=== PATIENT | male | born 1970 | race Caucasian/White ===

== ENCOUNTER → 2020-09-24 09:57 | Outpatient (BNVA) | payer OTHER, SELFPAY | PROVIDERS: Visit Provider Orthopaedic Surgery ==

== ENCOUNTER 2020-11-11 13:19 | Outpatient (REF) | payer OTHER, SELFPAY ==
--- NOTE | ~2020-11-11 | FL_ITS ---
EXAMINATION: XR ARTHROGRAM HIP, LEFT CLINICAL INFORMATION: Left hip primary osteoarthritis. COMPARISON: None TECHNIQUE: Following explaining fluoroscopy-guided left hip steroid injection procedure, benefits and risk, a written consent was obtained. Patient was placed supine on fluoroscopy table and anterior aspect of left hip was cleaned and draped in usual sterile manner. 1% lidocaine was injected at puncture site. A 22-gauge spinal needle was then inserted from the skin site into the left hip joint along the lateral femoral head and neck junction and 2 mL of nonionic contrast was injected. A single image was obtained. Subsequently 4 mL of 1% lidocaine, 4 mL of 0.25% Sensorcaine and 80 mg of Depo-Medrol was injected and needle withdrawn. Complete hemostasis achieved at puncture site. Simple Band-Aid applied at puncture site. Patient tolerated procedure extremely well. FINDINGS: There are no fractures or dislocations. There is loss of left hip joint space with slight irregularity along the lateral acetabulum. No joint effusion is identified. No bone, joint or soft tissue abnormality is demonstrated. Successful fluoroscopy-guided left hip steroid injection performed. FLUOROSCOPY TIME: 1.1 minute DOSE AREA PRODUCT: 8.228 uGy-m2 (microgray-meter squared) FL/FL arthrogram hip LT IMPRESSION: Successful fluoroscopy-guided left hip steroid injection performed.
== END 2020-11-11 13:20 | disposition home or self-care (01) ==
LOC: HO.XRAY 13:19
PROVIDERS: PCP Internal Medicine; Visit Provider Orthopaedic Surgery
DX: M16.12 Unilateral primary osteoarthritis, left hip (principal); M87.052 Idiopathic aseptic necrosis of left femur
CPT/HCPCS: 27093; 73525

== ENCOUNTER 2020-11-18 13:07 | Outpatient (REF) | payer OTHER, SELFPAY ==
--- NOTE | ~2020-11-18 | FL_ITS ---
EXAMINATION: XR ARTHROGRAM HIP, RIGHT CLINICAL INFORMATION: Right hip pain. Osteoarthritis. COMPARISON: 05/16/2019 TECHNIQUE: Fluoroscopic-guided right hip intra-articular injection. FINDINGS: Informed consent was obtained from the patient prior to the procedure. During this process, the procedure and potential alternatives were explained, along with the intended outcome and benefits. The risks of the procedure, as well as the risk of not doing the procedure, were discussed. The patient was given the opportunity to ask questions regarding the procedure and appeared competent to make medical decisions. A signed consent form which documents this discussion was placed in the medical record. Using sterile technique and fluoroscopic guidance, a 22-gauge spinal needle was directed down onto the neck of the right femur. A small amount of contrast was injected demonstrating intra-articular positioning of the needle. Following this, a combination of 3 mL of 1% lidocaine with epinephrine as well as 3 mL of Marcaine and 80 mg of Depo-Medrol were instilled into the right hip joint space without difficulty. FLUOROSCOPY TIME: 0.3 minutes DOSE AREA PRODUCT: 1.412 Gy-cm2 (rubio-centimeter squared) FL/FL arthrogram hip RT IMPRESSION: Right hip fluoroscopic-guided intra-articular steroid injection, as described.
== END 2020-11-18 13:08 | disposition home or self-care (01) ==
LOC: HO.XRAY 13:07
PROVIDERS: PCP Internal Medicine; Visit Provider Orthopaedic Surgery
DX: M16.11 Unilateral primary osteoarthritis, right hip (principal)
CPT/HCPCS: 20610; 27093; 73525; 77002

== ENCOUNTER 2021-03-24 08:32 | Outpatient (REF) | payer OTHER, SELFPAY ==
--- NOTE | ~2021-03-24 | XR_ITS ---
EXAMINATION: XR PELVIS CLINICAL INFORMATION: Pain COMPARISON: Frontal view of the pelvis 05/16/20 TECHNIQUE: AP view of the pelvis. FINDINGS: There is deformity of the right femoral head with collapse and subchondral lucency. There is narrowing of the femoral acetabular joint superolaterally. There may be some tiny subchondral lucencies in the lateral aspect of the acetabulum. There is some osteopenia. There is deformity of the articular surface of the left femoral head with subcollapse. There is relative preservation of the acetabulum with narrowing of the femoral acetabular joint. Developmentally bifid L5 spinous process. In comparison with 07/11/19 there has been interval worsening. In comparison with 05/16/20 I suspect interval worsening with some interval joint space loss. Surgical clips suggest previous vasectomy. XR/XR pelvis 1-2V IMPRESSION: Deformity of the articular surface of the femoral heads right greater than left with subchondral lucency and collapse. Pattern is felt most consistent with osteonecrosis. Suspect some developing secondary arthritic changes
== END 2021-03-24 08:33 | disposition home or self-care (01) ==
LOC: HO.HOSX 08:32
PROVIDERS: Visit Provider Orthopaedic Surgery
DX: M87.052 Idiopathic aseptic necrosis of left femur (principal); M87.051 Idiopathic aseptic necrosis of right femur; M16.0 Bilateral primary osteoarthritis of hip; M25.552 Pain in left hip; M25.551 Pain in right hip; E11.9 Type 2 diabetes mellitus without complications; I10 Essential (primary) hypertension; F41.8 Other specified anxiety disorders; Z88.1 Allergy status to other antibiotic agents; Z88.8 Allergy status to other drugs, medicaments and biological substances
CPT/HCPCS: 72170

== ENCOUNTER → 2021-05-08 11:05 | Outpatient (BNVA) | payer OTHER, SELFPAY | PROVIDERS: Visit Provider Physician Assistant ==

== ENCOUNTER 2021-05-14 06:38 | Inpatient (IN) | payer OTHER, SELFPAY ==
--- NOTE | 2021-04-30 | ECG_ITS ---
Test Reason : preop Blood Pressure : / mmHG Vent. Rate : 077 BPM Atrial Rate : 077 BPM P-R Int : 162 ms QRS Dur : 094 ms QT Int : 380 ms P-R-T Axes : 038 025 006 degrees QTc Int : 430 ms Sinus rhythm with marked sinus arrhythmia Otherwise normal ECG No previous ECGs available Referred By: Radha Guevara Electronically Signed By:Nnamdi Salguero
[2021-04-30 11:48] VITALS: BP 128/76; PULSE 79; RESP 16; O2SAT 97; BMI 41.1
--- NOTE | 2021-04-30 12:13 | HO.ANESPROP2 ---
Documented by User: Ernestina Arnold NP 05/01/21 16:02 HPI - Anesthesia Eval Consult details Narrative: 51yo M for Right Hip Total Replacement PCP cleared [facility] Active Problems Active Problems: All Active Problems (Updated 04/30/21 @ 12:07 by Lea Gutierrez RN) Avascular necrosis of bone of left hip (Acute) Avascular necrosis of bone of right hip (Acute) Past Medical History Medical History (Updated 05/01/21 @ 15:51 by Lea Gutierrez RN) Anxiety COPD (chronic obstructive pulmonary disease) Depression History of De La Rosa's esophagus History of pneumonia Hypertension OSMIN on CPAP Prediabetes Uses wheelchair Family History Family history of problems with anesthesia: No Surgical History Surgical History (Updated 04/30/21 @ 12:05 by Lea Gutierrez RN) History of esophagogastroduodenoscopy (EGD) History of lung biopsy Hx of colonoscopy Hx of elbow surgery History of Problems with Anesthesia: No Social History Social History (Updated 09/24/20 @ 10:20 by Candace Cedeno CMA) Are you a primary youth career specialist to a significant other at home: No Do you presently have visiting nurse or other home services: No Patient Tobacco Use Status: Former Tobacco user Quit Date: 1999 Tobacco use type: Cigarette Use of substances other than those prescribed or required for medical reasons: No Have you been hit, kicked, punched, or otherwise hurt by someone within the past year? If so, by whom?: No Spiritual Healthcare Practices: none Presybeterian Healthcare Practices: none Cultural Healthcare Practices: none Are you DNR?: No Advance Directives: No Advance Directives Information Provided: Yes Advance Directives on File: No Recently lost weight without trying: No Nutrition Risks: No Nutritional Risk Poor oral hygiene: No Current occupational status: disabled Narrative Narrative: No recent illness. Very limited activity, mostly WC bound d/t hip pain. No CP or SOB at rest Meds Allergies Allergy/AdvReac Type Severity Reaction Status Date / Time doxycycline Allergy rash Verified 04/30/21 11:48 paroxetine [From Paxil] AdvReac Severe Suicidal Verified 04/30/21 11:48 thoughts Home Medications Medication Instructions Recorded Confirmed Last Taken Type hydroxyzine HCl 25 mg tablet 25 mg PO BID PRN 09/24/20 04/30/21 Unknown History metformin 500 mg tablet 1,000 mg PO BID tab 09/24/20 04/30/21 Unknown History pantoprazole 40 mg tablet,delayed 40 mg PO DAILY 09/24/20 04/30/21 Unknown History release trazodone 100 mg tablet 100 mg PO BEDTIME PRN 03/24/21 04/30/21 Unknown History venlafaxine 75 mg capsule,extended 1 cap PO DAILY 04/30/21 04/30/21 Unknown History release 24 hr albuterol sulfate mg INHALATION 05/01/21 05/01/21 Unknown History albuterol sulfate 90 mcg/actuation INHALATION 05/01/21 05/01/21 Unknown History aerosol inhaler Exam Exam Date and Time: April 30, 2021 1213 Height,Weight and Vital Signs: Height 5 ft 9 in Weight 126.3 kg Last Vital Signs Pulse 79 04/30/21 11:48 Resp 16 04/30/21 11:48 BP 128/76 04/30/21 11:48 Pulse Ox 97 04/30/21 11:48 Pertinent Lab Results Pertinent Lab Results: Lab Results 04/30/21 04/30/21 04/30/21 Range/Units 12:30 13:00 13:04 WBC 7.8 (4.8-10.8) X10*3/uL RBC 5.03 (4.60-5.80) X10*6/uL Hgb 15.8 (14.0-18.0) g/dl Hct 46.0 (42.0-52.0) % MCV 91.5 (80.0-98.0) fL MCH 31.4 (27.0-33.0) pg MCHC 34.3 (31.0-36.0) g/dl RDW 12.6 (11.0-16.0) % Plt Count 261 (160-400) X10*3/uL MPV 10.8 (9.4-12.4) fL Immature Gran % (Auto) 0.3 (0.0-0.4) % Neut % (Auto) 51.1 (45-73) % Lymph % (Auto) 30.1 (20-40) % Anderson % (Auto) 7.4 (2-11) % Eos % (Auto) 10.1 H (0-4) % Baso % (Auto) 1.0 (0-2) % Lymph # (Auto) 2.4 (1.2-4.9) X10*3/uL Anderson # (Auto) 0.6 (0.1-1.2) X10*3/uL Eos # (Auto) 0.8 H (0.0-0.4) X10*3/uL Baso # (Auto) 0.1 (0.0-0.2) X10*3/uL Abs Immat Gran (auto) 0.02 (0.00-0.03) X10*3/uL Absolute Neuts (auto) 4.0 (2.0-8.3) x10*3/uL Absolute Nucleated RBC 0.000 (0.0-0.012) X10*3/uL Nucleated RBC % (auto) 0.0 (0.0-0.2) /100WBC Sodium (135-145) mmol/L Potassium (3.3-5.1) mmol/L Chloride (96-108) mmol/L Carbon Dioxide (22-29) mmol/L Anion Gap (12-20) BUN (9-16) mg/dL Creatinine (0.5-1.4) mg/dL Estim Creat Clear Calc Estimated GFR Estimat Average Glucose mg/dL Hemoglobin A1c % % Nasal Screen MRSA (PCR) NEGATIVE (Negative) Nasal S. aureus Screen NEGATIVE (Negative) Nasal MRSA/S.aureus Interp SEE NOTE Blood Type A Positive Antibody Screen NEGATIVE 04/30/21 04/30/21 Range/Units 13:04 13:04 WBC (4.8-10.8) X10*3/uL RBC (4.60-5.80) X10*6/uL Hgb (14.0-18.0) g/dl Hct (42.0-52.0) % MCV (80.0-98.0) fL MCH (27.0-33.0) pg MCHC (31.0-36.0) g/dl RDW (11.0-16.0) % Plt Count (160-400) X10*3/uL MPV (9.4-12.4) fL Immature Gran % (Auto) (0.0-0.4) % Neut % (Auto) (45-73) % Lymph % (Auto) (20-40) % Anderson % (Auto) (2-11) % Eos % (Auto) (0-4) % Baso % (Auto) (0-2) % Lymph # (Auto) (1.2-4.9) X10*3/uL Anderson # (Auto) (0.1-1.2) X10*3/uL Eos # (Auto) (0.0-0.4) X10*3/uL Baso # (Auto) (0.0-0.2) X10*3/uL Abs Immat Gran (auto) (0.00-0.03) X10*3/uL Absolute Neuts (auto) (2.0-8.3) x10*3/uL Absolute Nucleated RBC (0.0-0.012) X10*3/uL Nucleated RBC % (auto) (0.0-0.2) /100WBC Sodium 141 (135-145) mmol/L Potassium 4.5 (3.3-5.1) mmol/L Chloride 104 (96-108) mmol/L Carbon Dioxide 25 (22-29) mmol/L Anion Gap 17 (12-20) BUN 18 H (9-16) mg/dL Creatinine 1.12 (0.5-1.4) mg/dL Estim Creat Clear Calc 100.2 Estimated GFR > 60 Estimat Average Glucose 100 mg/dL Hemoglobin A1c % 5.1 % Nasal Screen MRSA (PCR) (Negative) Nasal S. aureus Screen (Negative) Nasal MRSA/S.aureus Interp Blood Type Antibody Screen Narrative Narrative: EKG 04/2021 Vent. Rate : 077 BPM ? ? Atrial Rate : 077 BPM ?? P-R Int : 162 ms? QRS Dur : 094 ms ? ? QT Int : 380 ms ? ? ? P-R-T Axes : 038 025 006 degrees ?? QTc Int : 430 ms ? Sinus rhythm with marked sinus arrhythmia Otherwise normal ECG No previous ECGs available Airway Mallampati Class: I TM Dist: >3cm Neck ROM: Full Adult Head Mouth w/Numbe Teeth: 1. Permanent bridge - stable Loose/Missing/Broken Teeth: No Heart: RRR Lungs: CTAB Assessment and Plan Assessment Anesthesia Assessment: Anesthesia Plan Discussed and PAT Visit Final Anesthetic Review Family History of Problems with Anesthesia: No History of Problems with Anesthesia: No Documented by User: Hector Salcido MD 05/14/21 07:22 PMF Past Medical History Medical History (Updated 05/01/21 @ 15:51 by Lea Gutierrez RN) Anxiety COPD (chronic obstructive pulmonary disease) Depression History of De La Rosa's esophagus History of pneumonia Hypertension OSMIN on CPAP Prediabetes Uses wheelchair Surgical History Surgical History (Updated 04/30/21 @ 12:05 by Lea Gutierrez RN) History of esophagogastroduodenoscopy (EGD) History of lung biopsy Hx of colonoscopy Hx of elbow surgery Social History Social History (Updated 09/24/20 @ 10:20 by Candace Cedeno CMA) Are you a primary youth career specialist to a significant other at home: No Do you presently have visiting nurse or other home services: No Patient Tobacco Use Status: Former Tobacco user Quit Date: 1999 Tobacco use type: Cigarette Use of substances other than those prescribed or required for medical reasons: No Have you been hit, kicked, punched, or otherwise hurt by someone within the past year? If so, by whom?: No Spiritual Healthcare Practices: none [employer] Healthcare Practices: none Cultural Healthcare Practices: none Are you DNR?: No Advance Directives: No Advance Directives Information Provided: Yes Advance Directives on File: No Recently lost weight without trying: No Nutrition Risks: No Nutritional Risk Poor oral hygiene: No Current occupational status: disabled Meds Allergies Allergy/AdvReac Type Severity Reaction Status Date / Time doxycycline Allergy rash Verified 04/30/21 11:48 paroxetine [From Paxil] AdvReac Severe Suicidal Verified 04/30/21 11:48 thoughts Home Medications Medication Instructions Recorded Confirmed Last Taken Type hydroxyzine HCl 25 mg tablet 25 mg PO BID PRN 09/24/20 04/30/21 Unknown History metformin 500 mg tablet 1,000 mg PO BID tab 09/24/20 04/30/21 Unknown History pantoprazole 40 mg tablet,delayed 40 mg PO DAILY 09/24/20 04/30/21 Unknown History release trazodone 100 mg tablet 100 mg PO BEDTIME PRN 03/24/21 04/30/21 Unknown History venlafaxine 75 mg capsule,extended 1 cap PO DAILY 04/30/21 04/30/21 Unknown History release 24 hr albuterol sulfate mg INHALATION 05/01/21 05/01/21 Unknown History albuterol sulfate 90 mcg/actuation INHALATION 05/01/21 05/01/21 Unknown History aerosol inhaler Exam Airway Mallampati Class: II Adult Head Mouth w/Numbe Teeth: 1. Permanent bridge - stable Assessment and Plan Final Anesthetic Review NPO: Yes ASA Class: III Final Preanesthetic Review: No Changes in Pt Med Stat, Meds/Allgs Chart Reviewed, Consent Obtained/Reviewed and Anes Risks/Benef Reviewed Patient Risk: High Procedure Risk: Intermediate Anesthetic Plan Anesthetic Plan: GA Disposition: Inp. Admit - Standard Bed
[2021-04-30 13:06] LABS: MANUAL DIFF FLAG NO
[2021-04-30 14:20] LABS: Basophils Absolute Auto 0.1 X10*3/uL (0.0-0.2); Eosinophils Absolute Auto 0.8 X10*3/uL (0.0-0.4); Eosinophils Percent Auto 10.1 % (0-4); Hemoglobin 15.8 g/dl (14.0-18.0); Imm Gran Abs Auto 0.02 X10*3/uL (0.00-0.03); Imm Gran Pct Auto 0.3 % (0.0-0.4); Lymphocytes Absolute Auto 2.4 X10*3/uL (1.2-4.9); Lymphocytes Percent Auto 30.1 % (20-40); Mean Corpuscular HGB Conc 34.3 g/dl (31.0-36.0); Mean Corpuscular Hemoglobin 31.4 pg (27.0-33.0); Mean Corpuscular Volume 91.5 fL (80.0-98.0); Mean Platelet Volume 10.8 fL (9.4-12.4); Monocytes Absolute Auto 0.6 X10*3/uL (0.1-1.2); Monocytes Percent Auto 7.4 % (2-11); Neutrophils Percent Auto 51.1 % (45-73); Platelet Count 261 X10*3/uL (160-400); Red Blood Count 5.03 X10*6/uL (4.60-5.80); Red Cell Distribution Width 12.6 % (11.0-16.0); White Blood Count 7.8 X10*3/uL (4.8-10.8)
[2021-04-30 14:29] LABS: Estimated Average Glucose 100 mg/dL; Hemoglobin A1C 150.7789 umol/L; Hemoglobin A1c % 5.1 %
[2021-04-30 14:44] LABS: Anion Gap 17 (12-20); Blood Urea Nitrogen 18 mg/dL (9-16); Carbon Dioxide 25 mmol/L (22-29); Chloride 104 mmol/L (96-108); Creatinine Clr Calc Pharmacy 100.2; Estimated Glomerular Filt Rate > 60; Potassium 4.5 mmol/L (3.3-5.1); Sodium 141 mmol/L (135-145)
[2021-04-30 15:16] LABS: MRSA Nasal PCR NEGATIVE (Negative); SA Nasal PCR NEGATIVE (Negative)
[2021-05-14] VITALS (25 sets, daily range): BP systolic 89–152; BP diastolic 24–93; PULSE 65–107; RESP 12–24; TEMP 36.1–36.6; O2SAT 92–100
--- NOTE | ~2021-05-14 | XR_ITS ---
EXAMINATION: XR PELVIS AND RIGHT HIP CLINICAL INFORMATION: Status post right total hip. COMPARISON: Radiographs earlier this morning at 11:33 AM. TECHNIQUE: AP view of the pelvis with one additional view right hip. FINDINGS: Right total hip prosthesis is present. The prosthesis appears in good position without evidence of loosening. No acute fractures are seen. Surgical clips are present in the scrotum presumably secondary to vasectomy. XR/XR pelvis 1-2V IMPRESSION: Normal postop appearance right prosthetic hip.
--- NOTE | ~2021-05-14 | XR_ITS ---
EXAMINATION: XR PELVIS CLINICAL INFORMATION: Postop hip replacement COMPARISON: None TECHNIQUE: AP view of the pelvis. FINDINGS: Exam is limited due to patient positioning. There is a new right hip replacement. No fracture or dislocation is seen. There are postoperative changes to the soft tissues. XR/XR pelvis 1-2V IMPRESSION: Satisfactory appearance of right hip replacement.
[2021-05-14 07:05] LABS: COVID-19 Test Negative (Negative); IDNOW Serial# 9DD0AD1C
[2021-05-14] MEDS: oxyCODONE HCl ER 10 MG TAB.ER.12H PO ×2 (07:21→20:09)
--- NOTE | 2021-05-14 07:32 | MHC.SHP ---
Pre-Procedural Eval Section A Date of Service: 05/14/21 The patient is an INPATIENT: No Changes since office visit: Yes Patient answered all questions; No Cold of Flu in the past 2 weeks, No New Medical Problems and No Changes in Medication The History & Physical has been completed within 30 days and I have reviewed it.: Yes Section B Chief Complaint: s/p RTHA Allergies: Allergies Allergy/AdvReac Type Severity Reaction Status Date / Time doxycycline Allergy rash Verified 04/30/21 11:48 paroxetine [From Paxil] AdvReac Severe Suicidal Verified 04/30/21 11:48 thoughts Plan I have reviewed the history and physical and performed a pertinent physical examination on my patient. No changes have occurred unless specified.
[2021-05-14] MEDS: Lactated Ringers 1,000 ML 100 ML IVCONT (07:36)
--- NOTE | 2021-05-14 09:59 | P.BOP_ITS ---
Brief Operative Note Date of Service: 05/14/21 Pre-op diagnosis: right hip AVN Post-op diagnosis: same Procedure: right hip arthroplasty Implants: [place] trident2 #56 with 20 deg liner Bhavna accolade 2 132 deg #7 with + 5 36 ceramic Surgeon: Silviano Reid MD Anesthesia: GETA and local Was an Geothermal Operating Engineer used for this Procedure?: Yes Geothermal Operating Engineer: Radha Guevara Estimated blood loss (mL): 350 IV fluids (mL): 1,000 Pathology: other Condition: stable Disposition: PACU
[2021-05-14] MEDS: oxyCODONE HCl Immed Release 5 MG TABLET 10 MG PO (11:23)
[2021-05-14] MEDS: fentaNYL citrate/PF 100 MCG/2 ML VIAL 50 MCG IVPUSH ×3 (11:24→11:49)
[2021-05-14] MEDS: Sodium Chloride 0.45 % 1,000 ML 80 ML IVCONT (12:27)
[2021-05-14] MEDS: ceFAZolin Sodium/Dextrose,Iso 2 GM/50 ML PIGGYBACK IV (14:19)
[2021-05-14] MEDS: Acetaminophen 325 MG TABLET 650 MG PO ×2 (14:32→21:39)
[2021-05-14] MEDS: HYDROmorphone HCl 0.5 MG/0.5 ML SYRINGE 0.25 MG IVPUSH (15:00)
--- NOTE | 2021-05-14 15:24 | P.CONHOSP_ITS ---
History of Present Illness Data of Consult Service Date: 05/14/21 Requesting physician: Silviano Reid Primary Care Provider: Unknown Physician HPI 51 year old man with hx of avascular necrosis, diabetes and anxiety. He was admitted for scheduled ERROL. He was medicated for pain several times in the pacu. He denied nausea or vomiting. He is comfortable at this time. Review of Systems Verdana 4l Review of Systems: Verdana 4d Verdana 4d Denies any recent fever chills or decrease in appetite respiratory denies any shortness of breath coverage production cardiovascular denied chest pain gastrointestinal denies any dysphagia abdominal pain nausea vomiting or diarrhea genitourinarygenitourinary denies any dysuria frequency or hematuria musculoskeletal s/p ERROL neuropsych denies any weakness or seizures all other systems reviewed are negative [facility] Medical History (Updated 05/14/21 @ 15:51 by Mavis Ferreira NP) Anxiety COPD (chronic obstructive pulmonary disease) Depression History of De La Rosa's esophagus History of pneumonia Hypertension OSMIN on CPAP Prediabetes Uses wheelchair Surgical History History of esophagogastroduodenoscopy (EGD) History of lung biopsy Hx of colonoscopy Hx of elbow surgery Social History (Updated 09/24/20 @ 10:20 by Candace Cedeno CMA) Are you a primary care manager to a significant other at home: No Do you presently have visiting nurse or other home services: No Patient Tobacco Use Status: Former Tobacco user Quit Date: 1999 Tobacco use type: Cigarette Use of substances other than those prescribed or required for medical reasons: No Have you been hit, kicked, punched, or otherwise hurt by someone within the past year? If so, by whom?: No Spiritual Healthcare Practices: none Rastafari Healthcare Practices: none Cultural Healthcare Practices: none Are you DNR?: No Advance Directives: No Advance Directives Information Provided: Yes Advance Directives on File: No Recently lost weight without trying: No Nutrition Risks: No Nutritional Risk Poor oral hygiene: No Current occupational status: disabled Meds Allergies Allergy/AdvReac Type Severity Reaction Status Date / Time doxycycline Allergy rash Verified 05/14/21 07:38 paroxetine [From Paxil] AdvReac Severe Suicidal Verified 05/14/21 07:38 thoughts Active Medications: Current Medications Acetaminophen (Acetaminophen 325 Mg Tablet) 650 mg PO Q6H PRN PRN Reason: Pain, Mild (Pain Scale 1-3) Last Admin: 05/14/21 14:32 Dose: 650 mg Documented by: Celecoxib (Celecoxib 200 Mg Capsule) 200 mg PO BID [facility] Dextrose (Dextrose 50 % 25 Gm/50 Ml Syringe) 25 gm IVPUSH Q15M PRN; Protocol PRN Reason: per Hypoglycemia Standing Ord. Docusate Sodium (Docusate Sodium 100 Mg Capsule) 100 mg PO BID [facility] Glucose (Glucose Gel 15 Gm Gel..Gram.) 15 gm PO Q15M PRN; Protocol PRN Reason: per Hypoglycemia Standing Ord. Hydromorphone HCl (Hydromorphone Hcl 0.5 Mg/0.5 Ml Syringe) 0.25 mg IVPUSH Q4H PRN; Protocol PRN Reason: Pain, Severe (Pain Scale 7-10) Last Admin: 05/14/21 15:00 Dose: 0.25 mg Documented by: Sodium Chloride () 1,000 mls @ 80 mls/hr IVCONT .[id number] [facility] Last Admin: 05/14/21 12:27 Dose: 80 mls/hr Documented by: Insulin Human Lispro (Insulin Lispro 100 Unit/Ml 3 Ml Vial) 0 unit SUBCUT QIDACHS [facility]; Protocol Ondansetron HCl (Ondansetron Hcl 4 Mg/2 Ml Vial) 4 mg IVPUSH Q8H PRN PRN Reason: Nausea and Vomiting Oxycodone HCl (Oxycodone Hcl Immed Release 5 Mg Tablet) 5 mg PO Q4H PRN PRN Reason: Pain, Moderate (Pain Scale 4-6 Oxycodone HCl (Oxycodone Hcl Er 10 Mg Tab.Er.12h) 10 mg PO BID [facility] Sodium Chloride (0.9 % Sodium Chloride Flush 3 Ml Syringe) 3 ml IVFLUSH QSHIFT [facility] Home Medications Medication Instructions Recorded Confirmed Last Taken Type hydroxyzine HCl 25 mg PO BID 09/24/20 04/30/21 Unknown History 25 mg tablet PRN metformin 500 1,000 mg PO BID 09/24/20 04/30/21 Unknown History mg tablet tab pantoprazole 40 40 mg PO DAILY 09/24/20 04/30/21 05/14/21 04:45 History mg tablet,delayed release trazodone 100 100 mg PO 03/24/21 04/30/21 Unknown History mg tablet BEDTIME PRN venlafaxine 75 1 cap PO DAILY 04/30/21 04/30/21 05/14/21 04:45 History mg capsule,extende d release 24 hr albuterol mg INHALATION 05/01/21 05/01/21 Unknown History sulfate albuterol INHALATION 05/01/21 05/01/21 Unknown History sulfate 90 mcg/actuation aerosol inhaler Physical Exam Verdana 4l Vital Signs and Narrative: Verdana 4d Verdana 4d Vital Signs: Verdana 4d Verdana 4Bd Last Vital Signs Verdana 4d Bell Person New 4d Bell Person New 4d Temp 97.1 F 05/14/21 15:00 Bell Person New 4d Pulse 92 05/14/21 15:10 Bell Person New 4d Resp 16 05/14/21 15:10 BP 112/42 L 05/14/21 15:10 Pulse Ox 100 05/14/21 15:10 BMI result Body Mass Index 41.1 Appearing in no acute distress head is normocephalic atraumatic eyes pupils are PERRLA sclera is anicteric mouth throat mucous membranes are intact and moist neck is supple no lymphadenopathy, no JVD noted lung sounds are clear to auscultation heart regular rate rhythm, clear S1, S2 positive bowel sounds, abdomen is soft, nontender neuro patient is alert x3, no focal deficits Results Labs CBC and Chem 7: 04/30/21 13:04 04/30/21 13:04 Labs: Laboratory Results - last 24 hr 05/14/21 06:40 COVID-19 ([facility]) Negative COVID-19 Clin Com See Note Imaging Radiologist's Impressions: Impressions Pelvis X-Ray 05/14/21 11:46 IMPRESSION: Satisfactory appearance of right hip replacement. Assessment and Plan (1) Avascular necrosis of bone of left hip: Status: Acute (2) Diabetes mellitus: Status: Acute Plan 51 year old man admitted by orthopedic surgery and is s/p ERROL ERROL management as per surgical team pain management Diabetes Sliding scale ada diet hold metformin Mental health continue home medications COPD no exacerbation albuterol as needed DVT prophylaxis as per surgical team Attending Dr. Phillips Full code
[2021-05-14 16:09] LABS: Glucose, Whole Blood 148 mg/dL (60-115)
--- NOTE | 2021-05-14 16:12 | MHC.CM.PN ---
SNF REFERRALS PLACED IN [facility] CASE MANAGEMENT TO COMPLETE ASSESSMENT ON WEDNESDAY. WILL NEED COVID INFORMATION AND COMPLETION OF HCP DOCUMENT. CASE MANAGEMENT FOLLOWING
[2021-05-14] MEDS: oxyCODONE HCl Immed Release 5 MG TABLET PO ×2 (16:29→21:40)
[2021-05-14] MEDS: HYDROmorphone HCl 1 MG/ML SYRINGE 0.25 MG IVPUSH (20:08)
[2021-05-14] MEDS: Celecoxib 200 MG CAPSULE PO (20:09)
[2021-05-14] MEDS: Docusate Sodium 100 MG CAPSULE PO (20:09)
[2021-05-14] MEDS: 0.9 % Sodium Chloride Flush 3 ML SYRINGE IVFLUSH (20:10)
[2021-05-14] MEDS: traZODone HCL 100 MG TABLET PO (20:10)
[2021-05-14 20:45] LABS: Glucose, Whole Blood 143 mg/dL (60-115)
[2021-05-15] MEDS: Sodium Chloride 0.45 % 1,000 ML 80 ML IVCONT (00:05)
[2021-05-15] MEDS: HYDROmorphone HCl 1 MG/ML SYRINGE 0.25 MG IVPUSH ×7 (00:05→20:47)
[2021-05-15] MEDS: oxyCODONE HCl Immed Release 5 MG TABLET 10 MG PO ×6 (01:42→23:42)
[2021-05-15 03:17] VITALS: BP 119/77; PULSE 75; RESP 18; TEMP 36.6; O2SAT 98
[2021-05-15] MEDS: Acetaminophen 325 MG TABLET 650 MG PO ×2 (05:49→19:32)
[2021-05-15] MEDS: Omeprazole 20 MG CAPSULE.DR PO (05:50)
[2021-05-15 06:08] LABS: MANUAL DIFF FLAG NO
[2021-05-15 06:15] LABS: Basophils Percent Auto 0.2 % (0-2); Eosinophils Absolute Auto 0.1 X10*3/uL (0.0-0.4); Eosinophils Percent Auto 0.7 % (0-4); Hemoglobin 11.7 g/dl (14.0-18.0); Imm Gran Abs Auto 0.05 X10*3/uL (0.00-0.03); Imm Gran Pct Auto 0.5 % (0.0-0.4); Lymphocytes Absolute Auto 1.9 X10*3/uL (1.2-4.9); Lymphocytes Percent Auto 17.6 % (20-40); Mean Corpuscular HGB Conc 33.4 g/dl (31.0-36.0); Mean Corpuscular Hemoglobin 31.1 pg (27.0-33.0); Mean Corpuscular Volume 93.1 fL (80.0-98.0); Mean Platelet Volume 10.7 fL (9.4-12.4); Monocytes Absolute Auto 1.2 X10*3/uL (0.1-1.2); Monocytes Percent Auto 11.5 % (2-11); Neutrophils Absolute Auto 7.4 x10*3/uL (2.0-8.3); Neutrophils Percent Auto 69.5 % (45-73); Platelet Count 199 X10*3/uL (160-400); Red Blood Count 3.76 X10*6/uL (4.60-5.80); Red Cell Distribution Width 12.9 % (11.0-16.0); White Blood Count 10.6 X10*3/uL (4.8-10.8)
[2021-05-15 06:30] LABS: Anion Gap 12 (12-20); Blood Urea Nitrogen 13 mg/dL (9-16); Calcium 9.1 mg/dL (8.4-10.2); Carbon Dioxide 27 mmol/L (22-29); Chloride 102 mmol/L (96-108); Creatinine Clr Calc Pharmacy 101.1; Estimated Glomerular Filt Rate > 60; Glucose Fasting 126 mg/dL (60-99); Potassium 4.3 mmol/L (3.3-5.1); Sodium 137 mmol/L (135-145)
[2021-05-15] MEDS: oxyCODONE HCl ER 10 MG TAB.ER.12H PO ×2 (07:21→19:32)
[2021-05-15] MEDS: Docusate Sodium 100 MG CAPSULE PO ×2 (07:21→19:31)
--- NOTE | 2021-05-15 07:21 | PHA.MEDREC ---
Pharmacy Consult ? Medication Reconciliation Pharmacy has reviewed the medication reconciliation.
[2021-05-15] MEDS: Celecoxib 200 MG CAPSULE PO ×2 (07:22→19:31)
[2021-05-15] MEDS: Venlafaxine HCl ER 75 MG CAP.ER.24H PO (07:22)
[2021-05-15 07:36] LABS: Glucose, Whole Blood 121 mg/dL (60-115)
[2021-05-15 08:00] VITALS: BP 103/55; PULSE 76; RESP 18; TEMP 36.4; O2SAT 96
--- NOTE | 2021-05-15 08:38 | HO.POSTANES ---
Post Anesthesia Evaluation Post Anesthesia Evaluation Vital Signs: Vital Signs Temp Pulse Resp BP Pulse Ox 05/15/21 08:00 97.5 F 76 18 103/55 L 96 05/15/21 03:17 97.8 F 75 18 119/77 98 05/14/21 23:37 97.3 F 98 18 152/82 H 96 Anesthesia: General Endotracheal-GETA Mental Status: Awake Pain Control: Satisfactory Nausea/Vomiting: None Hydration: Adequate Anesthesia-Related Issues: No Anes. Related Issues
--- NOTE | 2021-05-15 08:49 | P.PNOP_ITS ---
Subjective Subjective Date of Service: 05/15/21 Interval history: POD1 s/p RTHA with Dr. Reid. No overnight events. Pain is well managed. No additional complaints. Physical Exam Verdana 4l Vital Signs: Verdana 4d Verdana 4d Vital Signs: Verdana 4d Verdana 4Bd Last Vital Signs Verdana 4d Office Director New 4d Office Director New 4d Temp 97.5 F 05/15/21 08:00 Office Director New 4d Pulse 76 05/15/21 08:00 Office Director New 4d Resp 18 05/15/21 08:00 BP 103/55 L 05/15/21 08:00 Pulse Ox 96 05/15/21 08:00 BMI result Body Mass Index 41.1 Const: General: cooperative, healthy appearing and no acute distress Resp: Effort & Inspection: normal respiratory effort and able to speak in complete sen tences Cardio: Rate: regular rate Peripheral pulses: Peripheral pulses 2+ throughout GI: Palpation (GI): Soft to palpation Skin: Lesions: no lesions Rashes: no rashes Extrem: Other: Rt hip Aquacel is clean. dry, and intact. Patient is able to dorsiflex and plantarflex. NVI. Procedures Date of Service Date of Service: 05/15/21 Progress Note: A&P Assessment and plan (1) Avascular necrosis of bone of right hip: Status: Acute Assessment and Plan: Continue pain mgmnt Begin ASA for dvt ppx begin PT for RTHA Dispo planning-Pending PT eval, pain mgmnt - Pt. has a bed being held at [facility] to obtain transportation. Plan for d/c tomorrow. (2) Status post total hip replacement, right: Status: Acute Fall Risk Details Current Medications: Current Medications Acetaminophen (Acetaminophen 325 Mg Tablet) 650 mg PO Q6H PRN PRN Reason: Pain, Mild (Pain Scale 1-3) Last Admin: 05/15/21 05:49 Dose: 650 mg Documented by: Aspirin (Aspirin 325 Mg Tablet) 325 mg PO BID HENRIK Celecoxib (Celecoxib 200 Mg Capsule) 200 mg PO BID HENRIK Last Admin: 05/15/21 07:22 Dose: 200 mg Documented by: Dextrose (Dextrose 50 % 25 Gm/50 Ml Syringe) 25 gm IVPUSH Q15M PRN; Protocol PRN Reason: per Hypoglycemia Standing Ord. Docusate Sodium (Docusate Sodium 100 Mg Capsule) 100 mg PO BID [facility] Last Admin: 05/15/21 07:21 Dose: 100 mg Documented by: Glucose (Glucose Gel 15 Gm Gel..Gram.) 15 gm PO Q15M PRN; Protocol PRN Reason: per Hypoglycemia Standing Ord. Hydromorphone HCl (Hydromorphone Hcl 1 Mg/Ml Syringe) 0.25 mg IVPUSH Q3H PRN; Protocol PRN Reason: Pain, Severe (Pain Scale 7-10) Last Admin: 05/15/21 07:21 Dose: 0.25 mg Documented by: Hydroxyzine HCl (Hydroxyzine Hcl 25 Mg Tablet) 25 mg PO BID PRN PRN Reason: Anxiety Sodium Chloride () 1,000 mls @ 80 mls/hr IVCONT .[id number] [facility] Last Admin: 05/15/21 00:05 Dose: 80 mls/hr Documented by: Insulin Human Lispro (Insulin Lispro 100 Unit/Ml 3 Ml Vial) 0 unit SUBCUT QIDACHS [facility]; Protocol Last Admin: 05/15/21 07:29 Dose: Not Given Documented by: Omeprazole (Omeprazole 20 Mg Capsule.Dr) 20 mg PO DAILY@0630 [facility] Last Admin: 05/15/21 05:50 Dose: 20 mg Documented by: Ondansetron HCl (Ondansetron Hcl 4 Mg/2 Ml Vial) 4 mg IVPUSH Q8H PRN PRN Reason: Nausea and Vomiting Oxycodone HCl (Oxycodone Hcl Er 10 Mg Tab.Er.12h) 10 mg PO BID [facility] Last Admin: 05/15/21 07:21 Dose: 10 mg Documented by: Oxycodone HCl (Oxycodone Hcl Immed Release 5 Mg Tablet) 10 mg PO Q4H PRN PRN Reason: Pain, Moderate (Pain Scale 4-6 Last Admin: 05/15/21 05:50 Dose: 10 mg Documented by: Sodium Chloride (0.9 % Sodium Chloride Flush 3 Ml Syringe) 3 ml IVFLUSH QSHIFT [facility] Last Admin: 05/15/21 07:25 Dose: Not Given Documented by: Trazodone HCl (Trazodone Hcl 100 Mg Tablet) 100 mg PO BEDTIME PRN PRN Reason: Insomnia Last Admin: 05/14/21 20:10 Dose: 100 mg Documented by: Venlafaxine HCl (Venlafaxine Hcl Er 75 Mg Cap.Er.24h) 75 mg PO DAILY HENRIK Last Admin: 05/15/21 07:22 Dose: 75 mg Documented by: Time Spent With Patient Time: Total time spent is greater than 50% in coordination of care (as documented) at patient's floor/unit and/or counseling patient: Time with patient: less than 15 minutes Quality Stroke Does the patient have a stroke diagnosis?: No VTE Prior VTE?: No VTE Risk Level:: Medical - moderate - high VTE Device Contraindication: N/A - Device Ordered VTE Drug Contraindication: N/A - Med Ordered
[2021-05-15] MEDS: Aspirin 325 MG TABLET PO ×2 (09:53→19:32)
--- NOTE | 2021-05-15 09:54 | MHC.CM.PN ---
Addendum entered by Denia Rosales 05/15/21 09:57: CORRECTION : NO IMM Original Note: PATIENT LIVES WITH HIS /HCP COPY REQUESTED TO BE EMAILED TO THIS [employer] PATIENT IS COVID-19 VACCINATED AND A BOOSTER MODERNA 06/14, 07/12, AND 04/03/21 INFO ADDED TO EXPANSE AND [employer] REFERRALS. PATIENT WOULD LIKE TO DC TO [facility] IF THEY ARE OFFERING, BUT ALSO AWARE THAT [facility] ARE FOLLOWING. PCP IS DR EASTMAN OF [facility] IN [place], [place]. CASE MANAGMEENT FOLLOWING NO PLAN FOR DC TODAY IMM 05/15/ IN CHART
--- NOTE | 2021-05-15 10:58 | P.PNIM_ITS ---
Subjective Subjective Date of Service: 05/15/21 Interval History: complaining of right hip pain has been requiring more frequent narcotic medication, denies chest pain, no lightheadedness, no dizziness no nausea, vomiting, abdominal pain, no urinary symptoms. Review of Systems Review of Systems: Yes all other systems are reviewed and are negative Physical Exam Verdana 4l Vital Signs: Verdana 4d Verdana 4d Vital Signs: Verdana 4d Verdana 4Bd Last Vital Signs Verdana 4d Dining Room Busser New 4d Dining Room Busser New 4d Temp 97.5 F 05/15/21 08:00 Dining Room Busser New 4d Pulse 76 05/15/21 08:00 Dining Room Busser New 4d Resp 18 05/15/21 08:00 BP 103/55 L 05/15/21 08:00 Pulse Ox 96 05/15/21 08:00 BMI result Body Mass Index 41.1 Const: Other: General in no acute distress. Neck supple no JVD. CVS regular rate rhythm, Respiratory lungs clear to auscultation, no respiratory distress Gastrointestinal abdomen soft, nontender, bowel sounds audible Extremities no edema. right hip dressing in place no drainage noted Neuro nonfocal Skin no rash psych appropriate affect Objective Data Active Medications Acetaminophen (Acetaminophen 325 Mg Tablet) 650 mg PO Q6H PRN PRN Reason: Pain, Mild (Pain Scale 1-3) Last Admin: 05/15/21 05:49 Dose: 650 mg Documented by: MARIELA Aspirin (Aspirin 325 Mg Tablet) 325 mg PO BID [facility]S [facility] BEDS AT THE [facility] Last Admin: 05/15/21 09:53 Dose: 325 mg Documented by: GALDINO Celecoxib (Celecoxib 200 Mg Capsule) 200 mg PO BID COUNTS [facility]CLUDE 234 BEDS AT THE [facility] Last Admin: 05/15/21 07:22 Dose: 200 mg Documented by: GALDINO Dextrose (Dextrose 50 % 25 Gm/50 Ml Syringe) 25 gm IVPUSH Q15M PRN; Protocol PRN Reason: per Hypoglycemia Standing Ord. Docusate Sodium (Docusate Sodium 100 Mg Capsule) 100 mg PO BID [facility]S [facility]CLUDE 234 BEDS AT THE [facility] Last Admin: 05/15/21 07:21 Dose: 100 mg Documented by: GALDINO Glucose (Glucose Gel 15 Gm Gel..Gram.) 15 gm PO Q15M PRN; Protocol PRN Reason: per Hypoglycemia Standing Ord. Hydromorphone HCl (Hydromorphone Hcl 1 Mg/Ml Syringe) 0.25 mg IVPUSH Q3H PRN; Protocol PRN Reason: Pain, Severe (Pain Scale 7-10) Last Admin: 05/15/21 10:55 Dose: 0.25 mg Documented by: GALDINO Hydroxyzine HCl (Hydroxyzine Hcl 25 Mg Tablet) 25 mg PO BID PRN PRN Reason: Anxiety Sodium Chloride () 1,000 mls @ 80 mls/hr IVCONT .[id number] COUNTS [facility]CLUDE 234 BEDS AT THE [facility] Last Admin: 05/15/21 00:05 Dose: 80 mls/hr Documented by: MARIELA Insulin Human Lispro (Insulin Lispro 100 Unit/Ml 3 Ml Vial) 0 unit SUBCUT QIDACHS COUNTS [facility]CLUDE 234 BEDS AT THE [facility]; Protocol Last Admin: 05/15/21 07:29 Dose: Not Given Documented by: GALDINO Non-Admin Reason: No Insulin Coverage Omeprazole (Omeprazole 20 Mg Capsule.Dr) 20 mg PO DAILY@0630 [facility]S [facility]CLUDE 234 BEDS AT THE [facility] Last Admin: 05/15/21 05:50 Dose: 20 mg Documented by: MARIELA Ondansetron HCl (Ondansetron Hcl 4 Mg/2 Ml Vial) 4 mg IVPUSH Q8H PRN PRN Reason: Nausea and Vomiting Oxycodone HCl (Oxycodone Hcl Er 10 Mg Tab.Er.12h) 10 mg PO BID COUNTS [facility]CLUDE 234 BEDS AT THE [facility] Last Admin: 05/15/21 07:21 Dose: 10 mg Documented by: GALDINO Oxycodone HCl (Oxycodone Hcl Immed Release 5 Mg Tablet) 10 mg PO Q4H PRN PRN Reason: Pain, Moderate (Pain Scale 4-6 Last Admin: 05/15/21 09:53 Dose: 10 mg Documented by: GALDINO Sodium Chloride (0.9 % Sodium Chloride Flush 3 Ml Syringe) 3 ml IVFLUSH QSHIFT COUNTS INCLUDE 234 BEDS AT THE [facility] Last Admin: 05/15/21 07:25 Dose: Not Given Documented by: GALDINO Non-Admin Reason: IV Running Trazodone HCl (Trazodone Hcl 100 Mg Tablet) 100 mg PO BEDTIME PRN PRN Reason: Insomnia Last Admin: 05/14/21 20:10 Dose: 100 mg Documented by: MARIELA Venlafaxine HCl (Venlafaxine Hcl Er 75 Mg Cap.Er.24h) 75 mg PO DAILY COUNTS INCLUDE 234 BEDS AT THE [facility] Last Admin: 05/15/21 07:22 Dose: 75 mg Documented by: GALDINO Labs CBC & Chem 7: 05/15/21 05:45 05/15/21 05:45 Labs: Laboratory Results - last 24 hr 05/14/21 05/14/21 05/15/21 16:00 20:04 05:45 MCV 93.1 MCH 31.1 MCHC 33.4 RDW 12.9 Plt Count 199 MPV 10.7 Immature Gran % (Auto) 0.5 H Neut % (Auto) 69.5 Lymph % (Auto) 17.6 L [place] % (Auto) 11.5 H Eos % (Auto) 0.7 Baso % (Auto) 0.2 Lymph # (Auto) 1.9 [place] # (Auto) 1.2 Eos # (Auto) 0.1 Baso # (Auto) 0.0 Abs Immat Gran (auto) 0.05 H Absolute Neuts (auto) 7.4 Absolute Nucleated RBC 0.000 Nucleated RBC % (auto) 0.0 Anion Gap Estim Creat Clear Calc Estimated GFR POC Glucose 148 H 143 H Fasting Glucose Calcium 05/15/21 05/15/21 05:45 07:27 MCV MCH MCHC RDW Plt Count MPV Immature Gran % (Auto) Neut % (Auto) Lymph % (Auto) [place] % (Auto) Eos % (Auto) Baso % (Auto) Lymph # (Auto) [place] # (Auto) Eos # (Auto) Baso # (Auto) Abs Immat Gran (auto) Absolute Neuts (auto) Absolute Nucleated RBC Nucleated RBC % (auto) Anion Gap 12 Estim Creat Clear Calc 101.1 Estimated GFR > 60 POC Glucose 121 H Fasting Glucose 126 H Calcium 9.1 Assessment and Plan (1) Status post total hip replacement, right: Status: Acute (2) Diabetes mellitus: Status: Acute Plan 51 year old man admitted by orthopedic surgery and is s/p ERROL right ERROL pod #1 good pain control this morning, continue current pain medication hemoglobin dropped but stable, follow CBC encourage incentive spirometry Diabetes stable blood sugars,continue diabetic diet/insulin sliding scale ada diet hold metformin Mental health no acute psychiatric decompensation,continue home medications COPD no exacerbation albuterol as needed DVT prophylaxis continue aspirin Quality Stroke Does the patient have a stroke diagnosis?: No VTE Prior VTE?: No VTE Risk Level:: Medical - moderate - high VTE Device Contraindication: N/A - Device Ordered VTE Drug Contraindication: N/A - Med Ordered
--- NOTE | 2021-05-15 11:32 | P.CDIC_ITS ---
CDI Concurrent Query Documentation Clarification: PHYSICIAN'S DOCUMENTATION REQUEST Date of Query: 05/15/21 1132 Patient Name: Aleksandar Adamson Admit Date: 05/14/21 Dear Doctor, A review of the medical record indicates additional documentation may be needed. Please review below and update the documentation accordingly. Clinical Indicators: Height: [] 5'9 Weight: [] 126.3 kg BMI: [] 41.1 Other Clinical Notes Supporting Significance of the BMI: Verdana 4Bd Risk Factors/Clinical Indicators/Treatments Verdana 4d If possible, please provide an associated diagnosis related to the abnormal BMI, such as: For a BMI >= 40: * Overweight * Obesity * Due to excess calories * Drug induced * Due to other cause * Severe or Morbid Obesity * With alveolar hypoventilation * Without alveolar hypoventilation Or: * BMI is not significant * Other (please specify) * Unable to determine Use of terms such as suspected, likely, concern for, or probable (associated with a specific diagnosis that is being evaluated, monitored, or treated as if it exists) are acceptable and can be coded in the inpatient setting, when documented at the time of discharge. Thank you, Renetta Mora RN Extension: [phone] Please use your independent medical judgment in providing your response. THIS QUERY IS PART OF THE PERMANENT MEDICAL RECORD Provider Response: Morbid Obesity
--- NOTE | 2021-05-15 11:32 | MHC.CDI.CONC ---
CDI Concurrent Query Documentation Clarification: PHYSICIAN'S DOCUMENTATION REQUEST Date of Query: 05/15/21 1132 Patient Name: Aleksandar Adamson Admit Date: 05/14/21 Dear Doctor, A review of the medical record indicates additional documentation may be needed. Please review below and update the documentation accordingly. Clinical Indicators: Height: [] 5'9 Weight: [] 126.3 kg BMI: [] 41.1 Other Clinical Notes Supporting Significance of the BMI: Risk Factors/Clinical Indicators/Treatments If possible, please provide an associated diagnosis related to the abnormal BMI, such as: For a BMI >= 40: Overweight Obesity Due to excess calories Drug induced Due to other cause Severe or Morbid Obesity With alveolar hypoventilation Without alveolar hypoventilation Or: BMI is not significant Other (please specify) Unable to determine Use of terms such as suspected, likely, concern for, or probable (associated with a specific diagnosis that is being evaluated, monitored, or treated as if it exists) are acceptable and can be coded in the inpatient setting, when documented at the time of discharge. Thank you, Renetta Mora RN Extension: [phone] Please use your independent medical judgment in providing your response. THIS QUERY IS PART OF THE PERMANENT MEDICAL RECORD Provider Response: Morbid Obesity
[2021-05-15 11:40] LABS: Glucose, Whole Blood 103 mg/dL (60-115)
[2021-05-15 11:54] VITALS: BP 114/61; PULSE 80; RESP 18; TEMP 36.3; O2SAT 93
[2021-05-15 15:25] VITALS: BP 133/63; PULSE 97; RESP 18; TEMP 37.1; O2SAT 96
[2021-05-15 15:55] LABS: Glucose, Whole Blood 112 mg/dL (60-115)
[2021-05-15 19:28] VITALS: BP 121/58; PULSE 92; RESP 17; TEMP 37; O2SAT 97
[2021-05-15] MEDS: traZODone HCL 100 MG TABLET PO (19:33)
[2021-05-15] MEDS: 0.9 % Sodium Chloride Flush 3 ML SYRINGE IVFLUSH (19:33)
[2021-05-15 19:55] LABS: Glucose, Whole Blood 116 mg/dL (60-115)
[2021-05-15 23:37] VITALS: BP 109/65; PULSE 92; RESP 16; TEMP 36.2; O2SAT 91
[2021-05-16] VITALS (11 sets, daily range): BP systolic 105–124; BP diastolic 57–68; PULSE 76–94; RESP 14–18; TEMP 35.8–36.8; O2SAT 92–95
[2021-05-16] MEDS: HYDROmorphone HCl 1 MG/ML SYRINGE 0.25 MG IVPUSH ×7 (01:22→23:01)
[2021-05-16] MEDS: oxyCODONE HCl Immed Release 5 MG TABLET 10 MG PO ×4 (03:54→18:20)
[2021-05-16] MEDS: Omeprazole 20 MG CAPSULE.DR PO (05:42)
[2021-05-16 06:17] LABS: MANUAL DIFF FLAG NO
[2021-05-16 06:19] LABS: Basophils Absolute Auto 0.1 X10*3/uL (0.0-0.2); Basophils Percent Auto 0.6 % (0-2); Eosinophils Absolute Auto 0.5 X10*3/uL (0.0-0.4); Eosinophils Percent Auto 5.4 % (0-4); Hematocrit 32.9 % (42.0-52.0); Hemoglobin 11.2 g/dl (14.0-18.0); Imm Gran Abs Auto 0.05 X10*3/uL (0.00-0.03); Imm Gran Pct Auto 0.5 % (0.0-0.4); Lymphocytes Absolute Auto 2.6 X10*3/uL (1.2-4.9); Lymphocytes Percent Auto 26.9 % (20-40); Mean Corpuscular Hemoglobin 32.1 pg (27.0-33.0); Mean Corpuscular Volume 94.3 fL (80.0-98.0); Mean Platelet Volume 10.7 fL (9.4-12.4); Monocytes Absolute Auto 1.2 X10*3/uL (0.1-1.2); Monocytes Percent Auto 12.5 % (2-11); Neutrophils Absolute Auto 5.3 x10*3/uL (2.0-8.3); Neutrophils Percent Auto 54.1 % (45-73); Platelet Count 167 X10*3/uL (160-400); Red Blood Count 3.49 X10*6/uL (4.60-5.80); Red Cell Distribution Width 13.2 % (11.0-16.0); White Blood Count 9.8 X10*3/uL (4.8-10.8)
[2021-05-16 06:42] LABS: Anion Gap 13 (12-20); Blood Urea Nitrogen 12 mg/dL (9-16); Calcium 8.9 mg/dL (8.4-10.2); Carbon Dioxide 28 mmol/L (22-29); Chloride 104 mmol/L (96-108); Estimated Glomerular Filt Rate > 60; Glucose Fasting 108 mg/dL (60-99); Potassium 4.2 mmol/L (3.3-5.1); Sodium 141 mmol/L (135-145)
[2021-05-16] MEDS: oxyCODONE HCl ER 10 MG TAB.ER.12H PO ×2 (07:52→20:51)
[2021-05-16] MEDS: Venlafaxine HCl ER 75 MG CAP.ER.24H PO (07:52)
[2021-05-16] MEDS: Docusate Sodium 100 MG CAPSULE PO ×2 (07:52→20:51)
[2021-05-16] MEDS: Celecoxib 200 MG CAPSULE PO ×2 (07:52→20:51)
[2021-05-16] MEDS: Aspirin 325 MG TABLET PO ×2 (07:52→20:51)
[2021-05-16 08:03] LABS: Glucose, Whole Blood 107 mg/dL (60-115)
[2021-05-16 11:32] LABS: Glucose, Whole Blood 122 mg/dL (60-115)
--- NOTE | 2021-05-16 11:35 | HO.PM.IMPN ---
Subjective Subjective Date of Service: 05/16/21 Interval History: complaining of hip pain just finished PT, otherwise offers no other complaints of chest pain go no dizziness, no lightheadedness, no headache, no nausea, no vomiting, no abdominal pain, had no bowel movement. Review of Systems Review of Systems: Yes all other systems are reviewed and are negative Physical Exam Vital Signs: Vital Signs: Last Vital Signs Temp 97.2 F 05/16/21 11:30 Pulse 94 05/16/21 11:30 Resp 18 05/16/21 11:30 BP 121/57 L 05/16/21 11:30 Pulse Ox 92 05/16/21 11:30 BMI result Body Mass Index 41.1 Const: Other: General? in no acute distress.? Neck? supple no JVD. CVS? regular rate rhythm, Respiratory lungs clear to auscultation, no respiratory distress Gastrointestinal abdomen soft, nontender, bowel sounds audible Extremities no edema. right hip dressing in place no drainage noted Neuro nonfocal Skin no rash psych appropriate affect Objective Data Active Medications Acetaminophen (Acetaminophen 325 Mg Tablet) 650 mg PO Q6H PRN PRN Reason: Pain, Mild (Pain Scale 1-3) Last Admin: 05/15/21 19:32 Dose: 650 mg Documented by: MARIELA Aspirin (Aspirin 325 Mg Tablet) 325 mg PO BID [facility] Last Admin: 05/16/21 07:52 Dose: 325 mg Documented by: ELTON Celecoxib (Celecoxib 200 Mg Capsule) 200 mg PO BID [facility] Last Admin: 05/16/21 07:52 Dose: 200 mg Documented by: ELTON Dextrose (Dextrose 50 % 25 Gm/50 Ml Syringe) 25 gm IVPUSH Q15M PRN; Protocol PRN Reason: per Hypoglycemia Standing Ord. Docusate Sodium (Docusate Sodium 100 Mg Capsule) 100 mg PO BID [facility] Last Admin: 05/16/21 07:52 Dose: 100 mg Documented by: ELTON Glucose (Glucose Gel 15 Gm Gel..Gram.) 15 gm PO Q15M PRN; Protocol PRN Reason: per Hypoglycemia Standing Ord. Hydromorphone HCl (Hydromorphone Hcl 1 Mg/Ml Syringe) 0.25 mg IVPUSH Q3H PRN; Protocol PRN Reason: Pain, Severe (Pain Scale 7-10) Last Admin: 05/16/21 09:49 Dose: 0.25 mg Documented by: CHARLES Hydroxyzine HCl (Hydroxyzine Hcl 25 Mg Tablet) 25 mg PO BID PRN PRN Reason: Anxiety Insulin Human Lispro (Insulin Lispro 100 Unit/Ml 3 Ml Vial) 0 unit SUBCUT QIDACHS [facility]; Protocol Last Admin: 05/16/21 11:19 Dose: Not Given Documented by: ELTON Non-Admin Reason: No Insulin Coverage Omeprazole (Omeprazole 20 Mg Capsule.Dr) 20 mg PO DAILY@0630 [facility] Last Admin: 05/16/21 05:42 Dose: 20 mg Documented by: MARIELA Ondansetron HCl (Ondansetron Hcl 4 Mg/2 Ml Vial) 4 mg IVPUSH Q8H PRN PRN Reason: Nausea and Vomiting Oxycodone HCl (Oxycodone Hcl Er 10 Mg Tab.Er.12h) 10 mg PO BID [facility] Last Admin: 05/16/21 07:52 Dose: 10 mg Documented by: ELTON Oxycodone HCl (Oxycodone Hcl Immed Release 5 Mg Tablet) 10 mg PO Q4H PRN PRN Reason: Pain, Moderate (Pain Scale 4-6 Last Admin: 05/16/21 07:52 Dose: 10 mg Documented by: ELTON Sodium Chloride (0.9 % Sodium Chloride Flush 3 Ml Syringe) 3 ml IVFLUSH QSHIFT [facility] Last Admin: 05/16/21 07:25 Dose: Not Given Documented by: ELTON Non-Admin Reason: IV Running Trazodone HCl (Trazodone Hcl 100 Mg Tablet) 100 mg PO BEDTIME PRN PRN Reason: Insomnia Last Admin: 05/15/21 19:33 Dose: 100 mg Documented by: MARIELA Venlafaxine HCl (Venlafaxine Hcl Er 75 Mg Cap.Er.24h) 75 mg PO DAILY [facility] Last Admin: 05/16/21 07:52 Dose: 75 mg Documented by: ELTON Labs CBC & Chem 7: 05/16/21 05:50 05/16/21 05:50 Labs: Laboratory Results - last 24 hr 05/15/21 05/15/21 05/15/21 11:33 15:28 19:31 MCV MCH MCHC RDW Plt Count MPV Immature Gran % (Auto) Neut % (Auto) Lymph % (Auto) [place] % (Auto) Eos % (Auto) Baso % (Auto) Lymph # (Auto) [place] # (Auto) Eos # (Auto) Baso # (Auto) Abs Immat Gran (auto) Absolute Neuts (auto) Absolute Nucleated RBC Nucleated RBC % (auto) Anion Gap Estim Creat Clear Calc Estimated GFR POC Glucose 103 112 116 H Fasting Glucose Calcium 05/16/21 05/16/21 05/16/21 05:50 05:50 07:22 MCV 94.3 MCH 32.1 MCHC 34.0 RDW 13.2 Plt Count 167 MPV 10.7 Immature Gran % (Auto) 0.5 H Neut % (Auto) 54.1 Lymph % (Auto) 26.9 [place] % (Auto) 12.5 H Eos % (Auto) 5.4 H Baso % (Auto) 0.6 Lymph # (Auto) 2.6 [place] # (Auto) 1.2 Eos # (Auto) 0.5 H Baso # (Auto) 0.1 Abs Immat Gran (auto) 0.05 H Absolute Neuts (auto) 5.3 Absolute Nucleated RBC 0.000 Nucleated RBC % (auto) 0.0 Anion Gap 13 Estim Creat Clear Calc 122.0 Estimated GFR > 60 POC Glucose 107 Fasting Glucose 108 H Calcium 8.9 05/16/21 11:15 MCV MCH MCHC RDW Plt Count MPV Immature Gran % (Auto) Neut % (Auto) Lymph % (Auto) [place] % (Auto) Eos % (Auto) Baso % (Auto) Lymph # (Auto) [place] # (Auto) Eos # (Auto) Baso # (Auto) Abs Immat Gran (auto) Absolute Neuts (auto) Absolute Nucleated RBC Nucleated RBC % (auto) Anion Gap Estim Creat Clear Calc Estimated GFR POC Glucose 122 H Fasting Glucose Calcium Assessment and Plan (1) Status post total hip replacement, right: Status: Acute (2) Diabetes mellitus: Status: Acute Plan 51 year old man admitted by orthopedic surgery and is s/p ERROL right ERROL pod #2 Rt.hip pain soon after PT, continue current pain medication hemoglobin dropped but remains stable, patient asymptomatic, transfusion not recommended, follow CBC encourage incentive spirometry continue current pain medications, incentive spirometry and bowel regimen patient medically stable for discharge Diabetes stable blood sugars,continue diabetic diet/insulin sliding scale ada diet resume metformin Mental health no acute psychiatric decompensation,continue home medications COPD no exacerbation albuterol as needed DVT prophylaxis continue aspirin Quality Stroke Does the patient have a stroke diagnosis?: No VTE Prior VTE?: No VTE Risk Level:: Medical - moderate - high VTE Device Contraindication: N/A - Device Ordered VTE Drug Contraindication: N/A - Med Ordered
[2021-05-16] MEDS: Acetaminophen 325 MG TABLET 650 MG PO (11:53)
[2021-05-16] MEDS: hydrOXYzine HCL 25 MG TABLET PO (11:53)
--- NOTE | 2021-05-16 14:31 | MHC.CM.PN ---
CPAP - Airsense pressures set to 11 Mask is an Airfit F20 size medium per [facility] [phone]
--- NOTE | 2021-05-16 14:58 | MHC.CM.PN ---
PATIENT CHOOSES [facility] OFFER [facility]AC[facility] HAS STARTED THE AUTH PROCESS AND WILL OFFER THE BED ON Wednesday05/17/21 RN AND PATIENT AWARE.
[2021-05-16 15:58] LABS: Glucose, Whole Blood 120 mg/dL (60-115)
[2021-05-16 16:00] LABS: COVID-19 Test Negative (Negative)
[2021-05-16] MEDS: 0.9 % Sodium Chloride Flush 3 ML SYRINGE IVFLUSH ×2 (16:21→19:37)
[2021-05-16] MEDS: traZODone HCL 100 MG TABLET PO (19:33)
[2021-05-16 19:53] LABS: Glucose, Whole Blood 133 mg/dL (60-115)
[2021-05-17 04:00] VITALS: BP 130/67; PULSE 87; RESP 18; TEMP 36.2; O2SAT 97
[2021-05-17] MEDS: HYDROmorphone HCl 1 MG/ML SYRINGE 0.25 MG IVPUSH ×3 (04:04→11:49)
[2021-05-17] MEDS: Omeprazole 20 MG CAPSULE.DR PO (05:50)
[2021-05-17 06:20] LABS: MANUAL DIFF FLAG NO
[2021-05-17 06:29] LABS: Basophils Absolute Auto 0.1 X10*3/uL (0.0-0.2); Basophils Percent Auto 0.7 % (0-2); Eosinophils Absolute Auto 0.5 X10*3/uL (0.0-0.4); Eosinophils Percent Auto 6.6 % (0-4); Hematocrit 31.7 % (42.0-52.0); Hemoglobin 10.8 g/dl (14.0-18.0); Imm Gran Abs Auto 0.03 X10*3/uL (0.00-0.03); Imm Gran Pct Auto 0.4 % (0.0-0.4); Lymphocytes Percent Auto 26.4 % (20-40); Mean Corpuscular HGB Conc 34.1 g/dl (31.0-36.0); Mean Corpuscular Hemoglobin 31.8 pg (27.0-33.0); Mean Corpuscular Volume 93.2 fL (80.0-98.0); Mean Platelet Volume 10.7 fL (9.4-12.4); Monocytes Absolute Auto 0.8 X10*3/uL (0.1-1.2); Monocytes Percent Auto 10.5 % (2-11); Neutrophils Absolute Auto 4.2 x10*3/uL (2.0-8.3); Neutrophils Percent Auto 55.4 % (45-73); Platelet Count 177 X10*3/uL (160-400); Red Cell Distribution Width 12.9 % (11.0-16.0); White Blood Count 7.6 X10*3/uL (4.8-10.8)
[2021-05-17 06:43] LABS: Anion Gap 12 (12-20); Blood Urea Nitrogen 10 mg/dL (9-16); Calcium 8.8 mg/dL (8.4-10.2); Carbon Dioxide 28 mmol/L (22-29); Chloride 105 mmol/L (96-108); Creatinine Clr Calc Pharmacy 132.1; Estimated Glomerular Filt Rate > 60; Glucose Fasting 106 mg/dL (60-99); Potassium 4.4 mmol/L (3.3-5.1); Sodium 141 mmol/L (135-145)
[2021-05-17 08:00] VITALS: BP 119/61; PULSE 87; RESP 18; TEMP 36.8; O2SAT 95
[2021-05-17] MEDS: oxyCODONE HCl ER 10 MG TAB.ER.12H PO (08:37)
[2021-05-17] MEDS: Docusate Sodium 100 MG CAPSULE PO (08:37)
[2021-05-17] MEDS: Celecoxib 200 MG CAPSULE PO (08:37)
[2021-05-17] MEDS: Aspirin 325 MG TABLET PO (08:37)
[2021-05-17] MEDS: Acetaminophen 325 MG TABLET 650 MG PO (08:37)
[2021-05-17] MEDS: Venlafaxine HCl ER 75 MG CAP.ER.24H PO (08:37)
[2021-05-17] MEDS: 0.9 % Sodium Chloride Flush 3 ML SYRINGE IVFLUSH (08:46)
[2021-05-17 08:56] LABS: Glucose, Whole Blood 114 mg/dL (60-115)
--- NOTE | 2021-05-17 10:01 | P.PNIM_ITS ---
Subjective Subjective Date of Service: 05/17/21 Interval History: complaining of left hip pain trying to get out of bed by himself, no bowel movement in last 4 days,denies abdominal pain, no nausea, no vomiting, denies lightheadedness, dizziness, chest pain, shortness of breath or palpitations. Review of Systems Review of Systems: Yes all other systems are reviewed and are negative Physical Exam Verdana 4l Vital Signs: Verdana 4d Verdana 4d Vital Signs: Verdana 4d Verdana 4Bd Last Vital Signs Verdana 4d Membership Counselor New 4d Membership Counselor New 4d Temp 98.3 F 05/17/21 08:00 Membership Counselor New 4d Pulse 87 05/17/21 08:00 Membership Counselor New 4d Resp 18 05/17/21 08:00 BP 119/61 05/17/21 08:00 Pulse Ox 95 05/17/21 08:00 BMI result Body Mass Index 41.1 Const: Other: General? in no acute distress.? Neck? supple no JVD. CVS? regular rate rhythm, Respiratory lungs clear to auscultation, no respiratory distress Gastrointestinal abdomen soft, nontender, bowel sounds audible Extremities no edema. right hip dressing in place no drainage noted Neuro nonfocal Skin no rash psych appropriate affect Objective Data Active Medications Acetaminophen (Acetaminophen 325 Mg Tablet) 650 mg PO Q6H PRN PRN Reason: Pain, Mild (Pain Scale 1-3) Last Admin: 05/17/21 08:37 Dose: 650 mg Documented by: ROBBY Aspirin (Aspirin 325 Mg Tablet) 325 mg PO BID [facility] Last Admin: 05/17/21 08:37 Dose: 325 mg Documented by: ROBBY Celecoxib (Celecoxib 200 Mg Capsule) 200 mg PO BID [facility] Last Admin: 05/17/21 08:37 Dose: 200 mg Documented by: ROBBY Dextrose (Dextrose 50 % 25 Gm/50 Ml Syringe) 25 gm IVPUSH Q15M PRN; Protocol PRN Reason: per Hypoglycemia Standing Ord. Docusate Sodium (Docusate Sodium 100 Mg Capsule) 100 mg PO BID [facility] Last Admin: 05/17/21 08:37 Dose: 100 mg Documented by: ROBBY Glucose (Glucose Gel 15 Gm Gel..Gram.) 15 gm PO Q15M PRN; Protocol PRN Reason: per Hypoglycemia Standing Ord. Hydromorphone HCl (Hydromorphone Hcl 1 Mg/Ml Syringe) 0.25 mg IVPUSH Q3H PRN; Protocol PRN Reason: Pain, Severe (Pain Scale 7-10) Last Admin: 05/17/21 08:45 Dose: 0.25 mg Documented by: ROBBY Hydroxyzine HCl (Hydroxyzine Hcl 25 Mg Tablet) 25 mg PO BID PRN PRN Reason: Anxiety Last Admin: 05/16/21 11:53 Dose: 25 mg Documented by: ELTON Insulin Human Lispro (Insulin Lispro 100 Unit/Ml 3 Ml Vial) 0 unit SUBCUT QIDACHS [facility]; Protocol Last Admin: 05/17/21 08:31 Dose: Not Given Documented by: JEREMIAH Non-Admin Reason: No Insulin Coverage Omeprazole (Omeprazole 20 Mg Capsule.Dr) 20 mg PO DAILY@0630 [facility] Last Admin: 05/17/21 05:50 Dose: 20 mg Documented by: JEREMIAH Ondansetron HCl (Ondansetron Hcl 4 Mg/2 Ml Vial) 4 mg IVPUSH Q8H PRN PRN Reason: Nausea and Vomiting Oxycodone HCl (Oxycodone Hcl Er 10 Mg Tab.Er.12h) 10 mg PO BID [facility] Last Admin: 05/17/21 08:37 Dose: 10 mg Documented by: ROBBY Oxycodone HCl (Oxycodone Hcl Immed Release 5 Mg Tablet) 10 mg PO Q4H PRN PRN Reason: Pain, Moderate (Pain Scale 4-6 Last Admin: 05/16/21 18:20 Dose: 10 mg Documented by: CHARLES Sodium Chloride (0.9 % Sodium Chloride Flush 3 Ml Syringe) 3 ml IVFLUSH QSHI Last Admin: 05/17/21 08:46 Dose: 3 ml Documented by: ROBBY Trazodone HCl (Trazodone Hcl 100 Mg Tablet) 100 mg PO BEDTIME PRN PRN Reason: Insomnia Last Admin: 05/16/21 19:33 Dose: 100 mg Documented by: JEREMIAH Venlafaxine HCl (Venlafaxine Hcl Er 75 Mg Cap.Er.24h) 75 mg PO DAILY [facility] Last Admin: 05/17/21 08:37 Dose: 75 mg Documented by: ROBBY Labs CBC & Chem 7: 05/17/21 05:49 05/17/21 05:49 Labs: Laboratory Results - last 24 hr 05/16/21 05/16/21 05/16/21 11:15 15:09 15:30 MCV MCH MCHC RDW Plt Count MPV Immature Gran % (Auto) Neut % (Auto) Lymph % (Auto) [place] % (Auto) Eos % (Auto) Baso % (Auto) Lymph # (Auto) [place] # (Auto) Eos # (Auto) Baso # (Auto) Abs Immat Gran (auto) Absolute Neuts (auto) Absolute Nucleated RBC Nucleated RBC % (auto) Anion Gap Estim Creat Clear Calc Estimated GFR POC Glucose 122 H 120 H Fasting Glucose Calcium COVID-19 ([facility]) Negative COVID-19 Clin Com See Note 05/16/21 05/17/21 05/17/21 19:19 05:49 05:49 MCV 93.2 MCH 31.8 MCHC 34.1 RDW 12.9 Plt Count 177 MPV 10.7 Immature Gran % (Auto) 0.4 Neut % (Auto) 55.4 Lymph % (Auto) 26.4 [place] % (Auto) 10.5 Eos % (Auto) 6.6 H Baso % (Auto) 0.7 Lymph # (Auto) 2.0 [place] # (Auto) 0.8 Eos # (Auto) 0.5 H Baso # (Auto) 0.1 Abs Immat Gran (auto) 0.03 Absolute Neuts (auto) 4.2 Absolute Nucleated RBC 0.000 Nucleated RBC % (auto) 0.0 Anion Gap 12 Estim Creat Clear Calc 132.1 Estimated GFR > 60 POC Glucose 133 H Fasting Glucose 106 H Calcium 8.8 COVID-19 ([facility]) COVID-19 Clin Com 05/17/21 08:00 MCV MCH MCHC RDW Plt Count MPV Immature Gran % (Auto) Neut % (Auto) Lymph % (Auto) [place] % (Auto) Eos % (Auto) Baso % (Auto) Lymph # (Auto) [place] # (Auto) Eos # (Auto) Baso # (Auto) Abs Immat Gran (auto) Absolute Neuts (auto) Absolute Nucleated RBC Nucleated RBC % (auto) Anion Gap Estim Creat Clear Calc Estimated GFR POC Glucose 114 Fasting Glucose Calcium COVID-19 ([facility]) COVID-19 Clin Com Assessment and Plan (1) Status post total hip replacement, right: Status: Acute (2) Diabetes mellitus: Status: Acute Plan 51 year old man admitted by orthopedic surgery and is s/p ERROL Patient was scheduled to be discharged yesterday but did not leave due to lack of authorization. right ERROL pod #3 persistent Rt.hip pain but stable ,cont. PT, continue current pain medication hemoglobin dropped but remains stable, patient asymptomatic, transfusion not recommended, encourage incentive spirometry continue current pain medications, incentive spirometry and will give lactulose no bm in 4 days patient medically stable for discharge Diabetes stable blood sugars,continue diabetic diet/insulin sliding scale ada diet,start metformin Mental health no acute psychiatric decompensation,continue home medications COPD no exacerbation albuterol as needed DVT prophylaxis continue aspirin Quality Stroke Does the patient have a stroke diagnosis?: No VTE Prior VTE?: No VTE Risk Level:: Medical - moderate - high VTE Device Contraindication: N/A - Device Ordered VTE Drug Contraindication: N/A - Med Ordered
--- NOTE | 2021-05-17 10:23 | MHC.CM.PN ---
PATIENT TO TRANSFER TO [facility] REQUEST FOR [address] [facility] PATIENT AND RN AWARE OF PLAN. IS BRINGING IN HIS CPAP MACHINE FOR FACILITY
--- NOTE | 2021-05-17 10:51 | PC.NURSE ---
Pt alert and oriented x3. C/O 8/10 pain to the right hipe with activity. PRN Dilaudid 0.25mg and Tylenol given with good effect. Scheduled Oxcontin also given with good effect. Pt ambulated to the recliner with 1 assist and a walker. Pt states that h uses a W/C sometimes when he is at home. Pt will D/C to [facility] this afternoon.
[2021-05-17 11:19] VITALS: BP 131/68; PULSE 83; RESP 18; TEMP 36.1; O2SAT 95
--- NOTE | 2021-05-17 11:30 | P.DS_ITS ---
DS: Providers Provider Date of Service: 05/17/21 Date of admission: 05/14/21 06:38 Primary care physician: Unknown Physician Consults: 05/14/21 14:48 Consult to Hospitalist Routine Consulting Provider: Hospitalist Reason For Exam: routine medical management - DM DS: Diagnosis Discharge Diagnosis (1) Status post total hip replacement, right: Status: Acute (2) Diabetes mellitus: Status: Acute DS: Summary Hospital Course Hospital Course: The patient underwent a successful right total hip arthroplasty, they were transferred to PACU and then to the floor to recover. During their stay, their vitals were stable, afebrile at 96.9. Labs were unremarkable, H/H 10.8/31.7. POD 1 they were started on Aspirin 325mg po bid for DVT ppx, they also received Physical Therapy services twice a day. Prior to discharge, their dressing was changed, incision clean dry and intact, new Aquacel dressing applied and the plan was to be discharged to rehab facility. Time Spent with Patient Time attestation: Total time spent providing and/or coordinating discharge services: Discharge coordination time: Less than 30 minutes Quality: Stroke Does the patient have a stroke diagnosis?: No Physical Exam Vital Signs: Vital Signs: Last Vital Signs Temp 96.9 F 05/17/21 11:19 Pulse 83 05/17/21 11:19 Resp 18 05/17/21 11:19 BP 131/68 05/17/21 11:19 Pulse Ox 95 05/17/21 11:19 BMI result Body Mass Index 41.1 Extrem: Other: Right hip New Aquacel dressing applied. NVI. DS: Data Data Completed and Pending Completed studies during hospitalization [Text1]: Pending at discharge 05/14/21 09:37 Surgical [PTH] Routine Labs on day of discharge: Laboratory Results - last 24 hr 05/16/21 05/16/21 05/16/21 11:15 15:09 15:30 WBC RBC Hgb Hct MCV MCH MCHC RDW Plt Count MPV Immature Gran % (Auto) Neut % (Auto) Lymph % (Auto) [place] % (Auto) Eos % (Auto) Baso % (Auto) Lymph # (Auto) [place] # (Auto) Eos # (Auto) Baso # (Auto) Abs Immat Gran (auto) Absolute Neuts (auto) Absolute Nucleated RBC Nucleated RBC % (auto) Sodium Potassium Chloride Carbon Dioxide Anion Gap BUN Creatinine Estim Creat Clear Calc Estimated GFR POC Glucose 122 H 120 H Fasting Glucose Calcium COVID-19 ([facility]) Negative COVID-19 Clin Com See Note 05/16/21 05/17/21 05/17/21 19:19 05:49 05:49 WBC 7.6 RBC 3.40 L Hgb 10.8 L Hct 31.7 L MCV 93.2 MCH 31.8 MCHC 34.1 RDW 12.9 Plt Count 177 MPV 10.7 Immature Gran % (Auto) 0.4 Neut % (Auto) 55.4 Lymph % (Auto) 26.4 [place] % (Auto) 10.5 Eos % (Auto) 6.6 H Baso % (Auto) 0.7 Lymph # (Auto) 2.0 [place] # (Auto) 0.8 Eos # (Auto) 0.5 H Baso # (Auto) 0.1 Abs Immat Gran (auto) 0.03 Absolute Neuts (auto) 4.2 Absolute Nucleated RBC 0.000 Nucleated RBC % (auto) 0.0 Sodium 141 Potassium 4.4 Chloride 105 Carbon Dioxide 28 Anion Gap 12 BUN 10 Creatinine 0.85 Estim Creat Clear Calc 132.1 Estimated GFR > 60 POC Glucose 133 H Fasting Glucose 106 H Calcium 8.8 COVID-19 ([facility]) COVID-19 Clin Com 05/17/21 08:00 WBC RBC Hgb Hct MCV MCH MCHC RDW Plt Count MPV Immature Gran % (Auto) Neut % (Auto) Lymph % (Auto) [place] % (Auto) Eos % (Auto) Baso % (Auto) Lymph # (Auto) [place] # (Auto) Eos # (Auto) Baso # (Auto) Abs Immat Gran (auto) Absolute Neuts (auto) Absolute Nucleated RBC Nucleated RBC % (auto) Sodium Potassium Chloride Carbon Dioxide Anion Gap BUN Creatinine Estim Creat Clear Calc Estimated GFR POC Glucose 114 Fasting Glucose Calcium COVID-19 ([facility]) COVID-19 Clin Com Discharge Plan Discharge Patient Disposition: Xfer SNF Discharge Diagnosis: s/p RTHA [facility] - 1 Week Radha Guevara PA-C [Physician Train Operations Manager] - 1 Week (05/29/21 at 2:30pm ) Physician,Kee J [Primary Care Provider] - 1 Week Discharge Medications: New acetaminophen 325 mg Tablet 650 mg PO Q6H PRN (Reason: Pain, Mild (Pain Scale 1-3)) 30 Days Qty: 240 0RF aspirin 325 mg Tablet 325 mg PO BID 42 Days Qty: 84 0RF celecoxib 200 mg Capsule 200 mg PO BID 30 Days Qty: 60 0RF docusate sodium 100 mg Capsule 100 mg PO BID 30 Days Qty: 60 0RF oxycodone 5 mg Tablet 10 mg PO Q4H PRN (Reason: Pain, Moderate (Pain Scale 4-6) 7 Days 0RF Continued venlafaxine 75 mg capsule,extended release 24hr 1 cap PO DAILY 0RF albuterol sulfate 2.5 mg /3 mL (0.083 %) solution for nebulization 2.5 mg inhalation Q4H PRN (Reason: Wheezing) 0RF albuterol sulfate 90 mcg/actuation HFA aerosol inhaler 2 puff inhalation Q4H PRN (Reason: Wheezing) 0RF metformin 500 mg tablet 1,000 mg PO BID 0RF pantoprazole 40 mg tablet,delayed release (DR/EC) 40 mg PO DAILY 0RF hydroxyzine HCl 25 mg tablet 25 mg PO BID PRN (Reason: Anxiety) 0RF trazodone 100 mg tablet 100 mg PO BEDTIME PRN (Reason: Insomnia) 0RF Label Comments: takes every night Discharge Orders: Discharge Order (Routine); Ordered 05/16/21 Ordered By: Radha Guevara Diet: advance to usual diet Activity on Discharge: Use cane or walker Stand Alone Forms: Patient Portal Discharge page Care Plan Goals: Physical Therapy for total hip arthroplasty: posterior precautions, gait training, ROM, strength Limit stair climbing No showering, no tub bath-keep dressing clean, dry and intact No driving x6 weeks Continue ASA tabs once a day x 6 weeks [place] [facility] [place] 2 [place] CPAP at 11cm H20 with facemask size medium Health Concerns: none Plan of Treatment: restore fxn to right hip Assessment: stable for d/c
[2021-05-17 11:46] LABS: Glucose, Whole Blood 105 mg/dL (60-115)
[2021-05-17] MEDS: Lactulose 20 GM/30 ML SOLUTION PO (11:50)
[2021-05-17] MEDS: oxyCODONE HCl Immed Release 5 MG TABLET 10 MG PO (11:50)
--- NOTE | 2021-05-21 12:01 | W.PM.OPN ---
Operative Note Operative Note Date of Service: 05/14/21 Narrative: Date of Service: 05/14/21 Pre-op diagnosis: right hip AVN Post-op diagnosis: same Procedure: right hip arthroplasty Implants: Bhavna trident2 #56 with 20 deg liner [place] accolade 2 132 deg #7 with + 5 36 ceramic Surgeon: Silviano Reid MD Anesthesia: GETA and local Was an Pasting Machine Offbearer used for this Procedure?: Yes Pasting Machine Offbearer: Radha Guevara Estimated blood loss (mL): 350 IV fluids (mL): 1,000 Pathology: other Condition: stable Disposition: PACU Procedure in detail: Patient was brought into the operating room and placed in the left lateral decubitus position. All bony prominences were well padded and the limb was prepped and draped in standard sterile fashion. Time-out was called to identify proper site procedure proper surgeon IV antibiotics and 1 g of transaxemic acid were administered. I began by making a curvilinear incision over the posterolateral aspect of the greater trochanter. Dissection was taken down to the tensor fascia which was incised in line with the incision and a Charnley retractor was placed. Cautery was used to maintain hemostasis. A werewolf device was also used. The hip was internally rotated and the external rotators were identified. The vessels were cauterized and a full-thickness capsular/external rotator layer was developed starting just proximal to the piriformis. This layer was tagged and a dull Hohmann retractor was placed underneath the neck in the hip was dislocated. The head was necrotic and deformed. A neck cut was made 1 cm proximal to the lesser trochanter and the head and neck were removed and measured on the back table. I started with a44mm reamer and sequentially reamed up to a size 56 and impacted a 56mm cup at approximately 45 degrees of inclination and 25 degrees of version. I then placed a 20 degh posteriopr lipped liner and turned my attention to the femur. I identified the piriformis insertion and used this as a starting point for my zachariah cutter. The medius tendon was protected with a Hibs retractor. I then used a Charnley awl to identify the canal and a curved curette to remove the lateral bone. I irrigated copiously. I then sequentially broached in the patient's natural version to a size 7 and placed my trial implants. Using a trail head I took the hip through range of motion with a 132 deg neck. I was very satisfied with the stability and length. Therefore I removed all instrumentation and copiously irrigated. I placed my final femoral implant and again took the hip through range of motion with a + 5 and a + 0 head. I was satisfied with the stability and length using a +5 and my final +%/36 ceramic head was impacted in place. I then irrigated for 3 minutes with iodine and placed 1 g of local tranaxemic acid. I then performed a capsular closure with 2.0 fiberwire, Sierra's fascia with 0 Vicryl, subcuticular with 2-0 Vicryl and the skin with rodrigo. Patient was placed into a sterile dressing. Radiographs were obtained at the completion of the case and I was satisfied with the component position. Patient was extubated brought to the recovery room in stable condition.
== END 2021-05-17 13:03 | disposition skilled nursing facility (03) | DRG 470 ==
LOC: HO.SSSA 06:42 → HO.S3 13:48
PROVIDERS: Orthopaedic Surgery; Admitting Provider Physician Assistant; PCP Internal Medicine; Visit Provider Physician Assistant
PROC: 0SR903A Replacement of Right Hip Joint with Ceramic Synthetic Substitute, Uncemented, Open Approach (ICD-10-PCS; CPT 27130; principal; 2021-05-14 08:30)
DX: M87.051 Idiopathic aseptic necrosis of right femur (principal); Z68.41 Body mass index [BMI] 40.0-44.9, adult; G47.33 Obstructive sleep apnea (adult) (pediatric); E66.01 Morbid (severe) obesity due to excess calories; E11.9 Type 2 diabetes mellitus without complications; F41.9 Anxiety disorder, unspecified; J44.9 Chronic obstructive pulmonary disease, unspecified; Z20.822 Contact with and (suspected) exposure to COVID-19; Z99.89 Dependence on other enabling machines and devices; Z87.891 Personal history of nicotine dependence; Z79.899 Other long term (current) drug therapy
CPT/HCPCS: 27130; 36415; 72170; 80048; 80051; 82565; 82947; 83036; 84520; 85025; 86850; 86900; 86901; 87635; 87640; 87641; 88304; 88311; 93005; 97110; 97116; 97162; 97166; 97530; 97535; C1776; J0131; J0690; J1100; J1170; J2250; J2405; J3010

== ENCOUNTER → 2021-05-29 14:46 | Outpatient (BNVA) | payer OTHER, SELFPAY | PROVIDERS: PCP Internal Medicine; Visit Provider Physician Assistant ==

== ENCOUNTER 2021-06-20 07:00 | Outpatient (RCR) | payer OTHER, SELFPAY ==
--- NOTE | 2021-05-29 16:15 | MHC.PT.EP ---
[facility] [place] [facility] [place] [facility] [place] [facility] [address] Angelia Harman [address] [phone] F: [phone] F: [phone] F: [phone] F: [phone] Physical Therapy Plan of Care Date of Evaluation: Date of Surgery: 05/14/21 Diagnosis: R ERROL on 05/14/21 Assessment: pt presents to physical therapy with pain, decreased range of motion, decreased strength, impaired functional mobility, impaired postural awareness, and gait deviations. pt is a fair candidate for skilled PT due to age, potential remediation of impairments, typical disease/condition progression and prognosis, comorbidities, and motivation. pt would benefit from tailored strengthening and stretching exercise program, functional training, gait training, postural re-training, neuromuscular re-education, modalities as needed for pain, equipment safety demonstration. Frequency and Duration: The patient will be seen 2x/wk for 8 wks Short Term Goals: pt will be I w/ HEP to promote self-management of condition. pt will improve R hip flexion to 90 degrees to promote ease in ascending stairs. pt will be I w/ posterior hip precautions as noted by teachback w/ no verbal cueing to promote optimal healing and surgical integrity. Shelter Goals: pt will report a statistically significant improvement in self-reported outcome measure, LEFI, to promote return to PLOF. pt will ascend/descend 10 stairs using step-to pattern w/ no rest breaks using LRAD to promote access to primary living spaces. pt will improve R hip extension and R knee extension to 5/5 to promote ease in sit to stand transfers. Treatment Plan: Modalities to reduce pain, spasms and effusion. Manual therapy to restore motion and function. Therapeutic exercise to improve strength and flexibility. Neuromuscular re-education for posture and balance. Therapeutic activities to return to functional activities of daily living. Electronically signed by: Sharon Zhou PT, DPT Please sign and return to therapist. Thank you for your referral.
--- NOTE | 2021-06-20 15:01 | MHC.PT.OD ---
[facility] [place] [facility] [place] Office [place] Office [address] Angelia Harman [address] [phone] F: [phone] F: [phone] F: [phone] F: [phone] Physical Therapy Daily Note Diagnosis: R ERROL on 05/14/21 Date of Surgery: 05/14/21 Date of Evaluation: 05/29/21 Date of Treatment: 06/20/21 Treatments to Date: 5 Cancellations to Date: No Shows to Date: Authorized Visits: Insurance End Date: Precautions/ Contraindications:*posterior hip precautions, AVN of L hip* Subjective: Pt expressing he is having more severe pain in L hip, hoping to book his future L ERROL uyen, sees Dr. Reid next week for follow up to discuss status. Pain Score and Location: 3,7 R hip Objective Flowsheet: Tests & Measures Please refer to eval. Exercises Discussed avoidance of using bike due to concern for posterior precaution reviewed the importance of not making L hip sx worse if irritating to stop (reports was starting to have pain with bridge advised to stop and perform modified pelvic tilt instead). Pt reported was completing 5 sets of 10R of R hip exercises twice daily- therapist advised decreasing frequency and reps down with encouragement for icing more often due to surge of pain. We discussed activity modification in regard to walking around the house. Review of posterior ERROL precaution in relationship to daily life, bed mobility, dressing, issued HEP sheets for carryover Isometric QS, SL hip abd (x20R), , SAQ, seated HS and seated gastroc stretches completed bilaterally to tolerance (poor tolerance for SL hip abd on L so this was modified for supine SL hip add/abd at prior session- advised to hold this date due to sx, bridge stopped due to sx in L hip this date- advised modified range and posterior pelvic tilt with good tolerance. hooklying posterior pelvic tilt x 2 set 10R, hooklying bridge x 2 sets 10R painfree ROM Positioned in SL for L>R STM/flexbar rolling to posterior hip region and lumbar region Education/review for self care RE: STM to anterior R hip for psoas proximal hip self care re: R posterior incision. Sensation intact L lumbar. Rocktape application for L lumbar with I strip for L lumbar two I strips from midline<>lateral with education re: application<>removal. Gait train with RW with cues for hand placement, sequencing, saffety with using pillow between knees for bed mobility Stair negotiation with use of rail on L and std cane on R, ascending with good, descending with weaker this being his L LE at this time Reports pain and instability is greater in AVN L hip than post op R hip Adjusted height of walker for patient; Self care HEP sheets bridging as long as painfree hooklying posterior pelvic tilt Education re: MHP to ease LBP x 10 minutes with appropriate layering Modalities Ice see above Assessment: 06/20/21 Pt very compliant with home program in regard for R posterior ERROL. He demonstrates improved function and improved tolerance for weight-bearing R LE. Pt expressing worsening severe pain in L hip, reports concern for falling and leg giving out when walking on flat terrain. Expresses concern for risk of fall, reports is now sleeping upstairs but limiting his movements up/down from first level of home due to sx. Pt currently using rollator style walker when outside of home setting, using RW inside the home. Pt's present with him for session educated re: goals of therapy, progress to date. Therapist is anticipating transition to I HEP due to (+) met goals for R hip. R hip abd strength has improved, incision well healed. Pt expressing severe L sided back pain (ROCTAPE) taping trialed in effort to ease severity of sx in L proximal hip/lumbar area this date with education re: application/removal of tape. Pt expressing goal of booking L ERROL uyen due to severe pain. Pt verbalized L buttocks pain and L groin pain constant in nature. 06/16/21 Pt encouraged to perform SAQ and supine SL hip abd/add within painfree tolerance for L LE. Reviewed precautions in regards to bed mobility (+) carryover demonstrated. 06/13/21 Pt presents with positive carryover and compliance for posterior ERROL precautions and home program; expressing very hopeful to be booked for L ERROL uyen due to severe pain and mobility. Presents to office antalgic gait with use of borrowed rollator walker which appears too short for him but unable to be adjusted any higher (has two standard walkers at home) educated in recommendation to using fitted walker he has at home. Pt reported poor experience at subacute rehab post R ERROL and relayed he is hoping to be able to qualify for acute care rehab or go right home once he is cleared for L ERROL. Pt to see Dr. Reid office for follow up on 06/26/21. Pt expressing L hip with AVN worse than R hip. Scar healing well with no evidence of injection. Report has not been using pillow for sleep at home- educated to use for ERROL posterior precautions. Benefited from review and further visual education for posterior ERROL precautions- with Arelis present. Pt presents with elastic shoe laces, use of RW and fair carryover. Expressing eagerness to obtain clearance for L hip surgery to be booked. Issued written HEP sheets. pt presents to physical therapy with pain, decreased range of motion, decreased strength, impaired functional mobility, impaired postural awareness, and gait deviations. pt is a fair candidate for skilled PT due to age, potential remediation of impairments, typical disease/condition progression and prognosis, comorbidities, and motivation. pt would benefit from tailored strengthening and stretching exercise program, functional training, gait training, postural re-training, neuromuscular re-education, modalities as needed for pain, equipment safety demonstration. PT Plan: Pt to see Dr. Reid in office next 06/26/21, await plan, likely D/C from PT until L hip can be addressed as he has met goals for R hip. Pt (+) compliant with home program and verbalizes understanding that he should not be pushing into pain on L side. Short Term Goals: Pt will be I w/ HEP to promote self-management of condition. Pt will improve R hip flexion to 90 degrees to promote ease in ascending stairs.p Pt will be I w/ posterior hip precautions as noted by teachback w/ no verbal cueing to promote optimal healing and surgical integrity. Fdc Goals: pt will report a statistically significant improvement in self-reported outcome measure, LEFI, to promote return to PLOF. pt will ascend/descend 10 stairs using step-to pattern w/ no rest breaks using LRAD to promote access to primary living spaces. pt will improve R hip extension and R knee extension to 5/5 to promote ease in sit to stand transfers. Electronically signed by: Cherie Lopez, PT, DPT
== END 2021-10-31 11:07 | disposition home or self-care (01) ==
LOC: HO.PTWFD 07:00
PROVIDERS: Visit Provider Physician Assistant
DX: Z96.641 Presence of right artificial hip joint (principal)
CPT/HCPCS: 97110; 97116; 97140; 97162; 97530

== ENCOUNTER 2021-06-26 11:54 | Outpatient (REF) | payer OTHER, SELFPAY ==
--- NOTE | ~2021-06-26 | XR_ITS ---
EXAMINATION: XR PELVIS CLINICAL INFORMATION: Pain COMPARISON: Previous x-ray May 2021 TECHNIQUE: AP view of the pelvis. FINDINGS: There is a right hip replacement in satisfactory position. There is a AVN of the left femoral head. There is left hip joint space narrowing. Bones of the pelvis are unremarkable. Soft tissues are unremarkable. XR/XR pelvis 1-2V IMPRESSION: Satisfactory appearance of right hip replacement.
== END 2021-06-26 11:55 | disposition home or self-care (01) ==
LOC: HO.HOSX 11:54
PROVIDERS: PCP Internal Medicine; Visit Provider Orthopaedic Surgery
DX: Z47.1 Aftercare following joint replacement surgery (principal); Z96.641 Presence of right artificial hip joint; M87.052 Idiopathic aseptic necrosis of left femur
CPT/HCPCS: 72170

== ENCOUNTER → 2021-08-14 13:04 | Outpatient (BNVA) | payer OTHER, SELFPAY | PROVIDERS: PCP Internal Medicine; Visit Provider Physician Assistant | DX: Z13.89 Encounter for screening for other disorder (principal) ==

== ENCOUNTER 2021-08-19 09:41 | Inpatient (IN) | payer OTHER, SELFPAY ==
[2021-08-12 12:09] VITALS: BP 149/87; PULSE 70; RESP 16; O2SAT 96; BMI 41.9
--- NOTE | 2021-08-12 12:24 | HO.ANESPROP2 ---
Documented by User: Ernestina Arnold NP 08/13/21 11:01 HPI - Anesthesia Eval Consult details Narrative: 51yo M for Left Hip Total Replacement PCP clearance pending labs and EKG - all wnl s/p R Total Hip 05/2021 with GA-ETT 7.5 (pt remembers awakening during surgery, but denies ETT - ? during induction) PMFSH Active Problems Active Problems: All Active Problems (Updated 08/12/21 @ 12:07 by Lea Gutierrez RN) Status post total hip replacement, right (Acute) Avascular necrosis of bone of left hip (Acute) Past Medical History Medical History (Updated 08/12/21 @ 12:37 by Ernestina Arnold NP) Anxiety Avascular necrosis of bone of left hip Avascular necrosis of bone of right hip COPD (chronic obstructive pulmonary disease) Depression Diabetes mellitus History of De La Rosa's esophagus History of pneumonia Hypertension OSMIN on CPAP Prediabetes Uses wheelchair Family History Family history of problems with anesthesia: No Surgical History Surgical History (Updated 08/18/21 @ 09:51 by Summer Houser RN) History of esophagogastroduodenoscopy (EGD) History of lung biopsy History of right hip replacement Hx of colonoscopy Hx of elbow surgery History of Problems with Anesthesia: No Social History Social History Are you a primary client care coordinator to a significant other at home: No Do you presently have visiting nurse or other home services: No Patient Tobacco Use Status: Former Tobacco user Quit Date: 1999 Tobacco use type: Cigarette Use of substances other than those prescribed or required for medical reasons: No Have you been hit, kicked, punched, or otherwise hurt by someone within the past year? If so, by whom?: No Spiritual Healthcare Practices: none [facility] Practices: none Cultural Healthcare Practices: none Are you DNR?: No Advance Directives: No Advance Directives Information Provided: Yes Advance Directives on File: No Recently lost weight without trying: No Nutrition Risks: No Nutritional Risk Poor oral hygiene: No service: No Current occupational status: disabled Narrative Narrative: No recent illness No CP/SOB within pain limitations. W/C for long distance walking d/t pain. Meds Allergies Allergy/AdvReac Type Severity Reaction Status Date / Time doxycycline Allergy Unknown rash Verified 08/12/21 12:01 paroxetine [From Paxil] AdvReac Severe Suicidal Verified 08/12/21 12:01 thoughts Home Medications Medication Instructions Recorded Confirmed Last Taken Type hydroxyzine HCl 25 mg tablet 25 mg PO BID PRN 09/24/20 08/12/21 Unknown History metformin 500 mg tablet 1,000 mg PO BID tab 09/24/20 08/12/21 Unknown History pantoprazole 40 mg tablet,delayed 40 mg PO DAILY 09/24/20 08/12/21 08/19/21 History release trazodone 100 mg tablet 200 mg PO BEDTIME PRN 03/24/21 08/12/21 Unknown History albuterol sulfate 2.5 mg INHALATION Q4H PRN 05/01/21 08/12/21 Unknown History albuterol sulfate 90 mcg/actuation 2 puff INHALATION Q4H PRN 05/01/21 08/12/21 Unknown History aerosol inhaler venlafaxine 150 mg 150 mg PO DAILY 08/14/21 08/19/21 08/19/21 History capsule,extended release 24 hr Exam Exam Date and Time: August 12, 2021 1224 Height,Weight and Vital Signs: Height 5 ft 9 in Weight 128.9 kg Last Vital Signs Pulse 70 08/12/21 12:09 Resp 16 08/12/21 12:09 BP 149/87 H 08/12/21 12:09 Pulse Ox 96 08/12/21 12:09 Pertinent Lab Results Pertinent Lab Results: Laboratory Tests 08/12/21 08/12/21 13:02 13:02 WBC 7.5 Hgb 14.7 D Hct 41.8 L D Plt Count 237 D Sodium 140 Potassium 4.8 Chloride 105 Carbon Dioxide 26 BUN 18 H D Creatinine 1.09 Narrative Narrative: EKG 08/2021 Vent. Rate : 077 BPM ? ? Atrial Rate : 077 BPM ?? P-R Int : 164 ms? QRS Dur : 088 ms ? ? QT Int : 382 ms ? ? ? P-R-T Axes : 018 027 008 degrees ?? QTc Int : 432 ms ? Normal sinus rhythm Normal ECG When compared with ECG of 30-APR-2021 12:48, No significant change was found Airway Mallampati Class: II TM Dist: >3cm Neck ROM: Full Adult Head Mouth w/Numbe Teeth: 1. Perm bridge Heart: RRR Lungs: CTAB Assessment and Plan Assessment Anesthesia Assessment: Anesthesia Plan Discussed and PAT Visit Final Anesthetic Review Family History of Problems with Anesthesia: No History of Problems with Anesthesia: No Documented by User: Juan Crump MD 08/19/21 10:26 [facility] Past Medical History Medical History (Updated 08/12/21 @ 12:37 by Ernestina Arnold NP) Anxiety Avascular necrosis of bone of left hip Avascular necrosis of bone of right hip COPD (chronic obstructive pulmonary disease) Depression Diabetes mellitus History of De La Rosa's esophagus History of pneumonia Hypertension OSMIN on CPAP Prediabetes Uses wheelchair Surgical History Surgical History (Updated 08/18/21 @ 09:51 by Summer Houser RN) History of esophagogastroduodenoscopy (EGD) History of lung biopsy History of right hip replacement Hx of colonoscopy Hx of elbow surgery Social History Social History Are you a primary client care coordinator to a significant other at home: No Do you presently have visiting nurse or other home services: No Patient Tobacco Use Status: Former Tobacco user Quit Date: 1999 Tobacco use type: Cigarette Use of substances other than those prescribed or required for medical reasons: No Have you been hit, kicked, punched, or otherwise hurt by someone within the past year? If so, by whom?: No Spiritual Healthcare Practices: none [facility] Practices: none Cultural Healthcare Practices: none Are you DNR?: No Advance Directives: No Advance Directives Information Provided: Yes Advance Directives on File: No Recently lost weight without trying: No Nutrition Risks: No Nutritional Risk Poor oral hygiene: No service: No Current occupational status: disabled Meds Allergies Allergy/AdvReac Type Severity Reaction Status Date / Time doxycycline Allergy Unknown rash Verified 08/12/21 12:01 paroxetine [From Paxil] AdvReac Severe Suicidal Verified 08/12/21 12:01 thoughts Home Medications Medication Instructions Recorded Confirmed Last Taken Type hydroxyzine HCl 25 mg tablet 25 mg PO BID PRN 09/24/20 08/12/21 Unknown History metformin 500 mg tablet 1,000 mg PO BID tab 09/24/20 08/12/21 Unknown History pantoprazole 40 mg tablet,delayed 40 mg PO DAILY 09/24/20 08/12/21 08/19/21 History release trazodone 100 mg tablet 200 mg PO BEDTIME PRN 03/24/21 08/12/21 Unknown History albuterol sulfate 2.5 mg INHALATION Q4H PRN 05/01/21 08/12/21 Unknown History albuterol sulfate 90 mcg/actuation 2 puff INHALATION Q4H PRN 05/01/21 08/12/21 Unknown History aerosol inhaler venlafaxine 150 mg 150 mg PO DAILY 08/14/21 08/19/21 08/19/21 History capsule,extended release 24 hr Exam Airway Adult Head Mouth w/Numbe Teeth: 1. Perm bridge Assessment and Plan Final Anesthetic Review NPO: Yes ASA Class: III Final Preanesthetic Review: No Changes in Pt Med Stat, Meds/Allgs Chart Reviewed, Consent Obtained/Reviewed and Anes Risks/Benef Reviewed Patient Risk: Intermediate Procedure Risk: Intermediate Anesthetic Plan Anesthetic Plan: GA Disposition: Standard PACU
--- NOTE | 2021-08-12 12:49 | ECG_ITS ---
Test Reason : preop Blood Pressure : / mmHG Vent. Rate : 077 BPM Atrial Rate : 077 BPM P-R Int : 164 ms QRS Dur : 088 ms QT Int : 382 ms P-R-T Axes : 018 027 008 degrees QTc Int : 432 ms Normal sinus rhythm Normal ECG When compared with ECG of 30-APR-2021 12:48, No significant change was found Referred By: Silviano Reid Electronically Signed By:RYAN DE LA CRUZ MD
[2021-08-12 13:04] LABS: MANUAL DIFF FLAG NO
[2021-08-12 13:24] LABS: Basophils Absolute Auto 0.1 X10*3/uL (0.0-0.2); Basophils Percent Auto 1.1 % (0-2); Eosinophils Absolute Auto 0.5 X10*3/uL (0.0-0.4); Eosinophils Percent Auto 6.4 % (0-4); Hematocrit 41.8 % (42.0-52.0); Hemoglobin 14.7 g/dl (14.0-18.0); Imm Gran Abs Auto 0.01 X10*3/uL (0.00-0.03); Imm Gran Pct Auto 0.1 % (0.0-0.4); Lymphocytes Absolute Auto 2.2 X10*3/uL (1.2-4.9); Lymphocytes Percent Auto 28.9 % (20-40); Mean Corpuscular HGB Conc 35.2 g/dl (31.0-36.0); Mean Corpuscular Hemoglobin 31.7 pg (27.0-33.0); Mean Corpuscular Volume 90.1 fL (80.0-98.0); Mean Platelet Volume 10.4 fL (9.4-12.4); Monocytes Absolute Auto 0.6 X10*3/uL (0.1-1.2); Monocytes Percent Auto 7.7 % (2-11); Neutrophils Absolute Auto 4.2 x10*3/uL (2.0-8.3); Neutrophils Percent Auto 55.8 % (45-73); Platelet Count 237 X10*3/uL (160-400); Red Blood Count 4.64 X10*6/uL (4.60-5.80); White Blood Count 7.5 X10*3/uL (4.8-10.8)
[2021-08-12 13:33] LABS: Anion Gap 14 (12-20); Blood Urea Nitrogen 18 mg/dL (9-16); Carbon Dioxide 26 mmol/L (22-29); Chloride 105 mmol/L (96-108); Creatinine Clr Calc Pharmacy 104.1; Estimated Glomerular Filt Rate > 60; Potassium 4.8 mmol/L (3.3-5.1); Sodium 140 mmol/L (135-145)
[2021-08-12 13:57] LABS: MRSA Nasal PCR NEGATIVE (Negative); SA Nasal PCR POSITIVE (Negative)
[2021-08-19] VITALS (16 sets, daily range): BP systolic 110–148; BP diastolic 64–95; PULSE 65–106; RESP 12–20; TEMP 36–36.7; O2SAT 94–100
--- NOTE | ~2021-08-19 | XR_ITS ---
EXAMINATION: XR PELVIS CLINICAL INFORMATION: Left total hip arthroplasty COMPARISON: 06/26/2021 TECHNIQUE: AP view of the pelvis. FINDINGS: There has been interval left hip arthroplasty. The prosthesis is in acceptable position of the components are in alignment. There are associated expected soft tissue changes. Right hip arthroplasty is again noted in unchanged alignment. XR/XR pelvis 1-2V IMPRESSION: Post left hip replacement.
[2021-08-19] MEDS: oxyCODONE HCl ER 10 MG TAB.ER.12H PO ×2 (09:45→20:03)
[2021-08-19 09:49] LABS: Glucose, Whole Blood 107 mg/dL (60-115)
--- NOTE | 2021-08-19 10:08 | P.BOP_ITS ---
Brief Operative Note Date of Service: 08/19/21 Pre-op diagnosis: Left hip AVN Post-op diagnosis: same Procedure: Left ERROL Implants: [place] Trident2 56 with 20 deg posterior lipped liner. Accolade2 #7 132deg with 36 + 5 ceramic femoral head. Surgeon: Silviano Reid MD Anesthesia: GETA and local Was an Surveillance Observer used for this Procedure?: Yes Surveillance Observer: Caden Mccallum Estimated blood loss (mL): 300 IV fluids (mL): 1,000 Pathology: other Condition: stable Disposition: PACU
--- NOTE | 2021-08-19 10:08 | MHC.SHP ---
Pre-Procedural Eval Section A Date of Service: 08/19/21 The patient is an INPATIENT: No Changes since office visit: Yes Patient answered all questions; No Cold of Flu in the past 2 weeks, No New Medical Problems and No Changes in Medication The History & Physical has been completed within 30 days and I have reviewed it.: Yes Section B Chief Complaint: LT ERROL Allergies: Allergies Allergy/AdvReac Type Severity Reaction Status Date / Time doxycycline Allergy Unknown rash Verified 08/12/21 12:01 paroxetine [From Paxil] AdvReac Severe Suicidal Verified 08/12/21 12:01 thoughts Plan I have reviewed the history and physical and performed a pertinent physical examination on my patient. No changes have occurred unless specified.
[2021-08-19 10:17] LABS: COVID-19 Test Negative (Negative)
--- NOTE | 2021-08-19 10:17 | PHA.MEDREC ---
Pharmacy Consult ? Medication Reconciliation Pharmacy has reviewed the medication reconciliation completed by RN.
--- NOTE | 2021-08-19 12:43 | P.OP_ITS ---
Operative Note Operative Note Date of Service: 08/19/21 Narrative: Pre-op diagnosis: Left hip AVN Post-op diagnosis: same Procedure: Left ERROL Implants: [place] Trident2 56 with 20 deg posterior lipped liner. Accolade2 #7 132deg with 36 + 5 ceramic femoral head. Surgeon: Silviano Reid MD Anesthesia: GETA and local Was an Placing Judge used for this Procedure?: Yes Placing Judge: Caden Mccallum Estimated blood loss (mL): 300 IV fluids (mL): 1,000 Pathology: other Condition: stable Disposition: PACU Procedure in detail: Patient was brought into the operating room and placed in the right lateral decubitus position. All bony prominences were well padded and the limb was prepped and draped in standard sterile fashion. Time-out was called to identify proper site procedure proper surgeon IV antibiotics and 1 g of transaxemic acid were administered. I began by making a curvilinear incision over the posterolateral aspect of the greater trochanter. Dissection was taken down to the tensor fascia which was incised in line with the incision and a Charnley retractor was placed. Cautery was used to maintain hemostasis. A werewolf device was also used. The hip was internally rotated and the external rotators were identified. The vessels were cauterized and a full-thickness capsular/external rotator layer was developed starting just proximal to the piriformis. This layer was tagged and a dull Hohmann retractor was placed underneath the neck in the hip was dislocated. The head was deformed and arthritic. A neck cut was made 1 cm proximal to the lesser trochanter and the head and neck were removed and measured as a 54mm on the back table. I started with a 48mm and sequentially jose med up to a size 56 and impacted a 56 mm cup at approximately 45 degrees of inclination and 25 degrees of version. I then placed a 20 deg posterior lipped liner and turned my attention to the femur. I identified the piriformis insertion and used this as a starting point for my zachariah cutter. The medius tendon was protected with a Hibs retractor. I then used a Charnley awl to identify the canal and a curved curette to remove the lateral bone. I irrigated copiously. I then sequentially broached in the patient's natural version to a size #7 and placed my trial implants. Using a trail head I took the hip through range of motion. I was very satisfied with the stability and length. Therefore I removed all instrumentation and copiously irrigated. I placed my final femoral implant and again took the hip through range of motion and was satisfied with the stability and length using a + 5 head. I impacted the ceramic head in place ond located the hip. I then irrigated for 3 minutes with iodine and placed 1 g of local tranaxemic acid. I then performed a capsular closure with 2.0 fiberwire, Sierra's fascia with 0 Vicryl, subcuticular with 2-0 Vicryl and the skin with rodrigo. Patient was placed into a sterile dressing. Patient was extubated brought to the recovery room in stable condition. There were no known complications.
[2021-08-19] MEDS: HYDROmorphone HCl 0.5 MG/0.5 ML SYRINGE IVPUSH ×4 (13:07→13:36)
[2021-08-19] MEDS: Ketorolac Tromethamine 15 MG/ML VIAL IVPUSH (13:21)
[2021-08-19] MEDS: oxyCODONE HCl Immed Release 5 MG TABLET 10 MG PO ×3 (13:56→21:59)
[2021-08-19] MEDS: Lactated Ringers 1,000 ML 100 ML IVCONT (14:09)
--- NOTE | 2021-08-19 15:17 | HO.PM.IMCN ---
History of Present Illness Data of Consult Service Date: 08/19/21 Requesting physician: Silviano Reid Primary Care Provider: Oswaldo Blanchard MD HPI 51-year-old man with history of diabetes, depression, GERD admitted by Orthopedic surgery and is status post total hip arthroplasty. He is hemodynamically stable. Review of Systems Review of Systems: Denies any recent fever chills or decrease in appetite respiratory denies any shortness of breath coverage production cardiovascular is adjustment of any PND or edema gastrointestinal denies any dysphagia abdominal pain nausea vomiting or diarrhea genitourinary denies any dysuria frequency or hematuria musculoskeletal denies any joint pain or swelling neuropsych denies any weakness or seizures all other systems reviewed are negative [facility] Medical History (Updated 08/12/21 @ 12:37 by Ernestina Arnold NP) Anxiety Avascular necrosis of bone of left hip Avascular necrosis of bone of right hip COPD (chronic obstructive pulmonary disease) Depression Diabetes mellitus History of [place]'s esophagus History of pneumonia Hypertension OSMIN on CPAP Prediabetes Uses wheelchair Surgical History (Updated 08/18/21 @ 09:51 by Summer Houser RN) History of esophagogastroduodenoscopy (EGD) History of lung biopsy History of right hip replacement Hx of colonoscopy Hx of elbow surgery Social History Are you a primary animal care assistant to a significant other at home: No Do you presently have visiting nurse or other home services: No Patient Tobacco Use Status: Former Tobacco user Quit Date: 1999 Tobacco use type: Cigarette Use of substances other than those prescribed or required for medical reasons: No Currently Displaying Signs/Symptoms of Drug Intoxication Withdrawal: No Have you been hit, kicked, punched, or otherwise hurt by someone within the past year? If so, by whom?: No Spiritual Healthcare Practices: none Zoroastrian Healthcare Practices: none Cultural Healthcare Practices: none Are you DNR?: No Advance Directives: No Advance Directives Information Provided: Yes Advance Directives on File: No Recently lost weight without trying: No Nutrition Risks: No Nutritional Risk Poor oral hygiene: No service: No Current occupational status: disabled Meds Allergies Allergy/AdvReac Type Severity Reaction Status Date / Time doxycycline Allergy Unknown rash Verified 08/12/21 12:01 paroxetine [From Paxil] AdvReac Severe Suicidal Verified 08/12/21 12:01 thoughts Active Medications: Current Medications Acetaminophen (Acetaminophen 325 Mg Tablet) 650 mg PO Q6H PRN PRN Reason: Pain, Mild (Pain Scale 1-3) Aspirin (Aspirin 325 Mg Tablet) 325 mg PO BID [facility] Celecoxib (Celecoxib 200 Mg Capsule) 200 mg PO BID [facility] Docusate Sodium (Docusate Sodium 100 Mg Capsule) 100 mg PO BID [facility] Hydromorphone HCl (Hydromorphone Hcl 1 Mg/Ml Syringe) 0.25 mg IVPUSH Q4H PRN; Protocol PRN Reason: Pain, Severe (Pain Scale 7-10) Lactated Ringer's (Lr) 1,000 mls @ 100 mls/hr IVCONT .Q10H [facility] Last Admin: 08/19/21 15:11 Dose: Not Given Documented by: Lactated Ringer's (Lr) 1,000 mls @ 100 mls/hr IVCONT .Q10H [facility] Last Admin: 08/19/21 14:09 Dose: 100 mls/hr Documented by: Cefazolin Sodium/Dextrose (Ancef) 2 gm in 50 mls @ 100 mls/hr IV POSTOP@1700 [facility] Ondansetron HCl (Ondansetron Hcl 4 Mg/2 Ml Vial) 4 mg IVPUSH Q8H PRN PRN Reason: Nausea and Vomiting Oxycodone HCl (Oxycodone Hcl Immed Release 5 Mg Tablet) 10 mg PO Q4H PRN PRN Reason: Pain, Moderate (Pain Scale 4-6 Last Admin: 08/19/21 13:56 Dose: 10 mg Documented by: Oxycodone HCl (Oxycodone Hcl Er 10 Mg Tab.Er.12h) 10 mg PO BID [facility] Sodium Chloride (0.9 % Sodium Chloride Flush 3 Ml Syringe) 3 ml IVFLUSH QSHIFT [facility] Last Admin: 08/19/21 15:12 Dose: Not Given Documented by: Home Medications Medication Instructions Recorded Confirmed Last Taken Type hydroxyzine HCl 25 mg tablet 25 mg PO BID PRN 09/24/20 08/12/21 Unknown History metformin 500 mg tablet 1,000 mg PO BID tab 09/24/20 08/12/21 Unknown History pantoprazole 40 mg tablet,delayed 40 mg PO DAILY 09/24/20 08/12/21 08/19/21 History release trazodone 100 mg tablet 200 mg PO BEDTIME PRN 03/24/21 08/12/21 Unknown History albuterol sulfate 2.5 mg INHALATION Q4H PRN 05/01/21 08/12/21 Unknown History albuterol sulfate 90 mcg/actuation 2 puff INHALATION Q4H PRN 05/01/21 08/12/21 Unknown History aerosol inhaler venlafaxine 150 mg 150 mg PO DAILY 08/14/21 08/19/21 08/19/21 History capsule,extended release 24 hr Physical Exam Vital Signs and Narrative: Vital Signs: Last Vital Signs Temp 97.2 F 08/19/21 14:41 Pulse 76 08/19/21 14:41 Resp 16 08/19/21 14:41 BP 110/72 08/19/21 14:41 Pulse Ox 98 08/19/21 14:41 BMI result Body Mass Index 41.9 Appearing in no acute distress head is normocephalic atraumatic eyes pupils are PERRLA sclera is anicteric mouth throat mucous membranes are intact and moist neck is supple no lymphadenopathy, no JVD noted lung sounds are clear to auscultation heart regular rate rhythm, clear S1, S2 positive bowel sounds, abdomen is soft, nontender neuro patient is alert x3, no focal deficits Results Labs CBC and Chem 7: 08/12/21 13:02 08/12/21 13:02 Labs: Laboratory Results - last 24 hr 08/19/21 08/19/21 08/19/21 09:42 09:46 10:22 POC Glucose 107 COVID-19 ([facility]) Negative COVID-19 Clin Com See Note Blood Type A Positive Antibody Screen NEGATIVE Assessment and Plan (1) S/P total left hip arthroplasty: Status: Acute Plan 51-year-old man admitted by Orthopedic surgery and is status post left total arthroplasty Left total hip arthroplasty Management as per surgical team Pain management Diabetes mellitus Sliding scale, ADA diet Mental health Continue home medications OSMIN May bring in CPAP from home Morbid obesity. BMI 42.0 Discussed importance of weight management as this may be contributing to worsening of other comorbidities DVT prophylaxis with full-dose aspirin Attending Dr. Cunha Consultation completed. Will sign off.
[2021-08-19] MEDS: HYDROmorphone HCl 1 MG/ML SYRINGE 0.25 MG IVPUSH ×2 (15:31→20:16)
[2021-08-19 16:10] LABS: Glucose, Whole Blood 123 mg/dL (60-115)
[2021-08-19] MEDS: ceFAZolin Sodium/Dextrose,Iso 2 GM/50 ML PIGGYBACK IV (17:07)
[2021-08-19] MEDS: Acetaminophen 325 MG TABLET 650 MG PO (17:08)
[2021-08-19] MEDS: Celecoxib 200 MG CAPSULE PO (20:04)
[2021-08-19] MEDS: Docusate Sodium 100 MG CAPSULE PO (20:04)
[2021-08-19 20:39] LABS: Glucose, Whole Blood 234 mg/dL (60-115)
[2021-08-19] MEDS: Insulin Lispro 100 UNIT/ML 3 ML VIAL SUBCUT (21:59)
[2021-08-20] MEDS: oxyCODONE HCl Immed Release 5 MG TABLET 10 MG PO ×4 (01:40→22:29)
[2021-08-20] MEDS: HYDROmorphone HCl 1 MG/ML SYRINGE 0.25 MG IVPUSH ×6 (01:41→21:31)
[2021-08-20] MEDS: Lactated Ringers 1,000 ML 100 ML IVCONT (01:49)
[2021-08-20 03:16] VITALS: BP 127/62; PULSE 84; RESP 16; TEMP 36.1; O2SAT 96
[2021-08-20 05:55] LABS: MANUAL DIFF FLAG NO
[2021-08-20 06:02] LABS: Basophils Percent Auto 0.1 % (0-2); Eosinophils Percent Auto 0.3 % (0-4); Hemoglobin 11.3 g/dl (14.0-18.0); Imm Gran Abs Auto 0.05 X10*3/uL (0.00-0.03); Imm Gran Pct Auto 0.4 % (0.0-0.4); Lymphocytes Absolute Auto 1.3 X10*3/uL (1.2-4.9); Lymphocytes Percent Auto 11.3 % (20-40); Mean Corpuscular HGB Conc 33.2 g/dl (31.0-36.0); Mean Corpuscular Hemoglobin 30.2 pg (27.0-33.0); Mean Corpuscular Volume 90.9 fL (80.0-98.0); Mean Platelet Volume 10.2 fL (9.4-12.4); Monocytes Percent Auto 8.6 % (2-11); Neutrophils Absolute Auto 9.3 x10*3/uL (2.0-8.3); Neutrophils Percent Auto 79.3 % (45-73); Platelet Count 216 X10*3/uL (160-400); Red Blood Count 3.74 X10*6/uL (4.60-5.80); Red Cell Distribution Width 12.9 % (11.0-16.0); White Blood Count 11.7 X10*3/uL (4.8-10.8)
[2021-08-20 06:17] LABS: Anion Gap 13 (12-20); Blood Urea Nitrogen 14 mg/dL (9-16); Calcium 9.1 mg/dL (8.4-10.2); Carbon Dioxide 28 mmol/L (22-29); Chloride 103 mmol/L (96-108); Creatinine Clr Calc Pharmacy 108.1; Estimated Glomerular Filt Rate > 60; Glucose Fasting 202 mg/dL (60-99); Potassium 4.6 mmol/L (3.3-5.1); Sodium 139 mmol/L (135-145)
[2021-08-20 07:29] VITALS: BP 106/55; PULSE 83; RESP 17; TEMP 36; O2SAT 96
--- NOTE | 2021-08-20 07:32 | PM.PNORT ---
Subjective Subjective Date of Service: 08/20/21 Interval history: POD1 s/p LTHA. Patient is resting in bed comfortably. No overnight events. Pain is well managed. No additional complaints. Physical Exam Vital Signs: Vital Signs: Last Vital Signs Temp 96.8 F 08/20/21 07:29 Pulse 83 08/20/21 07:29 Resp 17 08/20/21 07:29 BP 106/55 L 08/20/21 07:29 Pulse Ox 96 08/20/21 07:29 BMI result Body Mass Index 41.9 Const: General: cooperative, healthy appearing and no acute distress Resp: Effort & Inspection: normal respiratory effort and able to speak in complete sentences Cardio: Rate: regular rate Peripheral pulses: Peripheral pulses 2+ throughout GI: Palpation (GI): Soft to palpation Skin: Lesions: no lesions Rashes: no rashes Extrem: Other: Left hip Aquacel is clean, dry, and intact.. Patient is able to dorsiflex and plantarflex. NVI. Procedures Date of Service Date of Service: 08/20/21 Progress Note: A&P Assessment and plan (1) S/P total left hip arthroplasty: Status: Acute Plan Continue pain mgmnt Begin ASA for dvt ppx begin PT for LTHA Dispo planning-Pending PT eval, pain mgmnt Time Spent With Patient Time: Total time spent is greater than 50% in coordination of care (as documented) at patient's floor/unit and/or counseling patient: Quality Stroke Does the patient have a stroke diagnosis?: No VTE Prior VTE?: No VTE Risk Level:: Surgical - very high VTE Device Contraindication: N/A - Device Ordered VTE Drug Contraindication: N/A - Med Ordered
[2021-08-20 07:47] LABS: Glucose, Whole Blood 173 mg/dL (60-115)
[2021-08-20] MEDS: oxyCODONE HCl ER 10 MG TAB.ER.12H PO ×2 (07:53→20:51)
[2021-08-20] MEDS: Celecoxib 200 MG CAPSULE PO ×2 (07:53→20:51)
[2021-08-20] MEDS: Insulin Lispro 100 UNIT/ML 3 ML VIAL SUBCUT (07:53)
[2021-08-20] MEDS: Docusate Sodium 100 MG CAPSULE PO ×2 (07:53→20:51)
[2021-08-20] MEDS: 0.9 % Sodium Chloride Flush 3 ML SYRINGE IVFLUSH (07:56)
[2021-08-20 11:02] LABS: Glucose, Whole Blood 136 mg/dL (60-115)
--- NOTE | 2021-08-20 11:06 | HO.POSTANES ---
Post Anesthesia Evaluation Post Anesthesia Evaluation Vital Signs: Vital Signs Temp Pulse Resp BP Pulse Ox 08/20/21 07:29 96.8 F 83 17 106/55 L 96 08/20/21 03:16 97 F 84 16 127/62 96 08/19/21 23:39 96.8 F 88 15 127/72 94 Anesthesia: General Endotracheal-GETA Mental Status: Awake Pain Control: Satisfactory Nausea/Vomiting: None Hydration: Adequate Anesthesia-Related Issues: No Anes. Related Issues
[2021-08-20] MEDS: Aspirin 325 MG TABLET PO ×2 (11:58→20:52)
[2021-08-20] MEDS: Venlafaxine HCl ER 150 MG CAP.ER.24H PO (11:59)
[2021-08-20 12:00] VITALS: BP 109/59; PULSE 89; RESP 18; TEMP 36.6; O2SAT 92
[2021-08-20] MEDS: hydrOXYzine HCL 25 MG TABLET PO (12:01)
--- NOTE | 2021-08-20 12:39 | MHC.CLN ---
NUTRITION INCREASED DIETARY KCALS. DIET=DIABETIC 2000 KCALS.
[2021-08-20 16:00] VITALS: BP 119/74; PULSE 89; RESP 17; TEMP 36.3; O2SAT 93
[2021-08-20] MEDS: Acetaminophen 325 MG TABLET 650 MG PO ×2 (16:06→22:30)
[2021-08-20 16:15] LABS: Glucose, Whole Blood 140 mg/dL (60-115)
[2021-08-20 19:27] VITALS: BP 125/62; PULSE 88; RESP 18; TEMP 36.3; O2SAT 95
[2021-08-20 19:33] LABS: Glucose, Whole Blood 139 mg/dL (60-115)
[2021-08-20] MEDS: traZODone HCL 50 MG TABLET PO (22:30)
[2021-08-20 23:48] VITALS: BP 115/73; PULSE 84; RESP 17; TEMP 36.5; O2SAT 94
[2021-08-21] MEDS: HYDROmorphone HCl 1 MG/ML SYRINGE 0.25 MG IVPUSH ×4 (02:22→16:44)
[2021-08-21 03:36] VITALS: BP 110/70; PULSE 97; RESP 17; TEMP 36.3; O2SAT 97
[2021-08-21] MEDS: Acetaminophen 325 MG TABLET 650 MG PO (05:38)
[2021-08-21] MEDS: oxyCODONE HCl Immed Release 5 MG TABLET 10 MG PO ×3 (05:39→15:17)
[2021-08-21 06:20] LABS: MANUAL DIFF FLAG NO
[2021-08-21 06:24] LABS: Basophils Absolute Auto 0.1 X10*3/uL (0.0-0.2); Basophils Percent Auto 0.7 % (0-2); Eosinophils Absolute Auto 0.5 X10*3/uL (0.0-0.4); Eosinophils Percent Auto 5.6 % (0-4); Hematocrit 32.1 % (42.0-52.0); Hemoglobin 10.9 g/dl (14.0-18.0); Imm Gran Abs Auto 0.02 X10*3/uL (0.00-0.03); Imm Gran Pct Auto 0.2 % (0.0-0.4); Lymphocytes Absolute Auto 2.7 X10*3/uL (1.2-4.9); Lymphocytes Percent Auto 29.8 % (20-40); Mean Corpuscular Hemoglobin 30.9 pg (27.0-33.0); Mean Corpuscular Volume 90.9 fL (80.0-98.0); Mean Platelet Volume 10.4 fL (9.4-12.4); Monocytes Absolute Auto 0.9 X10*3/uL (0.1-1.2); Monocytes Percent Auto 9.6 % (2-11); Neutrophils Absolute Auto 4.9 x10*3/uL (2.0-8.3); Neutrophils Percent Auto 54.1 % (45-73); Platelet Count 203 X10*3/uL (160-400); Red Blood Count 3.53 X10*6/uL (4.60-5.80); White Blood Count 9.1 X10*3/uL (4.8-10.8)
[2021-08-21 06:46] LABS: Anion Gap 13 (12-20); Blood Urea Nitrogen 14 mg/dL (9-16); Calcium 8.7 mg/dL (8.4-10.2); Carbon Dioxide 25 mmol/L (22-29); Chloride 106 mmol/L (96-108); Creatinine Clr Calc Pharmacy 122.1; Estimated Glomerular Filt Rate > 60; Glucose Fasting 130 mg/dL (60-99); Potassium 3.9 mmol/L (3.3-5.1); Sodium 140 mmol/L (135-145)
[2021-08-21 07:13] VITALS: BP 116/73; PULSE 72; RESP 18; TEMP 36.2; O2SAT 95
[2021-08-21 07:24] LABS: Glucose, Whole Blood 113 mg/dL (60-115)
[2021-08-21] MEDS: Venlafaxine HCl ER 150 MG CAP.ER.24H PO (08:22)
[2021-08-21] MEDS: Omeprazole 20 MG CAPSULE.DR PO (08:22)
[2021-08-21] MEDS: oxyCODONE HCl ER 10 MG TAB.ER.12H PO (08:22)
[2021-08-21] MEDS: Aspirin 325 MG TABLET PO (08:22)
[2021-08-21] MEDS: Celecoxib 200 MG CAPSULE PO (08:22)
[2021-08-21] MEDS: Docusate Sodium 100 MG CAPSULE PO (08:22)
[2021-08-21] MEDS: 0.9 % Sodium Chloride Flush 3 ML SYRINGE IVFLUSH ×2 (08:23→17:04)
[2021-08-21 11:19] VITALS: BP 101/59; PULSE 77; RESP 20; TEMP 36.4; O2SAT 95
--- NOTE | 2021-08-21 11:26 | P.PNOP_ITS ---
Subjective Subjective Date of Service: 08/21/21 Interval history: POD2 s/p LTHA. Patient is resting in bed comfortably. No overnight events. Pain is well managed. No additional complaints. Physical Exam Vital Signs: Vital Signs: Last Vital Signs Temp 97.5 F 08/21/21 11:19 Pulse 77 08/21/21 11:19 Resp 20 08/21/21 11:19 BP 101/59 L 08/21/21 11:19 Pulse Ox 95 08/21/21 11:19 BMI result Body Mass Index 41.9 Const: General: cooperative, healthy appearing and no acute distress Resp: Effort & Inspection: normal respiratory effort and able to speak in complete sentences Cardio: Rate: regular rate Peripheral pulses: Peripheral pulses 2+ throughout GI: Palpation (GI): Soft to palpation Skin: General skin exam: no rashes or lesions noted Extrem: Other: incision clean dry and intact. [place] intact. No erythema or effusion. Calf supple nontender. Neurovascularly intact. Procedures Date of Service Date of Service: 08/21/21 Progress Note: A&P Assessment and plan (1) S/P total left hip arthroplasty: Status: Acute Assessment and Plan: Continue pain mgmnt contine ASA for dvt ppx continue PT for LTHA Dispo planning-Pending PT Time Spent With Patient Time: Total time spent is greater than 50% in coordination of care (as documented) at patient's floor/unit and/or counseling patient: Quality Stroke Does the patient have a stroke diagnosis?: No VTE Prior VTE?: No VTE Risk Level:: Surgical - very high VTE Device Contraindication: N/A - Device Ordered VTE Drug Contraindication: N/A - Med Ordered
[2021-08-21 11:38] LABS: Glucose, Whole Blood 112 mg/dL (60-115)
--- NOTE | 2021-08-21 15:38 | PM.DS ---
DS: Providers Provider Date of Service: 08/21/21 Date of admission: 08/19/21 09:41 Primary care physician: Oswaldo Blanchard MD Consults: 08/19/21 15:02 Consult to Hospitalist Routine Consulting Provider: Hospitalist Reason For Exam: diabetes DS: Diagnosis Discharge Diagnosis (1) S/P total left hip arthroplasty: Status: Acute DS: Summary Hospital Course Hospital Course: The patient underwent a successful left total hip arthroplasty, he was transferred to PACU and then to the floor to recover. During his stay, vitals were stable, afebrile at 97.5 . Labs were unremarkable, H/H 10.9/32.1 . POD 1 he was started on ASAfor DVT ppx, he also received PT/OT services twice a day. Prior to discharge,dressing was change, incision clean dry and intact, new Aquacel dressing applied and the plan was to be discharged home. Time Spent with Patient Time attestation: Total time spent providing and/or coordinating discharge services: Discharge coordination time: Less than 30 minutes Quality: Safe Use of Opioids Does Pt have an Active Cancer Diagnosis on the Problem List?: No Quality: Stroke Does the patient have a stroke diagnosis?: No Physical Exam Vital Signs: Vital Signs: Last Vital Signs Temp 97.5 F 08/21/21 11:19 Pulse 77 08/21/21 11:19 Resp 20 08/21/21 11:19 BP 101/59 L 08/21/21 11:19 Pulse Ox 95 08/21/21 11:19 BMI result Body Mass Index 41.9 Const: General: cooperative, healthy appearing and no acute distress Resp: Effort & Inspection: normal respiratory effort and able to speak in complete sentences Cardio: Rate: regular rate Peripheral pulses: Peripheral pulses 2+ throughout GI: Palpation (GI): Soft to palpation Skin: General skin exam: no rashes or lesions noted Extrem: Other: incision clean dry and intact. [place] intact. No erythema or effusion. Calf supple nontender. Neurovascularly intact. DS: Data Data Completed and Pending Completed studies during hospitalization [Text1]: Pending at discharge 08/19/21 12:11 Surgical [PTH] Routine Procedures Replacement of Right Hip Joint with Ceramic Synthetic Substitute, Uncemented, Open Approach (05/14/21) Labs on day of discharge: Laboratory Results - last 24 hr 08/20/21 08/20/2108/21/22 16:04 19:29 05:50 WBC 9.1 RBC 3.53 L Hgb 10.9 L Hct 32.1 L MCV 90.9 MCH 30.9 MCHC 34.0 RDW 13.0 Plt Count 203 MPV 10.4 Immature Gran % (Auto) 0.2 Neut % (Auto) 54.1 Lymph % (Auto) 29.8 [place] % (Auto) 9.6 Eos % (Auto) 5.6 H Baso % (Auto) 0.7 Lymph # (Auto) 2.7 [place] # (Auto) 0.9 Eos # (Auto) 0.5 H Baso # (Auto) 0.1 Abs Immat Gran (auto) 0.02 Absolute Neuts (auto) 4.9 Absolute Nucleated RBC 0.000 Nucleated RBC % (auto) 0.0 Sodium Potassium Chloride Carbon Dioxide Anion Gap BUN Creatinine Estim Creat Clear Calc Estimated GFR POC Glucose 140 H 139 H Fasting Glucose Calcium 08/21/21 08/21/21 08/21/21 05:50 07:18 11:22 WBC RBC Hgb Hct MCV MCH MCHC RDW Plt Count MPV Immature Gran % (Auto) Neut % (Auto) Lymph % (Auto) [place] % (Auto) Eos % (Auto) Baso % (Auto) Lymph # (Auto) [place] # (Auto) Eos # (Auto) Baso # (Auto) Abs Immat Gran (auto) Absolute Neuts (auto) Absolute Nucleated RBC Nucleated RBC % (auto) Sodium 140 Potassium 3.9 Chloride 106 Carbon Dioxide 25 Anion Gap 13 BUN 14 Creatinine 0.93 Estim Creat Clear Calc 122.1 Estimated GFR > 60 POC Glucose 113 112 Fasting Glucose 130 H D Calcium 8.7 Discharge Plan Discharge Patient Disposition: Home Health Service Discharge Diagnosis: lt oskar Referrals: OUT PT [Other] - 1 Week (START FRIDAY 08/25.) Caden Mccallum PA-C [Physician Homebirth Midwife] - 2 Weeks ( 09/04/21 12:30 [facility] Caden Mccallum PA-C ) Discharge Medications: New oxycodone 10 mg tablet 10 mg PO Q4H PRN (Reason: Pain, Moderate (Pain Scale 4-6) 7 Days Qty: 42 0RF celecoxib 200 mg Capsule 200 mg PO BID 30 Days Qty: 60 1RF aspirin 325 mg Tablet 325 mg PO BID 42 Days Qty: 84 0RF acetaminophen 325 mg Tablet 650 mg PO Q6H PRN (Reason: Pain, Mild (Pain Scale 1-3)) 30 Days Qty: 240 0RF oxycodone [OxyContin] 10 mg Tablet,Oral Only,Ext.Rel.12 Hr 10 mg PO BID 3 Days Qty: 6 0RF Continued albuterol sulfate 2.5 mg /3 mL (0.083 %) solution for nebulization 2.5 mg inhalation Q4H PRN (Reason: Wheezing) 0RF albuterol sulfate 90 mcg/actuation HFA aerosol inhaler 2 puff inhalation Q4H PRN (Reason: Wheezing) 0RF metformin 500 mg tablet 1,000 mg PO BID 0RF pantoprazole 40 mg tablet,delayed release (DR/EC) 40 mg PO DAILY 0RF hydroxyzine HCl 25 mg tablet 25 mg PO BID PRN (Reason: Anxiety) 0RF trazodone 100 mg tablet 200 mg PO BEDTIME PRN (Reason: Insomnia) 0RF Label Comments: takes every night venlafaxine 150 mg capsule,extended release 24hr 150 mg PO DAILY 0RF Discharge Orders: Discharge Order (Routine); Ordered 08/21/21 Ordered By: Caden Mccallum Diet: regular diet Activity on Discharge: Use cane or walker Stand Alone Forms: Patient Portal Discharge page Care Plan Goals: Restore function of joint Health Concerns: none Plan of Treatment: Physical Therapy 08/25/21 08:00am in [facility] Assessment: Physical Therapy for Total hip arthroplasty: wbat, posterior precautions, gait training, ROM, strength Limit stair climbing No showering, no tub bath-keep dressing clean, dry and intact No driving x6 weeks Continue Aspirin twice a day x 6 weeks Follow up with [facility] [place] [facility]: --you will also have your first out patient PT matilde on the day of your post op appt-so please plan on being in the office that day for an extended period of time. Discharge Date/Time: 08/21/21 17:15
[2021-08-21 16:00] VITALS: BP 115/71; PULSE 88; RESP 12; TEMP 36.4; O2SAT 97
--- NOTE | 2021-08-21 16:32 | MHC.CM.PN ---
PT MEDICALLY CLEARED FOR D/C HOME W/OUPT PT NO VNA'S ARE GOING TO [place]/HAVE AVAILABILITY OR TAKE PT'S INSURANCE, PT'S AT BEDSIDE AND WILL TRANSPORT PT.
[2021-08-21 16:36] LABS: Glucose, Whole Blood 224 mg/dL (60-115)
[2021-08-21] MEDS: Insulin Lispro 100 UNIT/ML 3 ML VIAL SUBCUT (17:02)
== END 2021-08-21 17:15 | disposition home health service (06) | DRG 470 ==
LOC: HO.SSSA 09:49 → HO.S3 13:37
PROVIDERS: Absent Provider Physician Assistant; Admitting Provider Physician Assistant; PCP Internal Medicine; Visit Provider Orthopaedic Surgery
PROC: 0SRB03A Replacement of Left Hip Joint with Ceramic Synthetic Substitute, Uncemented, Open Approach (ICD-10-PCS; CPT 27130; principal; 2021-08-19 11:40)
DX: M16.12 Unilateral primary osteoarthritis, left hip (principal); Z68.41 Body mass index [BMI] 40.0-44.9, adult; J44.9 Chronic obstructive pulmonary disease, unspecified; E11.9 Type 2 diabetes mellitus without complications; G47.33 Obstructive sleep apnea (adult) (pediatric); E66.09 Other obesity due to excess calories; Z20.822 Contact with and (suspected) exposure to COVID-19; Z87.01 Personal history of pneumonia (recurrent); Z87.891 Personal history of nicotine dependence; Z88.1 Allergy status to other antibiotic agents; Z88.8 Allergy status to other drugs, medicaments and biological substances; Z79.84 Long term (current) use of oral hypoglycemic drugs; Z79.899 Other long term (current) drug therapy
CPT/HCPCS: 36415; 72170; 80048; 80051; 82565; 82947; 84520; 85025; 86850; 86900; 86901; 87635; 87640; 87641; 88304; 88311; 93005; 97110; 97116; 97162; C1776; J0131; J0690; J1100; J1170; J1885; J2250; J2405; J3010

== ENCOUNTER → 2021-09-04 12:17 | Outpatient (BNVA) | payer OTHER, SELFPAY | PROVIDERS: PCP Internal Medicine; Visit Provider Physician Assistant | DX: Z13.89 Encounter for screening for other disorder (principal) ==

== ENCOUNTER 2021-10-29 08:18 | Outpatient (REF) | payer MEDICARE, SELFPAY ==
--- NOTE | ~2021-10-29 | XR_ITS ---
EXAMINATION: XR HAND, LEFT CLINICAL INFORMATION: Pain COMPARISON: None TECHNIQUE: PA, lateral, and oblique views of the left hand. FINDINGS: No acute fracture or dislocation. 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 Mild degenerative changes of the first metacarpophalangeal and distal interphalangeal joints with minimal degenerative spurring. Soft tissues are unremarkable. XR/XR hand LT min 3V IMPRESSION: Mild degenerative changes of the hand evolving the first metacarpophalangeal and distal interphalangeal joint. 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
== END 2021-10-29 08:19 | disposition home or self-care (01) ==
LOC: HO.HOSX 08:18
PROVIDERS: Visit Provider Orthopaedic Surgery
DX: M65.312 Trigger thumb, left thumb (principal)
CPT/HCPCS: 73130; 99212; Q3014

== ENCOUNTER 2021-11-10 07:00 | Outpatient (RCR) | payer MEDICARE, OTHER, SELFPAY ==
--- NOTE | 2021-09-19 12:51 | MHC.PT.OD ---
[facility] [place] Office [place] Office [place] Office [address] Angelia Harman [address] [phone] F: [phone] F: [phone] F: [phone] F: [phone] Physical Therapy Daily Note Diagnosis: Presence of left artificial joint, presence of left artificial hip joint, needs outpatient PT on 08/25/21 s/p L ERROL 08/19/21 s/p total left hip arthroplasty date of referral Dr. Silviano Reid date of referral [id number]. Date of Surgery: 08/19/21 L posterior ERROL Date of Evaluation: 08/26/21 Date of Treatment: 09/19/21 Treatments to Date: Cancellations to Date: No Shows to Date: Authorized Visits: 4 Insurance End Date: Precautions/ Contraindications:L posterior ERROL Subjective: 09/19/21: Im not doing so good. 09/09/21: Pt expressing I overdid it. Pt expresses was working down in the basement, aware, was wearing supplemental 02. 09/05/21: Pt presents today after history of acute hospitalization x at [facility] for difficulty breathing and report of chest pain following history of last session. CT completed. PE was ruled out. Pt was D/C home from acute hospital setting on supplemental 02 (2L). Pt had a telemedicine phone call with his pump servicer helper on 09/01/21 and gained clearance for PT (see below). Pt was also seen by [facility] yesterday (had rodrigo taken out). Pt presents today using supplemental 02 tank with Arelis, (pt noted to use std cane for AD, expressing has been using RW in the home). Pain Score and Location: 6 Objective Flowsheet: Tests & Measures From a pulmonary standpoint the patient can continue with physical therapy for the hip replacement while on oxygen therapy. Supplemental 02 at baseline is 1L/min at rest, 2L/min with activity. During physical rehabilitation, his 02 should be adjusted to keep his oxygen saturation over 90%. signed by Dr. Demetris Morris -[facility] date of script 09/01/21 Inspection of L posterior/lateral incision: 10 stei-strips intact no drainage, no odor detected by SMB, PT, DPT on 09/05/21 [facility] [address] [place] [address] Drive [address] [place] [address] Office Visit Report Signed Patient: Aleksandar Adamson EMR#: [id number] : 1970Acct:[id number] Age/Sex: 51 / MADM/SER Date: 09/04/21 Loc: HO.HOSADM/SER Time:1217 Attending Provider: Caden Mccallum PA-C cc: Oswaldo Blanchard MD; Caden Mccallum PA-C~ Intake Vital Signs 09/04/21 12:20 Temp 97.2 F Temp Source Temporal Artery Scan Intake Visit Reasons: PO-LT ERROL 08/19/21 NE Intake Note: Gasper presents today for his P/O visit for his Left ERROL from 08/19/21. Dressing removed. State he has Mild pain at night and sore muscle in his leg. States he has a P.T appt tomorrow else where. Allergies doxycycline Allergy (Unknown, Verified 09/04/21 12:30) rash paroxetine [From Paxil] Adverse Reaction (Severe, Verified 09/04/21 12:30) Suicidal hought HPI PO-LT ERROL 08/19/21 NE HPI Details 51 yo male returns to the office today s/p LT ERROL 08/19/[address] Reid. He is ambulating with a walker and states is pain and function is improving. He returns to ourpatient PT tomorrow. He was seen by his pump servicer helper and continues to use home O2. He has been cleared by his pump servicer helper to resume PT. [facility] Medical History Anxiety Avascular necrosis of bone of left hip Avascular necrosis of bone of right hip COPD (chronic obstructive pulmonary disease) Depression Diabetes mellitus History of De La Rosa's esophagus History of pneumonia Hypertension OSMIN on CPAP Prediabetes Uses wheelchair Surgical History History of esophagogastroduodenoscopy (EGD) History of lung biopsy History of right hip replacement Hx of colonoscopy Hx of elbow surgery Social History Are you a primary medicare biller to a significant other at home: No Do you presently have visiting nurse or other home services: No Patient Tobacco Use Status: Former Tobacco user Quit Date: 1999 Tobacco use type: Cigarette service: No Current occupational status: disabled Review of Systems Const All systems reviewed & are unremarkable except as noted in HPI and below Physical Exam Vital Signs: Last Vital Signs Temp 97.2 F 09/04/21 12:20 Extrem Other: left hip incision clean , dry and intact. No erythema or swelling. NVI. Assessment & Plan Assessment & Plan (1) S/P total left hip arthroplasty: Code(s): Z96.642 - Presence of left artificial hip joint Plan: [place] removed, steri strips applied. He will continue to work with Outpatient PT to continue working on strength, gait training and core/lumbar stabilization. No driving for another 4 weeks. He will require ppx abx for dental procedures. He will f/u in 4 weeks, sooner if needed. Coding Level of Care Code Global (94113) Diagnoses S/P total left hip arthroplasty Z96.642 Documented By:Caden Mccallum-C009/04/21 1219 Exercises Assessment of vitals BP on L 98/74mmHg, SP02 on 2L ranges 93-97% throughout session, 58-84 bpm. Assessed at start of session. Pt appears pale in color, expresses pain 6/10 L hip/ lumbar at start of session. Admits to working on floor demo and doing more than what he knows he should be at home. Pt presents to office with oxygen on 2L, educated he should NOT be performing any form of physical labor--- pt expressed he laid on stomach on creeper in kitchen to assist with removal of kitchen ba Has fermin having popping in L hip, near constant groin pain rated sx 6/10 start of session. Pt also expressing sx wooshing in L groin when attempting to take a deep breath. Pt educated alongside yet again that he should not be performing any form of physical labor- reiterated precautions, concerns and safety of respiratory status need to be on 2L during activity, 1L during rest as long as Sp02 above 90% per pump servicer helper.. Review of ERROL posterior precautions 3:3. Pt benefitted from review of maintaining L ERROL precautions with use of pillow when transitioning out of bed toward his left. Patient advised to hold on any therex at this time which triggers sx of pain. Held off on any exercises in the office until he could be evaluated due to concern for increased sensation of movement at proximal hip. Pt able to bear weight- (presents with cane into office) however increased groin pain and radiating knee pain is also reported. Trialed estim to bilateral L/S and posterior lateral hip (away from incision region) with application of MHP to L/S and ice to lateral hip and groin. Of note incision fully closed no more steri-strips incision thin and healing well. Ch1/Ch2 Bilateral L/S height L5 and left lateral posterior hip x 15 minutes using select unit lumbar setting at intensity 5.5mA in effort to reduce pain combo with Ice to L hip. Sensation intact pre post removal of electrodes. Skin prep prior to pad application. Pt advised to hold other activity, therapist recommending evaluation from orthopedics as he expresses feeling shift/clunk in hip which was not present prior. Review of self care for distal thigh with avoidance of STM over bony ridges with use of rolling bar. Self care educated- see eval. Ice packs, self care HEP program, monitoring of incision care, see eval. Education to refrain from any further activity. Modalities Select unit as noted above Assessment: 09/19/21 Pt presents to office with carrying std cane and new portable oxygen tank (with very short line of oxygen tubing) Its the first time I used this one and I didnt realize how short the line was until we left. Pt expresses has been doing more than recommended in regard tp physical activity at home. States two days ago was lying on his stomach on a creeper assisting his father demo his old kitchen floor. Last week therapist reiterated that patient should not be doing any form of activity at that time reported he went into his basement at one point to attempt leveling his kitchen floor. He has demonstrated poor follow through with education. Concern for compromise of L ERROL posterior precautions. Pt able to bear weight through L LE today however expressing near constant anterior groin pain which radiates to L knee when standing (also hx chronic back pain). Pt advised to continue use of RW and supplemental 02 as educated from pump servicer helper however pt presents to office with cane. Pt appeared more pale in color today with decreased oxygen levels compared to last session. Trial of estim/ice combo to L Lumbar and L posterior hip in effort to ease sx with some relief reported. Pt was advised to refrain from any therapy exercise which cause him pain. Therapist recommending patient be seen by orthopedics for further evaluation. Pt's Arelis present alongside patient today; both were reeducated of goals, safety concerns, need for 02 to be above 90% (2L with activity, goal of 1L for rest with obvious need to stay above level 90%). 09/09/21 Pt demonstrated improved tolerance for initiation of standing hip exercises. Pt educated to back off from activity at home as he expresses he has been doing more at home. 09/05/21 Pt able to maintain Sp02 level 95-98% on 2L 02 throughout session. Pt presented to office with use of std cane, therapist encouraged and educated in the benefit of using RW vs. std to reduce oxygen demands/ conserving energy/ workload level. Pt and pt's reviewed home program. Pt issued hooklying posterior pelvic tilt, iso hip adduction, reviewed SL hip abd lying on R side, bridge within painfree ROM for HEP component. Pt able to perform SL hip abd on L with good ability (better tolerance R SL vs supine due to incision location). [place] have been removed. Ten steri-strips intact over L hip. Pt educated he should be using 2L activity, 1L 02 at rest. 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 Reviewed the importance of performing HEP and monitoring vitals while doing so. Pt is a pleasant, RHD 51 y/o male referred to PT from [facility] date of script referral 08/18/21 following history of L posterior ERROL performed on 08/19/[address] Reid. Pt was D/C home on 08/21/21 and was referred directly to outpatient, started on 08/25/21 due to lack of VNA care available in his town. Pt also had R posterior ERROL completed in 06/[address] Reid. Pt was using a RW prior to having L ERROL operation and prior to having L ERROL in 06/03 pt was using a WC for community mobility due to severity of his sx related to AVN. Other PMH includes: Anxiety Avascular necrosis of bone of left hip Avascular necrosis of bone of right hip COPD (chronic obstructive pulmonary disease) Depression Diabetes mellitus History of De La Rosa's esophagus History of pneumonia Hypertension (pt states he came off of HTN meds about a year ago) OSMIN on CPAP Prediabetes Uses wheelchair Surgical History (Updated 08/18/21 @ 09:51 by Summer Houser RN) History of esophagogastroduodenoscopy (EGD) History of lung biopsy History of right hip replacement Hx of colonoscopy Hx of elbow surgery Pt presents to the office with Arelis present, using RW, demonstrating pale color, expressing nausea, and severe pain in L hip. Pt's BP was taken prior to start of care: 108/64 mmHg, HR 87 bpm, Sp02 96%. Pt expressed he did not take his pain medication prior and did not eat anything as he was rushing to get of the home. His bedroom is on the second floor of the home and he expressed it was the first time he has done stairs since surgery (with the exception of doing a few stairs prior to D/C home 08/19). In the office, pt was positioned in supine with bolster under knees with three ice pack applied to 1) L anterior and 2) L posterior hip, and 3) L proximal thigh in effort to reduce pain. Pt also received a cold towel around back of neck in effort to aide his symptoms of nausea/pain. He was educated to make sure in the future he takes his pain medication with food prior to session. He was issued a written HEP sheet and was encouraged to start very gently and SLOWLY with his HEP. He was educated that the goal of his therapy this week is to ensure safety with simple functional mobility with use of his RW, maintaining 3/3 posterior L ERROL precautions, controlling edema/pain in L hip, and staying safe/hydrated; with GENTLE completion of his HEP if able like when he completed last round of recovery after having his R ERROL done in 06/03 (rehab). His gel dressing over the posterior L hip became folded over on itself in a small area on the top upper L corner, still intact and covering entire wound with minimal staining in the middle of the gauze component dressing. No odor, drainage, or concern for infection present. Cecil and his Arelis were educated to call orthopedics for a dressing reinforcement/change should the appearance of the dressing shift any further than what is appears like this date. Therapist phoned Summer Houser nurse navigator post matilde to update her on the current status of the patient, his dressing status, and to relay concerns patient stated had about his pain medication (regarding doses, refills). Therapist loaned patient a std adjustable cane to borrow as he presented with a fixed wooden cane which was the incorrect height (too short) for him. Pt stated he does have a std cane at home but left it in his upstairs bedroom (has a full flight of stairs to get back into home). We verbalized sequencing and I provided a visual review of how to properly ascend/descend stairs with use of unilateral rail and std cane (ascending R LE first, descending stairs with L LE first). Cecil and his verbalized carryover. Pt stated he forgot about icing and has not been icing since he left the hospital. Pt and caregiver were educated that he can ice his hip several times daily which can aide in pain control/edema in addition to his medications. Pt and his were educated re: HEP sheets and encouraged to perform gentle AP, glute sets, isometric QS, SAQ, AAROM heel slides to be completed slowly low reps as able only with emphasis on pain management and safety, and icing several times daily x 10-20 minutes on with proper layering, 20 minutes rest from ice with skin checks post removal. He was advised to refrain from hip abduction in supine this date due to poorly controlled pain and symptoms of dressing being pulled when attempting to move his leg into abduction. He was educated we will revisit what HEP tasks to do at home with written instructions when in the office on Wednesday. Pt and caregiver demonstrated/verbalized carryover of education given post session. PT Plan: Therapist recommending patient be evaluated by orthopedics due to report of patient feeling new shift/movement in hip, increased pain in L knee, constant in nature. Therapist advised to hold off on exercise until further evaluation can be made. Short Term Goals: 1. Strength L hip abd 3/5. 2. Strength SLR into flexion with good control. 3. Sit<>Stand with on first attempt. 4. Initiate HEP and self care icing for L hip. Guest Room Attendant Goals: 1. Strength L hip abd 5/5. 2. Negotiate stairs reciprocally with good dynamic balance. 3. Resume community ambulation MOD I with least restrictive device. 4. Resume sleeping upstairs MOD I. 5. Strength L hip ext 08/14. Electronically signed by: Cherie Lopez PT, DPT
--- NOTE | 2021-10-02 10:14 | MHC.PT.OD ---
[place] [facility] [place] [facility] [place] [facility] [address] Angelia Harman [address] [phone] F: [phone] F: [phone] F: [phone] F: [phone] Physical Therapy Daily Note Diagnosis: Presence of left artificial joint, presence of left artificial hip joint, needs outpatient PT on 08/25/21 s/p L ERROL 08/19/21 s/p total left hip arthroplasty date of referral Dr. Silviano Reid date of referral [id number]. Date of Surgery: 08/19/21 L posterior ERROL Date of Evaluation: 08/26/21 Date of Treatment: 10/02/21 Treatments to Date: Cancellations to Date: No Shows to Date: Authorized Visits: 9 Insurance End Date: Precautions/ Contraindications:L posterior ERROL Subjective: Pt seeing Dr. Reid office later this morning. Pt expressing had episode where he lost his balance when standing on the deck earlier in the week, My eyes rolled back and I lost my balance. Pain Score and Location: 6 Objective Flowsheet: Tests & Measures Therapist SB contacted [facility] Radha Guevara and Darlene Mccallum PA-C through [employer] [employer] on Wednesday09/22/21 relaying concerns about patient status following up recent visit from previous week on 09/19/21 visit. From a pulmonary standpoint the patient can continue with physical therapy for the hip replacement while on oxygen therapy. Supplemental 02 at baseline is 1L/min at rest, 2L/min with activity. During physical rehabilitation, his 02 should be adjusted to keep his oxygen saturation over 90%. signed by Dr. Demetris Morris [facility] date of script 09/01/21 Inspection of L posterior/lateral incision: 10 stei-strips intact no drainage, no odor detected by SMB, PT, DPT on 09/05/21 [facility] [address] [place] [address] Drive [address] [place] [address] Office Visit Report Signed Patient: Aleksandar Adamson EMR#: [id number] : [id number]:[id number] Age/Sex: 51 / MADM/SER Date: 09/04/21 Loc: HO.HOSADM/SER Time:1217 Attending Provider: Caden Mccallum PA-C cc: Oswaldo Blanchard MD; Caden Mccallum PA-C~ Intake Vital Signs 09/04/21 12:20 Temp 97.2 F Temp Source Temporal Artery Scan Intake Visit Reasons: PO-LT ERROL 08/19/21 NE Intake Note: Gasper presents today for his P/O visit for his Left ERROL from 08/19/21. Dressing removed. State he has Mild pain at night and sore muscle in his leg. States he has a P.T appt tomorrow else where. Allergies doxycycline Allergy (Unknown, Verified 09/04/21 12:30) rash paroxetine [From Paxil] Adverse Reaction (Severe, Verified 09/04/21 12:30) Suicidal hought HPI PO-LT ERROL 08/19/21 NE HPI Details 51 yo male returns to the office today s/p LT ERROL 08/19/[address] Reid. He is ambulating with a walker and states is pain and function is improving. He returns to ourpatient PT tomorrow. He was seen by his television and radio repairer and continues to use home O2. He has been cleared by his television and radio repairer to resume PT. [facility] Medical History Anxiety Avascular necrosis of bone of left hip Avascular necrosis of bone of right hip COPD (chronic obstructive pulmonary disease) Depression Diabetes mellitus History of De La Rosa's esophagus History of pneumonia Hypertension OSMIN on CPAP Prediabetes Uses wheelchair Surgical History History of esophagogastroduodenoscopy (EGD) History of lung biopsy History of right hip replacement Hx of colonoscopy Hx of elbow surgery Social History Are you a primary client care representative to a significant other at home: No Do you presently have visiting nurse or other home services: No Patient Tobacco Use Status: Former Tobacco user Quit Date: 1999 Tobacco use type: Cigarette service: No Current occupational status: disabled Review of Systems Const All systems reviewed & are unremarkable except as noted in HPI and below Physical Exam Vital Signs: Last Vital Signs Temp 97.2 F 09/04/21 12:20 Extrem Other: left hip incision clean , dry and intact. No erythema or swelling. NVI. Assessment & Plan Assessment & Plan (1) S/P total left hip arthroplasty: Code(s): Z96.642 - Presence of left artificial hip joint Plan: Leopold removed, steri strips applied. He will continue to work with Outpatient PT to continue working on strength, gait training and core/lumbar stabilization. No driving for another 4 weeks. He will require ppx abx for dental procedures. He will f/u in 4 weeks, sooner if needed. Coding Level of Care Code Global (93416) Diagnoses S/P total left hip arthroplasty Z96.642 Documented By:Caden Mccallum-C009/04/21 1219 Exercises Assessment of vitals SP02 on 2L ranges 95-97% throughout session, 70-84 bpm, BP 100/60mmHg today start of session. Pt arrived with supplemental 02 on 1L cues to increase to 2L (has been previously educated t ensure he is using 2L for activity vs. 1L however poor carryover is shown.) Standing prostretch for gentle calf stretch x 30 sec hold x 4R inside of parallel bars, Review of step down sequencing for stairs (pt expressing has been doing foot over foot with increased pain) therapist encouraged pt to perform step to pattern as he has expressed episodes of buckling in the knee. SL hip abd with pillow between knees cues for correct technique x 2 sets 10R, SAQ x 4 sets 10R with cues to rest betweeen poor tolerance for SLR- advised to D/C due to groin pain, Hooklying posterior pelvic tilt x 2 sets 10R, isometric hip adduction x 2 sets 10R. Review of self care for distal thigh with avoidance of STM over bony ridges with use of rolling bar. Self care educated- see eval. Ice packs, self care HEP program, monitoring of incision care, see eval. Education to refrain from any further activity. Modalities Positioned in R SL with pillow between knee Select unit lumbar setting Ch1/C2 cross patterned 2 pads lumbar L5 region and 2 pads posterior lateral L hip away from incision at intensity 14.5 Ma with ice to L lateral posterior hip (two square ice packs with additional lumbar most heat to lumbar spine region. SKin intact pre post removal. Educated: re avoidance of incision for self care at home if using TENS machine. Education proper set-up/removal/application for use for home. Assessment: 10/02/21 Pt continues to express episodes of losing his balance and feeling lightheaded (outside of PT office) which appear to correlate his level of activity and exertion. Poor insight to safety is observed at times (around activity, oxygen use, precautions ERROL). Pt was advised to continue SL hip abd, SAQ, posterior pelvic tilt, and hip adduction. Pt unable to perform SLR without pain so he was advised to D/C this. Pt is encouraged to use RW to aide in energy conservation. He continues to present with use of std cane in PT office. Please advise. Pt is demonstrating plateaued progress in PT at this time, he may benefit from continuing current program at home. He reports he has a pulmonary follow -up in December. 09/29/21 Pt expressing ongoing concerns for proximal L hip pain which radiates to knee. History of poor compliance in regard to joint protection and ERROL pre-cautions. He continues to present to the office with use of std cane and supplemental 02, using 2L for activity. 09/25/21 Pt expressing he has been having episodes of whooshing sensations in the L groin with sharp pains. Ongoing proximal hip discomfort. Pt to see orthopedics next week on 10/02/21. Continues to require 2L oxygen for activity with rest periods due to periodic dyspnea. 09/23/21 Pt present with improved vitals signs, color, and ambulation quality at start of session. Pt stated he purchased a home tens machine over the weekend, expressed had phone conversation with Darlene Mccallum PA-C, regarding his status. Pt to see orthopedics next week. Pt able to perform L hip abd with improved ability today with minimal pain. Ongoing concern for increased report of L groin, proximal thigh pain. Pt expressing near constant sx, continues to take 10mg oxycodone with pain. Pt expresses relief with TENS trialed in office- may benefit from [employer] home TENS unit due to reduction in pain. Pt has expressed poor compliance to education re: precautions and has been overdoing activity and putting himself in positions/tasks which he should not have been doing. 09/19/21 Pt presents to office with carrying std cane and new portable oxygen tank (with very short line of oxygen tubing) Its the first time I used this one and I didnt realize how short the line was until we left. Pt expresses has been doing more than recommended in regard tp physical activity at home. States two days ago was lying on his stomach on a creeper assisting his father demo his old kitchen floor. Last week therapist reiterated that patient should not be doing any form of activity at that time reported he went into his basement at one point to attempt leveling his kitchen floor. He has demonstrated poor follow through with education. Concern for compromise of L ERROL posterior precautions. Pt able to bear weight through L LE today however expressing near constant anterior groin pain which radiates to L knee when standing (also hx chronic back pain). Pt advised to continue use of RW and supplemental 02 as educated from television and radio repairer however pt presents to office with cane. Pt appeared more pale in color today with decreased oxygen levels compared to last session. Trial of estim/ice combo to L Lumbar and L posterior hip in effort to ease sx with some relief reported. Pt was advised to refrain from any therapy exercise which cause him pain. Therapist recommending patient be seen by orthopedics for further evaluation. Pt's Arelis present alongside patient today; both were reeducated of goals, safety concerns, need for 02 to be above 90% (2L with activity, goal of 1L for rest with obvious need to stay above level 90%). 09/09/21 Pt demonstrated improved tolerance for initiation of standing hip exercises. Pt educated to back off from activity at home as he expresses he has been doing more at home. 09/05/21 Pt able to maintain Sp02 level 95-98% on 2L 02 throughout session. Pt presented to office with use of std cane, therapist encouraged and educated in the benefit of using RW vs. std to reduce oxygen demands/ conserving energy/ workload level. Pt and pt's reviewed home program. Pt issued hooklying posterior pelvic tilt, iso hip adduction, reviewed SL hip abd lying on R side, bridge within painfree ROM for HEP component. Pt able to perform SL hip abd on L with good ability (better tolerance R SL vs supine due to incision location). Marion have been removed. Ten steri-strips intact over L hip. Pt educated he should be using 2L activity, 1L 02 at rest. 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 Reviewed the importance of performing HEP and monitoring vitals while doing so. Pt is a pleasant, RHD 51 y/o male referred to PT from [facility] date of script referral 08/18/21 following history of L posterior ERROL performed on 08/19/[address] Reid. Pt was D/C home on 08/21/21 and was referred directly to outpatient, started on 08/25/21 due to lack of VNA care available in his town. Pt also had R posterior ERROL completed in 06/[address] Reid. Pt was using a RW prior to having L ERROL operation and prior to having L ERROL in 06/03 pt was using a WC for community mobility due to severity of his sx related to AVN. Other PMH includes: Anxiety Avascular necrosis of bone of left hip Avascular necrosis of bone of right hip COPD (chronic obstructive pulmonary disease) Depression Diabetes mellitus History of De La Rosa's esophagus History of pneumonia Hypertension (pt states he came off of HTN meds about a year ago) OSMIN on CPAP Prediabetes Uses wheelchair Surgical History (Updated 08/18/21 @ 09:51 by Summer Houser, RN) History of esophagogastroduodenoscopy (EGD) History of lung biopsy History of right hip replacement Hx of colonoscopy Hx of elbow surgery Pt presents to the office with Arelis present, using RW, demonstrating pale color, expressing nausea, and severe pain in L hip. Pt's BP was taken prior to start of care: 108/64 mmHg, HR 87 bpm, Sp02 96%. Pt expressed he did not take his pain medication prior and did not eat anything as he was rushing to get of the home. His bedroom is on the second floor of the home and he expressed it was the first time he has done stairs since surgery (with the exception of doing a few stairs prior to D/C home 08/19). In the office, pt was positioned in supine with bolster under knees with three ice pack applied to 1) L anterior and 2) L posterior hip, and 3) L proximal thigh in effort to reduce pain. Pt also received a cold towel around back of neck in effort to aide his symptoms of nausea/pain. He was educated to make sure in the future he takes his pain medication with food prior to session. He was issued a written HEP sheet and was encouraged to start very gently and SLOWLY with his HEP. He was educated that the goal of his therapy this week is to ensure safety with simple functional mobility with use of his RW, maintaining 3/3 posterior L ERROL precautions, controlling edema/pain in L hip, and staying safe/hydrated; with GENTLE completion of his HEP if able like when he completed last round of recovery after having his R ERROL done in 06/03 (rehab). His gel dressing over the posterior L hip became folded over on itself in a small area on the top upper L corner, still intact and covering entire wound with minimal staining in the middle of the gauze component dressing. No odor, drainage, or concern for infection present. Cecil and his Arelis were educated to call orthopedics for a dressing reinforcement/change should the appearance of the dressing shift any further than what is appears like this date. Therapist phoned Summer Houser nurse navigator post eval to update her on the current status of the patient, his dressing status, and to relay concerns patient stated had about his pain medication (regarding doses, refills). Therapist loaned patient a std adjustable cane to borrow as he presented with a fixed wooden cane which was the incorrect height (too short) for him. Pt stated he does have a std cane at home but left it in his upstairs bedroom (has a full flight of stairs to get back into home). We verbalized sequencing and I provided a visual review of how to properly ascend/descend stairs with use of unilateral rail and std cane (ascending R LE first, descending stairs with L LE first). Cecil and his verbalized carryover. Pt stated he forgot about icing and has not been icing since he left the hospital. Pt and caregiver were educated that he can ice his hip several times daily which can aide in pain control/edema in addition to his medications. Pt and his were educated re: HEP sheets and encouraged to perform gentle AP, glute sets, isometric QS, SAQ, AAROM heel slides to be completed slowly low reps as able only with emphasis on pain management and safety, and icing several times daily x 10-20 minutes on with proper layering, 20 minutes rest from ice with skin checks post removal. He was advised to refrain from hip abduction in supine this date due to poorly controlled pain and symptoms of dressing being pulled when attempting to move his leg into abduction. He was educated we will revisit what HEP tasks to do at home with written instructions when in the office on Wednesday. Pt and caregiver demonstrated/verbalized carryover of education given post session. PT Plan: Follow up with Dr. Reid office later today. Await plan- ?transition to I HEP due to plateauing status and I HEP. Short Term Goals: 1. Strength L hip abd 3/5. 2. Strength SLR into flexion with good control. 3. Sit<>Stand with on first attempt. 4. Initiate HEP and self care icing for L hip. Alf Goals: 1. Strength L hip abd 5/5. 2. Negotiate stairs reciprocally with good dynamic balance. 3. Resume community ambulation MOD I with least restrictive device. 4. Resume sleeping upstairs MOD I. 5. Strength L hip ext 5/5. Electronically signed by: Cherie Lopez, PT, DPT
--- NOTE | 2021-11-10 09:55 | MHC.PT.OD ---
[facility] [place] [facility] [place] [facility] [place] [facility] [address] Angelia Harman [address] [phone] F: [phone] F: [phone] F: [phone] F: [phone] Physical Therapy Daily Note Diagnosis: Presence of left artificial joint, presence of left artificial hip joint, needs outpatient PT on 08/25/21 s/p L ERROL 08/19/21 s/p total left hip arthroplasty date of referral Dr. Silviano Reid date of referral [id number]. Date of Surgery: 08/19/21 L posterior ERROL Date of Evaluation: 08/26/21 Date of Treatment: 11/10/21 Treatments to Date: Cancellations to Date: No Shows to Date: Authorized Visits: 13 Insurance End Date: Precautions/ Contraindications:L posterior ERROL Subjective: I was in the store over the weekend pushing a shopping cart and I could feel my right hip. Pain Score and Location: 6 Objective Flowsheet: Tests & Measures Sp02 96% 1L HR 86 bpm Therapist SB contacted [facility]'s Radha Guevara and Darlene Mccallum PA-C through [facility] [employer] on Wednesday09/22/21 relaying concerns about patient status following up recent visit from previous week on 09/19/21 visit. From a pulmonary standpoint the patient can continue with physical therapy for the hip replacement while on oxygen therapy. Supplemental 02 at baseline is 1L/min at rest, 2L/min with activity. During physical rehabilitation, his 02 should be adjusted to keep his oxygen saturation over 90%. signed by Dr. Demetris Morris -[facility] date of script 09/01/21 Inspection of L posterior/lateral incision: 10 stei-strips intact no drainage, no odor detected by SMB, PT, DPT on 09/05/21 [facility] [address] [place] [address] Drive [address] [place] [address] Office Visit Report Signed Patient: Aleksandar Adamson EMR#: [id number] : [id number]:[id number] Age/Sex: 51 / MADM/SER Date: 09/04/21 Loc: HO.HOSADM/SER Time:1217 Attending Provider: Caden Mccallum PA-C cc: Oswaldo Blanchard MD; Caden Mccallum PA-C~ Intake Vital Signs 09/04/21 12:20 Temp 97.2 F Temp Source Temporal Artery Scan Intake Visit Reasons: PO-LT ERROL 08/19/21 NE Intake Note: Gasper presents today for his P/O visit for his Left ERROL from 08/19/21. Dressing removed. State he has Mild pain at night and sore muscle in his leg. States he has a P.T appt tomorrow else where. Allergies doxycycline Allergy (Unknown, Verified 09/04/21 12:30) rash paroxetine [From Paxil] Adverse Reaction (Severe, Verified 09/04/21 12:30) Suicidal hought HPI PO-LT ERROL 08/19/21 NE HPI Details 51 yo male returns to the office today s/p LT ERROL 08/19/[address] Reid. He is ambulating with a walker and states is pain and function is improving. He returns to ourpatient PT tomorrow. He was seen by his school leader and continues to use home O2. He has been cleared by his school leader to resume PT. [facility] Medical History Anxiety Avascular necrosis of bone of left hip Avascular necrosis of bone of right hip COPD (chronic obstructive pulmonary disease) Depression Diabetes mellitus History of De La Rosa's esophagus History of pneumonia Hypertension OSMIN on CPAP Prediabetes Uses wheelchair Surgical History History of esophagogastroduodenoscopy (EGD) History of lung biopsy History of right hip replacement Hx of colonoscopy Hx of elbow surgery Social History Are you a primary youth care professional to a significant other at home: No Do you presently have visiting nurse or other home services: No Patient Tobacco Use Status: Former Tobacco user Quit Date: 1999 Tobacco use type: Cigarette service: No Current occupational status: disabled Review of Systems Const All systems reviewed & are unremarkable except as noted in HPI and below Physical Exam Vital Signs: Last Vital Signs Temp 97.2 F 09/04/21 12:20 Extrem Other: left hip incision clean , dry and intact. No erythema or swelling. NVI. Assessment & Plan Assessment & Plan (1) S/P total left hip arthroplasty: Code(s): Z96.642 - Presence of left artificial hip joint Plan: [place] removed, steri strips applied. He will continue to work with Outpatient PT to continue working on strength, gait training and core/lumbar stabilization. No driving for another 4 weeks. He will require ppx abx for dental procedures. He will f/u in 4 weeks, sooner if needed. Coding Level of Care Code Global (79691) Diagnoses S/P total left hip arthroplasty Z96.642 Documented By:Caden MccallumC009/04/21 1219 [address] way resisted hip with RTB with cues to maintain neutral (not crossing over for adduction) x 2 sets 10R with cues to avoid hyper ext of knees and maintain core recruitment, review of SL hip abd with knee extended with pillows x 2 sets 10R, Hooklying hip abd with blue band x 2 sets 10R, Hooklying posterior pelvic tilt x 2 sets 10R, hooklying bridge (painfree height lifts x 2 set 10R). Hooklying TAC march with posterior pelvic tilt small ROM (foot coming up off mat 1 inch) with pillow between the knees, hooklying hip abd with Blue theraband x 2 sets 10R with pillow between the knees with cues to pull out only to shoulder distance, hooklying hip ext with posterior pelvic tilt bridge with pillow between knees x 2 sets 10R, R SL for SL hip abduction x 2 set 10R with cues for hip ER and quad control/contraction. Hooklying TAC march with posterior pelvic tilt small ROM with pillow between the knees, hooklying hip abd with Blue theraband x 2 sets 10R with pillow between the knees, hooklying hip ext with posterior pelvic tilt bridge with pillow between knees x 2 sets 10R, R SL for SL hip abduction x 2 set 10R with cues for hip ER and quad control/contraction. Held taping due to skin irritation reported with last usage Ice to bilateral hips and lumbar seated x 10 minutes post. Modalities Review and use/set-up for Zynex TENS machine -brought book in today. Application/safety/removal/indications for use, etc. Assessment: 11/10/[address] scan scheduled for Wednesday from PCP (? hernia). Pt to see Dr. Reid on for a follow up. He continues to require supplemental oxygen (1-2L) and use of std cane for community ambulation. He expresses fatigue with SL hip abduction. He has been issued a core/hip stabilization program and expresses good compliance. He does verbalize doing more at home (?) overdoing tasks at times. He has repeatedly inquired about completing stairs for exercise. He has been advised to do stairs as needed for functional mobility but not with the goal of climbing stairs for exercise. His Sp02 levels were 96-97% on 1L today during session today. He is scheduled to see his school leader mid December. Anticipating transition to I HEP. Await follow up response from Dr. Reid office. 11/03/21 Pt is awaiting a date for CT scan for groin- was seen by PCP who is questioning hernia. Pt remains challenged with SL hip abduction, presents to the office with no AD. 10/20/21: Initiated standing 4 way hip abd, add to neutral, hip ext, and hip flexion with YTB, standing gastroc and soleus stretches. 10/16/21 Pt demonstrates improved tolerance for progression of CKC today. He remains challenged with SL hip abduction. 10/02/21 Pt continues to express episodes of losing his balance and feeling lightheaded (outside of PT office) which appear to correlate his level of activity and exertion. Poor insight to safety is observed at times (around activity, oxygen use, precautions ERROL). Pt was advised to continue SL hip abd, SAQ, posterior pelvic tilt, and hip adduction. Pt unable to perform SLR without pain so he was advised to D/C this. Pt is encouraged to use RW to aide in energy conservation. He continues to present with use of std cane in PT office. Please advise. Pt is demonstrating plateaued progress in PT at this time, he may benefit from continuing current program at home. He reports he has a pulmonary follow -up in December. 09/29/21 Pt expressing ongoing concerns for proximal L hip pain which radiates to knee. History of poor compliance in regard to joint protection and ERROL pre-cautions. He continues to present to the office with use of std cane and supplemental 02, using 2L for activity. 09/25/21 Pt expressing he has been having episodes of whooshing sensations in the L groin with sharp pains. Ongoing proximal hip discomfort. Pt to see orthopedics next week on 10/02/21. Continues to require 2L oxygen for activity with rest periods due to periodic dyspnea. 09/23/21 Pt present with improved vitals signs, color, and ambulation quality at start of session. Pt stated he purchased a home tens machine over the weekend, expressed had phone conversation with Darlene Mccallum PA-C, regarding his status. Pt to see orthopedics next week. Pt able to perform L hip abd with improved ability today with minimal pain. Ongoing concern for increased report of L groin, proximal thigh pain. Pt expressing near constant sx, continues to take 10mg oxycodone with pain. Pt expresses relief with TENS trialed in office- may benefit from Zynex home TENS unit due to reduction in pain. Pt has expressed poor compliance to education re: precautions and has been overdoing activity and putting himself in positions/tasks which he should not have been doing. 09/19/21 Pt presents to office with carrying std cane and new portable oxygen tank (with very short line of oxygen tubing) Its the first time I used this one and I didnt realize how short the line was until we left. Pt expresses has been doing more than recommended in regard tp physical activity at home. States two days ago was lying on his stomach on a creeper assisting his father demo his old kitchen floor. Last week therapist reiterated that patient should not be doing any form of activity at that time reported he went into his basement at one point to attempt leveling his kitchen floor. He has demonstrated poor follow through with education. Concern for compromise of L ERROL posterior precautions. Pt able to bear weight through L LE today however expressing near constant anterior groin pain which radiates to L knee when standing (also hx chronic back pain). Pt advised to continue use of RW and supplemental 02 as educated from school leader however pt presents to office with cane. Pt appeared more pale in color today with decreased oxygen levels compared to last session. Trial of estim/ice combo to L Lumbar and L posterior hip in effort to ease sx with some relief reported. Pt was advised to refrain from any therapy exercise which cause him pain. Therapist recommending patient be seen by orthopedics for further evaluation. Pt's Arelis present alongside patient today; both were reeducated of goals, safety concerns, need for 02 to be above 90% (2L with activity, goal of 1L for rest with obvious need to stay above level 90%). 09/09/21 Pt demonstrated improved tolerance for initiation of standing hip exercises. Pt educated to back off from activity at home as he expresses he has been doing more at home. 09/05/21 Pt able to maintain Sp02 level 95-98% on 2L 02 throughout session. Pt presented to office with use of std cane, therapist encouraged and educated in the benefit of using RW vs. std to reduce oxygen demands/ conserving energy/ workload level. Pt and pt's reviewed home program. Pt issued hooklying posterior pelvic tilt, iso hip adduction, reviewed SL hip abd lying on R side, bridge within painfree ROM for HEP component. Pt able to perform SL hip abd on L with good ability (better tolerance R SL vs supine due to incision location). [place] have been removed. Ten steri-strips intact over L hip. Pt educated he should be using 2L activity, 1L 02 at rest. 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 Reviewed the importance of performing HEP and monitoring vitals while doing so. Pt is a pleasant, RHD 51 y/o male referred to PT from [facility] date of script referral 08/18/21 following history of L posterior ERROL performed on 08/19/[address] Reid. Pt was D/C home on 08/21/21 and was referred directly to outpatient, started on 08/25/21 due to lack of VNA care available in his town. Pt also had R posterior ERROL completed in 06/[address] Reid. Pt was using a RW prior to having L ERROL operation and prior to having L ERROL in 06/03 pt was using a WC for community mobility due to severity of his sx related to AVN. Other PMH includes: Anxiety Avascular necrosis of bone of left hip Avascular necrosis of bone of right hip COPD (chronic obstructive pulmonary disease) Depression Diabetes mellitus History of De La Rosa's esophagus History of pneumonia Hypertension (pt states he came off of HTN meds about a year ago) OSMIN on CPAP Prediabetes Uses wheelchair Surgical History (Updated 08/18/21 @ 09:51 by Summer Houser RN) History of esophagogastroduodenoscopy (EGD) History of lung biopsy History of right hip replacement Hx of colonoscopy Hx of elbow surgery Pt presents to the office with Arelis present, using RW, demonstrating pale color, expressing nausea, and severe pain in L hip. Pt's BP was taken prior to start of care: 108/64 mmHg, HR 87 bpm, Sp02 96%. Pt expressed he did not take his pain medication prior and did not eat anything as he was rushing to get of the home. His bedroom is on the second floor of the home and he expressed it was the first time he has done stairs since surgery (with the exception of doing a few stairs prior to D/C home 08/19). In the office, pt was positioned in supine with bolster under knees with three ice pack applied to 1) L anterior and 2) L posterior hip, and 3) L proximal thigh in effort to reduce pain. Pt also received a cold towel around back of neck in effort to aide his symptoms of nausea/pain. He was educated to make sure in the future he takes his pain medication with food prior to session. He was issued a written HEP sheet and was encouraged to start very gently and SLOWLY with his HEP. He was educated that the goal of his therapy this week is to ensure safety with simple functional mobility with use of his RW, maintaining 3/3 posterior L ERROL precautions, controlling edema/pain in L hip, and staying safe/hydrated; with GENTLE completion of his HEP if able like when he completed last round of recovery after having his R ERROL done in 06/03 (rehab). His gel dressing over the posterior L hip became folded over on itself in a small area on the top upper L corner, still intact and covering entire wound with minimal staining in the middle of the gauze component dressing. No odor, drainage, or concern for infection present. Cecil and his Arelis were educated to call orthopedics for a dressing reinforcement/change should the appearance of the dressing shift any further than what is appears like this date. Therapist phoned Summer Houser nurse navigator post eval to update her on the current status of the patient, his dressing status, and to relay concerns patient stated had about his pain medication (regarding doses, refills). Therapist loaned patient a std adjustable cane to borrow as he presented with a fixed wooden cane which was the incorrect height (too short) for him. Pt stated he does have a std cane at home but left it in his upstairs bedroom (has a full flight of stairs to get back into home). We verbalized sequencing and I provided a visual review of how to properly ascend/descend stairs with use of unilateral rail and std cane (ascending R LE first, descending stairs with L LE first). Cecil and his verbalized carryover. Pt stated he forgot about icing and has not been icing since he left the hospital. Pt and caregiver were educated that he can ice his hip several times daily which can aide in pain control/edema in addition to his medications. Pt and his were educated re: HEP sheets and encouraged to perform gentle AP, glute sets, isometric QS, SAQ, AAROM heel slides to be completed slowly low reps as able only with emphasis on pain management and safety, and icing several times daily x 10-20 minutes on with proper layering, 20 minutes rest from ice with skin checks post removal. He was advised to refrain from hip abduction in supine this date due to poorly controlled pain and symptoms of dressing being pulled when attempting to move his leg into abduction. He was educated we will revisit what HEP tasks to do at home with written instructions when in the office on Wednesday. Pt and caregiver demonstrated/verbalized carryover of education given post session. PT Plan: Pt to see Dr. Reid later this week - anticipating transition to I HEP. Await plan. Short Term Goals: 1. Strength L hip abd 3/5. 2. Strength SLR into flexion with good control. 3. Sit<>Stand with on first attempt. 4. Initiate HEP and self care icing for L hip. Plastic Surgery Specialist Goals: 1. Strength L hip abd 5/5. 2. Negotiate stairs reciprocally with good dynamic balance. 3. Resume community ambulation MOD I with least restrictive device. 4. Resume sleeping upstairs MOD I. 5. Strength L hip ext 5/5. Electronically signed by: Cherie Lopez, PT, DPT
== END 2021-12-23 14:39 | disposition home or self-care (01) ==
LOC: HO.PTWFD 07:00
PROVIDERS: Visit Provider Physician Assistant
DX: Z96.642 Presence of left artificial hip joint (principal)
CPT/HCPCS: 97014; 97110; 97140; 97162; 97530; 97535

== ENCOUNTER 2021-11-13 07:37 | Outpatient (REF) | payer BC, SELFPAY ==
--- NOTE | ~2021-11-13 | XR_ITS ---
EXAMINATION: XR PELVIS CLINICAL INFORMATION: Pain. COMPARISON: Radiographs dated 08/19/2021. TECHNIQUE: 2 AP views of the pelvis are submitted. FINDINGS: There is a mild bony demineralization. There are intact bilateral hip total arthroplasties, without hardware failure or loosening. No fracture or dislocation is seen. There are bilateral vasectomy clips. XR/XR pelvis 1-2V IMPRESSION: There are intact bilateral hip total arthroplasties, without hardware failure or loosening. No fracture or dislocation is seen.
== END 2021-11-13 07:38 | disposition home or self-care (01) ==
LOC: HO.HOSX 07:37
PROVIDERS: Visit Provider Orthopaedic Surgery
DX: M25.551 Pain in right hip (principal); M25.552 Pain in left hip
CPT/HCPCS: 72170

== ENCOUNTER 2021-12-04 06:27 | Outpatient (REF) | payer MEDICARE, SELFPAY ==
--- NOTE | 2021-12-04 08:41 | MHC.SHP ---
Pre-Procedural Eval Section A Date of Service: 12/04/21 The patient is an INPATIENT: No Changes since office visit: No Cold of Flu in the past 2 weeks, No New Medical Problems, No Changes in Medication and No Patient answered all questions The History & Physical has been completed within 30 days and I have reviewed it.: Yes Section B Chief Complaint: left trigger thumb Allergies: Allergies Allergy/AdvReac Type Severity Reaction Status Date / Time doxycycline Allergy Unknown rash Verified 11/13/21 08:28 paroxetine [From Paxil] AdvReac Severe Suicidal Verified 11/13/21 08:28 thoughts Plan I have reviewed the history and physical and performed a pertinent physical examination on my patient. No changes have occurred unless specified.
--- NOTE | 2021-12-04 08:42 | P.OP_ITS ---
Operative Note Operative Note Date of Service: 12/04/21 Narrative: Operative Note Preop diagnosis: 1. Left trigger thumb Postop diagnosis: 1. same Procedure: 1. left thumb A1 nehemias release Surgeon: Sury Rueda MD Anesthesia: local block using 1% lidocaine with epinephrine Findings: No locking or catching after A1 nehemias release EBL: Less than 5 mL Tourniquet time: None Specimens: None Complications: None Disposition: Brought to recovery room in stable condition Plan: Follow-up for 10-14 days for wound check and suture removal Indications: The patient is 51 years old, with a left trigger thumb that has been unresponsive to nonoperative management. The risks and benefits of operative treatment including but not limited to risk of damage to blood vessels, nerves, tendons, infection, persistent pain, persistent symptoms, recurrence or possible need for additional surgery were discussed with the patient and the patient wishes to proceed with surgery. Procedure: Once consent was obtained a local block was performed in the preop area using a combination of 1% lidocaine with epinephrine. The patient was then brought back to the operating suite and placed on the operative table in supine position. A tourniquet was applied to the proximal aspect of the left upper extremity and the limb was prepped and draped in a standard surgical fashion. Once assured that we had a good block, a 1.5 cm oblique incision was made gracy tered over the A1 nehemias of the left thumb . The incision was made through the skin to the subcutaneous tissues using a #15 blade. Careful dissection was made down to the level of the A1 nehemias using tenotomy scissors, with care being taken to protect the nearby neurovascular structures. A longitudinal incision was made in the A1 nehemias 1st using a #15 blade, then using tenotomy scissors under direct visualization. The A1 nehemias was noted to be thickened. Following our A1 nehemias release, we no longer saw any locking or catching of the digit with flexion and extension. Once satisfied with our A1 nehemias release the wound was copiously irrigated with normal saline and hemostasis was obtained with a brief period of local pressure. The skin edges were reapproximated with some 5.0 nylon suture material and a sterile dressing was applied. The patient appears to have tolerated the procedure well and with no complications. All digits were well vascularized at the conclusion of the case.
== END 2021-12-04 06:28 | disposition home or self-care (01) ==
LOC: HO.MS 06:27
PROVIDERS: PCP Internal Medicine; Visit Provider Orthopaedic Surgery
PROC: (CPT 26055; principal; 2021-12-04 08:20)
DX: M65.312 Trigger thumb, left thumb (principal); E11.9 Type 2 diabetes mellitus without complications; I10 Essential (primary) hypertension; J44.9 Chronic obstructive pulmonary disease, unspecified; G47.33 Obstructive sleep apnea (adult) (pediatric); Z99.81 Dependence on supplemental oxygen; F41.1 Generalized anxiety disorder; Z99.89 Dependence on other enabling machines and devices; Z88.1 Allergy status to other antibiotic agents; Z88.8 Allergy status to other drugs, medicaments and biological substances; Z99.3 Dependence on wheelchair; Z87.891 Personal history of nicotine dependence
CPT/HCPCS: 26055; J0171; J2795

== ENCOUNTER → 2022-01-28 14:46 | Outpatient (BNVA) | payer MEDICARE, SELFPAY | PROVIDERS: PCP Internal Medicine; Visit Provider Orthopaedic Surgery | DX: Z47.89 Encounter for other orthopedic aftercare (principal); R20.2 Paresthesia of skin; R20.0 Anesthesia of skin | CPT/HCPCS: 20526; 99212; J1100 ==

== ENCOUNTER 2022-04-29 12:18 | Outpatient (REF) | payer MEDICARE, SELFPAY ==
--- NOTE | 2022-04-29 10:15 | EMG_ITS ---
Please see scanned EMG / Nerve Conduction Report. MTDD
== END 2022-04-29 12:19 | disposition home or self-care (01) ==
LOC: HO.NEURO 12:18
PROVIDERS: PCP Internal Medicine; Visit Provider Orthopaedic Surgery
DX: R20.0 Anesthesia of skin (principal)
CPT/HCPCS: 95885; 95910

== ENCOUNTER → 2022-05-08 12:19 | Outpatient (BNVA) | payer MEDICARE, SELFPAY | PROVIDERS: PCP Internal Medicine; Visit Provider Orthopaedic Surgery | DX: G56.02 Carpal tunnel syndrome, left upper limb (principal); R20.0 Anesthesia of skin | CPT/HCPCS: 99212 ==

== ENCOUNTER 2022-05-13 13:04 | Outpatient (REF) | payer MEDICARE, SELFPAY | END 2022-05-13 13:05 | disposition home or self-care (01) | LOC: HO.HOSX 13:04 | PROVIDERS: Visit Provider Orthopaedic Surgery | DX: Z13.89 Encounter for screening for other disorder (principal) ==

== ENCOUNTER 2022-05-14 11:02 | Outpatient (REF) | payer MEDICARE, SELFPAY ==
--- NOTE | ~2022-05-14 | XR_ITS ---
EXAMINATION: XR PELVIS CLINICAL INFORMATION: Hip pain. COMPARISON: 11/13/2021 TECHNIQUE: AP view of the pelvis. FINDINGS: Prosthetic components of the bilateral total hip arthroplasties appear appropriately situated. The femoral head components appear concentrically positioned within the acetabular cups. No appreciable periprosthetic fracture or significant lucency. Bone mineralization is normal. SI joints are unremarkable on these images. Pubic symphysis is normal. Surgical clips are present in the scrotal region. No acute soft tissue findings. XR/XR pelvis 1-2V IMPRESSION: Normal appearance of the bilateral total hip arthroplasties without evidence of complications. No acute findings.
== END 2022-05-14 11:03 | disposition home or self-care (01) ==
LOC: HO.HOSX 11:02
PROVIDERS: Visit Provider Orthopaedic Surgery
DX: M24.551 Contracture, right hip (principal); M25.551 Pain in right hip; Z96.641 Presence of right artificial hip joint; Z96.642 Presence of left artificial hip joint; Z99.81 Dependence on supplemental oxygen
CPT/HCPCS: 72170; 99212

== ENCOUNTER 2022-06-04 09:32 | Day surgery (SDC) | payer MEDICARE, SELFPAY ==
--- NOTE | 2022-06-04 09:35 | W.PM.OPN ---
Operative Note Operative Note Date of Service: 06/04/22 Narrative: Preop diagnosis: 1. Left Carpal tunnel syndrome Postop diagnosis: same Procedure: 1. Left Carpal tunnel release Surgeon: Sury Rueda MD Anesthesia: local block using 1% lidocaine with epinephrine Findings: Thickened transverse carpal ligament. EBL: Less than 5 mL Specimens: None Complications: None Disposition: Brought to recovery room in stable condition Plan: Follow-up for 10-14 days for wound check and suture removal Indications: The patient is 52 years old, with left carpal tunnel syndrome that has been unresponsive to nonoperative management. The risks and benefits of operative treatment including but not limited to risk of damage to blood vessels, nerves, tendons, infection, persistent pain, persistent symptoms, or possible need for additional surgery were discussed with the patient and the patient wishes to proceed with surgery. Procedure: Once consent was obtained a local block was performed using a combination of 1% lidocaine with epinephrine. The patient was then brought back to the operating suite and placed on the operative table in supine position. The left upper extremity was prepped and draped in a standard surgical fashion. Once assured that we had a good block, a 2.0 cm longitudinal incision was made centered over the carpal tunnel. The incision was made through the skin to the subcutaneous tissues using a #15 blade. Dissection was made down to the level of the transverse carpal ligament with care being taken to protect the palmar cutaneous nerve. Once the transverse carpal ligament was clearly visualized, a longitudinal incision was made in the transverse carpal ligament 1st using a #15 blade, then using tenotomy scissors under direct visualization. Care was taken to look for and protect the motor branch of the median nerve when seen in this area. Once satisfied with our carpal tunnel release the wound was copiously irrigated with normal saline and hemostasis was obtained with a brief period of local pressure. The skin edges were reapproximated with some 5.0 nylon suture material and a sterile dressing was applied. The patient appears to have tolerated the procedure well and with no complications. All digits were well vascularized at the conclusion of the case.
[2022-06-04 10:27] VITALS: BP 151/94; PULSE 84; RESP 22; TEMP 36.8; O2SAT 97; BMI 46.6
[2022-06-04 14:43] VITALS: BP 140/72; PULSE 72; RESP 20; O2SAT 100
== END 2022-06-04 14:47 | disposition home or self-care (01) ==
PROVIDERS: PCP Internal Medicine; Visit Provider Orthopaedic Surgery
PROC: (CPT 64721; principal; 2022-06-04 12:10)
DX: G56.02 Carpal tunnel syndrome, left upper limb (principal); R20.0 Anesthesia of skin; G47.33 Obstructive sleep apnea (adult) (pediatric); J44.9 Chronic obstructive pulmonary disease, unspecified; I10 Essential (primary) hypertension; E11.9 Type 2 diabetes mellitus without complications; Z99.89 Dependence on other enabling machines and devices; Z88.1 Allergy status to other antibiotic agents; Z88.8 Allergy status to other drugs, medicaments and biological substances; Z99.3 Dependence on wheelchair
CPT/HCPCS: 64721; J0171

== ENCOUNTER → 2022-06-17 12:22 | Outpatient (BNVA) | payer MEDICARE, SELFPAY | PROVIDERS: PCP Internal Medicine; Visit Provider Physician Assistant ==

== ENCOUNTER 2024-01-31 08:47 | Outpatient (REF) | payer MEDICARE, SELFPAY | END 2024-01-31 08:48 | disposition home or self-care (01) | LOC: HO.HOSX 08:47 | PROVIDERS: Visit Provider Orthopaedic Surgery | DX: M24.551 Contracture, right hip (principal); M24.812 Other specific joint derangements of left shoulder, not elsewhere classified; Z96.641 Presence of right artificial hip joint | CPT/HCPCS: 20610; 72170; 99212; J0665; J1100; J2003 ==

== ENCOUNTER 2024-01-31 11:05 | Outpatient (AMB) | payer MEDICARE, SELFPAY ==
--- NOTE | 2024-01-31 11:16 | A.OFFVIS_ITS ---
Intake Visit Reasons: OV-Right hip pain-RT ERROL 08/19/22 Intake Note: Aleksandar is a 52 year old male who presents today for a post operative appointment s/p right ERROL 08/19/21 NE. Patient reports that he is having continued pain of the hip joint, feeling increased stiffness upon standing and increasing pain with prolonged walking. Allergies doxycycline Allergy (Unknown, Verified 06/17/22 12:26) rash paroxetine [From Paxil] Adverse Reaction (Severe, Verified 06/17/22 12:26) Suicidal thoughts HPI HPI OV-Right hip pain-RT ERROL 08/19/22: Details: Aleksandar is a 52 year old male who presents today for a post operative appointment s/p right ERROL 08/19/21 NE. Patient reports that he is having continued pain of the hip joint, feeling increased stiffness upon standing and increasing pain with prolonged walking. He also complains of left shoulder pain for which he is doing physical therapy. He denies fevers and chills. He states his right knee was doing well but after losing a lot of weight he has noticed the more he walks the more uncomfortable he becomes. FORMERLY [facility] Medical History Anxiety Avascular necrosis of bone of left hip Avascular necrosis of bone of right hip COPD (chronic obstructive pulmonary disease) Depression Diabetes mellitus History of De La Rosa's esophagus History of pneumonia Hypertension OSMIN on CPAP Prediabetes Uses wheelchair Surgical History History of esophagogastroduodenoscopy (EGD) History of lung biopsy History of right hip replacement Hx of colonoscopy Hx of elbow surgery Social History Are you a primary care services manager to a significant other at home: No Do you presently have visiting nurse or other home services: No Comment: aware of trip hazard Patient Tobacco Use Status: Former Tobacco user Tobacco use type: Cigarette service: No Current occupational status: disabled Physical Exam Extrem Other: no pain with passive ROM pain with resisted hip flexion left shoudler with full ROM +h/n Neg EC Office Procedures Joint Injection/Aspiration Joint Injection/Aspiration Details: Injected 1 mL of Decadron and 3 mL 1% lidocaine and 3 mL of 0.25% Marcaine. Site was prepped using aseptic technique. Patient tolerated the procedure well. Primary Site: left shoulder Approach Used: posterolateral Coding 13170 - Large joint Procedure code (CPT) selection complete Results Reviewed Results Reviewed: Bilateral ERROL in expected post operative position with no hardware complications or evidence of loosening Assessment & Plan Assessment & Plan (1) Right hip flexor tightness: Code(s): M24.551 - Contracture, right hip Category: Medical Plan: No evidence of internal derangent (2) Status post total hip replacement, right: Comment: 05/14/21 Code(s): Z96.641 - Presence of right artificial hip joint Category: Surgical Plan: PT (3) Internal derangement of left shoulder: Code(s): M24.812 - Other specific joint derangements of left shoulder, not elsewhere classified Category: Medical Plan: Doing PT with e/o impingement. injected left shoulder Orders: Orders XR pelvis 1-2V Today M25.559 - Pain in unspecified hip PT Evaluation and Treatment Today M24.551 - Contracture, right hip, Z96.641 - Presence of right artificial hip joint Coding Level of Care Code Est Pt Level 3 (69725) Complex EM visit Add On G2211 Diagnoses Right hip flexor tightness M24.551 Status post total hip replacement, right Z96.641 Internal derangement of left shoulder M24.812 CPT Codes Coding - Large joint: 58787 - Large joint ([id number])
== END 2024-01-31 11:55 | disposition home or self-care (01) ==
PROVIDERS: PCP Internal Medicine; Visit Provider Orthopaedic Surgery
DX: M24.551 Contracture, right hip (principal); Z96.641 Presence of right artificial hip joint; M24.812 Other specific joint derangements of left shoulder, not elsewhere classified
CPT/HCPCS: 20610; 99213

== ENCOUNTER 2024-03-21 09:00 | Outpatient (RCR) | payer MEDICARE, SELFPAY ==
--- NOTE | 2024-03-23 13:10 | MHC.PT.EP ---
[facility] [place] Office [place] [facility] [place] Office [address] Angelia Harman [address] [phone] F: [phone] F: [phone] F: [phone] F: [phone] Physical Therapy Plan of Care Date of Evaluation: 12/31/23 Date of Surgery: Diagnosis: PT referral: Chronic neck and upper back muscle spasm signed by Oswaldo Blanchard signed on 12/09/23 Assessment: Pt is a RHD 53 y/o male, referred to PT for treatment of Cervicalagia: PT referral: Chronic neck and upper back muscle spasm signed by Oswaldo Blanchard signed on 12/09/23 Pt expressing history of weight loss over 105lbs using ozempic medication. Pt PMH significant for ERROL R (osteonecrosis), lost over a 105lbs ( past year was started on ozempic), interstitial lung disease (recently came off of oxygen about a month ago per pt to see his contract processor (Dr. Morris next month). PMH also significant for Avascular necrosis of bone of right hip> R ERROL COPD (chronic obstructive pulmonary disease) Depression Diabetes mellitus History of De La Rosa's esophagus History of pneumonia Hypertension OSMIN on CPAP Prediabetes History of esophagogastroduodenoscopy (EGD) History of lung biopsy History of right hip replacement Hx of colonoscopy Hx of elbow surgery Pt exhibits tightness of pectoralis of L>R chest, tightness of sub-occitals/ LUT/, had x-ray (see above) exhibits poor posture, increased thoracic kyphosis, altered GH mechanics (poor ABD on L shoulder), and decreased strength of L shoulder abduction. He reports was formerly trying to perform lateral raises and bicep curls with 15# but was having pain so had to stop. 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 Pt will benefit from a gentle cervical stabilization program/flexibility/ AAROM L shoulder with HEP and periscap program to address current level of impairments/address goals. Pt present to the office with his spouse and was educated re: goals of therapy, plan of HEP, and was initiated in gentle written HEP to address: L UT/L scalene, and L levator stretches. He was educated in postural correction, chin tuck, and benefit in posture change to address sx. He was educated in use of pillow support under L UE, goal of AAROM vs AROM to reduce lateral shoulder sx. Pt expressing radiating pain to L lateral shoulder and L supraspinatus. Pain and weakness noted with L abduction, (+) speeds test, (+) pain with end range ER/IR L shoulder. Pt may benefit from referral to orthopedics should sx L shoulder not resolve with treatment for C/S due to concern for potential RTC compromise. Pt was educated in benefit of AAROM vs AROM for lifting and was advised to refrain from lifting laterally. Of note: pt reports episodes of getting up becomes dizzy at times. Vitals were screened in office orthostatic assessment, pt present with low BP overall ~100/50mmHg states MD is aware. Sp02 dropped to 93 at one point room air- will benefit from monitoring during session. Screening of orthostatic due to pt reporting surge of dizziness with movements at times: Supine: Pulse ox 93 room air- advised deep breaths increased to 95 HR 54 bpm, BP 100/50mmHg States he normally runs 110/60s Sitting: Sp02 95% room air, HR 77 bpm, BP 90/60mmHg, Reports mild dizziness upon standing Standing: Sp02 95%, HR 78 bpm, BP 94/64 mmHg, reports mild dizziness upon standing Pt states he came off of supplemental 02 about a month ago, completed walk tests, to see contract processor in the future. Pt to attend skilled PT twice weekly to meet listed goals. Frequency and Duration: The patient will be seen 2x/week x 4 weeks Short Term Goals: 1. Pt will express reduction in headache sx by 25%. 2. Pt will demonstrate L shoulder AROM abduction to 120. 3. Initiate postural awareness during ADLS/IADLS. 4. Strength L shoulder ER to 4/5. [employer] Goals: 1. Pt will express 50% improvement in neck pain. 2. Pt will demonstrate good body mechanics for lifting. 3. Pt will express reduction in headache sx by 50% during the week. Treatment Plan: Modalities to reduce pain, spasms and effusion. Manual therapy to restore motion and function. Therapeutic exercise to improve strength and flexibility. Neuromuscular re-education for posture and balance. Therapeutic activities to return to functional activities of daily living. Electronically signed by: Cherie Lopez PT, DPT Please sign and return to therapist. Thank you for your referral.
== END 2024-05-09 08:30 | disposition home or self-care (01) ==
LOC: HO.PTWFD 09:00
PROVIDERS: PCP Internal Medicine; Visit Provider Internal Medicine
DX: M54.2 Cervicalgia (principal); M24.551 Contracture, right hip; Z96.641 Presence of right artificial hip joint
CPT/HCPCS: 97110; 97116; 97140; 97162; 97530; 97535

== ENCOUNTER 2024-03-30 11:01 | Outpatient (REF) | payer MEDICARE, SELFPAY ==
--- OUTSIDE RECORDS SUMMARY | 2024-03-30 11:04 | XMS_ITS ---
Author Name [facility] Organization Unknown History of Medication Use Medication Directions Dispensed Refills Start Date End Date [facility] albuterol sulfate 2.5 mg/3 mL (0.083 %) solution for nebulization Take 3 mL (2.5 mg total) by nebulization every 4 (four) hours as needed for wheezing. 12/12/2023 active buspirone 10 mg tablet TAKE 2 TABLETS BY MOUTH THREE TIMES DAILY 12/12/2023 completed lorazepam 1 mg tablet TAKE 1 TABLET(1 MG) BY MOUTH THREE TIMES DAILY FOR UP TO 21 DAYS NEEDED FOR ANXIETY 12/12/2023 completed lisinopril 5 mg tablet Take 5 mg by mouth daily. 12/12/2023 completed methylphenidate 20 mg tablet Take 1 tablet (20 mg total) by mouth daily. 12/12/2023 completed Paxlovid 300 mg (150 mg x 2)-100 mg tablets in a dose pack TAKE 3 TABLETS BY MOUTH TWICE DAILY FOR 5 DAYS 12/12/2023 completed trazodone 150 mg tablet Take 1 tablet (150 mg total) by mouth every night at bedtime. 12/12/2023 completed celecoxib 200 mg capsule TAKE 1 CAPSULE BY MOUTH TWICE DAILY 12/12/2023 completed sildenafil 50 mg tablet Take 1 tablet every day by oral route. 12/12/2023 active atomoxetine 10 mg capsule Take 2 capsules twice a day by oral route. 12/12/2023 completed dextroamphetamine-amp hetamine ER 10 mg 24hr capsule,extend release TAKE 1 CAPSULE BY MOUTH EVERY MORNING 12/12/2023 completed hydroxyzine HCl 25 mg tablet 1 tab qd 12/12/2023 completed OxyContin 10 mg tablet,crush resistant,extended release TAKE 1 TABLET BY MOUTH TWICE DAILY FOR 3 DAYS 12/12/2023 completed chlorhexidine gluconate 0.12 % mouthwash USE 1/2 OZ TWICE DAILY RINSE FOR 30 SECONDS 12/12/2023 completed Ozempic 0.25 mg or 0.5 mg (2 mg/3 mL) subcutaneous pen injector INJECT 0.5ML ONCE A WEEK SUBQ 12/12/2023 completed hydrocodone 5 mg-acetaminophen 325 mg tablet TAKE 1 TABLET BY MOUTH EVERY 4 TO 6 HOURS NEEDED FOR PAIN 12/12/2023 completed oxycodone-acetaminoph en 5 mg-325 mg tablet TAKE 1 TABLET BY MOUTH EVERY 6 HOURS NEEDED FOR PAIN 12/12/2023 completed venlafaxine ER 75 mg capsule,extended release 24 hr Take 1 capsule (75 mg total) by mouth daily. 12/12/2023 completed hydroxyzine pamoate 25 mg capsule TAKE 1 CAPSULE(25 MG) BY MOUTH THREE TIMES DAILY NEEDED FOR ANXIETY 12/12/2023 completed Ozempic 1 mg/dose (4 mg/3 mL) subcutaneous pen injector Inject 1 mg every week by subcutaneous route. 12/12/2023 active omeprazole 20 mg capsule,delayed release Take 20 mg by mouth. 12/12/2023 completed atorvastatin 20 mg tablet Take 1 tablet every day by oral route. 12/12/2023 active oxycodone 5 mg tablet TAKE 1 TABLET BY MOUTH EVERY 12 HOURS FOR 7 DAYS NEEDED FOR MODERATE PAIN 12/12/2023 completed albuterol sulfate HFA 90 mcg/actuation aerosol inhaler Inhale 2 puffs into the lungs every 6 (six) hours as needed for wheezing. 12/12/2023 completed triamcinolone acetonide 0.1 %-emollient comb.no.45 topical cream Apply topically 2 (two) times a day. 12/12/2023 completed prednisone 5 mg tablet TAKE 3 TABLETS BY MOUTH DAILY 12/12/2023 completed bupropion HCl XL 300 mg 24 hr tablet, extended release TAKE 1 TABLET BY MOUTH EVERY MORNING 12/12/2023 active amoxicillin 875 mg-potassium clavulanate 125 mg tablet TAKE 1 TABLET BY MOUTH EVERY 12 HOURS 12/12/2023 completed triamcinolone acetonide 0.1 % topical cream 12/12/2023 active bupropion HCl XL 150 mg 24 hr tablet, extended release TAKE 1 TABLET BY MOUTH EVERY DAY BEFORE MEALS 12/12/2023 completed hydrocodone 7.5 mg-acetaminophen 325 mg tablet TAKE 1 TABLET BY MOUTH EVERY 6 HOURS 12/12/2023 completed benzonatate 200 mg capsule TAKE 1 CAPSULE BY MOUTH THREE TIMES DAILY FOR 7 DAYS NEEDED FOR COUGH 12/12/2023 completed mycophenolate mofetil 500 mg tablet TAKE 2 TABLETS BY MOUTH TWICE DAILY 12/12/2023 active lisinopril 10 mg tablet Take 1 tablet (10 mg total) by mouth daily. 12/12/2023 completed sulfamethoxazole 800 mg-trimethoprim 160 mg tablet 12/12/2023 completed Pain Reliever (acetaminophen) 325 mg tablet 12/12/2023 completed Ozempic 0.25 mg or 0.5 mg (2 mg/1.5 mL) subcutaneous pen injector INJECT 0.25MG UNDER THE SKIN EVERY 7 DAYS 12/12/2023 completed trazodone 100 mg tablet TAKE 2 TABLETS BY MOUTH EVERY NIGHT AT BEDTIME 12/12/2023 active trazodone 50 mg tablet Take 1 tablet (50 mg total) by mouth every night at bedtime. 12/12/2023 completed nystatin 100,000 unit/mL oral suspension SHAKE LIQUID AND TAKE 5 ML BY MOUTH THREE TIMES DAILY 12/12/2023 completed baclofen 10 mg tablet 1 tab qd PRN 12/12/2023 completed amoxicillin 500 mg tablet TAKE 4 TABLETS BY MOUTH 1 HOUR BEFORE APPOINTMENT 12/12/2023 completed clonidine HCl 0.1 mg tablet TAKE 1 TABLET BY MOUTH THREE TIMES DAILY NEEDED FOR ANXIETY OR SLEEP 12/12/2023 active oxycodone 10 mg tablet TAKE 1 TABLET BY MOUTH EVERY 4 HOURS FOR 7 DAYS NEEDED FOR MODERATE PAIN 12/12/2023 completed meclizine 25 mg tablet Take 1 tablet (25 mg total) by mouth 3 (three) times a day as needed for dizziness or nausea. 12/12/2023 completed venlafaxine ER 150 mg capsule,extended release 24 hr TAKE 1 CAPSULE(150 MG) BY MOUTH DAILY 12/12/2023 completed pantoprazole 40 mg tablet,delayed release Take 1 tablet every day by oral route. 12/12/2023 active methylphenidate LA 10 mg biphasic 50-50 capsule,extended release Take 1 capsule (10 mg total) by mouth daily. 12/12/2023 completed Lidoderm 5 % topical patch APPLY 1 PATCH BY TOPICAL ROUTE ONCE DAILY (MAY WEAR UP TO 12HOURS.) 12/12/2023 completed prednisone 20 mg tablet TAKE 1 TABLET BY MOUTH DAILY 12/12/2023 completed metformin 500 mg tablet Take 2 tablets (1,000 mg total) by mouth 2 (two) times a day. 12/12/2023 completed venlafaxine ER 37.5 mg capsule,extended release 24 hr Take 1 capsule (37.5 mg total) by mouth daily. 12/12/2023 completed pantoprazole 40 mg intravenous solution ONE BY MOUTH DAILY 12/12/2023 active aspirin 325 mg tablet,delayed release TAKE 1 TABLET BY MOUTH TWICE DAILY FOR 42 DAYS 12/12/2023 completed tizanidine 4 mg tablet Take 1 tablet every 8 hours by oral route as needed. 12/12/2023 completed Allergies Allergen Reaction Severity Comment Documented Date Source Statu s DOXYCYCLINE [facility] PAROXETINE [facility] Problems Problem Status Onset Date Problem Type Date of Resolution Source Extrinsic allergic alveolitis active 2019-12-25 ProblemAct [facility] Morbid obesity active 2023-12-09 ProblemAct [facility] Pain in cervical spine active 2023-12-09 ProblemAct [facility] De La Rosa's esophagus active 2019-07-18 ProblemAct [facility] Pure hypercholesterolemia active 2023-12-09 ProblemAct [facility] Erectile dysfunction active 2023-06-07 ProblemAct [facility] Tubular adenoma of colon active 2019-07-18 ProblemAct [facility] Obstructive sleep apnea syndrome active 2019-07-18 ProblemAct [facility] Acute low back pain active 2022-12-11 ProblemAct [facility] Osteonecrosis of hip active 2019-07-18 ProblemAct [facility] Thoracic back pain active 2023-02-04 ProblemAct [facility] Pruritic rash active 2023-12-09 ProblemAct [facility] Restrictive lung disease active 2022-01-19 ProblemAct [facility] Steatosis of liver active 2019-07-18 ProblemAct [facility] Moderate major depression, single episode active 2023-12-09 ProblemAct [facility] Attention deficit hyperactivity disorder, predominantly inattentive type active 2021-11-17 ProblemAct [facility] Mixed anxiety and depressive disorder active 2021-11-17 ProblemAct [facility] A Pulmonary emphysema active 2019-07-18 ProblemAct [facility] Type 2 diabetes mellitus active 2019-07-18 ProblemAct [facility] Immunizations Vaccine Date Source Lot Number Status influenza, seasonal, injectable 04/17/2019 [facility] [id number] completed tetanus toxoid, reduced diph theria toxoid, and acellular pertussis vaccine, adsorbed 12/04/2009 [facility] [id number] completed pneumococcal polysaccharide vaccine, 23 valent 04/17/2019 [facility] [id number] completed Fluzone Quad [id number] (PF) 60 mcg (15 mcg x 4)/0.5 mL IM syringe 02/04/2023 MARIA E [id number] completed SARS-COV-2 (COVID-19) vaccin e, mRNA, spike protein, LNP, preservative free, 30 mcg/0.3mL dose 07/12/2020 MARIA E [id number] completed SARS-COV-2 (COVID-19) vaccin e, mRNA, spike protein, LNP, preservative free, 30 mcg/0.3mL dose 06/14/2020 MARIA E [id number] completed diphtheria and tetanus toxoi ds, adsorbed for pediatric use 10/07/1996 MARIA E UNK completed tetanus toxoid, reduced diph theria toxoid, and acellular pertussis vaccine, adsorbed 05/22/2022 MARIA E [id number] completed Influenza, injectable, quadr ivalent, preservative free 01/08/2021 MARIA E completed
--- OUTSIDE RECORDS SUMMARY | 2024-03-30 11:04 | XMS_ITS | Data Portability ---
Author Organization [place] - [place] Lulu paredes, [email or web address] ELORA Address [address] [place] [address] Assessment No assessment recorded. Plan of Treatment Reminders Order Date Submit Date Provider Last Modified By Organization Details Last Modified Time Details Appointments Wellness Visit 2024 09:20A M Oswaldo Blanchard MD Not available Not available Not available Lab HbA1c (hemoglob in A1c), blood 2023 024 [email or web address] [facility], [address] [place] [address], [id number], 09/07/2023 12:11:13 CBC w/ auto diff 2023 024 ROBBY [facility], [address] [place] [address], [id number], 06/09/2023 08:38:03 CMP, serum or plasma 2023 024 ATHENAFAX [facility], [address] [place] [address], [id number], 06/07/2023 10:10:48 lipid panel, serum 2023 024 ATHENAFAX [facility], [address] [place] [address], [id number], 06/07/2023 10:10:48 PSA, serum or plasma 2023 024 ATHENAFAX [facility], [address] [place] [address], [id number], 06/07/2023 10:10:47 Referral physical therapist referral - Chronic neck and upper back muscle spasm 2023 024 [email or web address] Not available 12/17/2023 08:11:35 Procedures None recorded. Surgeries None recorded. Imaging XR, lumbosacr al spine, 2 or 3 view 2022 023 [email or web address] Not available 12/25/2022 10:04:43 XR, thoracic spine, 2 view 2022 023 ROBBY Not available 12/15/2022 16:07:30 electroca rdiogram 2023 0[email or web address] [email or web address] [facility], [address], [address], [place], [address], 06/07/2023 10:42:26 XR, cervical spine, 2 or 3 view 2023 024 [email or web address] [facility], [address] [place], [address], 12/23/2023 08:00:31 Medication Orders hydrocodo ne 7.5 mg-acetam inophen 325 mg tablet 2022 023 [id number], [address], [place], [id number], 01/01/2023 10:54:38 Strattera 10 mg capsule 2022 023 [facility], [address] , [place], [address], 12/09/2023 10:03:09 Lidoderm 5 % topical patch 2022 024 [id number], [address], [place], [id number], 06/07/2023 09:38:12 buspirone 10 mg tablet 2022 024 [id number], [address], [place], [id number], 12/09/2023 10:03:36 Ozempic 1 mg/dose (4 mg/3 mL) subcutane ous pen injector 2023 ROBBY [facility], [address], [address], [place], [address], 06/07/2023 10:04:07 sildenafi l 50 mg tablet 2023 ROBBY [facility], [address], [place], [address], 06/07/2023 10:04:59 triamcino lone acetonide 0.1 % topical cream 2023 ROBBY [id number], [address], [place], [id number], 12/09/2023 10:15:59 Patient TargetsNo targets recorded. Patient Instructions Encounter Date Encounter Id Patient Instructions Last Modified By Organization Details Last Modified Time 01/01/2023 [id number] Patient was seen for more than 55 minutes for all of the above medical issues and discussion of management. Not available 01/01/2023 11:39:08 02/04/2023 [id number] Patient was seen for more than 55 minutes for all of the above medical issues and discussion of management. We will see him back in 4 months for his annual physical examination. Not available 02/04/2023 08:30:39 Reason for Referral Physical Therapist Referral for Neck pain Chronic neck and upper back muscle spasm Referring Physician: Oswaldo Blanchard, Internal Medicine, Encounter Date: 12/09/2023 Results Created Date Observation Date Name Description Value Unit Range Abnormal Flag Note LastModifiedBy Organization Detail LastModifiedTime 09/01/19 24 09/01/2023 COMP. METAB OLIC PANEL (14) glucose 83 mg/dL 70-99 Not Available [facility] ([facility]) [address] [facility], [place], [address], 09/02/2023 06:07:41 09/01/19 24 09/01/2023 COMP. METAB OLIC PANEL (14) BUN 12 mg/dL 6-24 Not Available [facility] ([facility]) [address] [place], [address], 09/02/2023 06:07:41 09/01/19 24 09/01/2023 COMP. METAB OLIC PANEL (14) creatinine 1.28 mg/dL 0.76-1 .27 above high normal Not Available [facility] ([facility]) [address] [place], [address], 09/02/2023 06:07:41 09/01/19 24 09/01/2023 COMP. METAB OLIC PANEL (14) eGFR 66 mL/mi n/1.7 3 >59 Not Available [facility] ([facility]) [address] [place], [address], 09/02/2023 06:07:41 09/01/19 24 09/01/2023 COMP. METAB OLIC PANEL (14) BUN/creatini ne ratio 9 9-20 Not Available [facility] [address] [facility] [place], [address], 09/02/2023 06:07:41 09/01/19 24 09/01/2023 COMP. METAB OLIC PANEL (14) sodium 141 mmol/ L 134-14 4 Not Available [facility] ([facility]) [address] [facility] [place], [address], 09/02/2023 06:07:41 09/01/19 24 09/01/2023 COMP. METAB OLIC PANEL (14) potassium 4.4 mmol/ L 3.5-5. 2 Not Available [facility] ([facility]) [address] [facility] [place], [address], 09/02/2023 06:07:41 09/01/19 24 09/01/2023 COMP. METAB OLIC PANEL (14) chloride 102 mmol/ L 96-106 Not Available [facility] ([facility] [address] [place], [address], 09/02/2023 06:07:41 09/01/19 24 09/01/2023 COMP. METAB OLIC PANEL (14) carbon dioxide, total 24 mmol/ L 20-29 Not Available [facility] ([facility] [address] [place], [address], 09/02/2023 06:07:41 09/01/19 24 09/01/2023 COMP. METAB OLIC PANEL (14) calcium 9.3 mg/dL 8.7-10 .2 Not Available [facility] ([facility] [address] [facility], [place], [address], 09/02/2023 06:07:41 09/01/19 24 09/01/2023 COMP. METAB OLIC PANEL (14) protein, total 6.4 g/dL 6.0-8. 5 Not Available [facility] ([facility]) [address] [place], [address], 09/02/2023 06:07:41 09/01/19 24 09/01/2023 COMP. METAB OLIC PANEL (14) albumin 4.6 g/dL 3.8-4. 9 Not Available [facility]) [address] [place], [address], 09/02/2023 06:07:41 09/01/19 24 09/01/2023 COMP. METAB OLIC PANEL (14) globulin, total 1.8 g/dL 1.5-4. 5 Not Available [facility]) [address] [place], [address], 09/02/2023 06:07:41 09/01/19 24 09/01/2023 COMP. METAB OLIC PANEL (14) A/G ratio 2.6 1.2-2. 2 above high normal Not Available [facility] [address] [facility] [place], [address], 09/02/2023 06:07:41 09/01/19 24 09/01/2023 COMP. METAB OLIC PANEL (14) bilirubin, total 0.4 mg/dL 0.0-1. 2 Not Available [facility] [address] [facility] [place], [address], 09/02/2023 06:07:41 09/01/19 24 09/01/2023 COMP. METAB OLIC PANEL (14) alkaline phosphatase 70 IU/L 44-121 Not Available [facility] [address] [place], [address], 09/02/2023 06:07:41 09/01/19 24 09/01/2023 COMP. METAB OLIC PANEL (14) AST (SGOT) 12 IU/L 0-40 Not Available [facility] [address] [place], [address], 09/02/2023 06:07:41 09/01/19 24 09/01/2023 COMP. METAB OLIC PANEL (14) ALT (SGPT) 13 IU/L 0-44 Not Available [facility] [address] [place], [address], 09/02/2023 06:07:41 09/01/19 24 09/01/2023 LIPID PANEL cholesterol, total 101 mg/dL 100-19 9 Not Available [facility] [address] [place], [address], 09/02/2023 06:07:42 09/01/19 24 09/01/2023 LIPID PANEL triglyceride s 106 mg/dL 0-149 Not Available [facility] [address] [facility], [place], [address], 09/02/2023 06:07:42 09/01/19 24 09/01/2023 LIPID PANEL HDL cholesterol 42 mg/dL >39 Not Available [facility] [address] [facility], [place], [address], 09/02/2023 06:07:42 09/01/19 24 09/01/2023 LIPID PANEL VLDL cholesterol wendy 20 mg/dL 5-40 Not Available [facility] [address] [facility], [place], [address], 09/02/2023 06:07:42 09/01/19 24 09/01/2023 LIPID PANEL LDL chol calc ([facility]) 39 mg/dL 0-99 Not Available [facility] [address] [facility], [place], [address], 09/02/2023 06:07:42 09/01/19 24 09/01/2023 LIPID PANEL comment: [employer] Not Available [facility] [address] [facility], [place], [address], 09/02/2023 06:07:42 12/16/19 23 12/11/2022 XR, thora cic spine , 2 view No observ ation record ed. [facility] [address] [facility], [place], [address], 12/15/2022 17:03:01 06/07/19 elect rocar diogr am No observ ation record ed. MADERA [email or web address] [address], [place], [address], 06/07/2023 10:11:41 06/11/19 24 06/07/2023 elect rocar diogr am No observ ation record ed. [email or web address] Not Available 04/2023 14:29:17 07/27/19 24 06/29/2023 CT, coron juventino calci um score No observ ation record ed. ROBBY [facility] [address] [place], [address], 07/28/2023 11:23:23 12/10/19 24 10/09/2023 XR, cervi wendy spine , 2 or 3 view No observ ation record ed. [email or web address] Not Available 06/2023 10:01:00 Result Notes None recorded. Problems Name Problem SNOMED Code Status Onset Date Resolution Date Notes Provider Name and Address Organization Details Recorded Time Hyperchol esterolem ia 28917081 Active 2022 Not Available On license of [facility] 4 15:34:52 Acute low back pain 066321359 Active 2022 Not Available On license of [facility] 4 15:34:52 Thoracic back pain 448057583 Active 2022 Not Available On license of [facility] 4 15:34:52 Erectile dysfuncti on 407115770 Active 2023 Oswaldo Blanchard MD [address] [place] [address], [address] [place] [address], [address] , [place] [facility] 4 09:58:49 Neck pain 50432132 Active 2023 Oswaldo Blanchard MD [address] [place] [address], [address] [place] [address], [address] , [place] [facility] 4 10:08:14 Pruritic rash 92719145 Active 2023 Oswaldo Blanchard MD [address] [place] [address], [address] [place] [address], [address] , [place] [facility] 4 10:14:39 Moderate major depressio n, single episode 66042920 Active 2023 Oswaldo Blanchard MD [address] [place] [address], [phone] , [place] [facility] 4 10:23:24 Morbid obesity 601825118 Active 2023 Oswaldo Blanchard MD [address] [place] [address], [address] , [place] [facility] 4 10:23:24 Pure hyperchol esterolem ia 470263885 Active 2023 Oswaldo Blanchard MD [address] [place] [address], [address], [place], [address] , [place] [facility] 4 10:23:24 Pain in cervical spine 259983170 Active 2023 Crystal Madhaviolette null, [place] [facility] 4 11:26:05 Hypersens itivity pneumonit is 53353193 Active 2019 Hypersensi tivity pneumoniti s Not Available [facility] 4 15:34:52 Attention deficit hyperacti vity disorder, predomina ntly inattenti ve type 17598086 Active 2021 Attention deficit hyperactiv ity disorder (ADHD), predominan tly inattentiv e type Not Available [facility] 4 15:34:52 Tubular adenoma of colon 057816903 Active 2019 Tubular adenoma of colon Not Available [facility] 4 15:34:52 Restricti ve lung disease 92218525 Active 2021 Restrictiv e lung disease Not Available [facility] 4 15:34:52 Mixed anxiety and depressiv e disorder 565362154 Active 2021 Depression with anxiety Not Available [facility] 4 15:34:52 De La Rosa's esophagus 345599486 Active 2019 De La Rosa's esophagus without dysplasia Not Available [facility] 4 15:34:52 Steatosis of liver 390929904 Active 2019 Fatty infiltrati on of liver Not Available [facility] 4 15:34:52 Obstructi ve sleep apnea syndrome 48317575 Active 2019 Obstructiv e sleep apnea syndrome Not Available [facility] 4 15:34:52 Pulmonary emphysema 26968933 Active 2019 Pulmonary emphysema Not Available [facility] 4 15:34:52 Type 2 diabetes mellitus 96858826 Active 2019 Type 2 diabetes mellitus with hyperglyce cl, without long-term current use of insulin Not Available [facility] 4 15:34:52 Osteonecr osis of hip 045549612 Active 2019 Avascular necrosis of bones of both hips Not Available On license of [facility] 4 15:34:52 Notes:Some problems listed i n Document: #[id number] could not be added to this patient's chart. Please review this document and add these problems to the patient's chart manually as needed. Problem Notes None recorded. Procedures Surgical History Date Name Laterality Status Provider Name and Address Organization Details Recorded Time 0 colonoscopy completed Oswaldo Blanchard MD [address] [place] [address], [address] Floor, [place], [address], [place] [facility] 06/07/2023 09:45:48 Imaging Results Imaging Date Name Status LastModified by Organization Details LastModified Time 12/11/2022 XR, thoracic spine, 2 view completed [facility] [address] [place], [address], 12/15/2022 17:03:01 06/07/2023 electrocardiogram completed MADERA [facility]_ctcm a_[email or web address] [facility], [place], [address], 06/07/2023 10:11:41 06/07/2023 electrocardiogram completed Infor mation not available 06/11/2023 14:29:17 06/29/2023 CT, coronary calcium score completed [facility] [address] [place], [address], 07/28/2023 11:23:23 10/09/2023 XR, cervical spine, 2 or 3 view completed Information not available 12/14/2023 10:01:00 Procedure Notes None recorded. Medical Equipment None Reported. Allergies Allergen ID Allergen Name Allergen Category Reaction Reaction Severity Criticality Documentation Date Start Date Code Code System Note Provider Name and Address Organization Details Recorded Time [id number] 2824e paroxetin e Not available Not available Not available Not available 08/06/20222019 20861 RxNorm React ion: Other (See Comme nts), sever ity: Unkno wn;Arboleda icida l Not Available Not Available Not Available [id number] 2824e doxycycli ne Not available Not available Not available Not available 08/06/20222019 3640 RxNorm React ion: Hives , sever ity: Unkno wn Not Available Not Available Not Available Medications Name Sig Start Date Stop Date Status Note LastModified by Organization Details LastModified Time celecoxib 200 mg capsule TAKE 1 CAPSULE BY MOUTH TWICE DAILY active Not Available Not Available No t Available metformin 500 mg tablet Take 2 tablets (1,000 mg total) by mouth 2 (two) times a day. 02/19 completed Not Available Not Available Not Available nystatin 100,000 unit/mL oral suspension SHAKE LIQUID AND TAKE 5 ML BY MOUTH THREE TIMES DAILY 08/20 completed Not Available Not Available Not Available venlafaxine ER 37.5 mg capsule,ext ended release 24 hr Take 1 capsule (37.5 mg total) by mouth daily. 11/04 completed Not Available Not Available Not Available clonidine HCl 0.1 mg tablet TAKE 1 TABLET BY MOUTH THREE TIMES DAILY NEEDED FOR ANXIETY OR SLEEP active Not Available Not Available No t Available venlafaxine ER 75 mg capsule,ext ended release 24 hr Take 1 capsule (75 mg total) by mouth daily. 06/19 completed Not Available Not Available Not Available atorvastati n 20 mg tablet Take 1 tablet every day by oral route. active Not Available Not Available No t Available albuterol sulfate 2.5 mg/3 mL (0.083 %) solution for nebulizatio n Take 3 mL (2.5 mg total) by nebulizat ion every 4 (four) hours as needed for wheezing. active Not Available Not Available No t Available trazodone 50 mg tablet Take 1 tablet (50 mg total) by mouth every night at bedtime. 01/16 completed Not Available Not Available Not Available Pain Reliever (acetaminop hen) 325 mg tablet 08/20 completed Not Available Not Available Not Available sildenafil 50 mg tablet Take 1 tablet every day by oral route. 2023 active Not Available Not Available Not Avai lable tizanidine 4 mg tablet Take 1 tablet every 8 hours by oral route as needed. 12/08 completed Not Available Not Available Not Available benzonatate 200 mg capsule TAKE 1 CAPSULE BY MOUTH THREE TIMES DAILY FOR 7 DAYS NEEDED FOR COUGH 08/20 completed Not Available Not Available Not Available hydrocodone 5 mg-acetamin ophen 325 mg tablet TAKE 1 TABLET BY MOUTH EVERY 4 TO 6 HOURS NEEDED FOR PAIN 12/11 completed Not Available Not Available Not Available methylpheni date 20 mg tablet Take 1 tablet (20 mg total) by mouth daily. 12/11 completed Not Available Not Available Not Available prednisone 20 mg tablet TAKE 1 TABLET BY MOUTH DAILY 10/22 completed Not Available Not Available Not Available prednisone 5 mg tablet TAKE 3 TABLETS BY MOUTH DAILY 10/22 completed Not Available Not Available Not Available pantoprazol e 40 mg intravenous solution ONE BY MOUTH DAILY active Not Available Not Available No t Available venlafaxine ER 150 mg capsule,ext ended release 24 hr TAKE 1 CAPSULE(1 50 MG) BY MOUTH DAILY 10/20 completed Not Available Not Available Not Available sulfamethox azole 800 mg-trimetho prim 160 mg tablet 10/22 completed Not Available Not Available Not Available triamcinolo ne acetonide 0.1 % topical cream APPLY THIN LAYER TOPICALLY TO THE AFFECTED AREA TWICE DAILY active Not Available Not Available No t Available amoxicillin 500 mg tablet TAKE 4 TABLETS BY MOUTH 1 HOUR BEFORE APPOINTME NT 12/08 completed Not Available Not Available Not Available mycophenola te mofetil 500 mg tablet TAKE 2 TABLETS BY MOUTH TWICE DAILY active Not Available Not Available No t Available oxycodone-a cetaminophe n 5 mg-325 mg tablet TAKE 1 TABLET BY MOUTH EVERY 6 HOURS NEEDED FOR PAIN 08/20 completed Not Available Not Available Not Available aspirin 325 mg tablet,gagan yed release TAKE 1 TABLET BY MOUTH TWICE DAILY FOR 42 DAYS 12/11 completed Not Available Not Available Not Available Lidoderm 5 % topical patch APPLY 1 PATCH BY TOPICAL ROUTE ONCE DAILY (MAY WEAR UP TO 12HOURS.) 06/07 completed Not Available Not Available Not Available trazodone 100 mg tablet 2 tabs qhs active Not Available Not Available No t Available meclizine 25 mg tablet Take 1 tablet (25 mg total) by mouth 3 (three) times a day as needed for dizziness or nausea. 01/13 completed Not Available Not Available Not Available baclofen 10 mg tablet 1 tab qd PRN 12/08 completed Not Available Not Available Not Available hydrocodone 7.5 mg-acetamin ophen 325 mg tablet TAKE 1 TABLET BY MOUTH EVERY 6 HOURS 01/01 completed Not Available Not Available Not Available pantoprazol e 40 mg tablet,gagan yed release Take 1 tablet every day by oral route. active Not Available Not Available No t Available trazodone 150 mg tablet Take 1 tablet (150 mg total) by mouth every night at bedtime. 07/03 completed Not Available Not Available Not Available buspirone 10 mg tablet TAKE 2 TABLETS BY MOUTH THREE TIMES DAILY 12/08 completed Not Available Not Available Not Available lisinopril 10 mg tablet Take 1 tablet (10 mg total) by mouth daily. 09/02 completed Not Available Not Available Not Available omeprazole 20 mg capsule,del ayed release Take 20 mg by mouth. 05/16 completed Not Available Not Available Not Available dextroamphe tamine-amph etamine ER 10 mg 24hr capsule,ext end release TAKE 1 CAPSULE BY MOUTH EVERY MORNING 12/08 completed Not Available Not Available Not Available hydroxyzine HCl 25 mg tablet 1 tab qd 01/01 completed Not Available Not Available Not Available lisinopril 5 mg tablet Take 5 mg by mouth daily. 04/01 completed Not Available Not Available Not Available lorazepam 1 mg tablet TAKE 1 TABLET(1 MG) BY MOUTH THREE TIMES DAILY FOR UP TO 21 DAYS NEEDED FOR ANXIETY 10/31 completed Not Available Not Available Not Available albuterol sulfate HFA 90 mcg/actuati on aerosol inhaler Inhale 2 puffs into the lungs every 6 (six) hours as needed for wheezing. active Not Available Not Available No t Available amoxicillin 875 mg-potassiu m clavulanate 125 mg tablet TAKE 1 TABLET BY MOUTH EVERY 12 HOURS 08/20 completed Not Available Not Available Not Available oxycodone 5 mg tablet TAKE 1 TABLET BY MOUTH EVERY 12 HOURS FOR 7 DAYS NEEDED FOR MODERATE PAIN 08/20 completed Not Available Not Available Not Available hydroxyzine pamoate 25 mg capsule TAKE 1 CAPSULE BY MOUTH TWICE DAILY NEEDED FOR ANXIETY OR SLEEP active Not Available Not Available No t Available atomoxetine 10 mg capsule Take 2 capsules twice a day by oral route. 12/08 completed Not Available Not Available Not Available bupropion HCl XL 300 mg 24 hr tablet, extended release TAKE 1 TABLET BY MOUTH EVERY MORNING active Not Available Not Available No t Available bupropion HCl XL 150 mg 24 hr tablet, extended release TAKE 1 TABLET BY MOUTH EVERY MORNING WITH 300MG TABLET FOR TOTAL DAILY DOSE OF 450MG active Not Available Not Available No t Available methylpheni date LA 10 mg biphasic 50-50 capsule,ext ended release Take 1 capsule (10 mg total) by mouth daily. 12/18 completed Not Available Not Available Not Available chlorhexidi ne gluconate 0.12 % mouthwash USE 1/2 OZ TWICE DAILY RINSE FOR 30 SECONDS 01/01 completed Not Available Not Available Not Available oxycodone 10 mg tablet TAKE 1 TABLET BY MOUTH EVERY 4 HOURS FOR 7 DAYS NEEDED FOR MODERATE PAIN 08/20 completed Not Available Not Available Not Available triamcinolo ne acetonide 0.1 %-emollient comb.no.45 topical cream Apply topically 2 (two) times a day. 05/22 completed Not Available Not Available Not Available OxyContin 10 mg tablet,lópez h resistant,e xtended release TAKE 1 TABLET BY MOUTH TWICE DAILY FOR 3 DAYS 08/20 completed Not Available Not Available Not Available Ozempic 0.25 mg or 0.5 mg (2 mg/1.5 mL) subcutaneou s pen injector INJECT 0.25MG UNDER THE SKIN EVERY 7 DAYS 10/22 completed Not Available Not Available Not Available Ozempic 1 mg/dose (4 mg/3 mL) subcutaneou s pen injector Inject 1 mg every week by subcutane ous route. active Not Available Not Available No t Available Paxlovid 300 mg (150 mg x 2)-100 mg tablets in a dose pack TAKE 3 TABLETS BY MOUTH TWICE DAILY FOR 5 DAYS 10/22 completed Not Available Not Available Not Available Ozempic 0.25 mg or 0.5 mg (2 mg/3 mL) subcutaneou s pen injector INJECT 0.5ML ONCE A WEEK SUBQ 06/08 completed Not Available Not Available Not Available Vitals Date Recorded Body height Body mass index (BMI) Body weight Body temperature Oxygen saturation Oxygen saturation in Arterial blood by Pulse oximetry Heart rate Systolic blood pressure Diastolic blood pressure Provider Name and Address Organization Details Last Updated DateTime 3 172.7 cm 43.2 kg/m2 681638. 51 g 96.1 [degF] 97 % 97 % 83 /min 124 mm[Hg] 78 mm[Hg] Adali flood [facility] 3 08:04:55 Date Recorded Body height Body mass index (BMI) Body weight Oxygen saturation Oxygen saturation in Arterial blood by Pulse oximetry Heart rate Body temperature Systolic blood pressure Diastolic blood pressure Provider Name and Address Organization Details Last Updated DateTime 4 172.7 cm 38.8 kg/m2 352088. 05 g 98 % 98 % 85 /min 98.1 [degF] 129 mm[Hg] 78 mm[Hg] Sharri Bangura [facility] 4 09:13:07 Date Recorded Body height Body mass index (BMI) Body weight Heart rate Oxygen saturation Oxygen saturation in Arterial blood by Pulse oximetry Systolic blood pressure Diastolic blood pressure Provider Name and Address Organization Details Last Updated DateTime 4 172.7 cm 31.6 kg/m2 22672.2 1 g 73 /min 99 % 99 % 130 mm[Hg] 80 mm[Hg] Rosy Hermilokarlo [facility] 4 09:47:40 Date Recorded Body height Body mass index (BMI) Body weight Oxygen saturation Oxygen saturation in Arterial blood by Pulse oximetry Heart rate Body temperature Systolic blood pressure Diastolic blood pressure Provider Name and Address Organization Details Last Updated DateTime 3 172.7 cm 45.9 kg/m2 438345. 6 g 99 % 99 % 75 /min 96.3 [degF] 106 mm[Hg] 64 mm[Hg] [facility] 3 10:13:27 Date Recorded Body height Body mass index (BMI) Body weight Heart rate Oxygen saturation Oxygen saturation in Arterial blood by Pulse oximetry Body temperature Systolic blood pressure Diastolic blood pressure Provider Name and Address Organization Details Last Updated DateTime 3 172.7 cm 44.9 kg/m2 083275. 75 g 72 /min 95 % 95 % 96.8 [degF] 90 mm[Hg] 56 mm[Hg] [facility] [place] [facility] [place] [facility] 3 10:48:35 Social History Question Answer Notes LastModified by Organizat ion Details LastModified Time Tobacco Smoking Status Former Smoker Not Available [facility] 08/08/2022 04:01:17 Do You Have An Advance Directive? No [email or web address] Information not available 06/07/2023 What Is Your Level Of Alcohol Consumption? None [email or web address] Information not available 06/07/2023 Do You Wear A Helmet When Biking? Yes [email or web address] Information not available 06/07/2023 What Is Your Level Of Caffeine Consumption? Moderate [email or web address] Information not available 06/07/2023 Are You A Caregiver? No [email or web address] Information not available 06/07/2023 Are You Currently Employed? No Retired [email or web address] Information not available 06/07/2023 What Type Of Diet Are You Following? REGULAR [email or web address] Information not available 06/07/2023 When Did You Quit Smoking? 16+yearssincelastc igarette Information not available 12/09/2023 Do You Use Insect Repellent Routinely? No [email or web address] Information not available 06/07/2023 Where Do You Live? [facility] [email or web address] Information not available 06/07/2023 How Long Have You Lived There? 3 [email or web address] Information not available 06/07/2023 Do You Have A Medical Power Of Cleaners? No [email or web address] Information not available 06/07/2023 What Was The Date Of Your Most Recent Tobacco Screening? 12/09/2023 Information not available 12/09/2023 How Many Children Do You Have? 3 [email or web address] Information not available 06/07/2023 Do You Have Any Pets? Yes 2 Cats [email or web address] Information not available 06/07/2023 What Is Your Relationship Status? [email or web address] Information not available 06/07/2023 Do You Use Your Seat Belt Or Car Seat Routinely? Yes [email or web address] Information not available 06/07/2023 Do You Have Smoke And Carbon Monoxide Detectors In Your Home? Yes [email or web address] Information not available 06/07/2023 Are You Passively Exposed To Smoke? No [email or web address] Information not available 06/07/2023 Are There Any Smokers In Your House? No [email or web address] Information not available 06/07/2023 Do You Feel Stressed (tense, Restless, Nervous, Or Anxious, Or Unable To Sleep At Night)? [id number] [email or web address] Information not available 06/07/2023 Do You Use Any Illicit Or Recreational Drugs? No Information not available 12/09/2023 Do You Use Sunscreen Routinely? No [email or web address] Information not available 06/07/2023 Has Tobacco Cessation Counseling Been Provided? No Information not available 12/09/2023 On What Date Was Tobacco Cessation Counseling Provided? 12/09/2023 Information not available 12/09/2023 Sex: Male Functional Status Question Answer Note LastModified by Organization D etails LastModified Time What is your exercise level? None [email or web address] Information not available 06/07/2023 Mental Status None recorded. Family History Relationship Description Onset Age of this Age Resolved Age Notes LastModified by Organization Details LastModified Time Paternal Grandfather Dementia Not available 01/01 10:57:00 Notes:Problem: Colon cancer Relation: Paternal grandmother Problem: Glaucoma Relation: Natural father Problem: Hearing loss Relation: Maternal grandmother Problem: Hearing loss Relation: Maternal grandmother Problem: Colon cancer Relation: Paternal grandmother Problem: Glaucoma Relation: Natural father Problem: Hearing loss Relation: Maternal grandmother Problem: Glaucoma Relation: Natural father Problem: Colon cancer Relation: Paternal grandmother Medical History No medical history recorded. Immunizations Vaccine Type Date Status Note Provider Nam e and Address Organization Details Recorded Time Influenza, split virus, quadrivalent, PF 3 completed Oswaldo Blanchard MD [address] [place] [address], [address] Floor, [place], [address], [place] [facility] [place] [facility] [place] 02/04/2023 12:15:12 Tdap 0 completed Not Available On license of [facility] 05/31/2023 15:34:53 DT (pediatric) 7 completed Not Available On license of [facility] 05/31/2023 15:34:53 pneumococcal polysaccharide PPV23 0 completed Not Available On license of [facility] 05/31/2023 15:34:53 Influenza, split virus, trivalent, preservative 0 completed Not Available On license of [facility] 05/31/2023 15:34:53 COVID-19, mRNA, LNP-S, PF, 30 mcg/0.3 mL dose 1 completed Not Available On license of [facility] 05/31/2023 15:34:52 COVID-19, mRNA, LNP-S, PF, 30 mcg/0.3 mL dose 1 completed Not Available On license of [facility] 05/31/2023 15:34:52 Influenza, split virus, quadrivalent, PF 1 completed Not Available On license of [facility] 05/31/2023 15:34:53 Tdap 3 completed Not Available On license of [facility] 05/31/2023 15:34:53 Past Encounters Encounter ID Performer Location Encounter Start Date Encounter Closed Date Diagnosis/Indication Diagnosis SNOMED-CT Code Diagnosis ICD10 Code [id number] Oswaldo Blanchard MD [facility] [facility] [address] [place] [address] 08/20/2022 11:05:59 08/20/2022 11:49:38 Hypersensitivity pneumonitis 85162017 J67.9 Mixed anxi ety and depressive disorder 405911076 F41.8 Type 2 collin betes mellitus 32734831 E11.65 Hypercholesterolemia 136 50980 E78.00 [id number] Oswaldo Blanchard MD [facility] [facility] [address] [place] [address] 10/01/2022 11:02:42 10/01/2022 11:53:56 Mixed anxiety and depressive disorder 590510144 F41.8 Type 2 collin betes mellitus 34235613 E11.65 [id number] Oswaldo Blanchard MD [facility] [facility] [address] [place] [address] 12/11/2022 10:03:12 12/11/2022 10:36:17 Acute low back pain 521554930 M54.50 Obesity 766352648 E66.9 Attention deficit hyperactivity disorder, predominantly inattentive type 00723645 F90.0 [id number] Oswaldo Blanchard MD [facility] [facility] [address] [place] [address] 01/01/2023 10:36:33 01/01/2023 11:28:54 Poor short-term memory 283455078 R41.3 Mixed anxi ety and depressive disorder 651269258 F41.8 Obesity 303485762 E66.9 Restrictiv e lung disease 48665550 J98.4 [id number] Oswaldo Blanchard MD [facility] [facility] [address] [place] [address] 02/04/2023 07:56:33 02/04/2023 09:38:59 Thoracic back pain 463203415 M54.6 Mixed anxi ety and depressive disorder 905689853 F41.8 Attention deficit hyperactivity disorder, predominantly inattentive type 91870195 F90.0 Obesity 293737609 E66.9 [id number] Oswaldo Blanchard MD [facility] [facility] [address] [place] [address] 06/07/2023 08:58:40 06/07/2023 10:42:25 Hypercholesterolemia 66511247 E78.00 Adult heal th examination 974775274 Z00.00 Erectile dysfunction 860 717484 F52.21 Thoracic back pain 81157 8004 M54.6 Obesity 580379504 E66.9 Mixed anxi ety and depressive disorder 828163070 F41.8 De La Rosa's esophagus 3029 33558 K22.70 Attention deficit hyperactivity disorder, predominantly inattentive type 82263093 F90.0 Type 2 collin betes mellitus 51229801 E11.65 Obstructiv e sleep apnea syndrome 27811695 G47.33 Hypersensi tivity pneumonitis 89886569 J67.9 [id number] Oswaldo Blanchard MD [facility] [place] [address] 12/09/2023 08:54:54 12/09/2023 10:17:38 Moderate major depression, single episode 25979372 F32.1 Morbid obesity 762920089 E66.01 Body mass index 30+ - obesity 357059123 Z68.38 Pure hypercholesterolemia 014416640 E78.00 Neck pain 83535052 M54.2 Pruritic rash 68358539 L 28.2 Restrictiv e lung disease 95808079 J98.4 Type 2 collin betes mellitus 80289175 E11.65 Health Concerns Section Related Observation LastModified by Organization Detai ls LastModified Time None Recorded Concern Status LastModified by Organization Details LastModified Time None Recorded Advance Directives Directive N: Payers Encounter Date Sequence Insurance Name Policy Number Policy Haas Covered Member ID Haas Member ID Guarantor Name 12/11/2022 1 [place] [id number] Aleksandar Adamson [id number] Aleksandar Adamson 01/01/2023 1 [place] [id number] Aleksandar Adamson [id number] Aleksandar Adamson 02/04/2023 1 [place] [id number] Aleksandar Adamson [id number] Aleksandar Adamson 06/07/2023 1 [place] [id number] Aleksandar Adamson [id number] 43 Aleksandar Adamson 12/09/2023 1 [place] [id number] Aleksandar Adamson [id number] Aleksandar Adamson Notes Date Note Type Note Provider Name and Address Organization Details Recorded Time 12/11/2022 text/html Cecil comes in he re for an acute visit. He unfortunately fell 3 to 4 days ago while walking on his treadmill. He just had a new machine at home and unfortunately it did not come with side rails. So when he was walking few days ago and got short of breath and had to stop he tried to step on the side bars but lost his footing and fell forward. This resulted in pain on his lower back which he already has chronic back pains. Pain is worse on the lower flank and lumbar area. No pain radiating to the legs nor weakness of the lower extremities. He does not have a rash or any swelling or abrasion of the lower back. He has been putting ice in the area which is not helping and he has leftover muscle relaxers (baclofen) which she has been taking with no improvement. He has had significant weight loss over the past 4 months with the use of Ozempic. 20 pound weight loss with no significant difficulty or lightheadedness or weakness with the weight loss. He also stopped his ADHD medication because he felt that it was giving her's him too much side effects and was recently seen by psychologist for therapy which she seems to feel that it is helping him a lot. He continues to be on Wellbutrin 150 mg daily, for depression, and BuSpar 10 mg twice a day for anxiety. He remains on trazodone 100 mg to help him with his sleep. Oswaldo Blanchard MD [address] [place] [address], [address], [place], [address], [place] [facility] [place] 12/11/2022 10:45:41 01/01/2023 text/html Cecil is back [facility] for a follow-up, particularly for memory test because he has been forgetting things more frequently. He has known history of ADHD but has stopped taking any stimulant because he did not feel it was helping and it affected his sleep significantly. He is also still on depression and anxiety medication and still feels that his anxiety is uncontrolled. Presently he is on Wellbutrin 100 mg daily and BuSpar 10 mg twice a day. He denies having any panic attacks and has yet to be taking hydroxyzine as needed. He does sleep with trazodone 100 mg daily improving that issue. He feels that he is forgetting most everything sometimes even getting lost when driving and definitely forgetting short-term memory issues. He has lost significant amount of weight almost 25 pounds over the last 4 months with Ozempic now at 0.5 mg every week. He admits to not using his oxygen regularly because it is very bothersome to him when he is moving around the house but he does use it when he is sleeps. He also sometimes feels occasional lightheadedness when he suddenly stands up and he is not on any blood pressure medications at all. Oswaldo Blanchard MD [address] [place] [address], [address] [place] [address], [place], [phone], [facility] 01/01/2023 11:39:25 02/04/2023 text/html Cecil comes in to day for his follow-up of his ADD and anxiety. We had adjusted some of his medication and started him on Strattera at 20 mg twice a day which she feels is helping with his ADD with no side effects. He feels that he is able to organize his day a lot better. We also increased his BuSpar to 20 mg twice a day as well and he feels that he is much calmer on the medication He continues to struggle with his right mid back pain, x-ray done last month shows mild degenerative disease of the thoracic spine. He continues to have pain when he lies down on that side or when he takes a deep breath or touches the area. There has been no rash and no previous history of injury. He continues to lose weight another 12 pounds this month still on the Ozempic 0.5 mg daily and does not feel any side effects or weakness with the continued weight loss. He has lost a total of 40 pounds over the last 5 months. Oswaldo Blanchard MD [address] [place] [address], [address] [place] [address], [phone], [place] - [facility] 02/04/2023 08:30:55 06/07/2023 text/html Cecil is here [facility] for his annual physical examination. He has been doing very well having lost almost 50 pounds over the last 6 months with diet and exercise alone. His breathing has significantly improved with pulse ox is over 95% all the time at 2 LPM which she still uses [id number]. He also still uses his CPAP machine and is sleeping well. His diabetes is now being diet controlled except for the Ozempic he is using to lose weight. His last A1c is 5.6% without any other medication. Still tolerating Ozempic at 0.5 mg/week with no side effects. He continues to have back pains mostly on the right mid back area. He has had CT scans of the chest with no loss signs of abnormality except for his lung issues. Pain is still mostly noted with movement and palpation. He has never had shingles in that area and we have tried him on muscle relaxers in the past as well as lidocaine patches which has not helped. De La Rosa's esophagus still monitored by gastroenterology and still on PPI regularly.ADHD and anxiety with depression still stable presently on Wellbutrin increase dose to 300 mg daily by psychiatry recently and still on BuSpar 20 mg twice a day. He remains on Strattera 20 mg twice a day for ADHD as well. Oswaldo Blanchard MD [address] [place] [address], [address] [place] [address], [phone], [place] [facility] 06/09/2023 17:57:08 12/09/2023 text/html Cecil seen today for his 6-month follow-up still having a lot of problems with chronic upper back pains. It usually makes him very miserable because he has pain whenever he has any movement. We did start him on a atorvastatin 4 months ago and it seems like it has been worse since then. Cholesterol has been well-controlled on the medication however. He continues to be depressed in spite of psychiatry adjusting his medications presently he is on Wellbutrin 300 mg daily and clonidine 0.1 mg 3 times a day. He has been off his ADHD medications as well. He still uses trazodone 200 mg at night for sleep and unable to tolerate CPAP for his sleep apnea. He continues to lose weight on his Ozempic still at 1 mg weekly. He has lost another 43 pounds over the last 6 months. type 2 diabetes has been well under control with an A1c of 5.2% at the moment. He is now off oxygen and able to go around without getting short of breath but still has dyspnea on exertion and still on mycophenolate 1000 mg twice a day per pulmonary medicine. He recently had a itchy rash over his arms which was cleared by using his mother's triamcinolone cream with no other areas of the body. Oswaldo Blanchard MD [address] [place] [address], [address] [place] [address], [phone], [place] [facility] 12/10/2023 16:29:27
== END 2024-03-30 11:02 | disposition home or self-care (01) ==
LOC: HO.HOSX 11:01
PROVIDERS: Visit Provider Orthopaedic Surgery
DX: M25.552 Pain in left hip (principal); M25.551 Pain in right hip; M24.551 Contracture, right hip
CPT/HCPCS: 73501; 73502; 99212

== ENCOUNTER 2024-03-30 11:07 | Outpatient (AMB) | payer MEDICARE, SELFPAY ==
--- NOTE | 2024-03-30 11:32 | MHC.OFFVIS ---
Intake Visit Reasons: OV-Right hip pain-RT ERROL 08/19/22 Intake Note: Aleksandar is a 54 year old male who presents today for a follow up of his right hip s/p Right ERROL 08/19/21. Patient reports that his pain has improved slightly. He has been having increased pain with ambulation ,he haspain when laying on the right side at night. He takes tylenol and ibuprofen for the pain which does not offer relief.Reports pain since surgery. Allergies doxycycline Allergy (Unknown, Verified 06/17/22 12:26) rash paroxetine [From Paxil] Adverse Reaction (Severe, Verified 06/17/22 12:26) Suicidal thoughts HPI HPI OV-Right hip pain-RT ERROL 08/19/22: Details: Aleksandar is a 54 year old male who presents today for a follow up of his right hip s/p Right ERROL 08/19/21. Patient reports that his pain has improved dramitacally prior to surgery but he still has right hip pain when he walks more than 1/2 mile. He takes tylenol and ibuprofen for the pain which does not offer relief. This chavarria been improving slowly but still persists. 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 COPD (chronic obstructive pulmonary disease) Depression Diabetes mellitus History of De La Rosa's esophagus History of pneumonia Hypertension OSMIN on CPAP Prediabetes Uses wheelchair Surgical History History of esophagogastroduodenoscopy (EGD) History of lung biopsy History of right hip replacement Hx of colonoscopy Hx of elbow surgery Social History Are you a primary home child care provider to a significant other at home: No Do you presently have visiting nurse or other home services: No Comment: aware of trip hazard Patient Tobacco Use Status: Former Tobacco user Tobacco use type: Cigarette service: No Current occupational status: disabled Physical Exam Extrem Other: mild trendelenberg gait on the right Results Reviewed Results Reviewed: I personally reviewed relevant radiographs. Bilateral ERROL in expected post operative position with no hardware complications or evidence of loosening Assessment & Plan Assessment & Plan (1) Right hip flexor tightness: Code(s): M24.551 - Contracture, right hip Category: Medical Plan: Aleksandar is status post hip arthroplasty. Overall he has been doing well but continues to have mild to moderate pain at a gluteal attachments to the greater trochanter. He is also very tight in hip flexion. We have discussed this before that I reiterated the importance of stretching and of mechanics. He is not interested in more PT. follow up as needed. Orders: Orders XR hip LT 1V 03/30/24 M25.552 - Pain in left hip XR pelvis 1-2V 03/30/24 M25.559 - Pain in unspecified hip Coding Level of Care Code Est Pt Level 3 (61126) Diagnoses Right hip flexor tightness M24.551
== END 2024-03-30 16:13 | disposition home or self-care (01) ==
PROVIDERS: PCP Internal Medicine; Visit Provider Orthopaedic Surgery
DX: M24.551 Contracture, right hip (principal)
CPT/HCPCS: 99213

== ENCOUNTER 2024-06-14 09:49 | Outpatient (AMB) | payer MEDICARE, SELFPAY ==
--- NOTE | 2024-06-14 10:06 | MHC.OFFVIS ---
Vital Signs 06/14/24 10:07 Height 5 ft 8 in Weight 192 lb 3.889 oz BMI 29.2 BP 112/58 L Blood Pressure Location Rt brachial Position Sitting Pulse 62 Pulse Source Pulse Oximeter Pulse Oximetry (%) 98 Oxygen Delivery Method Room Air Intake Visit Reasons: [place] + EGD scrn. Hx of De La Rosa's Intake Note: NEW PATIENT for egd/colo screening. Hx of De La Rosa's. 4th lifetime. Chief Complaint; C/O GERD persistence despite taking pantoprazole daily. Pt also reports having constipation + hard stools. ~ 3-4 days per BM. No additional concerns at this time. Pt wants 2nd opinion regarding De La Rosa's after being told by [facility] that there was no obvious De La Rosa's seen on EGD. Motor Equipment Sergeant Required: No Accompanied by: Self / Same As Patient Allergies doxycycline Allergy (Unknown, Verified 06/14/24 10:08) rash paroxetine [From Paxil] Adverse Reaction (Severe, Verified 06/14/24 10:08) Suicidal thoughts HPI HPI [place] + EGD scrn. Hx of De La Rosa's: Details: 54 year old? male is here today for pre colonoscopy screening.? Patient was sent to us by his PCP.? Patient denies any gastrointestinal symptoms in the past or at present.? However patient reports occasional acid reflux if he does not take pantoprazole. Patient also reports occasional constipation. Last colonoscopy in [place] in 2019.? Patient was diagnosed with a De La Rosa's on previous endoscopies, however lasted endoscopy reports no obvious De La Rosa's seen. He takes fiber in the afternoon we will have him take it in the morning. Denies history of difficulty with sedation or anesthesia in the past.? The patient was diagnosed few years ago with sleep apnea. Patient lost over 100 lb in the last year or so, he will go for another testing. Patient used to use oxygen no longer on oxygen.? Denies any history of cardiac, renal, pulmonary, or hepatic disease.?? No history of infectious? diseases like hepatitis A, B, C, HIV or tuberculosis.? Patient is not on any anticoagulation [facility] Medical History Diabetes mellitus COPD (chronic obstructive pulmonary disease) Uses wheelchair OSMIN on CPAP History of De La Rosa's esophagus History of pneumonia Avascular necrosis of bone of right hip Avascular necrosis of bone of left hip Prediabetes Hypertension Depression Anxiety Surgical History History of right hip replacement Hx of elbow surgery History of esophagogastroduodenoscopy (EGD) Hx of colonoscopy History of lung biopsy Social History Are you a primary medicare sales representative to a significant other at home: No Do you presently have visiting nurse or other home services: No Comment: aware of trip hazard Patient Tobacco Use Status: Former Tobacco user Tobacco use type: Cigarette service: No Current occupational status: disabled Review of Systems Const Denies weight gain and Denies weight loss ENT Reports no additional complaints, Denies dysphagia and Denies odynophagia Card Reports no additional complaints Resp Reports no additional complaints GI Denies abdominal pain, Denies belching, Denies melena, Denies bloating, Denies change in bowel habits, Denies dysphagia, Denies excessive flatus, Denies dyspepsia, Denies heartburn, Denies diarrhea, Denies loose stools, Denies nausea, Denies odynophagia and Denies vomiting Reports no additional complaints Musc Reports no additional complaints Neuro Reports no additional complaints Psych Reports no additional complaints Endo Reports no additional complaints Physical Exam Const General: healthy appearing, no acute distress and well developed Nutritional Appearance: well nourished Orientation/consciousness: patient oriented x3 Resp Effort & Inspection: normal respiratory effort, able to speak in complete sentences, no tracheal deviation and symmetric chest movement Auscultation: clear to auscultation bilaterally Cardio Rate: regular rate GI Inspection: Yes normal to inspection and No distended Palpation (GI): Soft to palpation, not firm, nontender and No hepatosplenomegaly present Auscultation: normal bowel sounds General: Yes no CVA tenderness Back/Spine/Pelvis Back: no CVA tenderness Skin General skin exam: elasticity normal, turgor normal and dry skin Neuro General: patient oriented x3 Psych Appearance: grossly normal Mental Status: mental status grossly normal Assessment & Plan Assessment & Plan (1) Screen for colon cancer: Code(s): Z12.11 - Encounter for screening for malignant neoplasm of colon Plan Patient denies any cardiac or respiratory symptoms.? Denies any issues with anesthesia in the past.? Denies any history of sleep apnea.? No history infectious diseases in the past or present.? Not on any anticoagulation therapy.? No family or personal history of colon cancer.? Patient denies melena, hematochezia, unintentional weight loss or ribbon like stools.? Occasional acid reflux if he forgets to take his pantoprazole. History of De La Rosa's will send him for upper endoscopy to re-evaluate. Patient reports occasional constipation. Patient will start taking his fiber in the morning and we will add Senokot. Patient can take it as needed if no bowel movements in 1-2 days. Discussed at length the pre-procedure,? prep, diet & medications as well as what to expect prior, during and after the procedure.?? Stressed the importance of good bowel prep.? Recommended the use of Vaseline or Calmoseptine OTC & baby wipes with bowel movements to promote comfort.? ?Patient verbalizes understanding and agrees to plan of care.? He was given the opportunity to ask questions and all questions answered.? We will see him after the procedure.? Medications: New sennosides (Natural Senna Laxative) 17.2 mg (2 x 8.6 mg) PO BEDTIME 60 tabs 3RF constipation K59.00 - Constipation, unspecified bisacodyl (Dulcolax (bisacodyl)) take 4 tabs at noon the day before your colonoscopy 20 mg (4 x 5 mg) PO ONCE 1 day 4 tabs 0RF constipation Z12.11 - Encounter for screening for malignant neoplasm of colon polyethylene glycol 3350 (Miralax) As directed by gastroenterology department at [facility] 238 grams PO ONCE 238 grams 0RF Z12.11 - Encounter for screening for malignant neoplasm of colon Coding Level of Care Code New Pt Level 3 (16125) Diagnoses Screen for colon cancer Z12.11 Time Spent (min) 40 Comment 30 minutes spent with patient and additional 10 minutes spent reviewing his records
[2024-06-14 10:07] VITALS: BP 112/58; PULSE 62; O2SAT 98; BMI 29.2
--- OUTSIDE RECORDS SUMMARY | 2024-06-14 11:16 | XMS_ITS | Data Portability ---
Author Organization [place] - [facility] Lulu Infante [facility], [email or web address]_IM_01 [facility] Address [address] [place] [address] Assessment No assessment recorded. Plan of Treatment Reminders Order Date Submit Date Provider Last Modified By Organization Details Last Modified Time Details Appointments Wellness Visit 2024 09:20A M Oswaldo Blanchard MD Not available Not available Not available Lab HbA1c (hemoglob in A1c), blood 2023 024 [email or web address] [facility] (Centralized Electronic Ordering - All Locations), Patient Can Go To The Location Of Their Choice, 09/07/2023 12:11:13 CBC w/ auto diff 2023 024 ROBBY [facility] (Centralized Electronic Ordering - All Locations), Patient Can Go To The Location Of Their Choice, 06/09/2023 08:38:03 CMP, serum or plasma 2023 024 ATHENAFAX [facility] (Centralized Electronic Ordering - All Locations), Patient Can Go To The Location Of Their Choice, 06/07/2023 10:10:48 lipid panel, serum 2023 024 ATHENAFAX [facility] (Centralized Electronic Ordering - All Locations), Patient Can Go To The Location Of Their Choice, 06/07/2023 10:10:48 PSA, serum or plasma 2023 024 ATHENAFAX [facility] (Centralized Electronic Ordering - All Locations), Patient Can Go To The Location Of Their Choice, 06/07/2023 10:10:47 Referral physical therapist referral - Chronic neck and upper back muscle spasm 2023 024 [email or web address] Not available 12/17/2023 08:11:35 Procedures None recorded. Surgeries None recorded. Imaging XR, cervical spine, 2 or 3 view 2023 024 [email or web address] [facility], [address] [place], [address], 12/23/2023 08:00:31 electroca rdiogram 2023 0[email or web address] [facility]_ctcma_im_1 [address], [address], [address], [place], [address], 06/07/2023 10:42:26 Medication Orders Paxlovid 300 mg (150 mg x 2)-100 mg tablets in a dose pack 2023 024 [place] [id number], [address], [place], [id number], 04/06/2024 13:21:09 triamcino lone acetonide 0.1 % topical cream 2023 024 [place] [id number], [address], [place], [id number], 12/09/2023 10:15:59 Ozempic 1 mg/dose (4 mg/3 mL) subcutane ous pen injector 2023 024 [place] [facility], [address] [place] [address], [address], [id number], 06/07/2023 10:04:07 sildenafi l 50 mg tablet 2023 024 [place] [facility], [address], [place], [address], 06/07/2023 10:04:59 Lidoderm 5 % topical patch 2022 024 [place] [id number], [address], [place], [id number], 06/07/2023 09:38:12 buspirone 10 mg tablet 2022 024 ROBBY [id number], [address], [place], [id number], 12/09/2023 10:03:36 Strattera 10 mg capsule 2022 023 [facility], [address], [place], [address], 12/09/2023 10:03:09 Patient TargetsNo targets recorded. Patient Instructions Encounter Date Encounter Id Patient Instructions Last Modified By Organization Details Last Modified Time 01/01/2023 [id number] Patient was seen for more than 55 minutes for all of the above medical issues and discussion of management. Not available 01/01/2023 11:39:08 02/04/2023 [id number] Patient was seen for more than 55 [...] Abnormal Flag Note LastModifiedBy Organization Detail LastModifiedTime 09/01/1909/01/2023 COMP. METAB OLIC PANEL (14) glucose 83 mg/dL 70-99 Not Available [facility] ([facility]) [address] [place], [address], 09/02/2023 06:07:41 09/01/19 24 09/01/2023 COMP. METAB OLIC PANEL (14) BUN 12 mg/dL 6-24 Not Available [facility] ([facility]) [address] [place], [address], 09/02/2023 06:07:41 09/01/19 24 09/01/2023 COMP. METAB OLIC PANEL (14) creatinine 1.28 mg/dL 0.76-1 .27 above high normal Not Available [facility] ([facility]) [address] [facility], [place], [address], 09/02/2023 06:07:41 09/01/19 24 09/01/2023 COMP. METAB OLIC PANEL (14) eGFR 66 mL/mi n/1.7 3 >59 Not Available [facility] ([facility]) [address] [facility], [place], [address], 09/02/2023 06:07:41 09/01/19 24 09/01/2023 COMP. METAB OLIC PANEL (14) BUN/creatini ne ratio 9 9-20 Not Available [facility]) [address] [facility], [place], [address], 09/02/2023 06:07:41 09/01/19 24 09/01/2023 COMP. METAB OLIC PANEL (14) sodium 141 mmol/ L 134-14 4 Not Available [facility] ([facility]) [address] [facility] [place], [address], 09/02/2023 06:07:41 09/01/19 24 09/01/2023 COMP. METAB OLIC PANEL (14) potassium 4.4 mmol/ L 3.5-5. 2 Not Available [facility] ([facility]) [address] [facility] [place], [address], 09/02/2023 06:07:41 09/01/19 24 09/01/2023 COMP. METAB OLIC PANEL (14) chloride 102 mmol/ L 96-106 Not Available [facility] ([facility]) [address] [facility], [place], [address], 09/02/2023 06:07:41 09/01/19 24 09/01/2023 COMP. METAB OLIC PANEL (14) carbon dioxide, total 24 mmol/ L 20-29 Not Available [facility] ([facility]) [address] [facility] [place], [address], 09/02/2023 06:07:41 09/01/19 24 09/01/2023 COMP. METAB OLIC PANEL (14) calcium 9.3 mg/dL 8.7-10 .2 Not Available [facility] ([facility]) [address] [facility] [place], [address], 09/02/2023 06:07:41 09/01/19 24 09/01/2023 COMP. METAB OLIC PANEL (14) protein, total 6.4 g/dL 6.0-8. 5 Not Available [facility] ([facility]) [address] [facility] [place], [address], 09/02/2023 06:07:41 09/01/19 24 09/01/2023 COMP. METAB OLIC PANEL (14) albumin 4.6 g/dL 3.8-4. 9 Not Available [facility] ([facility]) [address] [facility] [place], [address], 09/02/2023 06:07:41 09/01/19 24 09/01/2023 COMP. METAB OLIC PANEL (14) globulin, total 1.8 g/dL 1.5-4. 5 Not Available [facility] ([facility]) [address] [facility] [place], [address], 09/02/2023 06:07:41 09/01/19 24 09/01/2023 COMP. METAB OLIC PANEL (14) A/G ratio 2.6 1.2-2. 2 above high normal Not Available [facility] ([facility]) [address] [facility] [place], [address], 09/02/2023 06:07:41 09/01/19 24 09/01/2023 COMP. METAB OLIC PANEL (14) bilirubin, total 0.4 mg/dL 0.0-1. 2 Not Available [facility] ([facility]) [address] [place], [address], 09/02/2023 06:07:41 09/01/19 24 09/01/2023 COMP. METAB OLIC PANEL (14) alkaline phosphatase 70 IU/L 44-121 Not Available [facility]) [address] [place], [address], 09/02/2023 06:07:41 09/01/19 24 09/01/2023 COMP. METAB OLIC PANEL (14) AST (SGOT) 12 IU/L 0-40 Not Available [facility] ([facility]) [address] [place], [address], 09/02/2023 06:07:41 09/01/19 24 09/01/2023 COMP. METAB OLIC PANEL (14) ALT (SGPT) 13 IU/L 0-44 Not Available [facility] ([facility]) [address] [place], [address], 09/02/2023 06:07:41 09/01/19 24 09/01/2023 LIPID PANEL cholesterol, total 101 mg/dL 100-19 9 Not Available [facility] ([facility] [address] [place], [address], 09/02/2023 06:07:42 09/01/19 24 09/01/2023 LIPID PANEL triglyceride s 106 mg/dL 0-149 Not Available [facility]) [address] [place], [address], 09/02/2023 06:07:42 09/01/19 24 09/01/2023 LIPID PANEL HDL cholesterol 42 mg/dL >39 Not Available [facility] [address] [place], [address], 09/02/2023 06:07:42 05/22/20 24 09/01/2023 LIPID PANEL VLDL cholesterol wendy 20 mg/dL 5-40 Not Available [facility]) [address] [facility], [place], [address], 09/02/2023 06:07:42 09/01/19 24 09/01/2023 LIPID PANEL LDL chol calc ([facility]) 39 mg/dL 0-99 Not Available [facility] [address] [facility], [place], [address], 09/02/2023 06:07:42 09/01/19 24 09/01/2023 LIPID PANEL comment: RN REHAB Not Available [facility] ([facility]) [address] [facility], [place], [address], 09/02/2023 06:07:42 12/16/19 23 12/11/2022 XR, thora cic spine , 2 view No observ [facility]ion [facility] ed[facility] [address] [place], [address], 12/15/2022 17:03:01 06/07/19 24 elect rocar diogr am No observ ation record ed. [place] [facility]_ct[facility]_im_1 [address] [facility], [place], [address], 06/07/2023 10:11:41 06/11/19 24 06/07/2023 elect rocar diogr am No observ ation record ed. [email or web address] Not Available 04/2023 14:29:17 07/27/19 24 06/29/2023 CT, coron juventino calci um score No observ ation record ed. [facility] [address], [place], [address], 07/28/2023 11:23:23 12/10/19 24 10/09/2023 XR, cervi wendy spine , 2 or 3 view No observ ation record ed. [email or web address] Not Available 06/2023 10:01:00 Result Notes None recorded. Problems Name Problem SNOMED Code Status Onset Date Resolution Date Notes Provider Name and Address Organization Details Recorded Time Hyperchol esterolem ia 22235128 Active 2022 Not Available [facility] 4 15:34:52 Acute low back pain 465906756 Active 2022 Not Available [facility] 4 15:34:52 Thoracic back pain 568463626 Active 2022 Not Available [facility] 4 15:34:52 Erectile dysfuncti on 402009043 Active 2023 Oswaldo Blanchard MD [address] [place] [address], [address] [place] [address], [address] , [place] [facility] 4 09:58:49 Neck pain 19190361 Active 2023 Oswaldo Blanchard MD [address] [place] [address], [address] [place] [address], [address] , [place] [facility] 4 10:08:14 Pruritic rash 89018400 Active 2023 Oswaldo Blanchard MD [address] [place] [address], [address] [place] [address], [place], [address] , [place] - [facility] 4 10:14:39 Moderate major depressio n, single episode 19516986 Active 2023 Oswaldo Blanchard MD [address] [place] [address], [address] [place] [address], [place], [address] , [place] [facility] 4 10:23:24 Morbid obesity 065429391 Active 2023 Oswaldo Blanchard MD [address] [place] [address], [address] [place] [address], [place], [address] , [place] - [facility] 4 10:23:24 Pure hyperchol esterolem ia 394350405 Active 2023 Oswaldo Blanchard MD [address] [place] [address], [address] [place] [address], [place], [address] , [place] - [facility] 4 10:23:24 Pain in cervical spine 466365481 Active 2023 Adali Cee null, [place] - [facility] 4 11:26:05 COVID-19 148317978 Active 2023 Oswaldo Blanchard MD [address] [place] [address], [address] Floor, [place], [address] , [place] - [place] [facility] 4 13:19:32 Hypersens itivity pneumonit is 20802022 Active 2019 Hypersensi tivity pneumoniti s Not Available [facility] 4 15:34:52 Attention deficit hyperacti vity disorder, predomina ntly inattenti ve type 08324272 Active 2021 Attention deficit hyperactiv ity disorder (ADHD), predominan tly inattentiv e type Not Available [facility] 4 15:34:52 Tubular adenoma of colon 606059908 Active 2019 Tubular adenoma of colon Not Available [facility] 4 15:34:52 Restricti ve lung disease 41112026 Active 2021 Restrictiv e lung disease Not Available [facility] 4 15:34:52 Mixed anxiety and depressiv e disorder 483619936 Active 2021 Depression with anxiety Not Available [facility] 4 15:34:52 De La Rosa's esophagus 281849271 Active 2019 De La Rosa's esophagus without dysplasia Not Available [facility] 4 15:34:52 Steatosis of liver 341772688 Active 2019 Fatty infiltrati on of liver Not Available [facility] 4 15:34:52 Obstructi ve sleep apnea syndrome 45958669 Active 2019 Obstructiv e sleep apnea syndrome Not Available [facility] 4 15:34:52 Pulmonary emphysema 23156866 Active 2019 Pulmonary emphysema Not Available [facility] 4 15:34:52 Type 2 diabetes mellitus 99830726 Active 2019 Type 2 diabetes mellitus with hyperglyce cl, without long-term current use of insulin Not Available [facility] 4 15:34:52 Osteonecr osis of hip 090106781 Active 2019 Avascular necrosis of bones of both hips Not Available [facility] 4 15:34:52 Notes:Some problems listed i n Document: #[id number] could not be added to this patient's chart. Please review this document and add these problems to the patient's chart manually as needed. Problem Notes None recorded. Procedures Surgical History Date Name Laterality Status Provider Name and Address Organization Details Recorded Time 0 colonoscopy completed Oswaldo Blanchard MD [address] [place] [address], [address] Floor, [place], [address], [place] - [facility] 06/07/2023 09:45:48 Imaging Results Imaging Date Name Status LastModified by Organization Details LastModified Time 12/11/2022 XR, thoracic spine, 2 view completed [facility] [address] [place], [address], 12/15/2022 17:03:01 06/07/2023 electrocardiogram completed [place] [facility]_ctcm a_im_[address] [facility], [place], [address], 06/07/2023 10:11:41 06/07/2023 electrocardiogram completed Infor mation not available 06/11/2023 14:29:17 06/29/2023 CT, coronary calcium score completed [facility] [address] [place], [address], 07/28/2023 11:23:23 10/09/2023 XR, cervical spine, 2 or 3 view completed Information not available 12/14/2023 10:01:00 Procedure Notes None recorded. Medical Equipment None Reported. Allergies Allergen ID Allergen Name Allergen Category Reaction Reaction Severity Criticality Documentation Date Start Date Code Code System Note Provider Name and Address Organization Details Recorded Time 22000816 atorvasta tin medicatio n myalgias (muscle pain) Not available low 04/06/2024 83538 RxNorm Not Available Not Available Not Available 42515 paroxetin e Not available Not available Not available Not available 08/06/20222019 38534 RxNorm React ion: Other (See Comme nts), sever ity: Unkno wn;Arboleda icida l Not Available Not Available Not Available 63856 doxycycli ne Not available Not available Not available Not available 08/06/20222019 3640 RxNorm React ion: Hivbossman severino ity: Unkno wn Not Available Not Available [...] 1 tablet every day by oral route. 04/06 completed Not Available Not Available Not Available albuterol sulfate 2.5 mg/3 mL (0.083 [...] mg every week by subcutane ous route. 2024 active Not Available Not Available Not Avai lable Paxlovid 300 mg (150 mg x 2)-100 mg tablets in a dose pack Take 3 tablets twice a day by oral route. 2023 active Not Available Not Available Not Avai lable Ozempic 0.25 mg or 0.5 mg (2 [...] Updated DateTime 3 172.7 cm 43.2 kg/m2 716263. 51 g 96.1 [degF] 97 % 97 % 83 /min 124 mm[Hg] 78 mm[Hg] Adali flood [facility] 3 08:04:55 Date Recorded Body height Body mass index (BMI) Body weight Oxygen saturation Oxygen saturation in Arterial blood by Pulse oximetry Heart rate Body temperature Systolic blood pressure Diastolic blood pressure Provider Name and Address Organization Details Last Updated DateTime 4 172.7 cm 38.8 kg/m2 977752. 05 g 98 % 98 % 85 /min 98.1 [degF] 129 mm[Hg] 78 mm[Hg] Sharri Bangura [facility] 4 09:13:07 Date Recorded Body height Body mass index (BMI) Body weight Heart rate Oxygen saturation Oxygen saturation in Arterial blood by Pulse oximetry Systolic blood pressure Diastolic blood pressure Provider Name and Address Organization Details Last Updated DateTime 4 172.7 cm 31.6 kg/m2 53659.2 1 g 73 /min 99 % 99 % 130 mm[Hg] 80 mm[Hg] Rosy Hermilokarlo [facility] 4 09:47:40 Date Recorded Body height Body mass index (BMI) Body weight Heart rate Oxygen saturation Oxygen saturation in Arterial blood by Pulse oximetry Body temperature Systolic blood pressure Diastolic blood pressure Provider Name and Address Organization Details Last Updated DateTime 3 172.7 cm 44.9 kg/m2 093155. 75 g 72 /min 95 % 95 % 96.8 [degF] 90 mm[Hg] 56 mm[Hg] Lexus antony [facility] 3 10:48:35 Social History Question Answer Notes LastModified by Organizat ion Details LastModified Time Tobacco Smoking Status Former Smoker Not Available [facility] 08/08/2022 04:01:17 Do You Have An Advance Directive? No Information not available 06/07/2023 What Is Your Level Of Alcohol Consumption? None [email or web address] Information not available 06/07/2023 Do You Wear A Helmet When Biking? Yes [email or web address] Information not available 06/07/2023 What Is Your Level Of Caffeine Consumption? Moderate [email or web address] Information not available 06/07/2023 Are You A Caregiver? No [email or web address] Information not available 06/07/2023 Are You Currently Employed? No Retired [email or web address] Information not available 06/07/2023 What Type Of Diet Are You Following? REGULAR [email or web address] Information not available 06/07/2023 When Did You Quit Smoking? 16+yearssincelastc igarette Information not available 12/09/2023 Do You Use Insect Repellent Routinely? No [email or web address] Information not available 06/07/2023 Where Do You Live? [facility] Information not available 06/07/2023 How Long Have You Lived There? 3 [email or web address] Information not available 06/07/2023 Do You Have A Medical Power Of Knockup Worker? No [email or web address] Information not available 06/07/2023 What Was The Date Of Your Most Recent Tobacco Screening? 12/09/2023 Information not available 12/09/2023 How Many Children Do You Have? 3 [email or web address] Information not available 06/07/2023 Do You Have Any Pets? Yes 2 Cats Information not available 06/07/2023 What Is Your Relationship Status? [email or web address] Information not available 06/07/2023 Do You Use Your Seat Belt Or Car Seat Routinely? Yes [email or web address] Information not available 06/07/2023 Do You Have Smoke And Carbon Monoxide Detectors In Your Home? Yes [email or web address] Information not available 06/07/2023 Are You Passively Exposed To Smoke? No [email or web address] Information not available 06/07/2023 Are There Any Smokers In Your House? No [email or web address] Information not available 06/07/2023 Do You Feel Stressed (tense, Restless, Nervous, Or Anxious, Or Unable To Sleep At Night)? [id number] Information not available 06/07/2023 Do You Use Any Illicit Or Recreational Drugs? No Information not available 12/09/2023 Do You Use Sunscreen Routinely? No [email or web address] Information not available 06/07/2023 Has Tobacco Cessation Counseling Been Provided? No Information not available 12/09/2023 On What Date Was Tobacco Cessation Counseling Provided? 12/09/2023 Information not available 12/09/2023 Sex: Male Functional Status Question Answer Note LastModified by Organization D etails LastModified Time What is your exercise level? None [email or web address] Information not available 06/07/2023 Mental Status None [...] quadrivalent, PF 3 completed Oswaldo Blanchard MD [address] [place] [address], [address], [place], [address], [place] - [facility] 02/04/2023 12:15:12 Tdap 0 completed Not Available [facility] 05/31/2023 15:34:53 DT (pediatric) 7 completed Not Available [facility] 05/31/2023 15:34:53 pneumococcal polysaccharide PPV23 0 completed Not Available [facility] 05/31/2023 15:34:53 Influenza, split virus, trivalent, preservative 0 completed Not Available [facility] 05/31/2023 15:34:53 COVID-19, mRNA, LNP-S, PF, 30 mcg/0.3 mL dose 1 completed Not Available [facility] 05/31/2023 15:34:52 COVID-19, mRNA, LNP-S, PF, 30 mcg/0.3 mL dose 1 completed Not Available [facility] 05/31/2023 15:34:52 Influenza, split virus, quadrivalent, PF 1 completed Not Available [facility] 05/31/2023 15:34:53 Tdap 3 completed Not Available [facility] 05/31/2023 15:34:53 Past Encounters Encounter ID Performer Location Encounter Start Date Encounter Closed Date Diagnosis/Indication Diagnosis SNOMED-CT Code Diagnosis ICD10 Code Diagnosis Note [id number] Oswaldo Blanchard MD [facility]_ IM_16 [facility] [address] [place] [address] 08/20/2022 11:05:59 08/20/2022 11:49:38 Hypersensitivity pneumonitis 57450690 J67.9 Patient remains very frustrated with his breathing but continues to need O2 which she realizes because he gets short of breath at the moment to take it off. No changes with management and closely monitored by pulmonary medicine. We will continue on Bactrim daily as well as prednisone 20 mg daily Mixed anxi ety and depressive disorder 095719691 F41.8 Discussed options and will taper off venlafaxin e over the next month and start him on Wellbutrin 150 mg XL daily. He will remain on trazodone 100 mg daily until he feels that he can come off of it if he feels better on the Wellbutrin . We will also set him up for psychother apy as we have planned before. Type 2 collin betes mellitus 47158411 E11.65 Which showed increase Ozempic to 0.5 mg weekly. Also will recheck his A1c today and monitor for hypoglycem ia. Hypercholesterolemia 136 25174 E78.00 We will recheck cholestero l panel presently not on any medication s yet. Spoke about caloric control and low-fat diet control as well. [id number] Oswaldo Blanchard MD [facility]_ IM[facility] [address] [place] [address] 10/01/2022 11:02:42 10/01/2022 11:53:56 Mixed anxiety and depressive disorder 246091212 F41.8 Cecil seems to be his doing well on Wellbutrin 150 milligrams XL daily with trazodone 100 mg at bedtime we will continue present dose since he is responding well to it. Type 2 collin betes mellitus 24678580 E11.65 Presently well controlled on Ozempic 0.5 mg weekly. We will continue present dose and monitor for hypoglycem ia at the same time hopefully he continues to lose the weight at this present rate which is very healthy and good for him. We will see him back in 3 months to check on his A1c [id number] MD KAMILLA Matias_[facility]_ IM_[address] [place] [address] 12/11/2022 10:03:12 12/11/2022 10:36:17 Acute low back pain 579358096 M54.50 Probably due to muscle spasm after he had his fall. We will send him for an x-ray for both thoracic and lumbar spine to rule out any fractures . We will start him on Vicodin 7.5 mg every 8 hours as needed and monitor for constipati on which she had that issue before. Unable to use tramadol due to Wellbutrin and risk of seizures. He has already been on muscle relaxers which does not help. We advised him to walk regularly because that loosens up his lower back and do stretching exercises whenever possible. Also transfer from ice to heat compresses for muscle relaxation . Obesity 102614067 E66.9 Great improvemen t with Ozempic seems to be tolerating the 0.5 mg/week dose which we will continue hopefully he will steadily lose 5 pounds per month which is still very safe. 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 We will coordinate with psych college he would use medication . [id number] MD KAMILLA [facility]_ IM_[address] [place] [address] 01/01/2023 10:36:33 01/01/2023 11:28:54 Poor short-term memory 218791234 R41.3 MMSE today was 29/30. I strongly feel that his memory loss is mostly due to his ADHD preventing him from focusing well. Due to the fact that he is avoiding stimulants we will try him on Strattera on the lowest dose just to see if he can tolerate the medication because we are also increasing his BuSpar dose today. We will reassess him back in a month. Mixed anxi ety and depressive disorder 485259897 F41.8 increase buspar 20mg BID hopefully to improve his anxiety so he can focus a little bit better we will maintain Wellbutrin at 150 mg daily for now. Obesity 292445448 E66.9 Steady significan t improvemen t. We will have him continue Ozempic at 0.5 mg weekly and advised patient to keep the weight loss of 5 to 10 pounds per month. Restrictiv e lung disease [id number] J98.4 Strongly urged patient to use his O2 so that he will not have more hypoxemic episodes which might worsen his memory issue. [id number] Oswaldo Blanchard MD [facility]_ [facility]_[address] [place] [phone] 02/04/2023 07:56:33 02/04/2023 09:38:59 Thoracic back pain [id number] M54.6 Still feels like he has muscle pain but duration has been since taking very long time. We will try him on a Lidoderm patch to see if it will help. In the meantime we will have him continue to stretch. If he is not improving we might send him to physical therapy so we can try to get an MRI on his thoracic spine in the future. Mixed anxi ety and depressive disorder [id number] F41.8 Seems to be doing well on the BuSpar 20 mg twice a day and he continues to be on Wellbutrin 150 mg daily both of which are helping with his anxiety and depression . Attention deficit hyperactivity disorder, predominantly inattentive type 50563843 F90.0 Doing well on Strattera 20 mg twice a day we will continue present dose. Obesity [id number] E66.9 Steady significan t improvemen t. We will have him continue Ozempic at 0.5 mg weekly and advised patient to keep the weight loss of 5 to 10 pounds per month. [id number] Oswaldo Blanchard MD [facility]16 [address] [place] [address] 06/07/2023 08:58:40 06/07/2023 10:42:25 Hypercholesterolemia 39156734 E78.00 We will recheck cholestero l panel presently not on any medication s yet. Spoke about caloric control and low-fat diet control as well. 06-09-23: Reported 10-year CV risk still at 10%. Patient agreed to have a coronary calcium CT will schedule for patient. ETL Adult heal th examination [id number] Z00.00 Cecil has been doing very well and continues to lose more weight with diet and exercise with the help of Ozempic. We will recheck his CBC CMP cholestero l panel and PSA level. He is up-to-date with his colonoscop y with a repeat next year. He is also up-to-date with his vaccinatio ns except for COVID and Shingrix which he declined. 06-09-23: Reported higher PSA level as well as higher creatinine and lower GFR levels at present blood test. Discussed options patient agreed to recheck levels in 6 months. ETL Erectile dysfunction [id number] F52.21 We will try him on sildenafil and discussed side effect profile. Thoracic back pain [id number] M54.6 Will try VOltaren GEll, PRN, declined PT for now Obesity 382347664 E66.9 WIll inc. Ozempic to 1 mg qwk Mixed anxi ety and depressive disorder 532066490 F41.8 Seems to be doing well on the BuSpar 20 mg twice a day and he continues to be on Wellbutrin 300 mg daily both of which are helping with his anxiety and depression . 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 CPAP Hypersensi tivity pneumonitis [id number] J67.9 FF-up with pulmo, to determine if he still needs O2 ATC [id number] Oswaldo Blanchard MD [facility]16 [address] [place] [address] 12/09/2023 08:54:54 12/09/2023 10:17:38 Moderate major depression, single episode [id number] F32.1 Still on Wellbutrin 300 mg daily and trazodone 200 mg at bedtime as well as clonidine 0.1% 3 times a day. We will have him ask psychiatry about his symptoms of lightheade dness which may be caused by clonidine. Morbid obesity [id number] E66.01 He wants to return to the 80 pounds we will maintain Ozempic at 1 mg weekly. We have already started having him start thinking about the amount of food that he is eating now so if he can sustain it without the Ozempic in the future. Body mass index 30+ - obesity 236453273 Z68.38 Pure hypercholesterolemia 733191923 E78.00 Due to his muscle pains we will have him stop atorvastat in and observe if the myalgia improves. Will recheck cholestero l panel if we have to stop the medication for GERD. Neck pain 19944246 M54.2 Patient agreed to try physical therapy for neck stretching exercises and we will obtain an x-ray of his C-spine. 12-10-23: Reported C-spine x-ray showed mild arthritis patient will start PT and will let us know if it is not improving. ETL Pruritic rash 56181552 L 28.2 Will use triamcinol one cream as needed which might be a result of taking care of their friends pets few weeks ago. Restrictiv e lung disease 89183575 J98.4 Will continue mycophenol ate per pulmonary medicine. Seems to be doing very well without oxygen at the moment. Type 2 collin betes mellitus 59413365 E11.65 Will recheck A1C, but seems to be doing very well with his significan t weight loss. [id number] Oswaldo Blanchard MD [facility]16 [address] [place] [address] 04/06/2024 10:42:37 04/06/2024 14:14:08 COVID-19 [id number] U07.1 Discussed options with patient and he agreed to try Paxlovid to shorten his symptoms and to prevent complicati ons. He will take 3 tablets twice a day for the next 5 days we checked all his medication s and there was no significan t cross reactions. He will increase his bedrest and quarantine himself until he feels back to his baseline. And he will call us if symptoms worsen in spite of the Paxlovid. Health Concerns Section Related Observation LastModified by Organization Detai ls LastModified Time None Recorded Concern Status LastModified by Organization Details LastModified Time None Recorded Advance Directives Directive N: Payers Encounter Date Sequence Insurance Name Policy Number Policy Haas Covered Member ID Haas Member ID Guarantor Name 01/01/2023 1 [place] [id number] Aleksandar Adamson [id number] Aleksandar Adamson 02/04/2023 1 [place] [id number] Aleksandar Adamson [id number] Aleksandar Adamson 06/07/2023 1 [place] [id number] Aleksandar Adamson [id number] Aleksandar Adamson 12/09/2023 1 [place] [id number] Aleksandar Adamson [id number] Aleksandar Adamson 04/06/2024 1 [place] [id number] Aleksandar Adamson [id number] Aleksandar Adamson Notes Date Note Type Note Provider Name and Address Organization Details Recorded Time 01/01/2023 text/html Cecil is back tod for a follow-up, particularly for memory test [...] pressure medications at all. Oswaldo Blanchard MD [address] [place] [address], [address] [place] [address], [phone], [place] - [facility] 01/01/2023 11:39:25 02/04/2023 text/html Cecil comes in [...] the last 5 months. Oswaldo Blanchard MD [address] [place] [address], [address] [facility], [place], [address], [place] - [place] [facility] 02/04/2023 08:30:55 06/07/2023 text/html [facility]. He has been doing very well having lost almost 50 pounds over the last 6 months with diet and exercise alone. His breathing has significantly improved with pulse ox is over 95% all the time at 2 LPM which she still uses [id number]. He also still uses his CPAP machine [...] for ADHD as well. Oswaldo Blanchard MD [address] [place] [address], [address] Floor, [place], [address], [place] - [place] [facility] 06/09/2023 17:57:08 12/09/2023 text/html Cecil seen [...] areas of the body. Oswaldo Blanchard MD [address] [place] [address], [address] [facility], [place], [address], [place] - [place] [facility] 12/10/2023 16:29:27 04/06/2024 text/html Virtual VisitRep orted bypatient.Patient identity verified by:Known established patient I shared my identity credentials with the patient:Yes Patient is currently located in the state of:[place]; ID Patient location:Home Provider location:I was located at my office I educated the patient on the nature of a virtual visit:Yes Emergency plan agreed upon:Yes The patient was seen through synchronous audio and video technology:Yes Any documented vital signs were obtained during the telehealth visit via: Cecil is a today via TeleMed video for an acute visit. He started having symptoms of congestion and cough with fatigue and chills with bodyaches yesterday. Unfortunately his parents from [place] came up for the holidays and was tested positive for COVID after a plane ride. He tested himself for COVID today and turned out positive as well. He denies having any shortness of breath or productive cough. He denies having headaches or dizziness, no chest pains or palpitations, no abdominal pains or diarrhea. He has had COVID in the past few years ago which had worse symptoms than his present condition. His vaccinations for COVID were all few years ago with no recent boosters. Oswaldo Blanchard MD [address] [place] [address], [address] Floor, [place], [address], [place] - [place] [facility] 04/06/2024 13:53:10
--- OUTSIDE RECORDS SUMMARY | 2024-06-14 11:16 | XMS_ITS | Clinical Summary ---
Author Organization [email or web address] [facility] ity Address [address] [place] [address] Care Team Providers Care Panel Monitor Name Role Phone Oswaldo Blanchard MD Primary Care Provider [phone] Medical History Medical History Date Comments Hypertension DX:Hypertension COPD (chronic obstructive pu lmonary disease) ([facility]) DX:COPD (chronic obstructive pulmonary disease) ([facility]) Anxiety DX:Anxiety Diabetes mellitus ([facility]) DX:D iabetes mellitus ([facility]) Obesity DX:Obesity GERD (gastroesophageal reflux disease) DX:GERD (gastroesophageal reflux disease) Depression DX:Depression Family History Medical History Relation Name Comments Glaucoma Father Hearing loss Maternal Grandmother Colon cancer Paternal Grandmother Relation Name Status Comments Father Maternal Grandmother Paternal Grandmother Social History Tobacco Use Types Packs/Day Years Used Date Smoking Tobacco: Former Cigarettes Q uit: 07/18/1999 Smokeless Tobacco: Never Alcohol Use Standard Drinks/Week Comments Yes 0 (1 standard drink = 0.6 oz pur e alcohol) Sex and Gender Information Value Date Recorded Sex Assigned at Not on file Legal Sex Male 6:54 AM EST Gender Identity Not on file Sexual Orientation Not on file Obstetrics History Last Filed Vital Signs Vital Sign Reading Time Taken Comments Blood Pressure 110/64 05/22/2022 9:17 AM EST Sitting Right arm Pulse 76 05/22/2022 9:17 AM EST Temperature - - Respiratory Rate - - Oxygen Saturation - - Inhaled Oxygen Concentration - - Weight 142 kg (313 lb) 05/22/2022 9:17 AM EST Height 172.7 cm (5' 8 ) 05/22/2022 9:17 AM EST Body Mass Index 47.59 05/22/2022 9:17 AM EST Plan of Treatment Health Maintenance Due Date Last Done Comments Diabetes: Annual GFR (Glomerular Filtration Rate) 1968 Diabetes: Annual Foot Exam 01/04/1978 Diabetes: Annual Retina Eye Exam 01/04/1978 Hepatitis A Vaccines (1 of 2 - Risk 2-dose series) 01/04/1987 Hepatitis B Vaccines (1 of 3 - 19+ 3-dose series) 01/04/1987 Zoster Vaccines (1 of 2) 01/04/2018 Pneumococcal Vaccine: 50+ Years (2 of 2 - PCV) 04/17/2020 04/17/2019 Pneumococcal Vaccine: Pediatrics (0 to 5 Years) and At-Risk Patients (6 to 64 Years) (2 of 2 - PCV) 04/17/2020 04/17/2019 Cholesterol Screening (Lipid Panel) 03/15/2022 Colorectal Cancer Screening: Colonoscopy 03/15/2022 Depression Screening 03/15/2022 HIV Screening 03/15/2022 Hepatitis C Screening 03/15/2022 Social Influencers of Health Screening 03/15/2022 Diabetes: Annual Urine Albumin-Creatinine Ratio (uACR) 03/25/2022 Diabetes: Blood Sugar Contro l Test (HGBA1C) 03/25/2022 COVID-19 Vaccine (3 - 2023-2 5 season) 2023 07/12/2020, 06/14/2020 Influenza Vaccine (#1) 2023 , 04/17/2019 DTaP,Tdap,and Td Vaccines (4 - Td or Tdap) 05/22/2032 05/22/2022, 12/04/2009, 10/07/1996 HIB Vaccines Aged Out No longer eligi ble based on patient's age to complete this topic HPV Vaccines Aged Out No longer eligi ble based on patient's age to complete this topic IPV Vaccines Aged Out No longer eligi ble based on patient's age to complete this topic MMR Vaccines Aged Out No longer eligi ble based on patient's age to complete this topic Meningococcal ACWY Vaccine Aged Out N o longer eligible based on patient's age to complete this topic Meningococcal B Vacine Aged Out No lo nger eligible based on patient's age to complete this topic RSV Immunization Patients Under 20 months Aged Out No longer eligible b ased on patient's age to complete this topic Varicella Vaccines Aged Out No longer eligible based on patient's age to complete this topic Care Teams Panel Monitor Relationship Specialty Start Date End Date Oswaldo Blanchard MD PCP - General Internal Medicine 07/12/19
--- OUTSIDE RECORDS SUMMARY | 2024-06-14 11:17 | XMS_ITS | Clinical Summary ---
Author Organization [facility] Address [address] [place] [address] Care Team Providers Care Senior Advocate Name Role Phone Oswaldo Blanchard MD Primary Care Provider [phone] Social History Tobacco Use Types Packs/Day Years Used Date Smoking Tobacco: Never Assessed Sex and Gender Information Value Date Recorded Sex Assigned at Not on file Gender Identity Not on file Sexual Orientation Not on file Plan of Treatment Health Maintenance Due Date Last Done Comments Hepatitis C Virus Screening 1970 HIV Screening 01/04/1981 DTaP/Tdap/Td Vaccines (1 - Tdap) 01/04/1987 Hepatitis B Vaccines (1 of 3 - 19+ 3-dose series) 01/04/1987 Pneumococcal Vaccines 50+ (1 of 1 - PCV) 01/04/2018 Zoster (Shingles) Vaccine (1 of 2) 01/04/2018 COVID-19 Vaccine ( - 2023-2 5 season) 2023 Pneumococcal Vaccine: Pediat victorino (0-5 Years) and At-Risk Patients (6 to 49 Years) Aged Out No longer eligible b ased on patient's age to complete this topic Care Teams Senior Advocate Relationship Specialty Start Date End Date Oswaldo Blanchard MD [address] [place] [address] PCP - General Internal Medicine 02/07/21
--- OUTSIDE RECORDS SUMMARY | 2024-06-14 11:17 | XMS_ITS | Clinical Summary ---
Author Organization [facility] Address [address] [place] [address] Care Team Providers Care Video Player Mechanic Name Role Phone Oswaldo Blanchard MD Primary Care Provider [phone] Allergies Active Allergy Reactions Criticality Noted Date Comments Doxycycline Hives 07/18/2019 Paroxetine Other (See Comments) 07/18/2019 Suicidal Medications Medication Sig Dispensed Refills Start Date End Date Status TRELEGY ELLIPTA 100-62.5-25 MCG/INH AEPB 1 puff by Inhaled route. 0 06/16/2019 Active pantoprazole (PROTONIX) 40 MG tabletIndications:Ba rrett's Esophagus Take 1 tablet (40 mg total) by mouth every morning on an empty stomach. 90 tablet 3 04/20/2022 Active hydrOXYzine (VISTARIL) 25 MG capsule TAKE 1 CAPSULE(25 MG) BY MOUTH THREE TIMES DAILY NEEDED FOR ITCHING 270 capsule 1 05/12/2022 Active Semaglutide,0.25 or 0.5MG/DOS, 2 MG/1.5ML SOPN Inject 0.25 mg under the skin every 7 days. 6 mL 3 05/22/2022 Active venlafaxine (EFFEXOR-XR) 150 MG 24 hr capsule TAKE 1 CAPSULE(150 MG) BY MOUTH DAILY 90 capsule 1 06/05/2022 Active traZODone (DESYREL) 100 MG tablet TAKE 2 TABLETS(200 MG) BY MOUTH EVERY NIGHT AT BEDTIME 180 tablet 1 06/08/2022 Active baclofen (LIORESAL) 10 MG tablet TAKE 1 TABLET(10 MG) BY MOUTH DAILY 30 tablet 1 07/08/2022 Active nystatin (MYCOSTATIN) 108937 UNIT/ML suspension Take 5 mL (500,000 Units total) by mouth 3 (three) times a day. 120 mL 0 07/09/2022 Active Active Problems Problem Noted Date Diagnosed Date Restrictive lung disease 01/19/2022 Attention deficit hyperactiv ity disorder (ADHD), predominantly inattentive type 11/17/2021 Depression with anxiety 11/17/2021 Hypersensitivity pneumonitis 12/25/2019 Avascular necrosis of bones of both hips 020 Type 2 diabetes mellitus wit h hyperglycemia, without long-term current use of insulin 07/18/2019 Pulmonary emphysema 07/18/2019 De La Rosa's esophagus without dysplasia 07/18/2019 Obstructive sleep apnea syndrome 07/18/2019 Tubular adenoma of colon 07/18/2019 Fatty infiltration of liver 07/18/2019 Resolved Problems Problem Noted Date Diagnosed Date Resolved Date Interstitial lung disease 12/04/2019 Essential hypertension 07/18/201907/03 Anxiety state 07/18/2019 11/17/2021 Immunizations Name Administration Dates Next Due Adacel (Tdap) 05/22/2022 Covid-19 (Pfizer) Dilution Required 07/12/2020,0 06/14/2020 DT 10/07/1996 Influenza Quad (Fluarix/Fluz one/FluLaval) 0.5mL (SD-IIV4) 01/08/2021 Influenza Trivalent (Fluzone /Afluria) 5.0mL Multi-dose Vial 04/17/2019 Pneumococcal Polysaccharide PPSV23 04/17/2019 Tdap 12/04/2009 Family History Medical History Relation Name Comments Glaucoma Father Hearing loss Maternal Grandmother Colon cancer Paternal Grandmother Relation Name Status Comments Father Maternal Grandmother Paternal Grandmother Social History Tobacco Use Types Packs/Day Years Used Date Smoking Tobacco: Former Cigarettes 1.5 20 Q uit: 07/18/1999 Smokeless Tobacco: Never Tobacco Cessation:Counseling Given: Not Answered Alcohol Use Standard Drinks/Week Comments Yes 0 (1 standard drink = 0.6 oz pur e alcohol) social Sex and Gender Information Value Date Recorded Sex Assigned at Male 12/29/2019 3:42 PM EDT Gender Identity Male 12/29/2019 3:42 PM EDT Sexual Orientation Not on file Job Start Date Occupation Industry Not on file Not on file Not on file Last Filed Vital Signs Vital Sign Reading Time Taken Comments Blood Pressure 110/64 05/22/2022 9:17 AM EST Pulse 76 05/22/2022 9:17 AM EST Temperature 36 ??C (96.8 ??F) 05/22/2022 9:17 AM EST Respiratory Rate 18 05/22/2022 9:17 AM EST Oxygen Saturation 99% 05/22/2022 9:17 AM EST Inhaled Oxygen Concentration - - Weight 142 kg (313 lb) 05/22/2022 9:17 AM EST Height 172.7 cm (5' 8 ) 05/22/2022 9:17 AM EST Body Mass Index 47.59 05/22/2022 9:17 AM EST Plan of Treatment Health Maintenance Due Date Last Done Comments Hepatitis B Vaccines (1 of 3 - 3-dose series) 1970 Hemoglobin A1C Due 05/14/2021 11/11/2020, 0 12/01/2019, 04/17/2019 Diabetes: Microalbumin Test 11/11/2021 11/11/2020 Depression Screening 02/19/2023 02/19/2022, 10/31/2020, 07/18/2019 Diabetes: Foot Exam 05/22/2023 05/22/2022, 10/31/2020, 07/18/2019 Preventative Health Evaluation 05/22/2023 05/22/2022, 05/22/2022, 10/31/2020, Additional history exists BMI Counseling 07/10/2023 07/09/2022, 05/13, 04/01/2022, Additional history exists COVID-19 Vaccine ( season) 2023 07/12/2020, 06/14/2020 Diabetes: Eye Exam (No Retinopathy) 01/21/2024 01/20/2022, 04/26/2020 Colon Cancer Screening (Colonoscopy) 09/06/2029 09/07/2019 DTap / Tdap / Td (4 - Td or Tdap) 05/22/2032 05/22/2022, 12/04/2009, 12/04/2009, Additional history exists Pneumococcal Vaccine Addressed 09/20/2019, 04/17/19 20 Overridden with the intention of not completing the topic Influenza Vaccine Discontinued 01/08/2021, 04/17/2019 Hepatitis C Screening Addressed 05/22/2022 Overri dden with the intention of not completing the topic RSV Ped < 20 months Aged Out No longe r eligible based on patient's age to complete this topic Shingrix-Zoster Vaccine Discontinued Care Teams Video Player Mechanic Relationship Specialty Start Date End Date Oswaldo Blanchard MD PCP - General Internal Medicine 07/12/19
--- OUTSIDE RECORDS SUMMARY | 2024-06-14 11:17 | XMS_ITS | Encounter Summary ---
Author Organization [facility] Address [address] [place] [address] Care Team Providers Care Fishing Rod Marker Name Role Phone Oswaldo Blanchard MD Primary Care Provider [phone] Encounter Details Date Type Department Care Team (Late st Contact Info) Description 01/21/2021 Erroneous Encounter [facility]PT [address] [place] [id number] Provider, MD Nick Social History Tobacco Use Types Packs/Day Years Used Date Smoking Tobacco: Never Assessed Sex and Gender Information Value Date Recorded Sex Assigned at Not on file Gender Identity Not on file Sexual Orientation Not on file documented as of this encounter Plan of Treatment Not on file documented as of this encounter Visit Diagnoses Not on filedocumented in this encounter Care Teams Fishing Rod Marker Relationship Specialty Start Date End Date Oswaldo Blanchard MD [address] [place] [address] PCP - General Internal Medicine 02/07/21 documented as of this encounter
== END 2024-06-14 10:57 | disposition home or self-care (01) ==
PROVIDERS: PCP Internal Medicine; Visit Provider Nurse Practitioner Family
DX: K59.00 Constipation, unspecified (principal); Z12.11 Encounter for screening for malignant neoplasm of colon
CPT/HCPCS: 99203

== ENCOUNTER → 2024-06-14 09:49 | Outpatient (BNVA) | payer MEDICARE, SELFPAY | PROVIDERS: PCP Internal Medicine; Visit Provider Nurse Practitioner Family | DX: Z01.818 Encounter for other preprocedural examination (principal); K59.00 Constipation, unspecified; K21.9 Gastro-esophageal reflux disease without esophagitis | CPT/HCPCS: 99202 ==

== ENCOUNTER 2024-08-15 12:48 | Day surgery (SDC) | payer MEDICARE, SELFPAY ==
[2024-08-15 12:53] VITALS: BMI 27.7
--- NOTE | 2024-08-15 12:55 | HO.ANESPROP2 ---
HPI - Anesthesia Eval Consult details Narrative: For EGD and colonoscopy [facility] Active Problems Active Problems: All Active Problems Internal derangement of left shoulder (Acute) Right hip flexor tightness (Acute) Numbness of right hand (Acute) Carpal tunnel syndrome of left wrist (Acute) Numbness and tingling in left hand (Acute) Trigger finger of left thumb (Acute) S/P total left hip arthroplasty (Acute) Status post total hip replacement, right (Acute) Avascular necrosis of bone of left hip (Acute) Past Medical History Medical History Diabetes mellitus COPD (chronic obstructive pulmonary disease) Uses wheelchair OSMIN on CPAP History of De La Rosa's esophagus History of pneumonia Avascular necrosis of bone of right hip Avascular necrosis of bone of left hip Prediabetes Hypertension Depression Anxiety Family History Family History (Updated 06/22/24 @ 09:56 by JEREMIAH Bajwa) Maternal Grandmother Colon cancer Paternal Uncle Prostate cancer Family history of problems with anesthesia: No Surgical History Surgical History History of right hip replacement Hx of elbow surgery History of esophagogastroduodenoscopy (EGD) Hx of colonoscopy History of lung biopsy History of Problems with Anesthesia: No Social History Social History Are you a primary post acute care nurse practitioner to a significant other at home: No Do you presently have visiting nurse or other home services: No Comment: aware of trip hazard Patient Tobacco Use Status: Former Tobacco user Tobacco use type: Cigarette service: No Current occupational status: disabled Meds Allergies Allergy/AdvReac Type Severity Reaction Status Date / Time doxycycline Allergy Unknown rash Verified 06/14/24 10:08 paroxetine [From Paxil] AdvReac Severe Suicidal Verified 06/14/24 10:08 thoughts Home Medications ?Medication ?Instructions ?Recorded ?Confirmed ?Last Taken ?Type pantoprazole 40 mg tablet,delayed 40 mg PO DAILY 09/24/20 06/04/22 06/04/22 History release bupropion HCl 300 mg 24 hr tablet, mg PO DAILY 06/14/24 Unknown History extended release clonidine HCl 0.1 mg tablet 0.1 mg PO TID 06/14/24 Unknown History mycophenolate mofetil 500 mg tablet PO 06/14/24 Unknown History semaglutide 1 mg/dose (4 mg/3 mL) mg subcut 06/14/24 08/04/24 History subcutaneous pen injector (Ozempic) sertraline 50 mg tablet mg PO DAILY 06/14/24 Unknown History trazodone 100 mg tablet mg PO BEDTIME PRN 06/14/24 Unknown History Exam Height,Weight and Vital Signs: Height 5 ft 8 in Weight 82.6 kg Airway Mallampati Class: II TM Dist: >3cm Neck ROM: Full Loose/Missing/Broken Teeth: No Heart: ok Lungs: ok Assessment and Plan Assessment Anesthesia Assessment: Anesthesia Plan Discussed and Chart Reviewed Final Anesthetic Review Family History of Problems with Anesthesia: No History of Problems with Anesthesia: No NPO: Yes ASA Class: III Final Preanesthetic Review: No Changes in Pt Med Stat, Meds/Allgs Chart Reviewed, Consent Obtained/Reviewed and Anes Risks/Benef Reviewed Patient Risk: Intermediate Procedure Risk: Intermediate Anesthetic Plan Anesthetic Plan: Agree w/ Assess. and Plan and TIVA Disposition: Standard PACU
--- NOTE | 2024-08-15 13:08 | MHC.SHP ---
Pre-Procedural Eval Section A - 24 Hr Update-Section A only Date of Service: 08/15/24 Section B - Complete if H&P > 30 days Chief Complaint: De La Rosa's esophagus with dysplasia,screening Details of Present Illness: grandparetn with CRC Relevant Family History (Specify if Yes): Yes Relevant Social History: None Present Medications: see Short Stay Collaborative assessment Medical History: Significant History (Diabetes mellitus COPD (chronic obstructive pulmonary disease) Uses wheelchair OSMIN on CPAP History of De La Rosa's esophagus History of pneumonia Avascular necrosis of bone of right hip Avascular necrosis of bone of left hip Prediabetes Hypertension Depression Anxiety) History of Previous Operations: Relevant previous surgery/procedure and date(s) (History of right hip replacement Hx of elbow surgery History of esophagogastroduodenoscopy (EGD) Hx of colonoscopy History of lung biopsy) Allergies: Allergies Allergy/AdvReac Type Severity Reaction Status Date / Time doxycycline Allergy Unknown rash Verified 06/14/24 10:08 paroxetine [From Paxil] AdvReac Severe Suicidal Verified 06/14/24 10:08 thoughts Review of Systems Sugical H&P ROS: Negative: Constitution, Cardiovascular, Respiratory, Neurological, Psychiatric, Hem-Onc, Allergic/Immunologic, Gastrointestinal, Genitourinary, Musculoskeletal, Integumentary, Endocrine and Eyes/Ears/Nose/Throat Exam Surgical H&P Exam: Normal: HEENT, Normal: Heart, Normal: Lungs, Normal: Extremities, Normal: Abdomen, Normal: Skin and Normal: Neurological Plan Diagnosis/Plan: Unchanged I have reviewed the history and physical and performed a pertinent physical examination on my patient. No changes have occurred unless specified. Time Spent With Patient Time: Total time managing care of this patient today ____ minutes.
[2024-08-15 13:10] VITALS: BP 136/85; PULSE 71; RESP 16; TEMP 36.9; O2SAT 97
[2024-08-15 13:20] LABS: Glucose, Whole Blood 91 mg/dL (60-115)
[2024-08-15] MEDS: Lactated Ringers 1,000 ML 50 ML IVCONT (13:21)
--- NOTE | 2024-08-15 13:34 | PC.NURSE ---
took patients belongings by the bedside to pacu and glasses arm frame snapped off. was previously glued. spoke to and stated they were already broken .taped leg back on.
--- OUTSIDE RECORDS SUMMARY | 2024-08-15 13:57 | XMS_ITS | Clinical Summary ---
[facility] Organization [facility] Address [address] [place] [address] Care Team Providers Care Technical Manager Name Role Phone Oswaldo Blanchard MD Primary Care Provider [phone] Medical History Medical History Date Comments Hypertension DX:Hypertension COPD (chronic obstructive pu lmonary disease) ([facility] V24, [facility] V28) DX:COPD (chronic o bstructive pulmonary disease) ([facility]) Anxiety DX:Anxiety Diabetes mellitus ([facility] V 24, [facility] V28) DX:Diabetes mellitus ([facility]) Obesity DX:Obesity GERD (gastroesophageal reflux disease) DX:GERD [...] 5 season) 2023 07/12/2020, 06/14/2020 Influenza Vaccine (Season Ended) 2024 01/08/2021, 04/17/2019 DTaP,Tdap,and Td Vaccines (4 - Td [...] age to complete this topic Meningococcal B Vaccine Aged Out No l onger eligible based on patient's age to complete this topic RSV Immunization Patients Under 20 months Aged Out No longer eligible b ased on patient's age to complete this topic Varicella Vaccines Aged Out No longer eligible based on patient's age to complete this topic Care Teams Technical Manager Relationship Specialty Start Date End Date Oswaldo Blanchard MD PCP - General Internal Medicine 07/12/19
--- OUTSIDE RECORDS SUMMARY | 2024-08-15 13:58 | XMS_ITS | Data Portability ---
Author Organization [place] - [place] Lulu paredes, [email or web address] [facility] Address [address] [place] [address] Assessment No assessment recorded. Plan of Treatment Reminders Order Date Submit Date Provider Last Modified By Organization Details Last Modified Time Details Appointments Follow Up 2024 09:40A M Oswaldo Blanchard MD Not available Not available Not available Lab HbA1c (hemoglob in A1c), blood 2024 025 ROBBY [facility], [address] [place], [address], 06/24/2024 08:07:24 CBC w/ auto diff 2024 025 ROBBY [facility], [address] [place], [address], 06/24/2024 08:07:20 CMP, serum or plasma 2024 025 ROBBY [facility], [address] [place], [address], 06/24/2024 08:07:21 lipid panel, serum 2024 025 ROBBY [facility], [address] [place], [address], 06/24/2024 08:07:22 PSA, serum or plasma 2024 025 ROBBY [facility], [address] [place], [address], 06/24/2024 08:07:23 HbA1c (hemoglob in A1c), blood 2023 024 [...] Procedures None recorded. Surgeries None recorded. Imaging electroca rdiogram 2024 0[email or web address] Ct_[email or web address] [address] [facility], [address], [place], [address], 06/16/2024 11:28:19 XR, cervical spine, 2 or 3 view 2023 024 [email or web address] [facility], [address] [facility] [address], [place], [address], 12/23/2023 08:00:31 electroca rdiogram 2023 024 [email or web address] Ct_[email or web address] [address] [place], [address], [place], [address], 06/07/2023 10:42:26 Medication Orders tamsulosi n 0.4 mg capsule 2024 025 [facility], [address] [place] [address], [address], 06/16/2024 10:24:54 Paxlovid 300 mg (150 mg x 2)-100 mg tablets in a dose pack 2023 025 [id number], [address], [place], [id number], 06/16/2024 10:59:24 triamcino lone acetonide 0.1 % topical cream 2023 024 [id number], [address], [place], [id number], 12/09/2023 10:15:59 Ozempic 1 mg/dose (4 mg/3 mL) subcutane ous pen injector 2023 024 [facility], [address] [place] [address], [id number], 06/07/2023 10:04:07 sildenafi l 50 mg tablet 2023 024 [facility], [address] [place] [address], [place], [address], 06/07/2023 10:04:59 Patient TargetsNo targets recorded. Patient Instructions Encounter Date Encounter Id Patient Instructions Last Modified By Organization Details Last Modified Time 07/24/2024 [id number] Patient was seen for 45 minutes for all of the above medical issues, including pre-visit assesment of records, actual time of service with patient, discussion of management, ordering test, and time documenting visit. Not available 07/24/2024 12:23:22 Reason for Referral Physical Therapist Referral for Neck pain Chronic neck and upper back muscle spasm Referring Physician: Oswaldo Blanchard, Internal Medicine, Encounter Date: 12/09/2023 Results Created Date Observation Date Name Description Value Unit Range Abnormal Flag Note LastModifiedBy Organization Detail LastModifiedTime 09/01/19 24 09/01/2023 COMP. METAB OLIC PANEL (14) glucose 83 mg/dL 70-99 Not Available [facility] ([facility]) [address] [place], [address], 09/02/2023 06:07:41 09/01/19 24 09/01/2023 COMP. METAB OLIC PANEL (14) BUN 12 mg/dL 6-24 Not Available [facility] ([facility]) [address] [place], [address], 09/02/2023 06:07:41 09/01/19 24 09/01/2023 COMP. METAB OLIC PANEL (14) creatinine 1.28 mg/dL 0.76-1 .27 above high normal Not Available [facility] ([facility]) [address] [place], [address], 09/02/2023 06:07:41 09/01/19 24 09/01/2023 COMP. METAB OLIC PANEL (14) eGFR 66 mL/mi n/1.7 3 >59 Not Available [facility] ([facility]) [address] [place], [address], 09/02/2023 06:07:41 09/01/19 24 09/01/2023 COMP. METAB OLIC PANEL (14) BUN/creatini ne ratio 9 9-20 Not Available [facility] ([facility]) [address] [place], [address], 09/02/2023 06:07:41 09/01/19 24 09/01/2023 COMP. METAB OLIC PANEL (14) sodium 141 mmol/ L 134-14 4 Not Available [facility] ([facility]) [address] [place], [address], 09/02/2023 06:07:41 09/01/19 24 09/01/2023 COMP. METAB OLIC PANEL (14) potassium 4.4 mmol/ L 3.5-5. 2 Not Available [facility] ([facility]) [address] [place], [address], 09/02/2023 06:07:41 09/01/19 24 09/01/2023 COMP. METAB OLIC PANEL (14) chloride 102 mmol/ L 96-106 Not Available [facility] ([facility]) [address] [place], [address], 09/02/2023 06:07:41 09/01/19 24 09/01/2023 COMP. METAB OLIC PANEL (14) carbon dioxide, total 24 mmol/ L 20-29 Not Available [facility] ([facility]) [address] [place], [address], 09/02/2023 06:07:41 09/01/19 24 09/01/2023 COMP. METAB OLIC PANEL (14) calcium 9.3 mg/dL 8.7-10 .2 Not Available [facility] ([facility] [address] [facility] [place], [address], 09/02/2023 06:07:41 09/01/19 24 09/01/2023 COMP. METAB OLIC PANEL (14) protein, total 6.4 g/dL 6.0-8. 5 Not Available [facility] ([facility]) [address] [place], [address], 09/02/2023 06:07:41 09/01/19 24 09/01/2023 COMP. METAB OLIC PANEL (14) albumin 4.6 g/dL 3.8-4. 9 Not Available [facility] ([facility]) [address] [place], [address], 09/02/2023 06:07:41 09/01/19 24 09/01/2023 COMP. METAB OLIC PANEL (14) globulin, total 1.8 g/dL 1.5-4. 5 Not Available [facility] ([facility]) [address] [facility] [place], [address], 09/02/2023 06:07:41 09/01/19 24 09/01/2023 COMP. METAB OLIC PANEL (14) A/G ratio 2.6 1.2-2. 2 above high normal Not Available [facility] ([facility]) [address] [facility] [place], [address], 09/02/2023 06:07:41 09/01/19 24 09/01/2023 COMP. METAB OLIC PANEL (14) bilirubin, total 0.4 mg/dL 0.0-1. 2 Not Available [facility] ([facility]) [address] [facility] [place], [address], 09/02/2023 06:07:41 09/01/19 24 09/01/2023 COMP. METAB OLIC PANEL (14) alkaline phosphatase 70 IU/L 44-121 Not Available [facility] ([facility]) [address] [facility] [place], [address], 09/02/2023 06:07:41 09/01/19 24 09/01/2023 COMP. METAB OLIC PANEL (14) AST (SGOT) 12 IU/L 0-40 Not Available [facility] ([facility]) [address] [facility] [place], [address], 09/02/2023 06:07:41 09/01/19 24 09/01/2023 COMP. METAB OLIC PANEL (14) ALT (SGPT) 13 IU/L 0-44 Not Available [facility] ([facility]) [address] [facility] [place], [address], 09/02/2023 06:07:41 09/01/19 24 09/01/2023 LIPID PANEL cholesterol, total 101 mg/dL 100-19 9 Not Available [facility] ([facility]) [address] [place], [address], 09/02/2023 06:07:42 09/01/19 24 09/01/2023 LIPID PANEL triglyceride s 106 mg/dL 0-149 Not Available [facility] ([facility]) [address] [place], [address], 09/02/2023 06:07:42 09/01/19 24 09/01/2023 LIPID PANEL HDL cholesterol 42 mg/dL >39 Not Available [facility] ([facility]) [address] [place], [address], 09/02/2023 06:07:42 09/01/19 24 09/01/2023 LIPID PANEL VLDL cholesterol wendy 20 mg/dL 5-40 Not Available [facility] ([facility]) [address] [place], [address], 09/02/2023 06:07:42 09/01/19 24 09/01/2023 LIPID PANEL LDL chol calc ([facility]) 39 mg/dL 0-99 Not Available [facility] ([facility]) [address] [place], [address], 09/02/2023 06:07:42 09/01/19 24 09/01/2023 LIPID PANEL comment: SHERIFF SERGEANT Not Available [facility] ([facility]) [address] [place], [address], 09/02/2023 06:07:42 06/24/19 25 06/23/2024 CBC WITH DIFFE RENTI AL/PL ATELE T WBC 6.4 x10e3 /uL 3.4-10 .8 normal Not Available [facility] ([facility]) [address] [place], [address], 06/24/2024 08:07:20 06/24/19 25 06/23/2024 CBC WITH DIFFE RENTI AL/PL ATELE T RBC 4.21 x10e6 /uL 4.14-5 .80 normal Not Available [facility] ([facility]) [address] [place], [address], 06/24/2024 08:07:20 06/24/19 25 06/23/2024 CBC WITH DIFFE RENTI AL/PL ATELE T hemoglobin 13.2 g/dL 13.0-1 7.7 normal Not Available [facility] ([facility]) [address] [place], [address], 06/24/2024 08:07:20 06/24/1906/23/2024 CBC WITH DIFFE RENTI AL/PL ATELE T hematocrit 38.2 % 37.5-5 1.0 normal Not Available [facility] ([facility]) [address] [place], [address], 06/24/2024 08:07:20 06/24/19 25 06/23/2024 CBC WITH DIFFE RENTI AL/PL ATELE T MCV 91 fL 79-97 normal Not Available [facility] ([facility]) [address] [place], [address], 06/24/2024 08:07:20 06/24/19 25 06/23/2024 CBC WITH DIFFE RENTI AL/PL ATELE T MCH 31.4 pg 26.6-3 3.0 normal Not Available [facility] ([facility]) [address] [place], [address], 06/24/2024 08:07:20 06/24/19 25 06/23/2024 CBC WITH DIFFE RENTI AL/PL ATELE T MCHC 34.6 g/dL 31.5-3 5.7 normal Not Available [facility] ([facility]) [address] [place], [address], 06/24/2024 08:07:20 06/24/19 25 06/23/2024 CBC WITH DIFFE RENTI AL/PL ATELE T RDW 13.4 % 11.6-1 5.4 Not Available [facility] ([facility]) [address] [facility], [place], [address], 06/24/2024 08:07:20 06/24/19 25 06/23/2024 CBC WITH DIFFE RENTI AL/PL ATELE T platelets 217 x10e3 /uL 150-45 0 normal Not Available [facility] ([facility]) [address] [facility], [place], [address], 06/24/2024 08:07:20 06/24/19 25 06/23/2024 CBC WITH DIFFE RENTI AL/PL ATELE T neutrophils 70 % not estab. normal Not Available [facility] ([facility]) [address] [facility], [place], [address], 06/24/2024 08:07:20 06/24/19 25 06/23/2024 CBC WITH DIFFE RENTI AL/PL ATELE T lymphs 19 % not estab. normal Not Available [facility] ([facility]) [address] [facility], [place], [address], 06/24/2024 08:07:20 06/24/19 25 06/23/2024 CBC WITH DIFFE RENTI AL/PL ATELE T monocytes 7 % not estab. normal Not Available [facility] ([facility]) [address] [facility], [place], [address], 06/24/2024 08:07:20 06/24/19 25 06/23/2024 CBC WITH DIFFE RENTI AL/PL ATELE T eos 3 % not estab. normal Not Available [facility] ([facility]) [address] [facility], [place], [address], 06/24/2024 08:07:20 06/24/19 25 06/23/2024 CBC WITH DIFFE RENTI AL/PL ATELE T basos 1 % not estab. normal Not Available [facility] ([facility]) [address] [facility], [place], [address], 06/24/2024 08:07:20 06/24/19 25 06/23/2024 CBC WITH DIFFE RENTI AL/PL ATELE T immature cells SHERIFF SERGEANT Not Available [facility] ([facility]) [address] [facility], [place], [address], 06/24/2024 08:07:20 06/24/19 25 06/23/2024 CBC WITH DIFFE RENTI AL/PL ATELE T neutrophils (absolute) 4.5 x10e3 /uL 1.4-7. 0 normal Not Available [facility] ([facility]) [address] [facility], [place], [address], 06/24/2024 08:07:20 06/24/19 25 06/23/2024 CBC WITH DIFFE RENTI AL/PL ATELE T lymphs (absolute) 1.2 x10e3 /uL 0.7-3. 1 normal Not Available [facility] ([facility]) [address] [place], [address], 06/24/2024 08:07:20 06/24/19 25 06/23/2024 CBC WITH DIFFE RENTI AL/PL ATELE T monocytes(ab solute) 0.4 x10e3 /uL 0.1-0. 9 normal Not Available [facility] ([facility]) [address] [place], [address], 06/24/2024 08:07:20 06/24/19 25 06/23/2024 CBC WITH DIFFE RENTI AL/PL ATELE T eos (absolute) 0.2 x10e3 /uL 0.0-0. 4 normal Not Available [facility] ([facility]) [address] [facility], [place], [address], 06/24/2024 08:07:20 06/24/19 25 06/23/2024 CBC WITH DIFFE RENTI AL/PL ATELE T baso (absolute) 0.0 x10e3 /uL 0.0-0. 2 normal Not Available [facility] ([facility]) [address] [facility], [place], [address], 06/24/2024 08:07:20 06/24/19 25 06/23/2024 CBC WITH DIFFE RENTI AL/PL ATELE T immature granulocytes 0 % not estab. Not Available [facility] ([facility]) [address] [facility], [place], [address], 06/24/2024 08:07:20 06/24/19 25 06/23/2024 CBC WITH DIFFE RENTI AL/PL ATELE T immature grans (abs) 0.0 x10e3 /uL 0.0-0. 1 Not Available [facility] ([facility]) [address] [facility], [place], [address], 06/24/2024 08:07:20 06/24/19 25 06/23/2024 CBC WITH DIFFE RENTI AL/PL ATELE T NRBC SHERIFF SERGEANT Not Available [facility] ([facility]) [address] [facility], [place], [address], 06/24/2024 08:07:20 06/24/19 25 06/23/2024 CBC WITH DIFFE RENTI AL/PL ATELE T hematology comments: SHERIFF SERGEANT Not Available [facility] ([facility]) [address] [facility], [place], [address], 06/24/2024 08:07:20 06/24/19 25 06/23/2024 COMP. METAB OLIC PANEL (14) glucose 96 mg/dL 70-99 normal Not Available [facility] ([facility]) [address] [facility], [place], [address], 06/24/2024 08:07:21 06/24/19 25 06/23/2024 COMP. METAB OLIC PANEL (14) BUN 14 mg/dL 6-24 normal Not Available [facility] ([facility]) [address] [place], [address], 06/24/2024 08:07:21 06/24/19 25 06/23/2024 COMP. METAB OLIC PANEL (14) creatinine 0.98 mg/dL 0.76-1 .27 normal Not Available [facility] ([facility]) [address] [place], [address], 06/24/2024 08:07:21 06/24/19 25 06/23/2024 COMP. METAB OLIC PANEL (14) eGFR 91 mL/mi n/1.7 3 >59 normal Not Available [facility] ([facility]) [address] [place], [address], 06/24/2024 08:07:21 06/24/19 25 06/23/2024 COMP. METAB OLIC PANEL (14) BUN/creatini ne ratio 14 9-20 normal Not Available [facility] ([facility]) [address] [place], [address], 06/24/2024 08:07:21 06/24/19 25 06/23/2024 COMP. METAB OLIC PANEL (14) sodium 142 mmol/ L 134-14 4 normal Not Available [facility] ([facility]) [address] [place], [address], 06/24/2024 08:07:21 06/24/19 25 06/23/2024 COMP. METAB OLIC PANEL (14) potassium 4.1 mmol/ L 3.5-5. 2 normal Not Available [facility] ([facility]) [address] [place], [address], 06/24/2024 08:07:21 06/24/19 25 06/23/2024 COMP. METAB OLIC PANEL (14) chloride 105 mmol/ L 96-106 normal Not Available [facility] ([facility]) [address] [place], [address], 06/24/2024 08:07:21 06/24/19 25 06/23/2024 COMP. METAB OLIC PANEL (14) carbon dioxide, total 22 mmol/ L 20-29 normal Not Available [facility] ([facility]) [address] [facility] [place], [address], 06/24/2024 08:07:21 06/24/19 25 06/23/2024 COMP. METAB OLIC PANEL (14) calcium 9.4 mg/dL 8.7-10 .2 normal Not Available [facility] ([facility]) [address] [facility] [place], [address], 06/24/2024 08:07:21 06/24/19 25 06/23/2024 COMP. METAB OLIC PANEL (14) protein, total 6.4 g/dL 6.0-8. 5 normal Not Available [facility] ([facility]) [address] [facility] [place], [address], 06/24/2024 08:07:21 06/24/19 25 06/23/2024 COMP. METAB OLIC PANEL (14) albumin 4.6 g/dL 3.8-4. 9 normal Not Available [facility] ([facility]) [address] [facility], [address], 06/24/2024 08:07:21 06/24/19 25 06/23/2024 COMP. METAB OLIC PANEL (14) globulin, total 1.8 g/dL 1.5-4. 5 Not Available [facility] ([facility]) [address] [facility] [place], [address], 06/24/2024 08:07:21 06/24/19 25 06/23/2024 COMP. METAB OLIC PANEL (14) bilirubin, total 0.3 mg/dL 0.0-1. 2 normal Not Available [facility] ([facility]) [address] [facility], [address], 06/24/2024 08:07:21 06/24/19 25 06/23/2024 COMP. METAB OLIC PANEL (14) alkaline phosphatase 63 IU/L 44-121 normal Not Available [facility] ([facility]) [address] [place], [address], 06/24/2024 08:07:21 06/24/19 25 06/23/2024 COMP. METAB OLIC PANEL (14) AST (SGOT) 15 IU/L 0-40 normal Not Available [facility] ([facility]) [address] [place], [address], 06/24/2024 08:07:21 06/24/19 25 06/23/2024 COMP. METAB OLIC PANEL (14) ALT (SGPT) 12 IU/L 0-44 normal Not Available [facility] ([facility]) [address] [place], [address], 06/24/2024 08:07:21 06/24/19 25 06/23/2024 LIPID PANEL cholesterol, total 146 mg/dL 100-19 9 normal Not Available [facility] ([facility]) [address] [place], [address], 06/24/2024 08:07:22 06/24/19 25 06/23/2024 LIPID PANEL triglyceride s 82 mg/dL 0-149 normal Not Available [facility] ([facility]) [address] [place], [address], 06/24/2024 08:07:22 06/24/19 25 06/23/2024 LIPID PANEL HDL cholesterol 49 mg/dL >39 normal Not Available [facility] ([facility]) [address] [place], [address], 06/24/2024 08:07:22 06/24/19 25 06/23/2024 LIPID PANEL VLDL cholesterol wendy 16 mg/dL 5-40 Not Available [facility] ([facility]) [address] [facility], [place], [address], 06/24/2024 08:07:22 06/24/1906/23/2024 LIPID PANEL LDL chol calc ([facility]) 81 mg/dL 0-99 Not Available [facility] ([facility]) [address] [facility], [place], [address], 06/24/2024 08:07:22 06/24/19 25 06/23/2024 LIPID PANEL LDL calc comment: SHERIFF SERGEANT Not Available [facility] ([facility]) [address] [facility], [place], [address], 06/24/2024 08:07:22 06/24/1906/23/2024 PSA TOTAL (REFL EX TO FREE) reflex criteria COMMEN T The perce nt free PSA is perfo rmed on a refle x basis only when the total PSA is betwe en 4.0 and 10.0 ng/mL . Not Available [facility] ([facility]) [address] [facility], [place], [address], 06/24/2024 08:07:23 06/24/1906/24/2024 PSA TOTAL (REFL EX TO FREE) prostate specific Ag 6.7 NG/mL 0.0-4. 0 above high normal Paul ECLIA metho dolog y. Accor ding to the Ameri can [employer] g[employer] iatio n, Serum PSA shoul d decre ase and remai n at undet ectab le level s after radic al prost atect ashley. The AUA defin es bioch emica l recur rence as an initi al PSA value 0.2 ng/mL or great er follo wed by a subse quent confi rmato ry PSA value 0.2 ng/mL or great er. Value s obtai carlos with diffe rent assay metho ds or kits canno t be used inter alvarado eably . Resul ts canno t be inter prete d as absol venetie evide nce of the prese nce or absen ce of gopi hernández disea se. Not Available [facility] ([facility]) [address] [facility], [place], [address], 06/24/2024 08:07:23 06/24/1906/24/2024 PSA TOTAL (REFL EX TO FREE) PSA, free 0.57 NG/mL n/a Paul ECLIA metho dolog y. Not Available [facility] ([facility]) [address] [facility], [place], [address], 06/24/2024 08:07:23 06/24/1906/24/2024 PSA TOTAL (REFL EX TO FREE) % free PSA 8.5 % The table below lists the proba bilit y of prost ate cance r for men with non-s uspic ious AIRAM resul ts and total PSA betwe en 4 and 10 ng/mL , by patie nt age (Linn jamal et al, VIPUL 1998, 279:1 542). % Free PSA 50-64 yr 65-75 yr 0.00- 10.00 % 56% 55% 10.01 -15.0 0% 24% 35% 15.01 -20.0 0% 17% 23% 20.01 -25.0 0% 10% 20% >25.0 0% 5% 9% Gabriel flood note: Stalin martinez et al did not make speci fic recom menda ticonchis regar ding the use of perce nt free PSA for any other popul ation of men. Not Available [facility] ([facility]) [address] [facility], [place], [address], 06/24/2024 08:07:23 06/24/1906/24/2024 HEMOG LOBIN A1C hemoglobin A1C 5.3 % 4.8-5. 6 normal Predi abete s: 5.7 - 6.4 Diabe oliva: >6.4 Glyce madeleine contr ol for adult s with diabe oliva: <7.0 Not Available [facility] ([facility]) [address] [facility], [place], [address], 06/24/2024 08:07:24 06/07/19 24 elect rocar diogr am No observ ation record ed. [email or web address] [address] [place] [address], [place], [address], 06/07/2023 10:11:41 06/11/19 24 06/07/2023 elect rocar diogr am No observ ation record ed. [email or web address] Not Available 04/2023 14:29:17 07/27/19 24 06/29/2023 CT, coron juventino calci um score No observ ation record ed. [facility] [address], [place], [place], [address], 07/28/2023 11:23:23 12/10/19 24 10/09/2023 XR, cervi wendy spine , 2 or 3 view No observ ation record ed. [email or web address] Not Available 06/2023 10:01:00 06/17/19 elect rocar diogr am No observ ation record ed. [email or web address] [address], [place], [address], 06/16/2024 10:22:14 08/10/19 [facility] rocar diogr am No observ ation record ed. [email or web address] [address], [place], [address], 08/09/2024 15:39:33 Result Notes None recorded. Problems Name Problem SNOMED Code Status Onset Date Resolution Date Notes Provider Name and Address Organization Details Recorded Time Hyperchol esterolem ia 53620445 Active 2022 Gonsalo raines, [place] - [facility] 5 09:16:47 Acute low back pain 487109828 Active 2022 Not Available [facility] 4 15:34:52 Thoracic back pain 636302353 Active 2022 Not Available [facility] 4 15:34:52 Erectile dysfuncti on 099570480 Active 2023 Oswaldo Blanchard MD [address] [place] [address], [address] [place] [address], [address] [place] [address] , [place] [facility] 4 09:58:49 Morbid obesity 883458319 Active 2023 Oswaldo Blanchard MD [address] [place] [address], [address] [place] [address], [address] [place] [address] , [place] [facility] [place] 4 10:23:24 Pure hyperchol esterolem ia 376446204 Active 2023 Oswaldo Blanchard MD [address] [place] [address], [address] [place] [address], [address] [place] [address] , [place] - [facility] 4 10:23:24 COVID-19 332429593 Active 2023 Oswaldo Blanchard MD [address] [place] [address], [address] [place] [address], [address] [place] [address] , [place] - [facility] 4 13:19:32 Essential hypertens ion 57596359 Active 2024 Oswaldo Blanchard MD [address] [place] [address], [address] [place] [address], [address] [place] [address] , [place] - [facility] 5 09:58:53 Benign prostatic hyperplas ia with outflow obstructi on 860831574 Active 2024 Oswaldo Blanchard MD [address] [place] [address], [address] [place] [address], [address] [place] [address] , [place] [facility] 5 10:14:24 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 ETL Oswaldo Blanchard MD [address] [place] [address], [address] [place] [address], [address] [place] [address] , [place] [facility] 5 16:26:12 Laceratio n of right middle finger [id number] Active 2024 Oswaldo Blanchard MD [address] [place] [address], [address] [place] [address], [id number] , [place] - [facility] 5 12:20:33 Hypersens itivity pneumonit is 96776452 Active 2019 Hypersens itivity pneumonit is Not Available [facility] 4 15:34:52 Attention deficit hyperacti vity disorder, predomina ntly inattenti ve type 55108828 Active 2021 Attention deficit hyperacti vity disorder (ADHD), predomina ntly inattenti ve type Not Available [facility] 4 15:34:52 Tubular adenomato us polyp of colon 480769117 Active 2019 Tubular adenoma of colon Not Available [facility] 4 15:34:52 Mixed anxiety and depressiv e disorder 833693260 Active 2021 Depressio n with anxiety Not Available [facility] 4 15:34:52 De La Rosa's esophagus 955966897 Active 2019 De La Rosa's esophagus without dysplasia Not Available [facility] 4 15:34:52 Steatotic liver disease 173638513 Active 2019 Fatty infiltrat ion of liver Not Available [facility] 4 15:34:52 Obstructi ve sleep apnea syndrome 41744172 Active 2019 Obstructi ve sleep apnea syndrome Not Available [facility] 4 15:34:52 Pulmonary emphysema 24597186 Active 2019 Pulmonary emphysema Not Available [facility] 4 15:34:52 Type 2 diabetes mellitus 56957377 Active 2019 Type 2 diabetes mellitus with hyperglyc emia, without long-term current use of insulin Not Available [facility] 4 15:34:52 Osteonecr osis of hip 330987499 Active 2019 Avascular necrosis of bones of both hips Not Available [facility] 4 15:34:52 Notes:Some problems listed i n Document: #[id number] could not be added to this patient's chart. Please review this document and add these problems to the patient's chart manually as needed. Problem Notes None recorded. Procedures Surgical History Date Name Laterality Status Provider Name and Address Organization Details Recorded Time 0 colonoscopy completed Oswaldo Blanchard MD [address] [place] [address], [address], [place], [address], [place] - [facility] 06/07/2023 09:45:48 Imaging Results Imaging Date Name Status LastModified by Organization Details LastModified Time 06/07/2023 electrocardiogram completed [facility] [place] [address], [place], [address], 06/07/2023 10:11:41 06/07/2023 electrocardiogram completed Infor mation not available 06/11/2023 14:29:17 06/29/2023 CT, coronary calcium score completed [facility] [address], [place], [address], 07/28/2023 11:23:23 10/09/2023 XR, cervical spine, 2 or 3 view completed Information not available 12/14/2023 10:01:00 06/16/2024 electrocardiogram completed [facility] [address], [place], [address], 06/16/2024 10:22:14 08/09/2024 electrocardiogram completed [facility], [place], [address], 08/09/2024 15:39:33 Procedure Notes None recorded. Medical Equipment None Reported. Allergies Allergen ID Allergen Name Allergen Category Reaction Reaction Severity Criticality Documentation Date Start Date Code Code System Note Provider Name and Address Organization Details Recorded Time 22000816 atorvasta tin medicatio n myalgias (muscle pain) Not available low 04/06/2024 70707 RxNorm Oswaldo Blanchard MD [address] [facility], 1st [address], [place], [address], [place] [facility] 13:16:33 98616 paroxetin e Not available Not available Not available Not available 08/06/20222019 22944 RxNorm React ion: Other (See Comme nts), sever ity: Unkno wn;Arboleda icida l Not Available [facility] 3 07:34:06 93511 doxycycli ne Not available Not available Not available Not available 08/06/20222019 3640 RxNorm React ion: Hives , bossman ity: Unkno wn Not Available [facility] 3 07:34:06 Medications Name Sig Start Date Stop Date Status Note LastModified by Organization Details LastModified Time celecoxib 200 mg capsule TAKE 1 CAPSULE BY MOUTH TWICE DAILY 06/16 completed Not Available Not Available Not Available metformin 500 mg tablet Take 2 [...] TIMES DAILY NEEDED FOR ANXIETY OR SLEEP 07/24 completed Not Available Not Available Not Available venlafaxine ER 75 mg capsule,ext ended [...] completed Not Available Not Available Not Available senna 8.6 mg tablet TAKE 2 TABLETS BY MOUTH AT BEDTIME FOR CONSTIPAT ION active Not Available Not Available No t Available prednisone 20 mg tablet TAKE 1 [...] completed Not Available Not Available Not Available tamsulosin 0.4 mg capsule Take 1 capsule every day by oral route. 2024 active Not Available Not Available Not Avai lable trazodone 100 mg tablet 2 tabs qhs active Not Available Not Available No t Available meclizine 25 mg tablet Take 1 tablet (25 mg total) by mouth 3 (three) times a day as needed for dizziness or nausea. 01/13 completed Not Available Not Available Not Available baclofen 10 mg tablet 2 tab q8 hours PRN 2024 active Not Available Not Available Not Avai lable hydrocodone 7.5 mg-acetamin ophen 325 mg tablet TAKE 1 TABLET BY MOUTH EVERY 6 HOURS 01/01 completed Not Available Not Available Not Available cephalexin 500 mg capsule TAKE 1 CAPSULE BY MOUTH FOUR TIMES DAILY FOR 3 DAYS 07/24 completed Not Available Not Available Not Available [...] completed Not Available Not Available Not Available bisacodyl 5 mg tablet,gagan yed release TAKE 4 TABLETS BY MOUTH AT NOON THE DAY BEFORE YOUR COLONOSCO PY ONCE FOR CONSTIPAT ION FOR 1 DAY active Not Available Not Available No t Available lisinopril 5 mg tablet Take 5 mg by mouth daily. 04/01 completed Not Available Not Available Not Available lorazepam 1 mg tablet TAKE 1 TABLET(1 MG) BY MOUTH THREE TIMES DAILY FOR UP TO 21 DAYS NEEDED FOR ANXIETY 10/31 completed Not Available Not Available Not Available polyethylen e glycol 3350 17 gram/dose oral powder DISSOLVE AND TAKE BY MOUTH ONCE DIRECTED BY GASTROENT EROLOGY DEPARTMEN T AT [facility] 07/24 completed Not Available Not Available Not Available albuterol sulfate HFA 90 mcg/actuati on aerosol inhaler Inhale 2 puffs into the lungs every 6 (six) hours as needed for wheezing. active Not Available Not Available No t Available sertraline 50 mg tablet Take 1.5 tablets every day by oral route. active Not [...] Updated DateTime 4 172.7 cm 38.8 kg/m2 297787. 05 g 98 % 98 % 85 /min 98.1 [degF] 129 mm[Hg] 78 mm[Hg] Sharri Bangura CT - [facility] 4 09:13:07 Date Recorded Body height Body mass index (BMI) Body weight Heart rate Oxygen saturation Oxygen saturation in Arterial blood by Pulse oximetry Systolic blood pressure Diastolic blood pressure Provider Name and Address Organization Details Last Updated DateTime 4 172.7 cm 31.6 kg/m2 96501.2 1 g 73 /min 99 % 99 % 130 mm[Hg] 80 mm[Hg] Rosy Sykes [facility] 4 09:47:40 Date Recorded Body height Body mass index (BMI) Body weight Heart rate Oxygen saturation Oxygen saturation in Arterial blood by Pulse oximetry Systolic blood pressure Diastolic blood pressure Provider Name and Address Organization Details Last Updated DateTime 5 172.7 cm 29.1 kg/m2 28296.8 4 g 68 /min 98 % 98 % 134 mm[Hg] 76 mm[Hg] Gonsalo Marinelli [facility] 5 09:07:39 Date Recorded Body height Body mass index (BMI) Body weight Oxygen saturation Oxygen saturation in Arterial blood by Pulse oximetry Heart rate Systolic blood pressure Diastolic blood pressure Provider Name and Address Organization Details Last Updated DateTime 5 172.7 cm 27.8 kg/m2 80587.4 g 98 % 98 % 70 /min 124 mm[Hg] 70 mm[Hg] Adali flood [facility] 5 11:33:53 Social History Question Answer Notes LastModified by [employer] Details LastModified Time Tobacco Smoking Status Former Smoker Not Available [facility] 08/08/2022 04:01:17 Do You Have An Advance Directive? No [email or web address] Information not available 06/07/2023 What Is Your Level Of Alcohol Consumption? None [email or web address] Information not available 06/07/2023 Do You Wear A Helmet When Biking? Yes Information not available 06/07/2023 What Is Your Level Of Caffeine Consumption? Moderate [email or web address] Information not available 06/07/2023 Are You A Caregiver? No [email or web address] Information not available 06/07/2023 Are You Currently Employed? No Retired [email or web address] Information not available 06/07/2023 What Type Of Diet Are You Following? REGULAR [email or web address] Information not available 06/07/2023 When Did You Quit Smoking? 16+yearssincelastc igarette Information not available 12/09/2023 Do You Use Insect Repellent Routinely? No [email or web address] Information not available 06/07/2023 Where Do You Live? [facility] [email or web address] Information not available 06/07/2023 How Long Have You Lived There? 3 [email or web address] Information not available 06/07/2023 Do You Have A Medical Power Of Diagnostics Tech? No [email or web address] Information not available 06/07/2023 What Was The Date Of Your Most Recent Tobacco Screening? 06/16/2024 Information not available 06/16/2024 How Many Children Do You Have? 3 Information not available 06/07/2023 Do You Have Any Pets? Yes 2 Cats [email or web address] Information not available 06/07/2023 What Is Your Relationship Status? [email or web address] Information not available 06/07/2023 Do You Use Your Seat Belt Or Car Seat Routinely? Yes [email or web address] Information not available 06/07/2023 Do You Have Smoke And Carbon Monoxide Detectors In Your Home? Yes [email or web address] Information not available 06/07/2023 Are You Passively Exposed To Smoke? No [email or web address] Information not available 06/07/2023 Are There Any Smokers In Your House? No [email or web address] Information not available 06/07/2023 Do You Feel Stressed (tense, Restless, Nervous, Or Anxious, Or Unable To Sleep At Night)? [id number] [email or web address] Information not available 06/07/2023 Do You Use Any Illicit Or Recreational Drugs? No Information not available 12/09/2023 Do You Use Sunscreen Routinely? No [email or web address] Information not available 06/07/2023 Has Tobacco Cessation Counseling Been Provided? No Information not available 12/09/2023 On What Date Was Tobacco Cessation Counseling Provided? 06/16/2024 Information not available 06/16/2024 Sex: Male Functional Status Question Answer Note LastModified by Organizat ion Details LastModified Time What is your exercise level? Occasional Information not available 06/16/2024 Mental Status None recorded. Family History Relationship [...] quadrivalent, PF 3 completed Oswaldo Blanchard MD [address] [place] [address], [address], [place], [address], [place] - [place] [facility] 02/04/2023 12:15:12 Tdap 0 completed Not Available [facility] 05/31/2023 15:34:53 DT (pediatric) 7 completed Not Available [facility] 05/31/2023 15:34:53 pneumococcal polysaccharide PPV23 0 completed Not Available [facility] 05/31/2023 15:34:53 Influenza, split virus, trivalent, preservative 0 completed Not Available [facility] 05/31/2023 15:34:53 COVID-19, mRNA, LNP-S, PF, 30 mcg/0.3 mL dose 1 completed Not Available [facility] 05/31/2023 15:34:52 COVID-19, mRNA, LNP-S, PF, 30 mcg/0.3 mL dose 1 completed Not Available [facility] 05/31/2023 15:34:52 Influenza, split virus, quadrivalent, PF 1 completed Not Available [facility] 05/31/2023 15:34:53 Tdap 3 completed Not Available [facility] 05/31/2023 15:34:53 Past Encounters Encounter ID Performer Location Encounter Start Date Encounter Closed Date Diagnosis/Indication Diagnosis SNOMED-CT Code Diagnosis ICD10 Code Diagnosis Note [id number] Oswaldo Blanchard MD [facility] [facility] [address] [place] [address] 08/20/2022 11:05:59 08/20/2022 11:49:38 Hypersensitivity pneumonitis 62705065 J67.9 Patient remains very frustrated with his breathing but continues to need O2 which she realizes because he gets short of breath at the moment to take it off. No changes with management and closely monitored by pulmonary medicine. We will continue on Bactrim daily as well as prednisone 20 mg daily Mixed anxi ety and depressive disorder 041776114 F41.8 Discussed options and will taper off [...] planned before. Type 2 collin betes mellitus 94982642 E11.65 Which showed increase Ozempic to 0.5 mg weekly. Also will recheck his A1c today and monitor for hypoglycem ia. Hypercholesterolemia 136 87820 E78.00 We will recheck cholestero l panel presently not on any medication s yet. Spoke about caloric control and low-fat diet control as well. [id number] Oswaldo Blanchard MD [facility] [facility] [address] [address] 10/01/2022 11:02:42 10/01/2022 11:53:56 Mixed anxiety and depressive disorder 879550568 F41.8 Cecil seems to be his doing well on Wellbutrin 150 milligrams XL daily with trazodone 100 mg at bedtime we will continue present dose since he is responding well to it. Type 2 collin betes mellitus 14814943 E11.65 Presently well controlled on Ozempic 0.5 mg weekly. We will continue present dose and monitor for hypoglycem ia at the same time hopefully he continues to lose the weight at this present rate which is very healthy and good for him. We will see him back in 3 months to check on his A1c [id number] Oswaldo Blanchard MD [facility] [address] [place] [address] 12/11/2022 10:03:12 12/11/2022 10:36:17 Acute low back pain 032628748 M54.50 Probably due to muscle spasm after [...] heat compresses for muscle relaxation . Obesity 384530039 E66.9 Great improvemen t with Ozempic seems to be tolerating the 0.5 mg/week dose which we will continue hopefully he will steadily lose 5 pounds per month which is still very safe. Attention deficit hyperactivity disorder, predominantly inattentive type 33839162 F90.0 Seems to be doing better without the Ritalin at this point we will keep the medicine off. We will coordinate with psych college he would use medication . [id number] Oswaldo Blanchard MD [facility]16 [place] [address] [facility],[address] [place] [address] 01/01/2023 10:36:33 01/01/2023 11:28:54 Poor short-term memory 505514903 R41.3 MMSE today was 29/30. I strongly [...] month. Mixed anxi ety and depressive disorder 324828193 F41.8 increase buspar 20mg BID hopefully to improve his anxiety so he can focus a little bit better we will maintain Wellbutrin at 150 mg daily for now. Obesity 385157359 E66.9 Steady significan t improvemen t. We will have him continue Ozempic at 0.5 mg weekly and advised patient to keep the weight loss of 5 to 10 pounds per month. Restrictiv e lung disease 84542840 J98.4 Strongly urged patient to use his O2 so that he will not have more hypoxemic episodes which might worsen his memory issue. [id number] Oswaldo Blanchard MD [facility] [facility] [address] [place] [address] 02/04/2023 07:56:33 02/04/2023 09:38:59 Thoracic back pain 103098535 M54.6 Still feels like he has muscle [...] future. Mixed anxi ety and depressive disorder 834911219 F41.8 Seems to be doing well on the BuSpar 20 mg twice a day and he continues to be on Wellbutrin 150 mg daily both of which are helping with his anxiety and depression . Attention deficit hyperactivity disorder, predominantly inattentive type 93466604 F90.0 Doing well on Strattera 20 mg twice a day we will continue present dose. Obesity 375986597 E66.9 Steady significan t improvemen t. We will have him continue Ozempic at 0.5 mg weekly and advised patient to keep the weight loss of 5 to 10 pounds per month. [id number] Oswaldo Blanchard MD [facility] [facility] [address] [place] [address] 06/07/2023 08:58:40 06/07/2023 10:42:25 Hypercholesterolemia 54336895 E78.00 We will recheck cholestero l panel presently not on any medication s yet. Spoke about caloric control and low-fat diet control as well. 06-09-23: Reported 10-year CV risk still at 10%. Patient agreed to have a coronary calcium CT will schedule for patient. ETL Adult [facility] th examination 200631246 Z00.00 Cecil has been doing very well [...] in 6 months. ETL Erectile dysfunction 860 043771 F52.21 We will try him on sildenafil and discussed side effect profile. Thoracic back pain 23842 8004 M54.6 Will try VOltaren GEll, PRN, declined PT for now Obesity 281897928 E66.9 WIll inc. Ozempic to 1 mg qwk Mixed anxi ety and depressive disorder 295865954 F41.8 Seems to be doing well on the BuSpar 20 mg twice a day and he continues to be on Wellbutrin 300 mg daily both of which are helping with his anxiety and depression . De La Rosa's esophagus 3029 [address]7815 K22.70 Maintain PPI and GI ff-up Attention deficit hyperactivity disorder, predominantly inattentive type 42571802 F90.0 Doing well on Strattera 20 mg twice a day, will taper off meds and monitor if needed Type 2 collin betes mellitus 59570997 E11.65 Will recheck A1C Obstructiv e sleep apnea syndrome 53861474 G47.33 Cont. CPAP Hypersensi tivity pneumonitis 28823474 J67.9 FF-up with pulmo, to determine if he still needs O2 ATC [id number] Oswaldo Blanchard MD [facility]16 [place] [address] [place] [address] 12/09/2023 08:54:54 12/09/2023 10:17:38 Moderate major depression, single episode 76074284 F32.1 Still on Wellbutrin 300 mg daily and trazodone 200 mg at bedtime as well as clonidine 0.1% 3 times a day. We will have him ask psychiatry about his symptoms of lightheade dness which may be caused by clonidine. Morbid obesity 342050543 E66.01 He wants to return to the 80 pounds we will maintain Ozempic at 1 mg weekly. We have already started having him start thinking about the amount of food that he is eating now so if he can sustain it without the Ozempic in the future. Body mass index 30+ - obesity 642296600 Z68.38 Pure hypercholesterolemia 518101394 E78.00 Due to his muscle pains we will have him stop atorvastat in and observe if the myalgia improves. Will recheck cholestero l panel if we have to stop the medication for GERD. Neck pain 81790582 M54.2 Patient agreed to try physical therapy for neck stretching exercises and we will obtain an x-ray of his C-spine. 12-10-23: Reported C-spine x-ray showed mild arthritis patient will start PT and will let us know if it is not improving. ETL Pruritic rash 92974526 L 28.2 Will use triamcinol one cream as needed which might be a result of taking care of their friends pets few weeks ago. Restrictiv e lung disease 23858883 J98.4 Will continue mycophenol ate per pulmonary medicine. Seems to be doing very well without oxygen at the moment. Type 2 collin claudia mellitus 29921890 E11.65 Will recheck A1C, but seems to be doing very well with his significan t weight loss. [id number] Oswaldo Blanchard MD [facility]16 [address] [address] [place] [address] 04/06/2024 10:42:37 04/06/2024 14:14:08 COVID-19 682262768 U07.1 Discussed options with patient and he [...] symptoms worsen in spite of the Paxlovid. [id number] Oswaldo Blanchard MD [facility]16 [place] [address] [place] [address] 06/16/2024 08:54:44 06/16/2024 11:28:19 Hypercholesterolemia 61468103 E78.00 Will recheck cholestero l panel. Patient unable to tolerate statins in the past. Physical examination 588 0005 Z00.00 Cecil has been doing very well and continues to lose more weight with diet and exercise with the help of Ozempic. We will recheck his CBC CMP cholestero l panel and PSA level. He will be having his colonoscop y this month and is up-to-date with his Tdap and pneumonia vaccine. Type 2 collin betes mellitus 69295851 E11.65 Will recheck A1C, but seems to be doing very well with his significan t weight loss. Will maintain Ozempic at 1 mg weekly for now. Hypersensi tivity pneumonitis 07512266 J67.9 Has follow-up with pulmonary medicine and will continue his mycophenol ate Attention deficit hyperactivity disorder, predominantly inattentive type 22110185 F90.0 Still off all medication s and still struggling but undecided to restart Strattera or not. De La Rosa's esophagus 3029 04292 K22.70 Maintain PPI and GI ff-up Mixed anxi ety and depressive disorder 914018511 F41.8 Doing well on Wellbutrin 450 mg daily. Erectile dysfunction 860 985827 F52.21 We will try him on sildenafil and discussed side effect profile. Essential hypertension 66378900 I10 Will start we will hold clonidine due to symptoms of hypotensio n and dry mouth. Will monitor blood pressure in a month's time. Benign pro static hyperplasia with outflow obstruction 609245441 N40.1 N13.8 Start tamsulosin 0.4 mg every afternoon trial and monitor next month to see if symptoms are improving. Bronchiectasis 47130872 J47.9 Moderate r ecurrent major depression 33022954 F33.1 Moderate m ajor depression, single episode 95044408 F32.1 Fibrosis of lung 4977421 1 J84.10 Interstiti al lung disease 158691890 J84.9 Type 2 collin betes mellitus without complication 379624284 E11.9 [id number] Oswaldo Blanchard MD [facility]16 [place] [address] [facility] [place] [address] 07/24/2024 10:55:01 07/24/2024 12:05:41 Laceration of right middle finger 1516009212 8369208 S61.312A Seems to be healing well slowly and steadily. Advised patient to keep the area clean and do not pick on the scab. Will call us if he feels that it is becoming infected. Type 2 collin betes mellitus 95135763 E11.65 Well-contr olled due to significan t weight loss. No need for blood sugar checking or any management . Hypersensi tivity pneumonitis 79916285 J67.9 Stable will and will continue his mycophenol ate once a also milligrams twice a day. I am thrilled to see him without the need for any oxygen anymore Attention deficit hyperactivity disorder, predominantly inattentive type 08202818 F90.0 Will inquire with psychiatry if Strattera can be added to his present regiment. Because he is unable to tolerate stimulants in the past Mixed anxi ety and depressive disorder 151682237 F41.8 Doing well on Wellbutrin 450 mg daily, sertraline 75 mg daily. Appreciate psychiatry input and management . Thoracic back pain 43878 8004 M54.6 Has been PT and will advise patient to continue low impact exercise especially with walking to keep his back stretched. May continue to use baclofen as needed. Amnestic m ild cognitive disorder 372915617 G31.84 No management at this point patient agreed not to start any medication . Advised patient to increase his reading and exercise regiment. Health Concerns Section Related Observation LastModified by Organization Detai ls LastModified Time None Recorded Concern Status LastModified by Organization Details LastModified Time None Recorded Advance Directives Directive N: Payers Encounter Date Sequence Insurance Name Policy Number Policy Haas Covered Member ID Haas Member ID Guarantor Name 06/07/2023 1 [place] [id number] Aleksandar Adamson [id number] Aleksandar Adamson 12/09/2023 1 [place] [id number] Aleksandar Adamson [id number] Aleksandar Adamson 04/06/2024 1 [place] [id number] Aleksanadr Adamson [id number] Aleksandar Adamson 06/16/2024 1 [place] [id number] Aleksandar Adamson [id number] 43 Aleksandar Adamson 07/24/2024 1 [place] [id number] Aleksandar Adamson [id number] Aleksandar Adamson Notes Date Note Type Note Provider Name and Address Organization Details Recorded Time 06/07/2023 text/html Cecil is here tod for his annual physical examination. He has been doing very well having lost almost 50 pounds over the last 6 months with diet and exercise alone. His breathing has significantly improved with pulse ox is over 95% all the time at 2 LPM which she still uses [id number]-kie-[id number]. He also still uses his CPAP machine [...] for ADHD as well. Oswaldo Blanchard MD [address] [place] [address], [address], [place], [address], [place] [facility] 06/09/2023 17:57:08 12/09/2023 text/html Cecil seen [...] with no other areas of the body. Oswlado Blanchard MD [address] [place] [address], [address], [place], [address], [facility] 12/10/2023 16:29:27 04/06/2024 text/html Virtual VisitRep orted bypatient.Patient identity verified by:Known established patient I shared my identity credentials with the patient:Yes Patient is currently located in the state of[place] Patient location:Home Provider location:I was located at [...] with bodyaches yesterday. Unfortunately his parents from [place] came up for the holidays and was [...] with no recent boosters. Oswaldo Blanchard MD [address] [place] [address], [address], [place], [address], [facility] [place] [facility] 04/06/2024 13:53:10 06/16/2024 text/html Cecil is seen toceleste brenner for his annual physical examination. He has been steadily improving due to his steady weight loss of almost 30 pounds over the last 15 months. He continues to do that with Ozempic now at 1 mg weekly and steady loss of 7 to 10 pounds a month. He feels fine with no weakness and beginning to start having symptoms of lightheadedness when he stands up. He still on clonidine 0.1 mg/day and actually having some side effects of dry mouth. He does not check his blood sugar regularly but does not have symptoms of hypoglycemia. He also has symptoms of pain when he urinates with some difficulty to start maintenance. Depression and anxiety still on bupropion 450 mg daily which she feels is still helping.He is seen by GI and will have an EGD and colonoscopy this month while he still takes pantoprazole 40 mg daily for De La Rosa's esophagus. He is presently not on any medication for his ADHD and previously could not tolerate Adderall. Oswaldo Blanchard MD [address] [place] [address], [address] [facility], [place], [address], [facility] - [facility] 06/26/2024 18:15:40 07/24/2024 text/html Cecil is here for follow-up of his type 2 diabetes, obesity, ADHD, emphysema with hypersensitivity pneumonitis. He had recent blood test done which showed an A1c of 5.3% without any medication after all the significant weight loss that he had. His cholesterol is also very normal without any medication. COPD and hypersensitivity pneumonitis is stable on mycophenolate 1000 mg twice a day and does not require any oxygen anymore. He is able to ambulate with minimal dyspnea on exertion. 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 He still continues to take baclofen as needed for muscle spasms. He has been to physical therapy in the past. He continues to be seen by psychiatry and is presently on sertraline 75 mg daily and Wellbutrin 450 mg daily.. Unable to tolerate both Ritalin and Adderall due to clenching of his jaw side effects but has not been tried on Strattera yet. He also takes trazodone 20 mg at bedtime which he feels he may not need altogether anymore. Had recent neuropsychiatric evaluation which noted mild cognitive impairment. 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 Was seen in the emergency room and no sutures were required and is healing quite well as expected. Oswaldo Blanchard MD [address] [place] [address], [address] Floor, [place], [address], [place] [facility] 07/24/2024 12:23:49
--- OUTSIDE RECORDS SUMMARY | 2024-08-15 13:58 | XMS_ITS | Clinical Summary ---
Author Organization [facility] Address [address] [place] [address] Care Team Providers Care Wire Lather Name Role Phone Oswaldo Blanchard MD Primary Care Provider [phone] Social History Tobacco Use Types Packs/Day Years Used Date Smoking Tobacco: Never Assessed Sex and Gender Information Value Date Recorded Sex Assigned at Not on file Legal Sex Male 3:30 PM EDT Gender Identity Not on file Sexual Orientation Not on file Plan of Treatment Health Maintenance Due Date Last Done Comments Hepatitis C Virus Screening 1970 HIV Screening 01/04/1981 DTaP/Tdap/Td Vaccines (1 - Tdap) 01/04/1987 Hepatitis B Vaccines (1 of 3 - 19+ 3-dose series) 12/12 Pneumococcal Vaccines 50+ (1 of 1 - PCV) 01/04/2018 Zoster (Shingles) Vaccine (1 of 2) 01/04/2018 COVID-19 Vaccine (1 - 2023- season) 2023 Care Teams Wire Lather Relationship Specialty Start Date End Date Oswaldo Blanchard MD PCP - General Internal Medicine 02/07/21
--- OUTSIDE RECORDS SUMMARY | 2024-08-15 13:58 | XMS_ITS | Clinical Summary ---
Author Organization [facility] Address [address] [place] [address] Care Team Providers Care Farm Machine Operator Name Role Phone Oswaldo Blanchard MD Primary Care Provider [phone] Allergies Active Allergy Reactions Criticality Noted Date [...] 30 tablet 1 07/08/2022 Active nystatin (MYCOSTATIN) 688762 UNIT/ML suspension Take 5 mL (500,000 Units [...] this topic Shingrix-Zoster Vaccine Discontinued Care Teams Farm Machine Operator Relationship Specialty Start Date End Date Oswaldo Blanchard MD PCP - General Internal Medicine 07/12/19
--- OUTSIDE RECORDS SUMMARY | 2024-08-15 13:58 | XMS_ITS | Encounter Summary ---
Author Organization [facility] Address [address] [place] [address] Care Team Providers Care Microbiology Supervisor Name Role Phone Oswaldo Blanchard MD Primary Care Provider [phone] Encounter Details Date Type Department Care Team (Late st Contact Info) Description 01/21/2021 Erroneous Encounter [facility] [place] [id number] Provider, MD Nick Social History Tobacco Use [...] on filedocumented in this encounter Care Teams Microbiology Supervisor Relationship Specialty Start Date End Date Oswaldo Blanchard MD PCP - General Internal Medicine 02/07/21 documented as of this encounter
--- NOTE | 2024-08-15 14:03 | HO.OPN-COLON ---
Colonoscopy Operative Note Operative Note Date of Service: 08/15/24 Narrative: Operative Information Procedure Description: EGD, Colonoscopy Indication: GERD, screening Anesthesia: MAC FLEXIBLE TRANSORAL UPPER GASTROINTESTINAL ENDOSCOPY AND COLONOSCOPY PROCEDURE NOTE UPPER ENDOSCOPY Consent: Indications for the procedure and potential complications of bleeding, perforation, reaction to medications and missed diagnosis were discussed with the patient and informed consent was obtained. Instrument: Olympus GIF H 190 J mid size upper endoscope Monitoring: Vital signs and clinical assessment, continuous EKG monitoring, Pulse oximetry, Carbon Dioxide monitoring and blood pressure monitoring were done throughout the procedure. Procedure: The patient was placed in the left lateral decubitis position and pre-procedure medications were administered and a bite block was placed. The endoscope was inserted into the mouth and advanced under direct vision to the third part of duodenum. A careful inspection was made as the upper endoscope was withdrawn including a retroflexed examination of the proximal stomach; Findings and interventions are described below. Findings: Larynx:normal Esophagus: GE junction at 42 cm, diaphragm hiatus at 42 cm, irregualr Z line, bx taken also from distal esophagus Stomach: Patchy erythema. Biopsies were obtained. Grade 2 flap valve on retroflexed examination of the cardia. Several fundic gland polyps noted, a few were 10 mm and removed with cold snare Duodenum: duodenitis, bx taken Intervention: Biopsies as noted above, cold snare polypectomy COLONOSCOPY Instrument: Olympus variable stiffness pediatric scope 190L Colonoscopy Monitoring: Vital signs and clinical assessment, continuous EKG monitoring, Pulse oximetry, Carbon Dioxide monitoring and blood pressure monitoring were done throughout the procedure. Colon withdrawal time was 10 minutes. Procedure: The patient was placed in the left lateral decubitis position and pre-procedure medications were administered. After a digital rectal examination of the ano-rectum, the video colonoscope was inserted into the rectum and advanced through the colon to the cecum/TI. The colonoscope was slowly withdrawn in a retrograde panoramic fashion and the colon mucosa was carefully examined including a retroflexed view of the rectum. Findings and interventions are described below. Procedure Difficulty:moderate Findings: Terminal Ileum-normal Cecum:normal Ascending Colon: patchy erythema, bx taken Transverse Colon -normal Descending Colon:normal Sigmoid Colon: normal Rectum: Retroflexion with small internal hemorrhoids, grade I Anorectum - normal Colon preparation: [place] Bowel Preparation Scale Right colon; 1-2 Transverse colon: 1-2 Left colon; 1-2 (0 = Unprepared colon segment with mucosa not seen due to solid stool that cannot be cleared. 1 = Portion of mucosa of the colon segment seen, but other areas of the colon segment not well seen due to staining, residual stool and/or opaque liquid. 2 = Minor amount of residual staining, small fragments of stool and/or opaque liquid, but mucosa of colon segment seen well. 3 = Entire mucosa of colon segment seen well with no residual staining, small fragments of stool or opaque liquid) Impression and Post Procedure Diagnosis: Endoscopy Findings: gastritis gastric polyps duodenitis Colonoscopy Findings: non specific colitis internal hemorrhoids Plan: Await Pathology results Repeat Colonoscopy in 6-12 months or earlier if clinically indicated High fiber diet leaflet avoid straining at stool, epsom salts and sitz bath, anusol supps or cream Above findings were reviewed with the patient and relevant handouts were provided if indicated.
[2024-08-15 14:07] VITALS: BP 117/77; PULSE 84; RESP 17; TEMP 36.1; O2SAT 99
[2024-08-15 14:25] VITALS: BP 95/70; PULSE 66; RESP 20; TEMP 36.1; O2SAT 95
== END 2024-08-15 14:42 | disposition home or self-care (01) ==
PROVIDERS: PCP Internal Medicine; Visit Provider Internal Medicine Gastroenterology
PROC: (CPT 45380; principal; 2024-08-15 13:50)
DX: Z12.11 Encounter for screening for malignant neoplasm of colon (principal); K64.0 First degree hemorrhoids; K52.9 Noninfective gastroenteritis and colitis, unspecified; K59.00 Constipation, unspecified; K21.9 Gastro-esophageal reflux disease without esophagitis; K22.89 Other specified disease of esophagus; Z87.19 Personal history of other diseases of the digestive system; K31.7 Polyp of stomach and duodenum; K29.50 Unspecified chronic gastritis without bleeding; K29.80 Duodenitis without bleeding; K44.9 Diaphragmatic hernia without obstruction or gangrene; E11.9 Type 2 diabetes mellitus without complications; J44.9 Chronic obstructive pulmonary disease, unspecified; G47.33 Obstructive sleep apnea (adult) (pediatric); I10 Essential (primary) hypertension; M87.051 Idiopathic aseptic necrosis of right femur; Z96.641 Presence of right artificial hip joint; F32.A Depression, unspecified; F41.9 Anxiety disorder, unspecified; Z99.89 Dependence on other enabling machines and devices; Z79.899 Other long term (current) drug therapy; Z79.85 Long-term (current) use of injectable non-insulin antidiabetic drugs; Z88.1 Allergy status to other antibiotic agents; Z88.8 Allergy status to other drugs, medicaments and biological substances; Z98.890 Other specified postprocedural states; Z87.891 Personal history of nicotine dependence
CPT/HCPCS: 45380; 43251; 43239; 82947; 88305; 88313; 88342; J2003; J2704; J3010

== ENCOUNTER → 2024-08-15 12:48 | Outpatient (BNV) | payer MEDICARE, SELFPAY | PROVIDERS: PCP Internal Medicine; Visit Provider Internal Medicine Gastroenterology | DX: Z12.11 Encounter for screening for malignant neoplasm of colon (principal); K64.0 First degree hemorrhoids; K52.9 Noninfective gastroenteritis and colitis, unspecified; K31.7 Polyp of stomach and duodenum; K21.9 Gastro-esophageal reflux disease without esophagitis; K29.80 Duodenitis without bleeding; K29.70 Gastritis, unspecified, without bleeding | CPT/HCPCS: 43239; 43251; 45380 ==

== ENCOUNTER 2024-10-04 15:58 | Outpatient (AMB) | payer MEDICARE, SELFPAY ==
--- NOTE | 2024-10-04 15:59 | MHC.OFFVIS ---
Vital Signs 10/04/24 16:08 Height 5 ft 8 in Weight 185 lb BMI 28.1 BP 134/82 Blood Pressure Location Rt brachial Position Sitting Pulse 72 Pulse Source Pulse Oximeter Pulse Oximetry (%) 99 Oxygen Delivery Method Room Air Intake Visit Reasons: S/P double; Dr. Raymond Intake Note: Established patient for s/p egd/colo. Hx of De La Rosa's Chief Complaint; Director Of Health Education Required: No Allergies doxycycline Allergy (Unknown, Verified 10/04/24 15:59) rash paroxetine (From Paxil) Adverse Reaction (Severe, Verified 10/04/24 15:59) Suicidal thoughts HPI HPI S/P double; Dr. Raymond: Details: LAST VISIT: Screen for colon cancer Plan Patient denies any cardiac or respiratory symptoms.? Denies any issues with anesthesia in the past.? Denies any history of sleep apnea.? No history infectious diseases in the past or present.? Not on any anticoagulation therapy.? No family or personal history of colon cancer.? Patient denies melena, hematochezia, unintentional weight loss or ribbon like stools.? Occasional acid reflux if he forgets to take his pantoprazole. History of De La Rosa's will send him for upper endoscopy to re-evaluate. Patient reports occasional constipation. Patient will start taking his fiber in the morning and we will add Senokot. Patient can take it as needed if no bowel movements in 1-2 days. Discussed at length the pre-procedure,? prep, diet & medications as well as what to expect prior, during and after the procedure.?? Stressed the importance of good bowel prep.? Recommended the use of Vaseline or Calmoseptine OTC & baby wipes with bowel movements to promote comfort.? ?Patient verbalizes understanding and agrees to plan of care.? He was given the opportunity to ask questions and all questions answered.? We will see him after the procedure.? Medications New sennosides (Natural Senna Laxative) 17.2 mg (2 x 8.6 mg) PO BEDTIME 60 tabs 3RF constipation K59.00 bisacodyl (Dulcolax (bisacodyl)) take 4 tabs at noon the day before your colonoscopy 20 mg (4 x 5 mg) PO ONCE 1 day 4 tabs 0RF constipation Z12.11 polyethylene glycol 3350 (Miralax) As directed by gastro[facility]ology department at [facility] 238 grams PO ONCE 238 grams 0RF Z12.11 UPPER ENDOSCOPY AND COLONOSCOPY Findings: Larynx:normal Esophagus: GE junction at 42 cm, diaphragm hiatus at 42 cm, irregualr Z line, bx taken also from distal esophagus Stomach: Patchy erythema. Biopsies were obtained. Grade 2 flap valve on retroflexed examination of the cardia. Several fundic gland polyps noted, a few were 10 mm and removed with cold snare Duodenum: duodenitis, bx taken Intervention: Biopsies as noted above, cold snare polypectomy COLONOSCOPY Instrument: Olympus variable stiffness pediatric scope 190L Colonoscopy Monitoring: Vital signs and clinical assessment, continuous EKG monitoring, Pulse oximetry, Carbon Dioxide monitoring and blood pressure monitoring were done throughout the procedure. Colon withdrawal time was 10 minutes. Procedure: The patient was placed in the left lateral decubitis position and pre-procedure medications were administered. After a digital rectal examination of the ano-rectum, the video colonoscope was inserted into the rectum and advanced through the colon to the cecum/TI. The colonoscope was slowly withdrawn in a retrograde panoramic fashion and the colon mucosa was carefully examined including a retroflexed view of the rectum. Findings and interventions are described below. Procedure Difficulty:moderate Findings: Terminal Ileum-normal Cecum:normal Ascending Colon: patchy erythema, bx taken Transverse Colon -normal Descending Colon:normal Sigmoid Colon: normal Rectum: Retroflexion with small internal hemorrhoids, grade I Anorectum - normal Colon preparation: [place] Bowel Preparation Scale Right colon; 1-2 Transverse colon: 1-2 Left colon; 1-2 (0 = Unprepared colon segment with mucosa not seen due to solid stool that cannot be cleared. 1 = Portion of mucosa of the colon segment seen, but other areas of the colon segment not well seen due to staining, residual stool and/or opaque liquid. 2 = Minor amount of residual staining, small fragments of stool and/or opaque liquid, but mucosa of colon segment seen well. 3 = Entire mucosa of colon segment seen well with no residual staining, small fragments of stool or opaque liquid) Impression and Post Procedure Diagnosis: Endoscopy Findings: gastritis gastric polyps duodenitis Colonoscopy Findings: non specific colitis internal hemorrhoids Plan: Await Pathology results Repeat Colonoscopy in 6-12 months or earlier if clinically indicated High fiber diet leaflet avoid straining at stool, epsom salts and sitz bath, anusol supps or cream PATHOLOGY RESULTS Diagnosis A. Gastric polyps: Fundic gland polyps with focal minimal chronic inactive inflammation; negative for H. pylori, intestinal metaplasia and dysplasia. B. Duodenum, biopsy: Duodenal mucosa with predominantly preserved villi, mild reactive changes, and focal mild features of chronic/non-specific duodenitis. C. Stomach, biopsy: Gastric body mucosa with focal minimal chronic inactive inflammation; negative for H. pylori, intestinal metaplasia and dysplasia. D. Gastroesophageal junction, biopsy: Columnar mucosa with mild chronic inflammation, focal multilayered epithelium, focal intestinal metaplasia, and scant squamous epithelium; negative for dysplasia (see comment). E. Esophagus, distal, biopsy: Squamous mucosa with mild spongiosis and focal intraepithelial eosinophils (up to 2 per high-power field), consistent with esophagitis; no columnar mucosa present. F. Colon, right, biopsy: Chronic colitis with moderate activity and crypt abscesses; no granulomas or dysplasia (see comment). G. Colon, left, biopsy: Focal mild active colitis with focal mucosal microgranuloma; negative for dysplasia (see comment). H. Colon, rectum, biopsy: Chronic colitis/proctitis with mild-moderate activity; no granulomas or dysplasia (see comment). Comment: (D): These findings are consistent with De La Rosa's esophagus if the biopsies were taken from above the anatomic gastroesophageal junction. Clinical and endoscopic correlation is advised. (F, G and H): The differential includes chronic inflammatory bowel disease, diverticular disease, and drug-induced colitis and clinical correlation is necessary TODAY'S VISIT Patient is here today for follow-up and to discuss upper endoscopy and colonoscopy results. Patient is accompanied by his . Patient denies any ill effects from the prep, anesthesia or procedure itself. 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 No H pylori found. Colonoscopy with chronic colitis/proctitis. Patient was started on mesalamine. Patient is taking pantoprazole every morning and reports that his symptoms are suppressed for the most part, however he states that frequently he will wake up in the middle of the night feeling nauseous and sometimes also in the morning before eating anything. Reports epigastric pain. Patient does feel like he has lot of mucus production and has trouble swallowing when he has those symptoms. Otherwise patient has no trouble swallowing solids or liquids. Patient had suboptimal prep and will need to repeat colonoscopy again in 6-12 months. Patient denies melena, hematochezia. Patient tried taking Senokot without much of results. No bowel movements for 2-3 days. 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 GERD (gastroesophageal reflux disease) Admission for chest tube placement Collapsed lung Diabetes mellitus COPD (chronic obstructive pulmonary disease) Uses wheelchair OSMIN on CPAP History of De La Rosa's esophagus History of pneumonia Avascular necrosis of bone of right hip Avascular necrosis of bone of left hip Prediabetes Hypertension Depression Anxiety Surgical History History of right hip replacement Hx of elbow surgery History of esophagogastroduodenoscopy (EGD) Hx of colonoscopy History of lung biopsy Family History Maternal Grandmother Colon cancer Paternal Uncle Prostate cancer Social History Are you a primary manager intensive care to a significant other at home: No Do you presently have visiting nurse or other home services: No Comment: aware of trip hazard Patient Tobacco Use Status: Former Tobacco user Tobacco use type: Cigarette service: No Current occupational status: disabled Review of Systems Const Denies weight gain and Denies weight loss ENT Reports no additional complaints, Denies dysphagia and Denies odynophagia Card Reports no additional complaints Resp Reports no additional complaints GI Denies abdominal pain, Denies belching, Denies melena, Denies bloating, Denies change in bowel habits, Reports constipation, Denies dysphagia, Denies excessive flatus, Reports dyspepsia, Reports heartburn (Occasional), Denies diarrhea, Denies loose stools, Reports nausea, Denies odynophagia and Denies vomiting Reports no additional complaints Musc Reports no additional complaints Neuro Reports no additional complaints Psych Reports no additional complaints Endo Reports no additional complaints Physical Exam Vital Signs: Last Vital Signs Pulse 72 10/04/24 16:08 BP 134/82 10/04/24 16:08 Pulse Ox 99 10/04/24 16:08 Oxygen Delivery Method Room Air 10/04/24 16:08 BMI result Body Mass Index 28.1 Const General: healthy appearing, no acute distress and well developed Nutritional Appearance: well nourished Orientation/consciousness: patient oriented x3 Resp Effort & Inspection: normal respiratory effort, able to speak in complete sentences, no tracheal deviation and symmetric chest movement Auscultation: clear to auscultation bilaterally Cardio Rate: regular rate GI Inspection: Yes normal to inspection and No distended Palpation (GI): Soft to palpation, not firm, nontender and No hepatosplenomegaly present Auscultation: normal bowel sounds General: Yes no CVA tenderness Back/Spine/Pelvis Back: no CVA tenderness Skin General skin exam: elasticity normal, turgor normal and dry skin Neuro General: patient oriented x3 Psych Appearance: grossly normal Mental Status: mental status grossly normal Assessment & Plan Assessment & Plan (1) GERD (gastroesophageal reflux disease): Code(s): K21.9 - Gastro-esophageal reflux disease without esophagitis Category: Medical Qualifiers: Esophagitis presence: without esophagitis Qualified Code(s): K21.9 - Gastro-esophageal reflux disease without esophagitis (2) 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 Referral to allergy and immunology. Patient reports to have environmental allergies with lots of mucus production. No esophagitis found on upper endoscopy. We will add sucralfate at bedtime as he is reporting to have nausea during the night, mild duodenitis found. Patient will call us if this will not be effective. He will start taking Dulcolax daily. Increase fluid intake and activity to promote better bowel motility. Patient will continue avoiding dietary triggers and late night snacking. Staying upright for minimum 3 hours after meals discussed with patient. Patient is on Ozempic his symptoms of epigastric pain and feeling nauseous could be related to this and certainly not helping his symptoms. Patient might consider changing this to Mounjaro, less GI symptoms reported with this medication. Patient denies any family history of thyroid CA. I will see him in the office in 2 months, however if he will have any GI concerning symptoms he will call us sooner. He is agreeable to plan of care and verbalizes understanding of instructions. He was given the opportunity to ask questions and all questions answered. Thank you for allowing me to participate in his care Orders: Orders Calprotectin, Fecal Today R15.9 - Full incontinence of feces Referrals Allergy & Immunology Referral Z91.09 - Other allergy status, other than to drugs and biological substances Medications: New sucralfate 10 mL PO BEDTIME 400 mL 3RF K21.9 - Gastro-esophageal reflux disease without esophagitis bisacodyl (Dulcolax (bisacodyl)) 10 mg (2 x 5 mg) PO BEDTIME 60 tabs 4RF Discontinued sennosides (Natural Senna Laxative) Discontinued Reason: Doctor's Order 17.2 mg (2 x 8.6 mg) PO BEDTIME 60 tabs 3RF constipation K59.00 - Constipation, unspecified Coding Level of Care Code Complex EM visit Add On G2211 Diagnoses Gastroesophageal reflux disease without esophagitis K21.9 Esophagitis presence: without esophagitis 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
[2024-10-04 16:08] VITALS: BP 134/82; PULSE 72; O2SAT 99; BMI 28.1
--- OUTSIDE RECORDS SUMMARY | 2024-10-04 18:35 | XMS_ITS | Clinical Summary ---
Author Organization [facility] ity Address [address] [place] [address] Care Team Providers Care Batch Trucker Name Role Phone Oswaldo Blanchard MD Primary Care Provider [phone] Medical History Medical History Date Comments Hypertension DX:Hypertension COPD (chronic obstructive pu lmonary disease) ([facility] V24, [facility] V28) DX:COPD (chronic o bstructive pulmonary disease) ([facility]) Anxiety DX:Anxiety Diabetes mellitus ([facility] V 24, [facility] V28) DX:Diabetes mellitus ([facility]) Obesity DX:Obesity GERD (gastroesophageal reflux disease) DX:GERD [...] age to complete this topic Care Teams Batch Trucker Relationship Specialty Start Date End Date Oswaldo Blanchard MD PCP - General Internal Medicine 07/12/19
== END 2024-10-04 16:33 | disposition home or self-care (01) ==
LOC: HO.HGI 15:58
PROVIDERS: PCP Internal Medicine; Visit Provider Nurse Practitioner Family
DX: K21.9 Gastro-esophageal reflux disease without esophagitis (principal); K22.70 Barrett's esophagus without dysplasia; K59.01 Slow transit constipation; R11.0 Nausea
CPT/HCPCS: 99213; G2211

== ENCOUNTER → 2024-10-04 15:58 | Outpatient (BNVA) | payer MEDICARE, SELFPAY | PROVIDERS: PCP Internal Medicine; Visit Provider Nurse Practitioner Family | DX: K21.9 Gastro-esophageal reflux disease without esophagitis (principal); K59.01 Slow transit constipation; R11.0 Nausea; K22.70 Barrett's esophagus without dysplasia | CPT/HCPCS: 99212 ==

== ENCOUNTER 2024-10-05 12:20 | Outpatient (REF) | payer MEDICARE, SELFPAY ==
--- OUTSIDE RECORDS SUMMARY | 2024-10-05 14:39 | XMS_ITS | Clinical Summary ---
Author Organization [facility] ity Address [address] [place] [address] Care Team Providers Care Maker Up Folding Name Role Phone Oswaldo Blanchard MD Primary Care Provider [phone] Medical History Medical History Date Comments Hypertension DX:Hypertension COPD (chronic obstructive pu lmonary disease) ([facility] V24, [facility] V28) DX:COPD (chronic o bstructive pulmonary disease) ([facility]) Anxiety DX:Anxiety Diabetes mellitus ([facility] V 24, [facility] V28) DX:Diabetes mellitus ([facility]) Obesity DX:Obesity GERD (gastroesophageal reflux disease) [...] age to complete this topic Care Teams Maker Up Folding Relationship Specialty Start Date End Date Oswaldo Blanchard MD PCP - General Internal Medicine 07/12/19
[2024-10-12 03:04] LABS: Calprotectin, Fecal 247 mcg/g
== END 2024-10-05 12:21 | disposition home or self-care (01) ==
LOC: HO.LNP 12:20
PROVIDERS: Visit Provider Nurse Practitioner Family
DX: R15.9 Full incontinence of feces (principal)
CPT/HCPCS: 83993

== ENCOUNTER 2024-12-08 12:46 | Outpatient (AMB) | payer MEDICARE, SELFPAY ==
--- NOTE | 2024-12-08 13:13 | A.OFFVIS_ITS ---
Vital Signs 12/08/24 13:17 Height 5 ft 8 in Weight 180 lb BMI 27.4 BP 112/70 Blood Pressure Location Lt brachial Position Sitting Pulse 68 Pulse Source Pulse Oximeter Pulse Oximetry (%) 100 Oxygen Delivery Method Room Air Intake Visit Reasons: 2 mo Intake Note: Established patient for mgmt of De La Rosa's Chief Complaint; Pt denies any GI changes or new sx since last visit. Pt states that his current Rx therapies are working much better. 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 Referral to allergy and immunology. Patient reports to have environmental allergies with lots of mucus production. No esophagitis found on upper endoscopy. We will add sucralfate at bedtime as he is reporting to have nausea during the night, mild duodenitis found. Patient will call us if this will not be effective. He will start taking Dulcolax daily. Increase fluid intake and activity to promote better bowel motility. Patient will continue avoiding dietary triggers and late night snacking. Staying upright for minimum 3 hours after meals discussed with patient. Patient is on Ozempic his symptoms of epigastric pain and feeling nauseous could be related to this and certainly not helping his symptoms. Patient might consider changing this to Mounjaro, less GI symptoms reported with this medication. Patient denies any family history of thyroid CA. I will see him in the office in 2 months, however if he will have any GI concerning symptoms he will call us sooner. He is agreeable to plan of care and verbalizes understanding of instructions. He was given the opportunity to ask questions and all questions answered. ? Thank you for allowing me to participate in his care Orders Calprotectin, Fecal Today R15.9 Referrals Allergy & Immunology Referral Z91.09 New sucralfate 10 mL PO BEDTIME 400 mL 3RF K21.9 bisacodyl (Dulcolax (bisacodyl)) 10 mg (2 x 5 mg) PO BEDTIME 60 tabs 4RF Discontinued sennosides (Natural Senna Laxative) Discontinued Reason: Doctor's Order 17.2 mg (2 x 8.6 mg) PO BEDTIME 60 tabs 3RF constipation K59.00 * TODAY'S VISIT Patient is here today for follow-up. Patient reports to be feeling significantly better. Able to move his bowels. Take Dulcolax daily. Patient is taking mesalamine daily. Denies melena, hematochezia, unintentional weight loss or ribbon like stools. Patient denies dyspepsia, dysphagia or odynophagia. Patient reports feeling nauseous and then he sneezes. Reports that he knows when he will sneeze because of the nausea. Patient reports feeling dizzy. He is also reporting frequent headaches. Patient denies presyncope or syncope. Denies reflux, however when he stops taking pantoprazole he feels significant reflux. Denies dyspepsia, dysphagia or odynophagia. 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 GERD (gastroesophageal reflux disease) Admission for chest tube placement Collapsed lung Diabetes mellitus COPD (chronic obstructive pulmonary disease) Uses wheelchair OSMIN on CPAP History of De La Rosa's esophagus History of pneumonia Avascular necrosis of bone of right hip Avascular necrosis of bone of left hip Prediabetes Hypertension Depression Anxiety Surgical History History of right hip replacement Hx of elbow surgery History of esophagogastroduodenoscopy (EGD) Hx of colonoscopy History of lung biopsy Family History Maternal Grandmother Colon cancer Paternal Uncle Prostate cancer Social History Are you a primary daycare assistant to a significant other at home: No Do you presently have visiting nurse or other home services: No Comment: aware of trip hazard Patient Tobacco Use Status: Former Tobacco user Tobacco use type: Cigarette service: No Current occupational status: disabled Review of Systems Const Denies weight gain and Denies weight loss ENT Reports no additional complaints, Denies dysphagia and Denies odynophagia Card Reports no additional complaints Resp Reports no additional complaints GI Denies abdominal pain, Denies belching, Denies melena, Denies bloating, Denies change in bowel habits, Denies dysphagia, Denies excessive flatus, Denies dyspepsia, Reports heartburn (Occasional), Denies diarrhea, Denies loose stools, Reports nausea, Denies odynophagia and Denies vomiting Reports no additional complaints Musc Reports no additional complaints Neuro Reports no additional complaints Psych Reports no additional complaints Endo Reports no additional complaints Physical Exam Vital Signs: Last Vital Signs Pulse 68 12/08/24 13:17 BP 112/70 12/08/24 13:17 Pulse Ox 100 12/08/24 13:17 Oxygen Delivery Method Room Air 12/08/24 13:17 BMI result Body Mass Index 27.4 Const General: healthy appearing, no acute distress and well developed Nutritional Appearance: well nourished Orientation/consciousness: patient oriented x3 Resp Effort & Inspection: normal respiratory effort, able to speak in complete sentences, no tracheal deviation and symmetric chest movement Auscultation: clear to auscultation bilaterally Cardio Rate: regular rate GI Inspection: Yes normal to inspection and No distended Palpation (GI): Soft to palpation, not firm, nontender and No hepatosplenomegaly present Auscultation: normal bowel sounds General: Yes no CVA tenderness Back/Spine/Pelvis Back: no CVA tenderness Skin General skin exam: elasticity normal, turgor normal and dry skin Neuro General: patient oriented x3 Psych Appearance: grossly normal Mental Status: mental status grossly normal Assessment & Plan Assessment & Plan (1) GERD (gastroesophageal reflux disease): Code(s): K21.9 - Gastro-esophageal reflux disease without esophagitis Category: Medical Qualifiers: Esophagitis presence: without esophagitis Qualified Code(s): K21.9 - Gastro-esophageal reflux disease without esophagitis (2) 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 Avoid dietary triggers and like that snacking. Staying upright for minimal 3 hours after meals discussed with patient. Patient reports dizziness and migraine headaches, referral to Neurology. Will check fecal calprotectin. Patient has fecal calprotectin in September was elevated. He was only on mesalamine for just a little over 1 month. If fecal calprotectin still elevated will increase mesalamine. Patient will be sent for upper GI with barium swallow as he continues to have reflux if he forgets to take his medications. Continue Dulcolax. Increase fluid intake and activity to promote better bowel motility. Patient will follow-up in 2 months so we can discuss going for colonoscopy. Patient had suboptimal prep last colonoscopy in August. He is agreeable to current plan of care and verbalizes understanding of instructions. He was given the opportunity to ask questions and all questions answered. 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
--- OUTSIDE RECORDS SUMMARY | 2024-12-08 13:15 | XMS_ITS | Clinical Summary ---
Author Organization [facility] Address [address] [place] [address] Care Team Providers Care Paid Internship Name Role Phone Oswaldo Blanchard MD Primary Care Provider [phone] Allergies Active Allergy Reactions Criticality Noted Date [...] 30 tablet 1 07/08/2022 Active nystatin (MYCOSTATIN) 597951 UNIT/ML suspension Take 5 mL (500,000 Units [...] 76 05/22/2022 9:17 AM EST Temperature 36 C (96.8 F) 05/22/2022 9:17 AM EST Respiratory Rate 18 [...] this topic Shingrix-Zoster Vaccine Discontinued Care Teams Paid Internship Relationship Specialty Start Date End Date Oswaldo Blanchard MD PCP - General Internal Medicine 07/12/19
--- OUTSIDE RECORDS SUMMARY | 2024-12-08 13:15 | XMS_ITS | Clinical Summary ---
Author Organization [facility] Address [address] [place] [address] Care Team Providers Care Factory Maintenance Technician Name Role Phone Oswaldo Blanchard MD Primary Care Provider [phone] Social History Tobacco Use Types Packs/Day Years [...] (1 - 2023- season) 2023 Care Teams Factory Maintenance Technician Relationship Specialty Start Date End Date Oswaldo Blanchard MD PCP - General Internal Medicine 02/07/21
--- OUTSIDE RECORDS SUMMARY | 2024-12-08 13:15 | XMS_ITS | Clinical Summary ---
Author Organization [facility] ity Address [address] [place] [address] Care Team Providers Care Shirt Operator Name Role Phone Oswaldo Blanchard MD Primary Care Provider [phone] Medical History Medical History Date Comments Hypertension DX:Hypertension COPD (chronic obstructive pu lmonary disease) ([facility] V24, [facility] V28) DX:COPD (chronic o bstructive pulmonary disease) ([facility]) Anxiety DX:Anxiety Diabetes mellitus ([facility] V 24, [facility] V28) DX:Diabetes mellitus ([facility]) Obesity DX:Obesity GERD (gastroesophageal reflux disease) [...] Panel) 03/15/2022 Colorectal Cancer Screening: Colonoscopy 03/15/2022 HIV Screening 03/15/2022 Hepatitis C Screening 03/15/2022 Social Influencers of Health Screening 03/15/2022 Diabetes: Annual Urine Albumin-Creatinine Ratio (uACR) 03/25/2022 Diabetes: Blood Sugar Contro l Test (HGBA1C) 03/25/2022 COVID-19 Vaccine (3 - 2023-2 5 season) 2023 07/12/2020, 06/14/2020 Depression Screening 04/12/2024 Influenza Vaccine (#1) 2024 , 04/17/2019 DTaP,Tdap,and Td Vaccines (4 - [...] age to complete this topic Care Teams Shirt Operator Relationship Specialty Start Date End Date Oswaldo Blanchard MD PCP - General Internal Medicine 07/12/19
--- OUTSIDE RECORDS SUMMARY | 2024-12-08 13:15 | XMS_ITS ---
Author Name [facility] Organization Unknown History of Medication Use Medication Directions Dispensed Refills Start Date End Date Status Ozempic 2 mg/dose (8 mg/3 mL) subcutaneous pen injector Inject 2 mg every week by subcutaneous route. 5 active tamsulosin 0.4 mg capsule Take 1 capsule every day by oral route. 5 active Paxlovid 300 mg (150 mg x 2)-100 mg tablets in a dose pack Take 3 tablets twice a day by oral route. 4 10/23/19 23 active Lidoderm 5 % topical patch APPLY 1 PATCH BY TOPICAL ROUTE ONCE DAILY (MAY WEAR UP TO 12HOURS.) 3 06/07/19 24 completed meclizine 25 mg tablet Take 1 tablet (25 mg total) by mouth 3 (three) times a day as needed for dizziness or nausea. 2 01/14/20 23 completed methylphenidate LA 10 mg biphasic 50-50 capsule,extended release Take 1 capsule (10 mg total) by mouth daily. 2 12/19/19 22 completed venlafaxine ER 75 mg capsule,extended release 24 hr Take 1 capsule (75 mg total) by mouth daily. 1 06/20/19 22 completed albuterol sulfate HFA 90 mcg/actuation aerosol inhaler Inhale 2 puffs into the lungs every 6 (six) hours as needed for wheezing. 1 12/24/19 21 completed venlafaxine ER 37.5 mg capsule,extended release 24 hr Take 1 capsule (37.5 mg total) by mouth daily. 1 11/05/19 21 completed lorazepam 1 mg tablet TAKE 1 TABLET(1 MG) BY MOUTH THREE TIMES DAILY FOR UP TO 21 DAYS NEEDED FOR ANXIETY 1 11/01/19 21 completed omeprazole 20 mg capsule,delayed release Take 20 mg by mouth. 0 05/16/19 21 completed cephalexin 500 mg capsule TAKE 1 CAPSULE BY MOUTH FOUR TIMES DAILY FOR 3 DAYS 07/25/19 25 completed baclofen 10 mg tablet 1 tab qd PRN 12/09/19 24 completed Ozempic 0.25 mg or 0.5 mg (2 mg/3 mL) subcutaneous pen injector INJECT 0.5ML ONCE A WEEK SUBQ 06/08/19 24 completed aspirin 325 mg tablet,delayed release TAKE 1 TABLET BY MOUTH TWICE DAILY FOR 42 DAYS 12/12/19 23 completed prednisone 5 mg tablet TAKE 3 TABLETS BY MOUTH DAILY 10/23/19 23 completed sulfamethoxazole 800 mg-trimethoprim 160 mg tablet 10/23/19 23 completed venlafaxine ER 150 mg capsule,extended release 24 hr TAKE 1 CAPSULE(150 MG) BY MOUTH DAILY 10/21/19 23 completed celecoxib 200 mg capsule TAKE 1 CAPSULE BY MOUTH TWICE DAILY 08/21/19 23 active oxycodone 10 mg tablet TAKE 1 TABLET BY MOUTH EVERY 4 HOURS FOR 7 DAYS NEEDED FOR MODERATE PAIN 08/21/19 23 completed oxycodone-acetaminop hen 5 mg-325 mg tablet TAKE 1 TABLET BY MOUTH EVERY 6 HOURS NEEDED FOR PAIN 08/21/19 23 completed OxyContin 10 mg tablet,crush resistant,extended release TAKE 1 TABLET BY MOUTH TWICE DAILY FOR 3 DAYS 08/21/19 23 completed lisinopril 5 mg tablet Take 5 mg by mouth daily. 04/01/20 20 completed tamsulosin 0.4 mg capsule active albuterol sulfate 2.5 mg/3 mL (0.083 %) solution for nebulization Take 3 mL (2.5 mg total) by nebulization every 4 (four) hours as needed for wheezing. active bisacodyl 5 mg tablet,delayed release TAKE 4 TABLETS BY MOUTH AT NOON THE DAY BEFORE YOUR COLONOSCOPY ONCE FOR CONSTIPATION FOR 1 DAY active clonidine HCl 0.1 mg tablet TAKE 1 TABLET BY MOUTH THREE TIMES DAILY NEEDED FOR ANXIETY OR SLEEP active docusate sodium 100 mg capsule TAKE 1 CAPSULE BY MOUTH TWICE A DAY FOR 14 DAYS active gabapentin 600 mg tablet TAKE 1 TABLET BY MOUTH 3 TIMES A DAY,X14 DAYS active mesalamine 1.2 gram tablet,delayed release TAKE 2 TABLETS BY MOUTH DAILY active pantoprazole 40 mg tablet,delayed release Take 1 tablet every day by oral route. active polyethylene glycol 3350 17 gram/dose oral powder DISSOLVE AND TAKE BY MOUTH ONCE DIRECTED BY [facility]OLOGY [facility] AT [facility] active senna 8.6 mg tablet TAKE 2 TABLETS BY MOUTH AT BEDTIME FOR CONSTIPATION active sertraline 50 mg tablet Take 1.5 tablets every day by oral route. active sucralfate 100 mg/mL oral suspension SHAKE LIQUID AND TAKE 10 ML BY MOUTH AT BEDTIME active Allergies Allergen Reaction Severity Comment Documented Date Source Statu s DOXYCYCLINE [facility] PAROXETINE [facility] ATORVASTATIN MYALGIAS (MUSCLE PAIN) [facility] Problems Problem Status Onset Date Problem Type Date of Resolution Source Steatotic liver disease active 2019-07-18 ProblemAct [facility] De La Rosa's esophagus active 2019-07-18 ProblemAct [facility] Tubular adenomatous polyp of colon active 2019-07-18 ProblemAct [facility] Essential hypertension active 2024-06-16 ProblemAct [facility] Amnestic mild cognitive disorder active 2024-07-21 ProblemAct [facility] Erectile dysfunction active 2023-06-07 ProblemAct [facility] Mixed anxiety and depressive disorder active 2021-11-17 ProblemAct [facility] A Pulmonary emphysema active 2019-07-18 ProblemAct [facility] Morbid obesity active 2023-12-09 ProblemAct [facility]_ [facility] COVID-19 active 2024-04-06 ProblemAct [facility] A Laceration of right middle finger active 2024-07-24 ProblemAct [facility] Osteonecrosis of hip active 2019-07-18 ProblemAct [facility] Pure hypercholesterolemia active 2023-12-09 ProblemAct [facility] Hypersensitivity pneumonitis active 2019-12-25 ProblemAct [facility] Acute low back pain active 2022-12-11 ProblemAct [facility] Benign prostatic hyperplasia with outflow obstruction active 2024-06-16 ProblemAct [facility] Obstructive sleep apnea syndrome active 2019-07-18 ProblemAct [facility] Thoracic back pain active 2023-02-04 ProblemAct [facility] Type 2 diabetes mellitus active 2019-07-18 ProblemAct [facility] Attention deficit hyperactivity disorder, predominantly inattentive type active 2021-11-17 ProblemAct [facility] Immunizations Vaccine Date Source Lot Number Status Fluzone Quad (PF) 60 mcg (15 mcg x 4)/0.5 mL IM syringe 02/04/2023 [facility]_PRIVIA [id number] completed tetanus toxoid, reduced diph theria toxoid, and acellular pertussis vaccine, adsorbed 05/22/2022 KAMILLATERESA [id number] completed Influenza, injectable, quadr ivalent, preservative free 01/08/2021 GABININOSKA completed SARS-COV-2 (COVID-19) vaccin e, mRNA, spike protein, LNP, preservative free, 30 mcg/0.3mL dose 07/12/2020 GABININOSKA [id number] completed SARS-COV-2 (COVID-19) vaccin e, mRNA, spike protein, LNP, preservative free, 30 mcg/0.3mL dose 06/14/2020 GABININOSKA [id number] completed influenza, seasonal, injectable 04/17/2019 CTPatNINOSKA [id number] completed pneumococcal polysaccharide vaccine, 23 valent 04/17/2019 GABININOSKA [id number] completed tetanus toxoid, reduced diph theria toxoid, and acellular pertussis vaccine, adsorbed 12/04/2009 GABININOSKA [id number] completed diphtheria and tetanus toxoi ds, adsorbed for pediatric use 10/07/1996 YANELISADDISON UNK completed Care Team Organization Name Specialty Phone Email Start Date End [facility] 03/28/2024 025 [facility] Primary Care 09/18/2022 11/29/2023
--- OUTSIDE RECORDS SUMMARY | 2024-12-08 13:15 | XMS_ITS | Encounter Summary ---
Author Organization [facility] Address [address] [place] [address] Care Team Providers Care Rac Specialist Name Role Phone Oswaldo Blanchard MD Primary Care Provider [phone] Encounter Details Date Type Department Care Team (Late st Contact Info) Description 01/21/2021 Erroneous Encounter [facility] [address] [facility] [place] [id number] Provider, MD Nick Social History Tobacco Use [...] on filedocumented in this encounter Care Teams Rac Specialist Relationship Specialty Start Date End Date Oswaldo Blanchard MD PCP - General Internal Medicine 02/07/21 documented as of this encounter
--- OUTSIDE RECORDS SUMMARY | 2024-12-08 13:15 | XMS_ITS | Clinical Summary ---
Author Organization [facility] Address [address] [facility] [address] [place] [address] Phone Care Team Providers Care Barbed Wire Machine Operator Name Role Phone Oswaldo Blanchard MD Primary Care Provider [phone] Oswaldo Blanchard MD Unavailable Allergies Active Allergy Reactions Criticality Noted Date Comments Doxycycline 04/18/2019 Paroxetine 04/18/2019 Paroxetine Hcl 04/01/2019 Medications lisinopril (PRINIVIL,ZESTR IL) 10 MG tablet Take 10 mg by mouth daily. Active omeprazole (PRILOSEC) 10 MG capsule Take 10 mg by mouth daily. Active albuterol 90 mcg/actuation inhaler Inhale 2 puffs into the lungs every 6 (six) hours as needed for wheezing. 1 Inhaler 9 Active predniSONE (DELTASONE) 20 MG tablet Take 2 tabs p.o. daily with food x4 days, then take 1 tab p.o. daily with food x3 days, then take 1/2 tab p.o. daily with food x2 days 12 tablet 9 Active omeprazole (PRILOSEC) 20 MG capsule Take 20 mg by mouth 2 (two) times a day. 0 Active ALBUTEROL INHL Inhale 1 vial into the lungs every 4 (four) hours as needed (wheezing/SOB). 0.083% INHALATION SOLUTION, 3ML DOSE 0 Active albuterol sulfate (PROAIR HFA INHL) Inhale 90 mcg into the lungs every 4 (four) hours as needed (wheezing). 0 Active tiotropium (SPIRIVA WITH HANDIHALER) 18 mcg inhalation capsule Inhale 18 mcg into the lungs daily. 0 Active fluticasone furoate-vilante rol (BREO ELLIPTA) 200-25 mcg/dose inhaler Inhale 1 puff into the lungs daily. 0 Active lisinopril (PRINIVIL,ZESTR IL) 10 MG tablet Take 10 mg by mouth daily. 0 Active Social History Tobacco Use Types Packs/Day Years Used Date Smoking Tobacco: Never Smokeless Tobacco: Never Alcohol Use Standard Drinks/Week Comments Yes 0 (1 standard drink = 0.6 oz pur e alcohol) once in a while Education Answer Date Recorded Are you interested in more education? Not on raya e 08/07/2022 Are you concerned about learning? Not on file 08/07/2022 No 08/07/2022 No 08/07/2022 Digital Access Answer Date Recorded No 09/05/2022 No 09/05/2022 No 09/05/2022 Reliable internet access at home? Not on file 09/05/2022 Device with a working camera? Not on file Sex and Gender Information Value Date Recorded Sex Assigned at Not on file Legal Sex Male 1:36 PM EST Gender Identity Not on file Sexual Orientation Not on file Last Filed Vital Signs Vital Sign Reading Time Taken Comments Blood Pressure 118/80 05/04/2019 11:22 AM EST Pulse 74 05/04/2019 11:22 AM EST Temperature 36.7 C (98 F) 05/03/2019 10:29 AM EST Respiratory Rate 18 05/03/2019 10:29 AM EST Oxygen Saturation 96% 05/04/2019 11:22 AM EST Inhaled Oxygen Concentration - - Weight 99.8 kg (220 lb) 04/01/2019 9:52 AM EST Height 172.7 cm (5' 8 ) 04/01/2019 9:52 AM EST Body Mass Index 33.45 04/01/2019 9:52 AM EST Plan of Treatment Health Maintenance Due Date Last Done Comments Adult Td,Tdap Booster 1970 CREATININE LEVEL 1968 LIPID PANEL 1968 POTASSIUM LEVEL 1968 DEPRESSION SCREENING 1980 HEPATITIS C SCREENING 01/04/1986 HIV ONE-TIME SCREENING (18-6 5 YEARS) 01/04/1986 COLOGUARD 01/04/2013 COLONOSCOPY 01/04/2013 COLORECTAL CANCER SCREENING 01/04/2013 FIT TEST 01/04/2013 FOBT 01/04/2013 SIGMOIDOSCOPY 01/04/2013 VIRTUAL COLONOSCOPY 01/04/2013 PNEUMOCOCCAL VACCINES (50+ y ears) (1 of 1 - PCV) 01/04/2018 ZOSTER VACCINES (1 of 2) 01/04/2018 COVID-19 VACCINE (2 - 2023-2 5 season) 2023 06/14/2020 SMOKING STATUS SCREENING (On ce After 26 Yrs) Completed 04/01/2019 HEPATITIS A VACCINES Aged Out No long er eligible based on patient's age to complete this topic HIB VACCINES Aged Out No longer eligi ble based on patient's age to complete this topic MENINGOCOCCAL VACCINES (ACWY) Aged Out No longer eligible based on patient's age to complete this topic MENINGOCOCCAL VACCINES (B) Aged Out N o longer eligible based on patient's age to complete this topic Medical Devices Not on file Insurance [place] [address] [place] [address] [address]PO [address]PO [place] [address] [place] [address] [place] [address] [place] [address] [place] [address] [place] [address] [address] [place] [address] [place] [address] [place] [address] [place] [address] [place] [address] [place] [place] [address] [place] [address] PPO EPO PPO EPO PPO EPO PPO EPO Care Teams Barbed Wire Machine Operator Relationship Specialty Start Date End Date Oswaldo Blanchard MD PCP - General Internal Medicine 04/17/19 Oswaldo Blanchard MD Internal Medicine 04/17/19 Additional Source Comments The information contained in this document represents components of the legal health record. It is not the complete legal health record.[facility]
[2024-12-08 13:17] VITALS: BP 112/70; PULSE 68; O2SAT 100; BMI 27.4
== END 2024-12-08 13:56 | disposition home or self-care (01) ==
LOC: HO.HGI 12:46
PROVIDERS: PCP Internal Medicine; Visit Provider Nurse Practitioner Family
DX: K21.9 Gastro-esophageal reflux disease without esophagitis (principal); K22.70 Barrett's esophagus without dysplasia; K59.01 Slow transit constipation; K52.9 Noninfective gastroenteritis and colitis, unspecified
CPT/HCPCS: 99214; G2211

== ENCOUNTER → 2024-12-08 12:46 | Outpatient (BNVA) | payer MEDICARE, SELFPAY | PROVIDERS: PCP Internal Medicine; Visit Provider Nurse Practitioner Family | DX: K21.9 Gastro-esophageal reflux disease without esophagitis (principal); K22.70 Barrett's esophagus without dysplasia; K59.01 Slow transit constipation; K52.9 Noninfective gastroenteritis and colitis, unspecified | CPT/HCPCS: 99212 ==

== ENCOUNTER 2025-02-05 09:41 | Outpatient (AMB) | payer MEDICARE, SELFPAY ==
--- NOTE | 2025-02-05 09:47 | A.OFFVIS_ITS ---
Vital Signs 02/05/25 09:49 Height 5 ft 8 in Weight 179 lb 6 oz BMI 27.3 BP 102/68 Blood Pressure Location Rt brachial Position Sitting Pulse 72 Pulse Source Pulse Oximeter Pulse Oximetry (%) 100 Oxygen Delivery Method Room Air Intake Visit Reasons: 2 month follow up discuss colo Intake Note: Established patient for mgmt of De La Rosa's. Discuss colo/egd Chief Complaint; Pt reports he has been doing much better with the sucralfate with managing his nausea. No new concerns or sx. 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 Avoid dietary triggers and like that snacking. Staying upright for minimal 3 hours after meals discussed with patient. Patient reports dizziness and migraine headaches, referral to Neurology. Will check fecal calprotectin. Patient has fecal calprotectin in September was elevated. He was only on mesalamine for just a little over 1 month. If fecal calprotectin still elevated will increase mesalamine. Patient will be sent for upper GI with barium swallow as he continues to have reflux if he forgets to take his medications. Continue Dulcolax. Increase fluid intake and activity to promote better bowel motility. Patient will follow-up in 2 months so we can discuss going for colonoscopy. Patient had suboptimal prep last colonoscopy in August. He is agreeable to current plan of care and verbalizes understanding of instructions. He was given the opportunity to ask questions and all questions answered. ? Thank you for allowing me to participate in his care Orders FL upper GI w air w Ba Swallow Today K21.9 Calprotectin, Fecal Today K52.9 Referrals Neurology Referral G43.909, R42 TODAY'S VISIT Patient is here today for follow-up. Patient is here to discuss going for colonoscopy and upper endoscopy. Fecal calprotectin not repeated yet. He is still taking mesalamine as ordered. Less postprandial diarrhea. Denies any mucus or blood in his stools. Symptoms of acid reflux have been suppressed. Patient has been taking pantoprazole daily. Patient has upper GI series with barium swallow scheduled for April 20. He will have procedure sometimes in April as well. Patient denies any issues with anesthesia in the past. No history of sleep apnea. History of De La Rosa's will be sent for upper endoscopy as well. Patient denies any melena, hematochezia, unintentional weight loss or ribbon like stools. Denies any dyspepsia, dysphagia or odynophagia. Patient is not on any anticoagulation medication. 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 GERD (gastroesophageal reflux disease) Admission for chest tube placement Collapsed lung Diabetes mellitus COPD (chronic obstructive pulmonary disease) Uses wheelchair OSMIN on CPAP History of De La Rosa's esophagus History of pneumonia Avascular necrosis of bone of right hip Avascular necrosis of bone of left hip Prediabetes Hypertension Depression Anxiety Surgical History History of right hip replacement Hx of elbow surgery History of esophagogastroduodenoscopy (EGD) Hx of colonoscopy History of lung biopsy Family History Maternal Grandmother Colon cancer Paternal Uncle Prostate cancer Social History Are you a primary care transition mgr to a significant other at home: No Do you presently have visiting nurse or other home services: No Comment: aware of trip hazard Patient Tobacco Use Status: Former Tobacco user Tobacco use type: Cigarette service: No Current occupational status: disabled Physical Exam Vital Signs: Last Vital Signs Pulse 72 02/05/25 09:49 BP 102/68 02/05/25 09:49 Pulse Ox 100 02/05/25 09:49 Oxygen Delivery Method Room Air 02/05/25 09:49 BMI result Body Mass Index 27.3 Assessment & Plan Assessment & Plan (1) GERD (gastroesophageal reflux disease): Code(s): K21.9 - Gastro-esophageal reflux disease without esophagitis Category: Medical Qualifiers: Esophagitis presence: without esophagitis Qualified Code(s): K21.9 - Gastro-esophageal reflux disease without esophagitis (2) 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 Would expect before during and after procedure discussed with patient. Stressed the importance of good bowel prep and clear liquid diet day before procedure. I will see patient after the procedure, sooner on as needed basis. We will review upper GI series. Patient was encouraged to get stol study done to check for fecal calprotectin. Patient is agreeable to plan of care and verbalizes understanding of instructions. He was given the opportunity to ask questions and all questions answered. 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, K21.9 - Gastro-esophageal reflux disease without esophagitis, K59.01 - Slow transit constipation, K52.9 - Noninfective gastroenteritis and colitis, unspecified Medications: New polyethylene glycol 3350 (Miralax) As directed by gastroenterology department at [facility] 238 grams PO ONCE 238 grams 0RF Z12.11 - Encounter for screening for malignant neoplasm of colon magnesium citrate Drink one bottle 2 nights before colonoscopy 296 mL PO ONCE 296 mL 1RF Z12.11 - Encounter for screening for malignant neoplasm of colon Coding Level of Care Code Est Pt Level 4 (19636) Complex EM visit Add On G2211 Diagnoses Gastroesophageal reflux disease without esophagitis K21.9 Esophagitis presence: without esophagitis 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
[2025-02-05 09:49] VITALS: BP 102/68; PULSE 72; O2SAT 100; BMI 27.3
--- OUTSIDE RECORDS SUMMARY | 2025-02-05 11:02 | XMS_ITS | Encounter Summary ---
Author Organization [facility] Address [address] [place] [address] Care Team Providers Care Pole Tester Name Role Phone Oswaldo Blanchard MD Primary Care Provider [phone] Encounter Details Date Type Department Care Team (Late st Contact Info) Description 02/01/2025 Lab Requisition [facility] - Main Lab [address] [facility] [place] [address] Frederick Silva MD [address] [facility] [address] [place] [address] Elevated prostate specific antigen (PSA) Social History Tobacco Use Types Packs/Day Years [...] on file documented as of this encounter Procedures Procedure Name Priority Date/Time Associated Diagnosis Comments FLUOROQUINOLONE RESISTANT GNR IDENTIFICATION AND SUSCEPTIBILITY Routine 02/01/2025 12:00 AM EDT Elevated prostate specific antigen (PSA) CULTURE FLUOROQUINOLONE RESISTANT ORGANISM Routine 02/01/2025 12:00 AM EDT Elevated prostate specific antigen (PSA) documented in this encounter Results * Fluoroquinolone resistant GNR identification and susceptibility (02/01/2025 12:00 AM EDT) Result 1 No Fluoroquinolone Resistant GNR Detected. 02/04/2025 10:05 AM EDT [facility] Swab Rectum structure / Unknown 02/01/2025 02/01/2025 10:28 AM EDT Narrative [facility] - 02/04/2025 10:05 AM EDT Performed at: 01 - [facility] [address] [id number] Cloth Washer Back Tender: Dana Moore MD, Phone: [phone] Frederick Silva MD LAB MICROBIOLOGY - GENERAL ORDER ROSALBA Final Result Performing Organization Address City/[facility]/ZIP Co de Phone Number [facility] * Culture fluoroquinolone resistant organism (02/01/2025 12:00 AM EDT) Fluoroquinolone Resist GNR Cul Final report 02/04/2025 10:05 AM EDT [facility] Swab Rectum structure / Unknown 02/01/2025 02/01/2025 10:28 AM EDT Narrative [facility] - 02/04/2025 10:05 AM EDT Performed at: 01 - [facility] [address] [id number] Cloth Washer Back Tender: Dana Moore MD, Phone: [phone] Frederick Silva MD LAB MICROBIOLOGY - GENERAL ORDER ROSALBA Final Result Performing Organization Address City/[facility]/ZIP Co de Phone Number [facility] documented in this encounter Visit Diagnoses Diagnosis Elevated prostate specific antigen (PSA) documented in this encounter Care Teams Pole Tester Relationship Specialty Start Date End Date Oswaldo Blanchard MD PCP - General Internal Medicine 07/12/19 documented as of this encounter
--- OUTSIDE RECORDS SUMMARY | 2025-02-05 11:02 | XMS_ITS | Clinical Summary ---
Author Organization [facility] Address [address] [place] [address] Care Team Providers Care Reading Tutor Name Role Phone Oswaldo Blanchard MD Primary Care Provider [phone] Social History Tobacco Use Types Packs/Day Years [...] of 2) 01/04/2018 COVID-19 Vaccine (1 - season) 2024 RSV Vaccine 50 years and old er and Patients (1 - 1-dose 75+ series) 01/04/2043 Care Teams Reading Tutor Relationship Specialty Start Date End Date Oswaldo Blanchard MD PCP - General Internal Medicine 02/07/21
--- OUTSIDE RECORDS SUMMARY | 2025-02-05 11:02 | XMS_ITS | Clinical Summary ---
Author Organization [address] Address [address] [place] [phone] Phone Care Team Providers Care Nut Culler Name Role Phone Oswaldo Blanchard MD Primary Care Provider Encounters Date Type Department Care Team Description 02/01/2025 Lab Requisition [facility] - Main Lab [address] [facility] [address] Frederick Silva MD Elevated prostate specific antigen (PSA) from Last 3 Months Medical History Medical History Date Comments Hypertension DX:Hypertension COPD (chronic obstructive pu lmonary disease) ([facility] V24, [facility] V28) DX:COPD (chronic o bstructive pulmonary disease) ([facility]) Anxiety DX:Anxiety Diabetes mellitus ([facility] V 24, [facility] V28) DX:Diabetes mellitus ([facility]) Obesity DX:Obesity GERD (gastroesophageal reflux disease) [...] Health Maintenance Due Date Last Done Comments Colorectal Cancer Screening: Colonoscopy 1968 Diabetes: Annual GFR (Glomerular Filtration Rate) 1968 Diabetes: Annual Foot Exam 01/04/1978 Diabetes: Annual Retina Eye Exam 01/04/1978 Hepatitis A Vaccines (1 of 2 - Risk 2-dose series) 01/04/1987 Hepatitis B Vaccines (1 of 3 - 19+ 3-dose series) 01/04/1987 RSV Immunization Adult Patients (1 - Risk 50-74 years 1-dose series) 01/04/2018 Zoster Vaccines (1 of 2) 01/04/2018 Pneumococcal Vaccine: 50+ Years (2 of 2 - PCV) 04/17/2020 04/17/2019 Cholesterol Screening (Lipid Panel) 03/15/2022 HIV Screening 03/15/2022 Hepatitis C Screening 03/15/2022 Social Influencers of Health Screening 03/15/2022 Diabetes: Annual Urine Albumin-Creatinine Ratio (uACR) 03/25/2022 Diabetes: Blood Sugar Contro l Test (HGBA1C) 03/25/2022 Depression Screening 04/12/2024 COVID-19 Vaccine (3 - 2024-2 6 season) 2024 07/12/2020, 06/14/2020 Influenza Vaccine (#1) 2024 , 04/17/2019 DTaP,Tdap,and [...] on patient's age to complete this topic Procedures Procedure Name Priority Date/Time Associated Diagnosis Comments FLUOROQUINOLONE RESISTANT GNR IDENTIFICATION AND SUSCEPTIBILITY Routine 02/01/2025 12:00 AM EDT Elevated prostate specific antigen (PSA) CULTURE FLUOROQUINOLONE RESISTANT ORGANISM Routine 02/01/2025 12:00 AM EDT Elevated prostate specific antigen (PSA) from Last 3 Months Results * Fluoroquinolone resistant GNR identification and susceptibility (02/01/2025 12:00 AM EDT) Result 1 No Fluoroquinolone Resistant GNR Detected. 02/04/2025 10:05 AM EDT [facility] Swab Rectum structure / Unknown 02/01/2025 02/01/2025 10:28 AM EDT Narrative [facility] - 02/04/2025 10:05 AM EDT Performed at: 01 - [address] [id number] Agricultural Science Professor: Dana Moore MD, Phone: [phone] us Frederick Silva MD LAB MICROBIOLOGY - GENERAL ORDER ROSALBA Final Result [facility] * Culture fluoroquinolone resistant organism (02/01/2025 12:00 AM EDT) Fluoroquinolone Resist GNR Cul Final report 02/04/2025 10:05 AM EDT [facility] Swab Rectum structure / Unknown 02/01/2025 02/01/2025 10:28 AM EDT Narrative [facility] - 02/04/2025 10:05 AM EDT Performed at: 01 - [facility] [id number] Agricultural Science Professor: Dana Moore MD, Phone: [phone] us Frederick Silva MD LAB MICROBIOLOGY - GENERAL ORDER ROSALBA Final Result [facility] from Last 3 Months Insurance [facility] ([facility]) Care Teams Nut Culler Relationship Specialty Start Date End Date Oswaldo Blanchard MD PCP - General Internal Medicine 07/12/19
--- OUTSIDE RECORDS SUMMARY | 2025-02-05 11:03 | XMS_ITS | Encounter Summary ---
Author Organization [facility] Address [address] [place] [address] Care Team Providers Care Rn Cardiology Name Role Phone Oswaldo Blanchard MD Primary Care Provider [phone] Encounter Details Date Type Department Care Team (Late st Contact Info) Description 01/21/2021 Erroneous Encounter [facility] [address] [facility] [place] [id number] Provider, MD Nick Social History Tobacco Use [...] on filedocumented in this encounter Care Teams Rn Cardiology Relationship Specialty Start Date End Date Oswaldo Blanchard MD PCP - General Internal Medicine 02/07/21 documented as of this encounter
--- OUTSIDE RECORDS SUMMARY | 2025-02-05 11:03 | XMS_ITS | Clinical Summary ---
Author Organization [facility] Address [address] [facility] [address] [place] [address] Phone Care Team Providers Care Supervisor Correspondence Section Name Role Phone Oswaldo Blanchard MD Primary Care Provider [phone] Oswaldo Blanchard MD Unavailable [phone] Allergies Active Allergy Reactions Criticality Noted Date [...] 01/04/2018 ZOSTER VACCINES (1 of 2) 01/04/2018 INFLUENZA VACCINE (#1) 2024 COVID-19 VACCINE (2 - 2024-2 6 season) 2024 06/14/2020 RSV VACCINE (1 - 1-dose 75+ series) 01/04/2043 SMOKING STATUS SCREENING (On ce After 26 [...] topic Medical Devices Not on [place] [address] [place] [address] [place] [address] [place] [address] [place] [address] [place] [address] [address] [place] [address] PPO PPO PPO PPO [facility] [place] [address] [place] [address] [place] [address] [place] [address] PPO EPO [facility] [place] [address] [place] [address] PPO EPO [facility] [place] [address] [place] [address] [place] [address] [place] [address] [address] [place] [address] PPO EPO Care Teams Supervisor Correspondence Section Relationship Specialty Start Date End Date Oswaldo Blanchard MD PCP - General Internal Medicine 04/17/19 Oswaldo Blanchard MD Internal Medicine 04/17/19 Additional Source Comments The information contained in this document represents components of the legal health record. It is not the complete legal health record.[facility]
--- OUTSIDE RECORDS SUMMARY | 2025-02-05 11:03 | XMS_ITS | Clinical Summary ---
Author Organization [facility] Address [address] [place] [address] Care Team Providers Care Learning Program Manager Name Role Phone Oswaldo Blanchard MD Primary Care Provider [phone] Allergies Active Allergy Reactions Criticality Noted Date [...] 30 tablet 1 07/08/2022 Active nystatin (MYCOSTATIN) 132468 UNIT/ML suspension Take 5 mL (500,000 Units [...] 07/10/2023 07/09/2022, 05/13, 04/01/2022, Additional history exists Diabetes: Eye Exam (No Retinopathy) 01/21/2024 01/20/2022, 04/26/2020 COVID-19 Vaccine ( season) 2024 07/12/2020, 06/14/2020 Colon Cancer Screening (Colonoscopy) 09/06/2029 09/07/2019 DTap [...] this topic Shingrix-Zoster Vaccine Discontinued Care Teams Learning Program Manager Relationship Specialty Start Date End Date Oswaldo Blanchard MD PCP - General Internal Medicine 07/12/19
== END 2025-02-05 10:20 | disposition home or self-care (01) ==
LOC: HO.HGI 09:42
PROVIDERS: PCP Internal Medicine; Visit Provider Nurse Practitioner Family
DX: K21.9 Gastro-esophageal reflux disease without esophagitis (principal); K22.70 Barrett's esophagus without dysplasia; K59.01 Slow transit constipation; K52.9 Noninfective gastroenteritis and colitis, unspecified
CPT/HCPCS: 99214; G2211

== ENCOUNTER → 2025-02-05 09:41 | Outpatient (BNVA) | payer MEDICARE, SELFPAY | PROVIDERS: PCP Internal Medicine; Visit Provider Nurse Practitioner Family | DX: K52.9 Noninfective gastroenteritis and colitis, unspecified (principal); K59.01 Slow transit constipation; K22.70 Barrett's esophagus without dysplasia; K21.9 Gastro-esophageal reflux disease without esophagitis | CPT/HCPCS: 99212 ==